=== PATIENT | male | born 1955 | race Caucasian/White ===

== ENCOUNTER 2017-04-11 00:43 | Observation (INO) ==
[2017-04-11 01:33] LABS: Basophils # 0.1 K/mcL (0.0-0.2); Basophils % 0.7 %; Eosinophils # 0.1 K/mcL (0.0-0.6); Eosinophils % 1.2 %; Hematocrit 36.1 % (37.5-50.1); Hemoglobin 12.5 g/dL (12.9-16.9); Immature Granulocytes % 0.4 % (0-4); Lymphocytes # 2.3 K/mcL (0.6-4.6); Lymphocytes % 28.5 %; Mean Corpuscular HGB Conc 34.6 g/dL (31.6-35.5); Mean Corpuscular Hemoglobin 29.6 pg (28.0-33.3); Mean Corpuscular Volume 85.3 fL (83.0-100.0); Mean Platelet Volume 10.2 fL (9.4-12.4); Monocytes # 0.8 K/mcL (0.0-1.3); Monocytes % 9.3 %; Neutrophils # 4.9 K/mcL (1.6-8.9); Platelet Count 240 K/mcL (140-400); Red Blood Count 4.23 M/mcL (4.19-5.50); Red Cell Distribution Width 12.7 % (11.5-14.5); Segmented Neutrophils % 59.9 %
[2017-04-11 01:40] LABS: Activated Partial Thrombo Time 30.8 Seconds (26.0-36.0)
[2017-04-11 01:47] LABS: BUN/Creatinine Ratio 17 (6-26); Blood Urea Nitrogen 24 mg/dL (8-26); Calcium 9.3 mg/dL (8.6-10.8); Carbon Dioxide 25 mEq/L (19-29); Chloride 104 mEq/L (98-109); Glucose 150 mg/dL (70-99); Osmolality,Calculated 295 (280-300); Potassium 3.5 mEq/L (3.5-4.5); Sodium 139 mEq/L (136-145); eGFR For African Americans > 60 (> 60); eGFR For Non-African Americans 50 (> 60)
[2017-04-11] MEDS ORDERED: *HR* Morphine 2 MG/ML SYRINGE IVP PRN (07:57)
[2017-04-11] MEDS ORDERED: Naloxone 0.4 MG/ML INJ IVP PRN (07:57)
[2017-04-11] MEDS ORDERED: Ondansetron 4 MG/2 ML VIAL IVP PRN (07:57)
[2017-04-11] MEDS ORDERED: Acetaminophen 325 MG TABLET PO PRN (07:57)
[2017-04-11] MEDS ORDERED: *HR* Dextrose 50 % in Water (Syg) 50 ML SYRINGE IVP PRN (08:02)
[2017-04-11] MEDS ORDERED: Dextrose Gel 15 GM PO PRN ×2 (08:02)
[2017-04-11] MEDS ORDERED: D5% in Water 1,000 ML IVC PRN (08:02)
[2017-04-11] MEDS ORDERED: Nitroglycerin 0.4 MG TAB.SUBL SL PRN (08:03)
--- NOTE | 2017-04-11 08:08 | Internal Med History&Physical ---
Date of Encounter: 04/11/17 Time of Encounter: 08:05 Assessment and Plan (1) Symptomatic bradycardia Current visit: Yes Status: Acute Likely secondary to beta blockers Fall precautions Hold metoprolol, the patient takes 100 mg twice a day at home Telemetry, consider cardiology consult if bradycardia persists Omeprazole for GI prophylaxis and Lovenox for DVT prophylaxis. The patient will be admitted for observation. Full code. Time spent on this admission 40 minutes. High risk of falling (2) Chest pain Current visit: Yes Status: Acute Intermittent chest discomfort Order an echocardiogram to look for wall motion abnormalities. Continue telemetry, monitor troponins. Consider a stress test Continue aspirin, nitroglycerin as needed, morphine as needed Qualifiers: Chest pain type: other chest pain Qualified Code(s): R07.89 - Other chest pain; R07.8 - Other chest pain (3) CAD (coronary artery disease) Current visit: Yes Status: Acute History of 3 stents Qualifiers: Coronary Disease-Associated Artery/Lesion type: [place] artery [place] vs. transplanted heart: [place] heart Associated angina: with other forms of angina Qualified Code(s): I25.118 - Atherosclerotic heart disease of [place] coronary artery with other forms of angina pectoris (4) Diabetes Current visit: Yes Status: Acute Hold metformin and other oral hypoglycemic agents due to renal failure this Continue insulin sliding scale Qualifiers: Diabetes mellitus type: type 2 Diabetes mellitus complication status: without complication Diabetes mellitus assisted insulin use: without assisted use Qualified Code(s): E11.9 - Type 2 diabetes mellitus without complications (5) Chronic kidney disease Current visit: Yes Status: Acute Acute on chronic renal failure Hold Lasix, give gentle hydration Qualifiers: Chronic kidney disease stage: stage 3 (moderate) Qualified Code(s): N18.3 - Chronic kidney disease, stage 3 (moderate) (6) Neuropathy Current visit: Yes Status: Acute Continue gabapentin Internal Medicine - H&P: HPI Chief complaint: Low heart rate and dizziness Admitted From: Emergency Dept History of present illness: Mr. Griffin is a 62 year old male with a past medical history of CAD, CHF systolic versus diastolic, diabetes type 2 not insulin-dependent, chronic kidney disease , who came to the emergency room complaining of low heart rate down to the 30s noticed at home with a pulse ox device. In emergency room his EKG showed an heart rate of 80s with PVCs. His creatinine is 1.44, patient says that he has had history of chronic kidney disease and his last measurement here in 2013 0.85. The patient also takes metoprolol 100 mg twice a day and he says he has been compliant with his medication. Chest x-ray is unremarkable. The patient was also complaining of chest tightness midsternal with no radiation interment 4 out of 10 in intensity. Complains of mild chest discomfort at the moment. Says that he was feeling dizzy and lightheaded at home. Has not had any syncopal episode. 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 - Family History Father Living Status: Hx Family Cardiac Disorders: Yes - Additional Family History Additional family history: Father with diabetes and CABG, mother with CVA and diabetes Internal Medicine - H&P: Meds Aspirin [Lo-Dose Aspirin EC] 81 tab PO DAILY 04/11/17 [History] Clopidogrel 75 tab PO DAILY 04/11/17 [History] Furosemide [Lasix] 40 mg PO DAILY 04/11/17 [History] Gabapentin [Neurontin] 600 mg PO DAILY 04/11/17 [History] Lisinopril/Hydrochlorothiazide [Zestoretic 10-12.5 mg Tablet] 1 tab PO DAILY [History] Metoprolol 100 tab PO BID 04/11/17 [History] Pioglitazone 0.5 tab PO DAILY 04/11/17 [History] metFORMIN 1,500 mg PO DAILY 04/11/17 [History] Allergies duloxetine [From Cymbalta] Adverse Reaction (Verified 04/11/17 08:10) Vomiting All Systems PM: A 10-system review of systems was performed and is negative for pertinent findings except as documented above in the HPI. Review of systems: Complains of chest discomfort, no shortness of breath, no abdominal pain, no dysuria. Other systems out of the 10 reviewed were negative. He feels weak - Constitutional Vitals: Temp Pulse Resp BP Pulse Ox 97.7 F 75 18 188/91 96 04/11/17 06:46 04/11/17 06:46 04/11/17 06:46 04/11/17 06:46 04/11/17 06:46 General appearance: Present: A&O X 3 - Head Head exam: Present: atraumatic, normocephalic - Eye Eye exam: Present: PERRL, conjuntiva pink, sclera anicteric Pupils: Present: PERRL - Neck Neck exam general surgery: Present: supple, trachea midline. Absent: lymphadenopathy - Respiratory Respiratory exam: Present: CTAB, rales. Absent: accessory muscle use, rhonchi, wheezes - Cardiovascular Cardiovascular exam: Present: RRR, +S1, +S2. Absent: diastolic murmur, gallop, rubs, systolic murmur - GI/Abdominal GI/Abdominal exam: Present: normal bowel sounds, soft, no peritoneal signs. Absent: distended, tenderness - Extremities Exam Extremities exam: Present: warm, radial pulses palpable and symetrical. Absent : calf tenderness, cyanotic, pedal edema - Neurological Exam Neurological exam: Present: CN II-XII intact, oriented X3, no focal deficits. Absent: pronater drift, facial droop, speech deficit - Skin Skin exam: Present: dry, intact Internal Med - H&P Results - Labs CBC & Chem 7: 04/11/17 01:25 04/11/17 01:25
[2017-04-11] MEDS ORDERED: Furosemide 40 MG TABLET PO SCH (09:00)
[2017-04-11] MEDS: Aspirin Enteric Coated 81 MG Tablet PO SCH (10:41)
[2017-04-11] MEDS: Gabapentin 300 MG CAPSULE PO SCH (10:41)
[2017-04-11] MEDS: 0.9 % Sodium Chloride 1,000 ML IVC SCH (10:42)
[2017-04-11] MEDS: Insulin LISPRO 300 UNITS/3 ML VIAL SQ SCH ×3 (11:42→20:54)
--- NOTE | 2017-04-11 14:13 | Electrocardiograph Report ---
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
[2017-04-12 01:51] LABS: BUN/Creatinine Ratio 21 (6-26); Blood Urea Nitrogen 24 mg/dL (8-26); Calcium 8.8 mg/dL (8.6-10.8); Carbon Dioxide 27 mEq/L (19-29); Chloride 106 mEq/L (98-109); Chol/HDL Ratio 5.4 (0-4.9); Cholesterol 136 mg/dL (< 200); Glucose 146 mg/dL (70-99); HDL Cholesterol 25 mg/dL (40-59); LDL Cholesterol,Calculated 66 mg/dL (0-99); Osmolality,Calculated 297 (280-300); Potassium 3.5 mEq/L (3.5-4.5); Sodium 140 mEq/L (136-145); Triglycerides 223 mg/dL (< 150); eGFR For African Americans > 60 (> 60); eGFR For Non-African Americans > 60 (> 60)
[2017-04-12] MEDS ORDERED: Nitroglycerin 1 INCH/GM PACKET TP ONE (05:24)
[2017-04-12] MEDS: *HR* Enoxaparin 40 MG/0.4 ML SYRINGE SQ SCH (05:55)
[2017-04-12 06:04] LABS: Basophils # 0.1 K/mcL (0.0-0.2); Basophils % 0.7 %; Eosinophils # 0.1 K/mcL (0.0-0.6); Eosinophils % 1.2 %; Hematocrit 35.9 % (37.5-50.1); Hemoglobin 12.3 g/dL (12.9-16.9); Immature Granulocytes % 0.3 % (0-4); Lymphocytes # 2.1 K/mcL (0.6-4.6); Lymphocytes % 30.5 %; Mean Corpuscular HGB Conc 34.3 g/dL (31.6-35.5); Mean Corpuscular Hemoglobin 29.1 pg (28.0-33.3); Mean Corpuscular Volume 84.9 fL (83.0-100.0); Mean Platelet Volume 10.7 fL (9.4-12.4); Monocytes # 0.7 K/mcL (0.0-1.3); Monocytes % 10.2 %; Neutrophils # 3.9 K/mcL (1.6-8.9); Platelet Count 215 K/mcL (140-400); Red Blood Count 4.23 M/mcL (4.19-5.50); Red Cell Distribution Width 12.5 % (11.5-14.5); Segmented Neutrophils % 57.1 %
[2017-04-12 06:11] LABS: BUN/Creatinine Ratio 20 (6-26); Blood Urea Nitrogen 19 mg/dL (8-26); Calcium 8.8 mg/dL (8.6-10.8); Carbon Dioxide 24 mEq/L (19-29); Chloride 106 mEq/L (98-109); Glucose 125 mg/dL (70-99); Osmolality,Calculated 290 (280-300); Potassium 3.7 mEq/L (3.5-4.5); Sodium 138 mEq/L (136-145); eGFR For African Americans > 60 (> 60); eGFR For Non-African Americans > 60 (> 60)
[2017-04-12 06:12] LABS: Prothrombin Time 11.3 Seconds (9.4-12.1)
[2017-04-12 06:15] LABS: Activated Partial Thrombo Time 28.5 Seconds (26.0-36.0)
[2017-04-12] MEDS ORDERED: niCARdipine 40 MG/200 ML MLS IVC SCH ×2 (06:15→06:29)
--- NOTE | 2017-04-12 06:28 | Event Note ---
Date of Encounter: 04/12/17 Time of Encounter: 06:21 Called to see patient for symptomatic bradycardia. Pt developed chest pressure/ pain, lightheadedness, dizziness, diaphoresis, and some dyspnea. Upon my arrival, BP was 220/100. I ordered Hydralazine IV, NTP, and Morphine IV. EKG and telemetry revealed Bigeminy. I reviewed his labs from earlier in the morning and noted potassium of 3.5. I ordered potassium replacement with 40 mEQ PO potassium chloride. I am moving patient to once bed is ready and available. If necessary, will start Nicardipine drip for BP control and management of HTN Urgency. Current BP is 176/90. Goal BP will be 160-180 systolic for now. Repeat labs drawn and pending. Cardiology will be consulted. Pt with known CAD and 3 stents per patient report. Pt feels a little better now with SBP < 180.
[2017-04-12] MEDS: Gabapentin 300 MG CAPSULE PO SCH (07:51)
[2017-04-12] MEDS: Aspirin Enteric Coated 81 MG Tablet PO SCH (07:52)
[2017-04-12] MEDS: Insulin LISPRO 300 UNITS/3 ML VIAL SQ SCH ×4 (08:00→20:47)
--- NOTE | 2017-04-12 10:33 | Cardiology Consult Note ---
Date of Encounter: 04/12/17 Time of Encounter: 10:26 Assessment and Plan (1) Bigeminy Current Visit: Yes Status: Acute 24 hour telemetry review shows minimum HR was 61 bpm. Avg HR 90 bpm. No pauses. No bradycardia in last 24 hours. He is noted to have frequent PVC and bigeminy. Sometimes PVC are not counted on telemetry and HR is registered lower than it is. Recommend restarting toprol xl and increasing as tolerated. Symptoms likely secondary to bigemeny and elevated b/p up to 205/89. TTE shows preserved LV function. EF 55-60%. Mild LVH. No significant valvular disease. (2) CAD (coronary artery disease) Current Visit: No Status: Chronic H/o three cardiac stents placed 05/2016 at [facility]. Repeat LHC in September at [facility] showed no new blockages per patient. TTE this admit shows preserved EF. Troponin negative x3. EKG shows no acute ST changes. Medical management of PVC and elevated b/p recommended. C/o myalgias since starting simvistatin. Recommend discontinuing. Consider attempting different statin after one week. Continue asa, plavix, and bb. No further cardiac testing at this time. Qualifiers: Coronary Disease-Associated Artery/Lesion type: [place] artery [place] vs. transplanted heart: [place] heart Associated angina: with other forms of angina Qualified Code(s): I25.118 - Atherosclerotic heart disease of [place] coronary artery with other forms of angina pectoris (3) Myalgia Current Visit: Yes Status: Acute C/o BLE pain since CT. Stop simvistatin. (4) Hypertension Current Visit: Yes Status: Acute Restart toprol XL. B/p currently improved. Restart home lisinopril. Low sodium diet discussed. Qualifiers: Hypertension type: essential hypertension Qualified Code(s): I10 - Essential (primary) hypertension Discussion w patient/family: The assessment and plan as outlined above was discussed with the patient and/or family members who expressed understanding and agreement. All questions were answered. Thank you for involving us in the care of your patient. Please call with any questions. History of Present Illness Consult date: 04/12/17 Requesting physician: Rohit Odell Consult reason: Symptomatic bradycardia Chief complaint: Chest discomfort History of present illness: Mr. Griffin is a 62 year old male with a history of CAD s/p PCI 05/2016 at [facility] after having an abnormal stress test, HTN, HLD, COPD,and DM type II. He presented to the hospital with the c/o increasing chest discomfort. he reports he had these symptoms for a very long time and no one can catch what is wrong. He c/o a midsternal, non-radiating, "funny feeling" in his chest. He describes it as feeling like his heart rate is low or his heart is not beating. It is not the same pain he experienced prior to his cardiac stents in May 2016. Denies dizziness or lightheadedness. He also c/o lower extremity pain mainly in his hips since his CT. He was newly started on simvistatin at that time. Cardiology was consulted for symptomatic bradycardia. Past Med Surg Social Fam HX - Past Medical History Medical history: cardiomyopathy, CHF (Systolic versus diastolic), COPD (Not oxygen dependent), diabetes (Not insulin-dependent), hyperlipidemia, hypertension, other (Neuropathy, chronic kidney disease stage III, chronic back pain) Psychiatric history: no psych history - Past Surgical History Surgical History: angioplasty/stent, other (Foot surgery) - Social History Smoking Status: Never smoker Smokeless Tobacco Status: No Alcohol use: none Drug use: none - Family History Father Living Status: Hx Family Cardiac Disorders: Yes Medications and Allergies Albuterol Sulfate [Ventolin Hfa] 2 puff IH Q4H PRN 04/11/17 [History] Aspirin [Lo-Dose Aspirin EC] 81 tab PO DAILY 04/11/17 [History] Clopidogrel [Plavix] 75 mg PO DAILY 04/11/17 [History] Furosemide [Lasix] 40 mg PO DAILY 04/11/17 [History] Gabapentin [Neurontin] 300 - 600 mg PO HS 04/11/17 [History] Lisinopril/Hydrochlorothiazide [Zestoretic 20-25 mg Tablet] 1 tab PO DAILY 04/11 [History] Metformin HCl [Glucophage Xr] 1,500 mg PO DAILY 04/11/17 [History] Metoprolol Succinate 100 mg PO HS 04/11/17 [History] Metoprolol XL (24 HR) Succ [Toprol XL] 50 mg PO QAM 04/11/17 [History] Pioglitazone [Actos] 22.5 mg PO DAILY 04/11/17 [History] Allergies duloxetine [From Cymbalta] Adverse Reaction (Verified 04/11/17 08:10) Vomiting All Systems Review: A 10-system review of systems was performed and is negative for pertinent findings except as documented above in the HPI. Physical Examination Vital Signs, Last 4 Hours Temp Pulse Resp BP Pulse Ox 04/12/17 06:58 97.8 F 73 18 136/93 97 General: Conversant, No Apparent Distress HEENT: Atraumatic, Normocephaly, Mucus Membranes Moist Neck: No JVD, Normal carotid pulses Cardiac: Reg Rate and Rhythm, Normal S1 and S2, No Murmur Lungs: Normal Breath Sounds, No Wheeze, Rales, Rhonchi Neuro: Alert and responsive, No focal deficits noted Abdomen: Soft, Non-Tender Skin: No rashes noted on visualized skin Musculoskeletal: No Chest Wall Tenderness Extremities: No Clubbing, No Cyanosis, No Edema, Normal Pulses Results 04/12/17 05:52 04/12/17 05:52 Lab Results 04/11/17 04/11/17 04/12/17 13:42 20:06 01:27 WBC Hgb Hct Plt Count INR APTT Sodium 140 Potassium 3.5 Chloride 106 Carbon Dioxide 27 BUN 24 Creatinine 1.13 Glucose 146 H Calcium 8.8 Magnesium Troponin I 0.01 0.01 04/12/17 04/12/17 04/12/17 05:52 05:52 05:52 WBC Hgb Hct Plt Count INR APTT Sodium 138 Potassium 3.7 Chloride 106 Carbon Dioxide 24 BUN 19 Creatinine 0.95 Glucose 125 H Calcium 8.8 Magnesium 1.7 Troponin I 0.01 04/12/17 04/12/17 05:52 05:59 WBC 6.8 Hgb 12.3 L Hct 35.9 L Plt Count 215 INR 1.0 APTT 28.5 Sodium Potassium Chloride Carbon Dioxide BUN Creatinine Glucose Calcium Magnesium Troponin I Chest X-Ray 04/11/17 00:51 IMPRESSION: Negative portable chest. D/ / Adalberto Huntley MD / Adalberto Huntley MD Interpreting Provider: Adalberto Huntley MD - Imaging and Cardiology Chest Xray: report reviewed Echo: report reviewed - EKG Interpretation EKG results cardiology: personally reviewed (SR with PVC) Consult Discharge Plan - Plan Referrals: Jesika Mancini [Non-Partnered Physician] - 04/30/17 1:00 pm (Dr. Zamarripa is going to be leaving, so they set you up with a new patient visit with Dr. Mancini) Escobar Martinez MD [Partnered Physician] - (cardiology will call the patient at home with appointment)
[2017-04-12] MEDS ORDERED: Metoprolol XL (24 HR) Succ 50 MG TAB.ER.24H PO SCH (10:45)
[2017-04-12] MEDS: Metoprolol XL (24 HR) Succ 50 MG TAB.ER.24H PO SCH ×2 (12:04→20:54)
--- NOTE | 2017-04-12 14:43 | Internal Med Progress Note ---
<Yaniv Campos - Last Filed: 04/12/17 15:07> Date of Encounter: 04/12/17 Time of Encounter: 08:00 - Assessment and plan (1) Chest pain Current Visit: Yes Status: Acute Assessment and plan: Intermittent chest discomfort relieved by nitroglycerin -Continue telemetry, NTG PRN, Morphine PRN -Initial trops negative, will trend per cardio recs -Cardio on board Qualifiers: Chest pain type: other chest pain Qualified Code(s): R07.89 - Other chest pain; R07.8 - Other chest pain (2) CAD (coronary artery disease) Current Visit: No Status: Chronic Assessment and plan: s/p stentx3. -Restart BB at lower dose per cardiology recs Qualifiers: Coronary Disease-Associated Artery/Lesion type: [place] artery [place] vs. transplanted heart: [place] heart Associated angina: with other forms of angina Qualified Code(s): I25.118 - Atherosclerotic heart disease of [place] coronary artery with other forms of angina pectoris (3) Bigeminy Current Visit: Yes Status: Acute Assessment and plan: Pt on telemetry and experiencing transient bigeminal rhythms with many PVCs. This could be a source of his chest discomfort. -Start Imdur 30mg per cardio recs. (4) Diabetes Current Visit: Yes Status: Acute Assessment and plan: Blood glucose controlled appropriately on sliding scale at this time. Qualifiers: Diabetes mellitus type: type 2 Diabetes mellitus complication status: without complication Diabetes mellitus nursing home insulin use: without sales representatives use Qualified Code(s): E11.9 - Type 2 diabetes mellitus without complications (5) Chronic kidney disease Current Visit: Yes Status: Chronic Assessment and plan: Acute on chronic Hold Lasix, gentle hydration Qualifiers: Chronic kidney disease stage: stage 3 (moderate) Qualified Code(s): N18.3 - Chronic kidney disease, stage 3 (moderate) (6) Hypertension Current Visit: Yes Status: Acute Assessment and plan: Continue BB at lower dose, start imdur 30mg -Cardio on board and we will follow recs Qualifiers: Hypertension type: essential hypertension Qualified Code(s): I10 - Essential (primary) hypertension (7) Myalgia Current Visit: Yes Status: Acute Assessment and plan: D/c statin at this time - Subjective Interval history: The patient is resting comfortably in bed at time of examination. He says that he is still having some chest discomfort occasionally, and that he had some earlier this morning which was relieved by nitroglycerin. He states that he is not extremely anxious about the chest discomfort, however he says that he does feel like his heart is going to stop at any time. - Constitutional Vitals: Temp Pulse Resp BP Pulse Ox 97.8 F 68 18 137/84 97 04/12/17 11:33 04/12/17 12:30 04/12/17 11:33 04/12/17 11:33 04/12/17 11:33 General appearance: Present: A&O X 3 - Head Head exam: Present: atraumatic, normocephalic - Eye Eye exam: Present: PERRL, conjuntiva pink, sclera anicteric Pupils: Present: PERRL - Neck Neck exam general surgery: Present: supple, trachea midline. Absent: lymphadenopathy - Respiratory Respiratory exam: Present: CTAB. Absent: accessory muscle use, rales, rhonchi, wheezes - Cardiovascular Cardiovascular exam: Present: RRR, +S1, +S2. Absent: diastolic murmur, gallop, rubs, systolic murmur - GI/Abdominal GI/Abdominal exam: Present: normal bowel sounds, soft, no peritoneal signs. Absent: distended, tenderness - Extremities Exam Extremities exam: Present: pedal edema, warm, radial pulses palpable and symetrical. Absent: calf tenderness, cyanotic Additional comments: +1 edema in LEs b/l - Neurological Exam Neurological exam: Present: CN II-XII intact, oriented X3, no focal deficits. Absent: pronater drift, facial droop, speech deficit - Skin Skin exam: Present: dry, intact Internal Medicine: Result - Labs CBC & Chem 7: 04/12/17 05:52 04/12/17 05:52 Labs: Short CBC 04/12/17 Range/Units 05:52 WBC 6.8 (4.3-11.1) K/mcL Hgb 12.3 L (12.9-16.9) g/dL Hct 35.9 L (37.5-50.1) % Plt Count 215 (140-400) K/mcL Neutrophils # 3.9 (1.6-8.9) K/mcL BMP 04/12/17 04/12/17 01:27 05:52 Sodium 140 138 Potassium 3.5 3.7 Chloride 106 106 Carbon Dioxide 27 24 BUN 24 19 Creatinine 1.13 0.95 Glucose 146 H 125 H Calcium 8.8 8.8 Cardiac Enzymes 04/11/17 04/11/17 04/12/17 Range/Units 13:42 20:06 05:52 Troponin I 0.01 0.01 0.01 (0-0.03) ng/mL - ABG Interpretation ABG results: PT/INR, D-dimer PT 11.3 Seconds (9.4-12.1) 04/12/17 05:59 Consult Discharge Plan - Plan Referrals: Jesika Mancini [Non-Partnered Physician] - 04/30/17 1:00 pm (Dr. Zamarripa is going to be leaving, so they set you up with a new patient visit with Dr. Mancini) Escobar Martinez MD [Partnered Physician] - (cardiology will call the patient at home with appointment) <Max Vasquez - Last Filed: 04/12/17 18:52> Date of Encounter: 04/12/17 - Assessment and plan (1) Hypertensive emergency Current Visit: Yes Status: Acute Assessment and plan: Improving with current treatment. (2) Bradycardia, drug induced Current Visit: Yes Status: Acute Assessment and plan: Most likely related to metoprolol (3) Hypertension Current Visit: Yes Status: Acute Qualifiers: Hypertension type: essential hypertension Qualified Code(s): I10 - Essential (primary) hypertension (4) Chest pain Current Visit: Yes Status: Acute Qualifiers: Chest pain type: other chest pain Qualified Code(s): R07.89 - Other chest pain; R07.8 - Other chest pain (5) Diabetes Current Visit: Yes Status: Acute Qualifiers: Diabetes mellitus type: type 2 Diabetes mellitus complication status: without complication Diabetes mellitus sales representatives insulin use: without sales representatives use Qualified Code(s): E11.9 - Type 2 diabetes mellitus without complications (6) Myalgia Current Visit: Yes Status: Acute (7) CAD (coronary artery disease) Current Visit: No Status: Chronic Qualifiers: Coronary Disease-Associated Artery/Lesion type: [place] artery [place] vs. transplanted heart: [place] heart Associated angina: with other forms of angina Qualified Code(s): I25.118 - Atherosclerotic heart disease of [place] coronary artery with other forms of angina pectoris (8) Chronic kidney disease Current Visit: Yes Status: Chronic Qualifiers: Chronic kidney disease stage: stage 3 (moderate) Qualified Code(s): N18.3 - Chronic kidney disease, stage 3 (moderate) - Constitutional Vitals: Temp Pulse Resp BP Pulse Ox 98.0 F 62 18 136/78 93 04/12/17 16:18 04/12/17 16:18 04/12/17 16:18 04/12/17 16:18 04/12/17 16:18 Internal Medicine: Result - Labs CBC & Chem 7: 04/12/17 05:52 04/12/17 05:52 Labs: Short CBC 04/12/17 Range/Units 05:52 WBC 6.8 (4.3-11.1) K/mcL Hgb 12.3 L (12.9-16.9) g/dL Hct 35.9 L (37.5-50.1) % Plt Count 215 (140-400) K/mcL Neutrophils # 3.9 (1.6-8.9) K/mcL BMP 04/12/17 04/12/17 01:27 05:52 Sodium 140 138 Potassium 3.5 3.7 Chloride 106 106 Carbon Dioxide 27 24 BUN 24 19 Creatinine 1.13 0.95 Glucose 146 H 125 H Calcium 8.8 8.8 Cardiac Enzymes 04/11/17 04/12/17 04/12/17 Range/Units 20:06 05:52 18:03 Troponin I 0.01 0.01 0.00 (0-0.03) ng/mL - ABG Interpretation ABG results: PT/INR, D-dimer PT 11.3 Seconds (9.4-12.1) 04/12/17 05:59 - Attending Attestation I examined this patient and my medical decision-making was reviewed with the Resident Physician on 04/12/17. I agree with the documented findings, disposition and treatment plan as described except to the extent set forth below. Mr. Griffin is currently admitted for acute bradycardia and chest pain complicated by hypertensive emergency. He remains high risk due to potential for worsening cardiac status. Mr Griffin is still feeling the symptoms in his chest. He feels palpitations and "funny feeling" that has been relieved by nitro in past. No dyspnea. Has headache on L side which he feels is from nitro. No GI symptoms. No fever or chills. Has been seen by card and is to be restarted on lower dose of metoprolol and Imdur added. Exam Alert. Comfortable but anxious Mucus membranes dry Heart reg - not ravi now Lungs clear Abd soft No edema I/P 1. Bradycardia - improved with holding med 2. Palpitations 3. Hypertensive emergency - improving at this time. Further diagnoses and plan as above.
[2017-04-12] MEDS: Isosorbide MONOnitrate (24 HR) 30 MG TAB.ER.24H PO SCH (14:46)
[2017-04-12] MEDS: 0.9 % Sodium Chloride 1,000 ML IVC SCH (17:01)
--- NOTE | 2017-04-12 17:31 | Electrocardiograph Report ---
[address] [address] Test Date: 2017-04-12 Pat Name: Rc Griffin Department: 114 Room: 2N01 Gender: M Time Study Technician: KANE : 1955 Requested By: Max Vasquez Order Number: [id number] Reading MD: Alejandro Hopper DO Measurements Intervals [place] Rate: 68 P: 29 UT: 183 QRS: 10 QRSD: 108 T: 24 QT: 439 QTc: 456 Interpretive Statements SINUS RHYTHM WITH FREQUENT VENTRICULAR PREMATURE COMPLEXES NONSPECIFIC ST-T CHANGES Electronically Signed On 04-12-2017 17:29:13 EDT by Alejandro Hopper DO
[2017-04-13 05:12] LABS: Basophils % 0.5 %; Eosinophils # 0.1 K/mcL (0.0-0.6); Hematocrit 31.1 % (37.5-50.1); Hemoglobin 10.9 g/dL (12.9-16.9); Immature Granulocytes % 0.4 % (0-4); Lymphocytes # 1.5 K/mcL (0.6-4.6); Lymphocytes % 18.8 %; Mean Corpuscular Hemoglobin 30.3 pg (28.0-33.3); Mean Corpuscular Volume 86.4 fL (83.0-100.0); Mean Platelet Volume 10.7 fL (9.4-12.4); Monocytes # 0.7 K/mcL (0.0-1.3); Monocytes % 8.8 %; Neutrophils # 5.6 K/mcL (1.6-8.9); Platelet Count 172 K/mcL (140-400); Red Cell Distribution Width 12.6 % (11.5-14.5); Segmented Neutrophils % 70.5 %
[2017-04-13 05:26] LABS: BUN/Creatinine Ratio 22 (6-26); Blood Urea Nitrogen 22 mg/dL (8-26); Calcium 8.2 mg/dL (8.6-10.8); Carbon Dioxide 23 mEq/L (19-29); Chloride 112 mEq/L (98-109); Glucose 115 mg/dL (70-99); Osmolality,Calculated 292 (280-300); Potassium 3.9 mEq/L (3.5-4.5); Sodium 139 mEq/L (136-145); eGFR For African Americans > 60 (> 60); eGFR For Non-African Americans > 60 (> 60)
[2017-04-13] MEDS: *HR* Enoxaparin 40 MG/0.4 ML SYRINGE SQ SCH (05:42)
[2017-04-13] MEDS: Insulin LISPRO 300 UNITS/3 ML VIAL SQ SCH ×4 (07:37→21:16)
[2017-04-13] MEDS: Metoprolol XL (24 HR) Succ 50 MG TAB.ER.24H PO SCH ×2 (09:24→21:19)
[2017-04-13] MEDS: Aspirin Enteric Coated 81 MG Tablet PO SCH (09:24)
[2017-04-13] MEDS: Isosorbide MONOnitrate (24 HR) 30 MG TAB.ER.24H PO SCH (09:24)
[2017-04-13] MEDS: Gabapentin 300 MG CAPSULE PO SCH (09:25)
--- NOTE | 2017-04-13 09:33 | Discharge Summary ---
<Yaniv Campos - Last Filed: 04/13/17 15:05> Date of Encounter: 04/13/17 Time of Encounter: 09:30 - Discharge Diagnosis (1) Chest pain Priority: Primary Status: Acute Comments: Intermittent chest discomfort relieved by nitroglycerin Troponins have been negative. No signs of ACS. Likely caused by frequent PVCs. We will continue low dose metoprolol and imdur. Patient should follow up as outpatient Qualifiers: Chest pain type: other chest pain Qualified Code(s): R07.89 - Other chest pain; R07.8 - Other chest pain (2) CAD (coronary artery disease) Priority: Secondary Status: Chronic Comments: s/p stentx3. D/c on BB, jory, ASA and plavix Qualifiers: Coronary Disease-Associated Artery/Lesion type: [place] artery [place] vs. transplanted heart: [place] heart Associated angina: with other forms of angina Qualified Code(s): I25.118 - Atherosclerotic heart disease of [place] coronary artery with other forms of angina pectoris (3) Bigeminy Priority: Primary Status: Acute Comments: NSR on monitor for past 12 hours, and patient reports no sensation of PVCs. (4) Diabetes Priority: Secondary Status: Acute Comments: Well managed throughout stay. Patient should continue to home meds and follow up with primary care for glycemic management. Qualifiers: Diabetes mellitus type: type 2 Diabetes mellitus complication status: without complication Diabetes mellitus supervisor intermediates insulin use: without mcc use Qualified Code(s): E11.9 - Type 2 diabetes mellitus without complications (5) Chronic kidney disease Priority: Secondary Status: Chronic Comments: Stable Qualifiers: Chronic kidney disease stage: stage 3 (moderate) Qualified Code(s): N18.3 - Chronic kidney disease, stage 3 (moderate) (6) Hypertension Priority: Primary Status: Acute Comments: The patient's blood pressure is difficult to control due to his tendency for low -normal to bradycardic rates. We will continue the meds he has been on in the hospital at home. Qualifiers: Hypertension type: essential hypertension Qualified Code(s): I10 - Essential (primary) hypertension (7) Myalgia Priority: Secondary Status: Acute Comments: D/c statin - Discharge Medications Prescriptions: Isosorbide MONOnitrate (24 HR) [Imdur] 30 mg PO DAILY #30 Lisinopril [Zestril] 20 mg PO DAILY #30 tablet Metoprolol XL (24 HR) Succ [Toprol Xl] 50 mg PO BID #60 Omeprazole [PriLOSEC] 20 mg PO DAILY@0630 #30 Home Medications: Albuterol Sulfate [Ventolin Hfa] 2 puff IH Q4H PRN 04/11/17 [History] Aspirin [Lo-Dose Aspirin EC] 81 tab PO DAILY 04/11/17 [History] Clopidogrel [Plavix] 75 mg PO DAILY 04/11/17 [History] Furosemide [Lasix] 40 mg PO DAILY 04/11/17 [History] Gabapentin [Neurontin] 300 - 600 mg PO HS 04/11/17 [History] Metformin HCl [Glucophage Xr] 1,500 mg PO DAILY 04/11/17 [History] Pioglitazone [Actos] 22.5 mg PO DAILY 04/11/17 [History] Isosorbide MONOnitrate (24 HR) [Imdur] 30 mg PO DAILY #30 04/13/17 [Rx] Lisinopril [Zestril] 20 mg PO DAILY #30 tablet 04/13/17 [Rx] Metoprolol XL (24 HR) Succ [Toprol Xl] 50 mg PO BID #60 04/13/17 [Rx] Nitroglycerin 0.4 mg SL Q5MIN PRN 04/13/17 [Rx] Omeprazole [PriLOSEC] 20 mg PO DAILY@0630 #30 04/13/17 [Rx] Allergies/Adverse Reactions: Allergies duloxetine [From Cymbalta] Adverse Reaction (Verified 04/11/17 08:10) Vomiting Procedures/tests Complete & Pending: Procedures Performed prior 72 hours Category Date Time Status ECG 12 lead ECG [ECG] Routine Y 04/12/17 05:23 Completed EV echocardiogram Routine Y 04/11/17 08:03 Completed Date of admission: 04/11/17 05:58 Primary care physician: PCP NO Consults: 04/12/17 06:20 Consult to Cardiology [CONS] Routine Comment: Consulting Provider: Cardiology Kristy Reason for Consult: symptomatic bradycardia Call Completed: No - Patient Status Disposition: Home, Self-Care Condition: Fair Functional capacity at discharge: independent ambulation Overall status at discharge: patient is progressing back to baseline - Discharge Instructions Instructions: Metoprolol (By mouth), Lisinopril (By mouth), Omeprazole (By mouth), Isosorbide Mononitrate (By mouth), Chronic Hypertension (DC), Bradycardia (DC) Follow Up With: Jesika Mancini [Non-Partnered Physician] - 04/30/17 1:00 pm (Dr. Zamarripa is going to be leaving, so they set you up with a new patient visit with Dr. Mancini) Escobar Martinez MD [Partnered Physician] - (cardiology will call the patient at home with appointment) Yaniv Campos DO [Resident] - (REQUEST WAS SENT. PLEASE FOLLOW UP IN 1-2 WEEKS. ) Additional Instructions: The patient should follow up with PCP within 1-2 weeks, and with cardiology as directed. The patient has asked to establish primary care at the [facility] with either Dr. Yaniv Campos or Dr. Pranav Hahn if possible. - Diet and Activity Activity: as per the cardiac rehab Diet: low salt diet Hospital course: Mr. Griffin is a 62 year old male with a past medical history of CAD s/p stent x3 ( 07/15), CHF systolic versus diastolic, diabetes type 2 not insulin-dependent, chronic kidney disease, who came to the emergency room complaining of low heart rate down to the 30s noticed at home with a pulse ox device. In emergency room his EKG showed an heart rate of 80s with PVCs, however his beta angus was stopped due to potential medication induced symptomatic bradychardia. His creatinine was 1.44, patient said that he has had history of chronic kidney disease and his last measurement here in 2013 0.85. The patient also took metoprolol 100 mg twice a day and he says he has been compliant with his medication. He was admitted to the floor for observation and telemetry, but the monitor picked up on several runs of bradycardia with PVCs in a bigeminal pattern while the patient simultaneously was having hypertensive emergency. The patient was transferred to step-down unit and cardiology was consulted. Trops were trended and negative, TTE showed no wall motion abnormalities, and beta angus therapy was reintroduced at a decreased dose along with Imdur at the recommendation of cardiology. The patient's symptoms of chest discomfort approved on this regimen, and his HR and BP remained stable after initiating this therapy. We will continue the patient on these meds post discharge and have him follow up outpatient with both PCP and Cardiology. - Time Spent with Patient Total time spent providing and/or coordinating discharge services: - Constitutional Vitals: Temp Pulse Resp BP Pulse Ox 98.2 F 53 16 135/62 97 04/13/17 07:16 04/13/17 07:16 04/13/17 07:16 04/13/17 07:16 04/13/17 07:16 General appearance: Present: A&O X 3 - Head Head exam: Present: atraumatic, normocephalic - Eye Eye exam: Present: PERRL, conjuntiva pink, sclera anicteric Pupils: Present: PERRL - Neck Neck exam general surgery: Present: supple, trachea midline. Absent: lymphadenopathy - Respiratory Respiratory exam: Present: CTAB. Absent: accessory muscle use, rales, rhonchi, wheezes - Cardiovascular Cardiovascular exam: Present: RRR, +S1, +S2. Absent: diastolic murmur, gallop, rubs, systolic murmur - GI/Abdominal GI/Abdominal exam: Present: normal bowel sounds, soft, no peritoneal signs. Absent: distended, tenderness - Extremities Exam Extremities exam: Present: warm, radial pulses palpable and symetrical. Absent : calf tenderness, cyanotic, pedal edema - Neurological Exam Neurological exam: Present: CN II-XII intact, oriented X3, no focal deficits. Absent: pronater drift, facial droop, speech deficit - Skin Skin exam: Present: dry, intact <Max Vasquez - Last Filed: 04/13/17 18:18> Date of Encounter: 04/13/17 - Discharge Diagnosis (1) Hypertensive emergency Priority: Primary Status: Acute (2) Bradycardia, drug induced Priority: Primary Status: Acute (3) Hypertension Status: Acute Qualifiers: Hypertension type: essential hypertension Qualified Code(s): I10 - Essential (primary) hypertension (4) Chest pain Status: Acute Qualifiers: Chest pain type: other chest pain Qualified Code(s): R07.89 - Other chest pain; R07.8 - Other chest pain (5) Diabetes Status: Acute Qualifiers: Diabetes mellitus type: type 2 Diabetes mellitus complication status: with neurologic complications Diabetes mellitus complication detail: with polyneuropathy Diabetes mellitus supervisor intermediates insulin use: without mcc use Qualified Code(s): E11.42 - Type 2 diabetes mellitus with diabetic polyneuropathy (6) Myalgia Status: Acute (7) CAD (coronary artery disease) Status: Chronic Qualifiers: Coronary Disease-Associated Artery/Lesion type: [place] artery [place] vs. transplanted heart: [place] heart Associated angina: with other forms of angina Qualified Code(s): I25.118 - Atherosclerotic heart disease of [place] coronary artery with other forms of angina pectoris (8) Chronic kidney disease Status: Chronic Qualifiers: Chronic kidney disease stage: stage 3 (moderate) Qualified Code(s): N18.3 - Chronic kidney disease, stage 3 (moderate) Procedures/tests Complete & Pending: Procedures Performed prior 72 hours Category Date Time Status MR angio head wo con [MR] Stat MRI 04/13/17 15:07 Completed MR angio neck wo/w con [MR] Stat MRI 04/13/17 14:34 Completed MR cervical spine wo con [MR] Stat MRI 04/13/17 14:34 Completed MR head/brain wo con [MR] Stat MRI 04/13/17 14:34 Completed ECG 12 lead ECG [ECG] Routine Y 04/12/17 05:23 Completed ECG 12 lead ECG [ECG] Stat Y 04/13/17 13:56 Ordered EV echocardiogram Routine Y 04/11/17 08:03 Completed Date of admission: 04/11/17 05:58 Primary care physician: PCP NO Consults: 04/12/17 06:20 Consult to Cardiology [CONS] Routine Comment: Consulting Provider: Cardiology Kristy Reason for Consult: symptomatic bradycardia Call Completed: No Hospital course: Mr. Griffin is a 62 year old male - Time Spent with Patient Total time spent providing and/or coordinating discharge services: - Constitutional Vitals: Temp Pulse Resp BP Pulse Ox 97.8 F 55 17 173/93 98 04/13/17 11:49 04/13/17 17:46 04/13/17 17:46 04/13/17 17:46 04/13/17 17:46 - Attending Attestation I examined this patient and my medical decision-making was reviewed with the Resident Physician on 04/13/17. I agree with the documented findings, disposition and treatment plan as described except to the extent set forth below. Mr. Griffin was admitted for chest pain and bradycardia. Symptoms have improved and medications have been adjusted by cardiology. He is feeling well and ready to go home. No fever and vitals stable. Exam Alert. Comfortable Mucus membranes moist Heart reg - not ravi now Lungs clear Plan D/C home on lower dose Metoprolol and Imdur. No diuretic. Follow up with cardiology and PCP.
--- NOTE | 2017-04-13 09:52 | Cardiology Progress Note ---
Date of Encounter: 04/13/17 Time of Encounter: 08:40 Assessment and Plan (1) Bigeminy Current Visit: Yes Status: Acute 24 hour telemetry review shows minimum HR was 44 bpm at 0430 am. No daytime bradycardia seen. Avg HR 61 bpm. No pauses. minimal PVC and bigeminy seen since yesterday morning. Symptoms have resolved. Tolerating Toprol-XL 50 mg twice a day. Dosed decreased from 100 mg in the a.m. and 50 mg in the p.m. on admission. HCTZ stopped and imdur started. Symptoms likely secondary to bigemeny and elevated b/p up to 205/89. TTE shows preserved LV function. EF 55-60%. Mild LVH. No significant valvular disease. Kristy cardiology will coordinate outpatient follow-up with Kristy Vang in 2-3 weeks. Cardiology will sign off, please call with questions. (2) CAD (coronary artery disease) Current Visit: No Status: Chronic H/o three cardiac stents placed 05/2016 at [facility]. Repeat LHC in September at [facility] showed no new blockages per patient. TTE this admit shows preserved EF. Troponin negative x3. EKG shows no acute ST changes. Medical management of PVC and elevated b/p recommended. C/o myalgias since starting simvistatin. Recommend discontinuing. Consider attempting different statin after one week. Continue asa, plavix, and bb. No further cardiac testing at this time. Qualifiers: Coronary Disease-Associated Artery/Lesion type: [place] artery [place] vs. transplanted heart: [place] heart Associated angina: with other forms of angina Qualified Code(s): I25.118 - Atherosclerotic heart disease of [place] coronary artery with other forms of angina pectoris (3) Myalgia Current Visit: Yes Status: Acute C/o BLE pain since [place]. Stop simvistatin. (4) Hypertension Current Visit: Yes Status: Acute Blood pressure is now acceptable. Continue Toprol-XL and lisinopril. Qualifiers: Hypertension type: essential hypertension Qualified Code(s): I10 - Essential (primary) hypertension Discussion w patient/family: The assessment and plan as outlined above was discussed with the patient and/or family members who expressed understanding and agreement. All questions were answered. Thank you for involving us in the care of your patient. Please call with any questions. Subjective Principal diagnosis: Bigeminy, uncontrolled HTN Interval history: Mr. Griffin reports he is feeling better. He denies recurrent chest discomfort. Denies dizziness or syncope. Objective Vital Signs, Last 4 Hours Temp Pulse Resp BP Pulse Ox 04/13/17 09:31 65 155/80 96 04/13/17 08:00 60 135/70 04/13/17 07:16 98.2 F 53 16 135/62 97 General: Conversant, No Apparent Distress HEENT: Atraumatic, Normocephaly, Mucus Membranes Moist Neck: No JVD, Normal carotid pulses Cardiac: Reg Rate and Rhythm, Normal S1 and S2, No Murmur Lungs: Normal Breath Sounds, No Wheeze, Rales, Rhonchi Neuro: Alert and responsive, No focal deficits noted Abdomen: Soft, Non-Tender Skin: No rashes noted on visualized skin Musculoskeletal: No Chest Wall Tenderness Extremities: No Clubbing, No Cyanosis, No Edema, Normal Pulses Results 04/13/17 04:59 04/13/17 04:59 Lab Results 04/12/17 04/13/17 04/13/17 18:03 04:59 04:59 WBC 7.9 Hgb 10.9 L Hct 31.1 L Plt Count 172 Sodium 139 Potassium 3.9 Chloride 112 H Carbon Dioxide 23 BUN 22 Creatinine 1.01 Glucose 115 H Calcium 8.2 L Troponin I 0.00 - Imaging and Cardiology Echo: report reviewed - EKG Interpretation EKG results cardiology: personally reviewed Consult Discharge Plan - Plan Referrals: Jesika Mancini [Non-Partnered Physician] - 04/30/17 1:00 pm (Dr. Zamarripa is going to be leaving, so they set you up with a new patient visit with Dr. Mancini) Escobar Martinez MD [Partnered Physician] - (cardiology will call the patient at home with appointment)
--- NOTE | 2017-04-13 15:16 | Event Note ---
<Yaniv Campos - Last Filed: 04/13/17 15:18> Date of Encounter: 04/13/17 Time of Encounter: 15:09 Nurse called while patient was preparing for discharge and said that he had gotten dizzy while ambulating and showering, and again felt discomfort in his chest and palpitations. He was no longer on telemetry at this time. I ordered a stat 12-lead EKG which showed sinus rhythm, and paged Cardiology for recommendations. When interviewed, the patient mentions that his chest discomfort had largely resolved, but that he still felt palpitations. He is not short of breath, and is in no apparent acute distress. He said that he has had an acute visual change associated with this episode, and that he feels his vision is more blurred than he is used to. I completed a neurological exam and found CN2-12 grossly intact b/l, muscle strength 5/5 in upper extremities with R. shoulder ROM limited s/p injury to the R. rotator cuff, and 4/5 in lower extremities, with particular deficit in hip flexion. The patient was unable to complete full heel to laura due to weakness in hip flexion and pain. Sensation was intact and equal b/l. Plan: -Cancel discharge, consult cardiology for updated rec's -Start telemetry again -MRI/MRA head and neck -ESR, CRP, CPK -Monitor patient overnight. <Max Vasquez - Last Filed: 04/13/17 18:20> Date of Encounter: 04/13/17 Pt had recurrence of symptoms prior to discharge. He is complaining of visual issues as well as leg pain and difficulty with movement. At this time will hold discharge. Check MRI/MRA ? if another neuro process like Eathimanshu Lambcorine Anticipate will need neuro eval.
[2017-04-13 15:22] LABS: C-Reactive Protein 11 mg/L (Less than 5); Creatine Kinase 51 Units/L (30-200)
[2017-04-13] MEDS: 0.9 % Sodium Chloride 1,000 ML IVC SCH (18:04)
[2017-04-14] MEDS: *HR* Enoxaparin 40 MG/0.4 ML SYRINGE SQ SCH (05:36)
[2017-04-14 06:28] LABS: Basophils % 0.4 %; Eosinophils # 0.1 K/mcL (0.0-0.6); Eosinophils % 0.9 %; Hematocrit 30.8 % (37.5-50.1); Hemoglobin 10.7 g/dL (12.9-16.9); Immature Granulocytes % 0.4 % (0-4); Lymphocytes # 1.4 K/mcL (0.6-4.6); Mean Corpuscular HGB Conc 34.7 g/dL (31.6-35.5); Mean Corpuscular Hemoglobin 29.7 pg (28.0-33.3); Mean Corpuscular Volume 85.6 fL (83.0-100.0); Mean Platelet Volume 10.9 fL (9.4-12.4); Monocytes # 0.7 K/mcL (0.0-1.3); Monocytes % 10.4 %; Neutrophils # 4.8 K/mcL (1.6-8.9); Platelet Count 185 K/mcL (140-400); Red Cell Distribution Width 12.4 % (11.5-14.5); Segmented Neutrophils % 67.9 %
[2017-04-14 06:42] LABS: BUN/Creatinine Ratio 19 (6-26); Blood Urea Nitrogen 17 mg/dL (8-26); Calcium 8.2 mg/dL (8.6-10.8); Carbon Dioxide 26 mEq/L (19-29); Chloride 111 mEq/L (98-109); Glucose 115 mg/dL (70-99); Osmolality,Calculated 292 (280-300); Potassium 3.8 mEq/L (3.5-4.5); Sodium 140 mEq/L (136-145); eGFR For African Americans > 60 (> 60); eGFR For Non-African Americans > 60 (> 60)
[2017-04-14] MEDS: Insulin LISPRO 300 UNITS/3 ML VIAL SQ SCH ×2 (08:58→12:26)
[2017-04-14] MEDS: Metoprolol XL (24 HR) Succ 50 MG TAB.ER.24H PO SCH (09:02)
[2017-04-14] MEDS: Isosorbide MONOnitrate (24 HR) 30 MG TAB.ER.24H PO SCH (09:02)
[2017-04-14] MEDS: Gabapentin 300 MG CAPSULE PO SCH (09:02)
[2017-04-14] MEDS: Aspirin Enteric Coated 81 MG Tablet PO SCH (09:02)
[2017-04-14] MEDS: 0.9 % Sodium Chloride 1,000 ML IVC SCH ×2 (09:09→09:46)
--- NOTE | 2017-04-14 10:44 | Internal Med Progress Note ---
<Yaniv Campos - Last Filed: 04/14/17 12:11> Date of Encounter: 04/14/17 Time of Encounter: 10:42 - Assessment and plan (1) Chest pain Status: Acute Assessment and plan: Intermittent chest discomfort relieved by nitroglycerin -Continue telemetry, NTG PRN, Morphine PRN -Initial trops negative, will trend per cardio recs -we asked for cardio's opinion again, despite having previously signed off on the case. -Obtained a neuro consult for issues of muscle weakness and visual disturbance, but will seek their opinion on the issue of neurological causes of bradycardia Qualifiers: Chest pain type: other chest pain Qualified Code(s): R07.89 - Other chest pain; R07.8 - Other chest pain (2) CAD (coronary artery disease) Status: Chronic Assessment and plan: s/p stentx3. -Restart BB at lower dose per cardiology recs Qualifiers: Coronary Disease-Associated Artery/Lesion type: [place] artery [place] vs. transplanted heart: [place] heart Associated angina: with other forms of angina Qualified Code(s): I25.118 - Atherosclerotic heart disease of [place] coronary artery with other forms of angina pectoris (3) Bigeminy Status: Acute Assessment and plan: Pt on telemetry and experiencing transient bigeminal rhythms with many PVCs. This could be a source of his chest discomfort. -Start Imdur 30mg per cardio recs. -Mostly resolved (4) Diabetes Status: Acute Assessment and plan: Blood glucose controlled appropriately on sliding scale at this time. 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 Qualified Code(s): E11.42 - Type 2 diabetes mellitus with diabetic polyneuropathy (5) Chronic kidney disease Status: Chronic Assessment and plan: Acute on chronic Hold Lasix, gentle hydration Qualifiers: Chronic kidney disease stage: stage 3 (moderate) Qualified Code(s): N18.3 - Chronic kidney disease, stage 3 (moderate) (6) Hypertension Status: Acute Assessment and plan: Continue BB at lower dose, imdur 30mg Qualifiers: Hypertension type: essential hypertension Qualified Code(s): I10 - Essential (primary) hypertension (7) Myalgia Status: Acute Assessment and plan: D/c statin at this time (8) Weakness generalized Status: Acute Assessment and plan: -The patient is experiencing muscle weakness in his lower extremities and visual changes. -MRI/MRA of Head and neck at negative for intracranial pathology at this time. -We have consulted neurology. - Subjective Interval history: The patient is resting comfortably in bed at time of examination. He says that his chest discomfort has pretty muh resolves since lying back down in bed. He has not had and chest pains, shortness of breath, and he is having minimal palpitations. The patient and his family are concerned about whatever could be causing these issues. I reassured them that we are attempting to rule out all serious/life threatening problems. - Constitutional Vitals: Temp Pulse Resp BP Pulse Ox 98.3 F 76 14 158/73 96 04/14/17 07:00 04/14/17 09:16 04/14/17 07:00 04/14/17 07:00 04/14/17 09:16 General appearance: Present: A&O X 3 - Head Head exam: Present: atraumatic, normocephalic - Eye Eye exam: Present: PERRL, conjuntiva pink, sclera anicteric Pupils: Present: PERRL - Neck Neck exam general surgery: Present: supple, trachea midline. Absent: lymphadenopathy - Respiratory Respiratory exam: Present: CTAB. Absent: accessory muscle use, rales, rhonchi, wheezes - Cardiovascular Cardiovascular exam: Present: RRR, +S1, +S2. Absent: diastolic murmur, gallop, rubs, systolic murmur Additional comments: Occasional PVCs - GI/Abdominal GI/Abdominal exam: Present: normal bowel sounds, soft, no peritoneal signs. Absent: distended, tenderness - Extremities Exam Extremities exam: Present: warm, radial pulses palpable and symetrical. Absent : calf tenderness, cyanotic, pedal edema - Neurological Exam Neurological exam: Present: alert, CN II-XII intact, oriented X3. Absent: pronater drift, facial droop, speech deficit Additional comments: Muscle strength in Upper extremities 5/5 b/l Muscle strength in LEs 4/5 in flexion of hip. Patient struggles to stand without using arms. Stocking pattern sensory deficits in lower extremities consistent with peripheral neuropathy, likely 2/2 DM2. - Skin Skin exam: Present: dry, intact Internal Medicine: Result - Labs CBC & Chem 7: 07/16/17 05:36 04/14/17 05:36 Labs: Short CBC 04/14/17 Range/Units 05:36 WBC 7.0 (4.3-11.1) K/mcL Hgb 10.7 L (12.9-16.9) g/dL Hct 30.8 L (37.5-50.1) % Plt Count 185 (140-400) K/mcL Neutrophils # 4.8 (1.6-8.9) K/mcL BMP 04/14/17 05:36 Sodium 140 Potassium 3.8 Chloride 111 H Carbon Dioxide 26 BUN 17 Creatinine 0.89 Glucose 115 H Calcium 8.2 L - ABG Interpretation ABG results: PT/INR, D-dimer PT 11.3 Seconds (9.4-12.1) 04/12/17 05:59 - Impressions Impressions Brain MRI 04/13/17 14:34 IMPRESSION: Normal MRI of the brain for patient's age. D/ / Jai Villatoro MD / Jai Villatoro MD Interpreting Provider: Jai Villatoro MD Cervical Spine MRI 04/13/17 14:34 IMPRESSION: 1. No acute abnormality of the cervical spine. 2. Multilevel neural foraminal narrowing as detailed above greatest involving the left C4 neural foramen where it is moderate. 3. No spinal canal stenosis and D/ / Jai Villatoro MD / Jai Villatoro MD Interpreting Provider: Jai Villatoro MD Neck MRA 04/13/17 14:34 IMPRESSION: Normal MRA of the neck. D/ / Jai Villatoro MD / Jai Villatoro MD Interpreting Provider: Jai Villatoro MD Head MRA 04/13/17 15:07 IMPRESSION: Normal MRA of the head. D/ / Jai Villatoro MD / Jai Villatoro MD Interpreting Provider: Jai Villatoro MD Consult Discharge Plan - Plan Instructions: Metoprolol (By mouth), Lisinopril (By mouth), Omeprazole (By mouth), Isosorbide Mononitrate (By mouth), Chronic Hypertension (DC), Bradycardia (DC) Additional Instructions: The patient should follow up with PCP within 1-2 weeks, and with cardiology as directed. The patient has asked to establish primary care at the [facility] with either Dr. Yaniv Campos or Dr. Pranav Hahn if possible. D/C HOME WITH HOLTER MONITOR. PLEASE FOLLOW GIVEN INSTRUCTIONS. Referrals: Jesika Mancini [Non-Partnered Physician] - 04/30/17 1:00 pm (Dr. Zamarripa is going to be leaving, so they set you up with a new patient visit with Dr. Mancini) Escobar Martinez MD [Partnered Physician] - (cardiology will call the patient at home with appointment) Yaniv Campos DO [Resident] - (REQUEST WAS SENT. PLEASE FOLLOW UP IN 1-2 WEEKS. ) Prescriptions: Nitroglycerin 0.4 mg SL Q5MIN PRN #15 tab.subl PRN Reason: Chest Pain Isosorbide MONOnitrate (24 HR) [Imdur] 30 mg PO DAILY #30 Lisinopril [Zestril] 10 mg PO DAILY #30 tablet Lisinopril [Zestril] 20 mg PO DAILY #30 tablet Metoprolol XL (24 HR) Succ [Toprol Xl] 50 mg PO BID #60 Omeprazole [PriLOSEC] 20 mg PO DAILY@0630 #30 <Max Vasquez - Last Filed: 04/14/17 16:01> Date of Encounter: 04/14/17 - Assessment and plan (1) Hypertensive emergency Status: Resolved (2) Bradycardia, drug induced Status: Resolved (3) Hypertension Status: Acute Qualifiers: Hypertension type: essential hypertension Qualified Code(s): I10 - Essential (primary) hypertension (4) Chest pain Status: Resolved Qualifiers: Chest pain type: other chest pain Qualified Code(s): R07.89 - Other chest pain; R07.8 - Other chest pain (5) Diabetes Status: Acute Qualifiers: Diabetes mellitus type: type 2 Diabetes mellitus complication status: with neurologic complications Diabetes mellitus complication detail: with polyneuropathy Diabetes mellitus nursing home insulin use: without nursing home use Qualified Code(s): E11.42 - Type 2 diabetes mellitus with diabetic polyneuropathy (6) Myalgia Status: Acute (7) CAD (coronary artery disease) Status: Chronic Qualifiers: Coronary Disease-Associated Artery/Lesion type: [place] artery [place] vs. transplanted heart: [place] heart Associated angina: with other forms of angina Qualified Code(s): I25.118 - Atherosclerotic heart disease of [place] coronary artery with other forms of angina pectoris (8) Chronic kidney disease Status: Chronic Qualifiers: Chronic kidney disease stage: stage 3 (moderate) Qualified Code(s): N18.3 - Chronic kidney disease, stage 3 (moderate) - Constitutional Vitals: Temp Pulse Resp BP Pulse Ox 97.7 F 67 16 166/94 97 04/14/17 11:39 04/14/17 11:39 04/14/17 11:39 04/14/17 11:39 04/14/17 11:39 Internal Medicine: Result - Labs CBC & Chem 7: 04/14/17 05:36 04/14/17 05:36 Labs: Short CBC 04/14/17 Range/Units 05:36 WBC 7.0 (4.3-11.1) K/mcL Hgb 10.7 L (12.9-16.9) g/dL Hct 30.8 L (37.5-50.1) % Plt Count 185 (140-400) K/mcL Neutrophils # 4.8 (1.6-8.9) K/mcL BMP 04/14/17 05:36 Sodium 140 Potassium 3.8 Chloride 111 H Carbon Dioxide 26 BUN 17 Creatinine 0.89 Glucose 115 H Calcium 8.2 L - ABG Interpretation ABG results: PT/INR, D-dimer PT 11.3 Seconds (9.4-12.1) 04/12/17 05:59 - Impressions Impressions Brain MRI 04/13/17 14:34 IMPRESSION: Normal MRI of the brain for patient's age. D/ / Jai Villatoro MD / Jai Villatoro MD Interpreting Provider: Jai Villatoro MD Cervical Spine MRI 04/13/17 14:34 IMPRESSION: 1. No acute abnormality of the cervical spine. 2. Multilevel neural foraminal narrowing as detailed above greatest involving the left C4 neural foramen where it is moderate. 3. No spinal canal stenosis and D/ / Jai Villatoro MD / Jai Villatoro MD Interpreting Provider: Jai Villatoro MD Neck MRA 04/13/17 14:34 IMPRESSION: Normal MRA of the neck. D/ / Jai Villatoro MD / Jai Villatoro MD Interpreting Provider: Jai Villatoro MD Head MRA 04/13/17 15:07 IMPRESSION: Normal MRA of the head. D/ / Jai Villatoro MD / Jai Villatoro MD Interpreting Provider: Jai Villatoro MD - Attending Attestation I examined this patient and my medical decision-making was reviewed with the Resident Physician on 04/14/17. I agree with the documented findings, disposition and treatment plan as described except to the extent set forth below. Mr. Griffin had recurrent symptoms yesterday but feels OK at this time. MRI/MRAs negative. Appreciate neuro input. Reevaluated by cardiology and metoprolol decreased more. No fever or chills. To have holter at discharge today. Exam Alert. Comfortable Mucus membranes moist Heart reg - not ravi now Lungs no wheeze No edema I/P 1. Bradycardia 2. Neuropathy from DM 3. DM Plan d/c home today.
--- NOTE | 2017-04-14 11:04 | Neurology - Consult Note ---
Date of Encounter: 04/14/17 Time of Encounter: 10:56 Assessment and Plan (1) Thigh pain, musculoskeletal Current Visit: Yes Status: Acute This apparently has been a chronic condition and occurred after cardiac stent procedure duriing 05/2016 and also in association with significant diabetic peripheral neuropathy. The pain is associated with complaint of weakness but patient is still able to walk therefore the muscle power is at least 4+/5 bilaterally. i saw no evidence of muscle wasting, myelopathy but evidence of peripheral neuropathy likely from DM. There could be a component of small fiber painful neuropathy as well. Agree with discontinuation of Simvastatin and then follow up with PCP to see whether pain will be improving. Not sure he needs work up for Eaton-Lambert syndrome since he has no known history of neoplasms. however, if concerns for Eaton-Lambert is still high, outpatient EMG with repetitive stimulation can be considered. Will sign off at this time. please call if any questions Qualifiers: Laterality: unspecified laterality Qualified Code(s): M79.606 - Pain in leg , unspecified (2) Peripheral neuropathy Current Visit: Yes Status: Acute Patient has quite typical symptoms of signs of distal peripheral neuropathy likely secondary to diabetes mellitus. Neurological examination showed absence of knee and ankles reflexes and stocking pattern of sensory loss. This may be associated with small fiber painful neuropathy that may or may not be causing his thigh pain. Responding to Gabapentin. Qualifiers: Peripheral neuropathy type: polyneuropathy associated with underlying disease Qualified Code(s): G63 - Polyneuropathy in diseases classified elsewhere History of Present Illness Chief complaint: thigh pain and weakness HPI: Mr. Griffin is a 62 year old male with PMH significant for HTN, CAD, s/p cardiac stent placement, history of lumbar facet arthropathy who initially was admitted due to cardiac dysarhythmia, palpitation and was ready to be discharge home but developed complaints of pain in his thigh, some dizziness. The symptoms started after he had cardiac stent placement in . He agrees that the thigh pain has been a chronic condition. Describes pain, muscle soreness in both anterior thigh, interfering with his capability to walk. He is still able to walk but at times feels worn out. Has good and bad days. The pain is symmetrical and sore to palpate to both quadricpets. also has periphepral neuropathy due to history of diabetes. Has intermittent sharp pain to his feet at the same has lost sensation to his feet, and says that if he steps on nail he would not feel it. Has had back pain in the past. Saw Dr. Hill Last year who ordered MRI of lumbar spine and thought he had pain from facet joint arthropath' and offered him TPI and he responded well to few sessions of injection and then the pain subsequently pain went away. He also reports that gabapentin helps the pain. Taking simvastatin which is currently discontinued. CK was in normal range. MRI of brain and cervical spine reviewed and showed normal study. Past Med Surg Social Fam HX - Past Medical History Medical history: cardiomyopathy, CHF (Systolic versus diastolic), COPD (Not oxygen dependent), diabetes (Not insulin-dependent), hyperlipidemia, hypertension, other (Neuropathy, chronic kidney disease stage III, chronic back pain) Psychiatric history: no psych history - Past Surgical History Surgical History: angioplasty/stent, other (Foot surgery) - Social History Smoking Status: Never smoker Smokeless Tobacco Status: No Alcohol use: none Drug use: none - Family History Father Living Status: Hx Family Cardiac Disorders: Yes Medications and Allergies Albuterol Sulfate [Ventolin Hfa] 2 puff IH Q4H PRN 04/11/17 [History] Aspirin [Lo-Dose Aspirin EC] 81 tab PO DAILY 04/11/17 [History] Clopidogrel [Plavix] 75 mg PO DAILY 04/11/17 [History] Furosemide [Lasix] 40 mg PO DAILY 04/11/17 [History] Gabapentin [Neurontin] 300 - 600 mg PO HS 04/11/17 [History] Metformin HCl [Glucophage Xr] 1,500 mg PO DAILY 04/11/17 [History] Pioglitazone [Actos] 22.5 mg PO DAILY 04/11/17 [History] Isosorbide MONOnitrate (24 HR) [Imdur] 30 mg PO DAILY #30 04/13/17 [Rx] Lisinopril [Zestril] 20 mg PO DAILY #30 tablet 04/13/17 [Rx] Metoprolol XL (24 HR) Succ [Toprol Xl] 50 mg PO BID #60 04/13/17 [Rx] Nitroglycerin 0.4 mg SL Q5MIN PRN 04/13/17 [Rx] Omeprazole [PriLOSEC] 20 mg PO DAILY@0630 #30 04/13/17 [Rx] Allergies duloxetine [From Cymbalta] Adverse Reaction (Verified 04/11/17 08:10) Vomiting All Systems: A 10-system review of systems was performed and is negative for pertinent findings except as documented above in the HPI. Physical Examination - Vital Signs Vital Signs: Initial Vital Signs Temp Pulse Resp BP Pulse Ox 97.6 F 79 20 197/98 97 04/11/17 00:46 04/11/17 00:46 04/11/17 00:46 04/11/17 00:46 04/11/17 00:46 - Constitutional General appearance: comfortable - Neurologic Sensorimotor examination: intact, other (Stocking patttern of sensory loss, both in pinprick and touch and vibration senses) Detailed motor examination: grossly full strength in all extremities Motor examination - right side: 5/5: deltoids, biceps, triceps, wrist flexion, wrist extension, remote inpatient coder, hip flexors, tibialis Anterior, quadriceps, toe extension (EHL), plantarflexion Motor examination - left side: 5/5: deltoids, biceps, triceps, wrist flexion, wrist extension, hip flexors, remote inpatient coder, quadriceps, tibialis Anterior, toe extension (EHL), plantarflexion Detailed sensory examination: other (Stocking pattern of sensory loss including pinprick, toubh and vibration senses. Ankles and feet are swelling and redish looking) Posture: other (None) Reflexes: Biceps: 1+, Triceps: 1+, Brachioradialis: 1+, Patella: 0, Achilles: 0 Mental Status Examination: awake, alert, oriented to person, oriented to place, oriented to time, follows commands appropriately, answers questions appropriately, no agnosia, no aphasia, no aproxia Cranial nerve examination: PERRL, EOMI, visual patel intact, corneal reflexes brisk symmetrically, sensory to face intact, mastication intact, no facial asymmetry is present, no dysarthria, hearing is intact symmetrically, soft palate elevates bilaterally upon phonation, gag reflex intact, flexes SCM and trapezius muscles symmetrically with full power, tongue protrudes midline, no atrophy or facial fasiculations present Cerebellar examination: no dysmetria, performs finger to nose and heel to laura symmetrically without ataxia, no gait ataxia, no truncal ataxia, no difficulty with rapid alternating movements Results - Laboratory Findings CBC and BMP: 04/14/17 05:36 04/14/17 05:36 Abnormal lab findings: Abnormal lab results RBC 3.60 M/mcL (4.19-5.50) L 04/14/17 05:36 Hgb 10.7 g/dL (12.9-16.9) L 04/14/17 05:36 Hct 30.8 % (37.5-50.1) L 04/14/17 05:36 ESR 25 mm/hr (0-10) H 04/13/17 14:55 Chloride 111 mEq/L (98-109) H 04/14/17 05:36 Glucose 115 mg/dL (70-99) H 04/14/17 05:36 POC Glucose 114 (58-89) H 04/13/17 21:13 Calcium 8.2 mg/dL (8.6-10.8) L 04/14/17 05:36 C-Reactive Protein 11 mg/L (Less than 5) H 04/13/17 14:55 Triglycerides 223 mg/dL (< 150) H 04/12/17 01:27 VLDL Cholesterol, Calc 45 mg/dL (< 31) H 04/12/17 01:27 HDL Cholesterol 25 mg/dL (40-59) L 04/12/17 01:27 Cholesterol/HDL Ratio 5.4 (0-4.9) H 04/12/17 01:27 Consult Discharge Plan - Plan Instructions: Metoprolol (By mouth), Lisinopril (By mouth), Omeprazole (By mouth), Isosorbide Mononitrate (By mouth), Chronic Hypertension (DC), Bradycardia (DC) Additional Instructions: The patient should follow up with PCP within 1-2 weeks, and with cardiology as directed. The patient has asked to establish primary care at the [facility] with either Dr. Yaniv Campos or Dr. Pranav Hahn if possible. Referrals: Jesika Mancini [Non-Partnered Physician] - 04/30/17 1:00 pm (Dr. Zamarripa is going to be leaving, so they set you up with a new patient visit with Dr. Mancini) Escobar Martinez MD [Partnered Physician] - (cardiology will call the patient at home with appointment) Yaniv Campos DO [Resident] - (REQUEST WAS SENT. PLEASE FOLLOW UP IN 1-2 WEEKS. ) Prescriptions: Isosorbide MONOnitrate (24 HR) [Imdur] 30 mg PO DAILY #30 Lisinopril [Zestril] 20 mg PO DAILY #30 tablet Metoprolol XL (24 HR) Succ [Toprol Xl] 50 mg PO BID #60 Omeprazole [PriLOSEC] 20 mg PO DAILY@0630 #30
--- NOTE | 2017-04-14 11:28 | Cardiology Progress Note ---
Date of Encounter: 04/14/17 Time of Encounter: 11:22 Assessment and Plan (1) Bigeminy Current Visit: Yes Status: Acute Cardiology asked to re-evaluate Mr. Griffin for recurrent dizziness and funny feeling in his chest when he was taking a shower. 24 hour telemetry review shows minimum HR was 40 bpm at 9:00 pm. . Avg HR 61 bpm. No pauses seen. Occasionaly HR in the 50's during evening hours. Most HR less than 50 are nocturnal. During time of symptoms patient did not have monitor on because he was discharged. Around the time on telemetry he had a HR of 60-70 BPM. B/p 158/88. No PVC seen. No concerning arrhythmia seen in 24 hour telemetry review. Discussed with primary team. Will discharge with Holter monitor. Ok to decrease metoprolol to 25 mg BID for mild bradycardia. Increase lisinopril for better b/p control. Symptoms have resolved at this time. Patient reported he had these symptoms for several months and no one can find anything. TTE shows preserved LV function. EF 55-60%. Mild LVH. No significant valvular disease. Again re-peat LHC at [facility] 09/2016 showed patent stents per pt. No indication for further testing. [facility] will coordinate outpatient follow-up with Kristy Vang in 2-3 weeks. Cardiology will sign off, please call with questions. (2) CAD (coronary artery disease) Current Visit: No Status: Chronic H/o three cardiac stents placed 05/2016 at [facility]. Repeat LHC in September at [facility] showed no new blockages per patient. TTE this admit shows preserved EF. Troponin negative x3. EKG shows no acute ST changes. Medical management of PVC and elevated b/p recommended. C/o myalgias since starting simvistatin. Recommend discontinuing. Consider attempting different statin after one week. Continue asa, plavix, and bb. No further cardiac testing at this time. Qualifiers: Qualified Code(s): I25.118 - Atherosclerotic heart disease of [place] coronary artery with other forms of angina pectoris (3) Myalgia Current Visit: Yes Status: Acute C/o BLE pain since [place]. Simvistatin stopped. (4) Hypertension Current Visit: Yes Status: Acute Blood pressure increasing. Increase lisinopril. Qualifiers: Qualified Code(s): I10 - Essential (primary) hypertension Discussion w patient/family: The assessment and plan as outlined above was discussed with the patient and/or family members who expressed understanding and agreement. All questions were answered. Thank you for involving us in the care of your patient. Please call with any questions. Subjective Principal diagnosis: Bigeminy, uncontrolled HTN Interval history: Mr. Griffin reports he is feeling better. He denies recurrent chest discomfort. Denies dizziness or syncope. Objective Vital Signs, Last 4 Hours Pulse Pulse Ox 04/14/17 09:16 76 96 Results 04/14/17 05:36 04/14/17 05:36 Lab Results 04/14/17 04/14/17 05:36 05:36 WBC 7.0 Hgb 10.7 L Hct 30.8 L Plt Count 185 Sodium 140 Potassium 3.8 Chloride 111 H Carbon Dioxide 26 BUN 17 Creatinine 0.89 Glucose 115 H Calcium 8.2 L Consult Discharge Plan - Plan Instructions: Metoprolol (By mouth), Lisinopril (By mouth), Omeprazole (By mouth), Isosorbide Mononitrate (By mouth), Chronic Hypertension (DC), Bradycardia (DC) Additional Instructions: The patient should follow up with PCP within 1-2 weeks, and with cardiology as directed. The patient has asked to establish primary care at the [facility] with either Dr. Yaniv Campos or Dr. Pranav Hahn if possible. Referrals: Jesika Mancini [Non-Partnered Physician] - 04/30/17 1:00 pm (Dr. Zaamrripa is going to be leaving, so they set you up with a new patient visit with Dr. Mancini) Escobar Martinez MD [Partnered Physician] - (cardiology will call the patient at home with appointment) Yaniv Campos DO [Resident] - (REQUEST WAS SENT. PLEASE FOLLOW UP IN 1-2 WEEKS. ) Prescriptions: Isosorbide MONOnitrate (24 HR) [Imdur] 30 mg PO DAILY #30 Lisinopril [Zestril] 20 mg PO DAILY #30 tablet Metoprolol XL (24 HR) Succ [Toprol Xl] 50 mg PO BID #60 Omeprazole [PriLOSEC] 20 mg PO DAILY@0630 #30
[2017-04-14 11:48] VITALS: BP 166/94
--- NOTE | 2017-04-15 15:05 | Electrocardiograph Report ---
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
--- NOTE | 2017-04-18 17:41 | Holter Monitor Report ---
[address] [place], [place] [address] Test Date: 2017-04-14 Pat Name: Rc Griffin Department: Room: 2N01 Gender: M Customer Relations Assistant: Nataliya Frederick : 1955 Requested By: Max Vasquez Order Number: [id number] Reading MD: Shruthi Diaz Interpretive Statements [address] [place] [id number] Monitor Duration: 48 HOUR Indications: DIZZINESS, PALPITATIONS Recording Time: 48:32 Time Analyzed: 48:24 Quality of Tracing: GOOD Diary: YES Description of symptoms: YES ECG demonstrates: Totals: There were [id number] total beats, including ectopy. Average HR was 72. Minimum HR of 50 occurred at 16:55D1 and maximum HR of 103 occurred at 20:23D2. Ventricular Ectopy consisted of 8064 total beats averaging 167 beats per hour, 12 paired PVCs. There were 3868 single PVCs. There was 4181 beats of bigeminy, and 0 episodes of trigeminy. There were 0 runs of non-sustained VT. Supraventricular Ectopy consisted of 161 total beats averaging 3.3 per hour. There were 161 single PACs, 0 paired PACs, and 0 runs of SVT. There is no evidence of any pauses or bradycardia events. Impression: Underlying rhythm is normal sinus. Frequent ventricular ectopy averaging 167 beats per hour. Occasional supraventricular ectopy. Symptoms occasionally respond to PVCs. Electronically Signed On 04-18-2017 17:39:26 EDT by Shruthi Diaz
--- NOTE | 2017-04-26 11:29 | Emergency Department Note ---
Disposition Clinical Impression: Symptomatic bradycardia, Chest pain Disposition: Admitted As Inpatient Condition: Fair General Adult HPI - General Chief complaint: ED Chest Pain Stated complaint: Bradycardia, Chest Tightness Time Seen by Provider: 04/11/17 01:42 Source: patient Limitations: no limitations Nursing Notes Reviewed: Yes Vital Signs Reviewed: Yes - History of Present Illness HPI Narrative: Patient presenting to the ED with the chief complaint of chest tightness and low heart rate. He states that he has had this before and he checked his heart rate at home and it was in the upper 30s, low 40s. He did feel some dizziness and difficulty breathing associated with this. Also complaining of intermittent chest tightness was nonradiating and is not similar to his previous angina. States that he feels okay right now. Does have a history of coronary artery disease. Pain Scale: 0 - Related Data Home Medications Medication Instructions Recorded Confirmed Albuterol Sulfate [Ventolin Hfa] 2 puff IH Q4H PRN 04/11/17 04/11/17 Aspirin [Lo-Dose Aspirin EC] 81 tab PO DAILY 04/11/17 04/11/17 Clopidogrel [Plavix] 75 mg PO DAILY 04/11/17 04/11/17 Furosemide [Lasix] 40 mg PO DAILY 04/11/17 04/11/17 Gabapentin [Neurontin] 300 - 600 mg PO HS 04/11/17 04/11/17 Metformin HCl [Glucophage Xr] 1,500 mg PO DAILY 04/11/17 04/11/17 Pioglitazone [Actos] 22.5 mg PO DAILY 04/11/17 04/11/17 Previous Rx's Medication Instructions Recorded Isosorbide MONOnitrate (24 HR) 30 mg PO DAILY #30 04/13/17 [Imdur] Lisinopril [Zestril] 20 mg PO DAILY #30 tablet 04/13/17 Metoprolol XL (24 HR) Succ [Toprol 50 mg PO BID #60 04/13/17 Xl] Nitroglycerin 0.4 mg SL Q5MIN PRN 04/13/17 Omeprazole [PriLOSEC] 20 mg PO DAILY@0630 #30 04/13/17 Lisinopril [Zestril] 10 mg PO DAILY #30 tablet 04/14/17 Nitroglycerin 0.4 mg SL Q5MIN PRN #15 tab.subl 04/14/17 Allergies Allergy/AdvReac Type Severity Reaction Status Date / Time duloxetine [From Cymbalta] AdvReac Vomiting Verified 04/16/17 15:17 Constitutional: Denies: fever Eyes: Denies: vision change Cardiovascular: Reports: chest pain Gastrointestinal: Denies: vomiting Past Medical History - Past Medical History Attestation: Yes The following information was validated with the patient. Source: patient, old records reviewed Medical history: Reports: cardiomyopathy, CHF (Systolic versus diastolic), COPD (Not oxygen dependent), diabetes (Not insulin-dependent), hyperlipidemia, hypertension, other (Neuropathy, chronic kidney disease stage III, chronic back pain) Surgical history: Reports: angioplasty/stent, other (Foot surgery) Psychiatric history: Reports: no psych history - Social History Smoking Status: Never smoker Smokeless Tobacco Status: No Alcohol use: Reports: none Drug use: Reports: none Physical Exam - General General appearance: alert, in no apparent distress - Head Head exam: atraumatic, normocephalic, normal inspection - Eye Eye exam: Present: normal appearance, PERRL, EOMI - ENT ENT exam: normal exam, normal oropharynx, mucous membranes moist - Neck Neck exam: Present: normal inspection, full ROM, trachea midline - Chest Chest inspection: Present: normal inspection, symmetric chest wall rise - Respiratory Respiratory exam: Present: normal lung sounds bilaterally - Cardiovascular Cardiovascular exam: Present: regular rate (Patient's heart rate in the 70s. At this time), normal rhythm, normal heart sounds - Abdominal Exam Abdominal exam: Present: soft, Non-Tender. Absent: tenderness, distention, guarding, rebound, rigidity Course Course Narrative: Patient presenting essentially with symptomatic bradycardia and chest discomfort. He is not bradycardic here. At this time. However, we will admit him for chest pain and further cardiac workup. Vital Signs Temperature 97.6 F 04/11/17 00:46 Pulse Rate 79 04/11/17 00:46 Respiratory Rate 20 04/11/17 00:46 Blood Pressure 197/98 04/11/17 00:46 O2 Sat by Pulse Oximetry 97 04/11/17 00:46 Temperature 97.7 F 04/14/17 11:39 Pulse Rate 67 04/14/17 11:39 Respiratory Rate 16 04/14/17 11:39 Blood Pressure 166/94 04/14/17 11:39 O2 Sat by Pulse Oximetry 97 04/14/17 11:39 Oxygen Delivery Oxygen Delivery Room Air Medical Decision Making - Lab Data Result diagrams: 04/14/17 05:36 04/14/17 05:36 Lab Results 04/11/17 04/11/17 04/11/17 Range/Units 01:25 01:25 01:25 WBC 8.1 (4.3-11.1) K/mcL RBC 4.23 (4.19-5.50) M/mcL Hgb 12.5 L (12.9-16.9) g/dL Hct 36.1 L (37.5-50.1) % MCV 85.3 (83.0-100.0) fL MCH 29.6 (28.0-33.3) pg MCHC 34.6 (31.6-35.5) g/dL RDW 12.7 (11.5-14.5) % Plt Count 240 (140-400) K/mcL MPV 10.2 (9.4-12.4) fL Immature Gran % 0.4 (0-4) % Seg Neutrophils % 59.9 % Lymphocytes % 28.5 % Monocytes % 9.3 % Eosinophils % 1.2 % Basophils % 0.7 % Neutrophils # 4.9 (1.6-8.9) K/mcL Lymphocytes # 2.3 (0.6-4.6) K/mcL Monocytes # 0.8 (0.0-1.3) K/mcL Eosinophils # 0.1 (0.0-0.6) K/mcL Basophils # 0.1 (0.0-0.2) K/mcL PT 11.0 (9.4-12.1) Seconds INR 1.0 APTT 30.8 (26.0-36.0) Seconds Sodium (136-145) mEq/L Potassium (3.5-4.5) mEq/L Chloride (98-109) mEq/L Carbon Dioxide (19-29) mEq/L BUN (8-26) mg/dL Creatinine (0.72-1.25) mg/dL Est GFR ( Amer) (> 60) Est GFR (Non-Af Amer) (> 60) BUN/Creatinine Ratio (6-26) Glucose (70-99) mg/dL Calculated Osmolality (280-300) Calcium (8.6-10.8) mg/dL Troponin I (0-0.03) ng/mL B-Natriuretic Peptide 79 (0-100) pg/mL 04/11/17 04/11/17 Range/Units 01:25 01:25 WBC (4.3-11.1) K/mcL RBC (4.19-5.50) M/mcL Hgb (12.9-16.9) g/dL Hct (37.5-50.1) % MCV (83.0-100.0) fL MCH (28.0-33.3) pg MCHC (31.6-35.5) g/dL RDW (11.5-14.5) % Plt Count (140-400) K/mcL MPV (9.4-12.4) fL Immature Gran % (0-4) % Seg Neutrophils % % Lymphocytes % % Monocytes % % Eosinophils % % Basophils % % Neutrophils # (1.6-8.9) K/mcL Lymphocytes # (0.6-4.6) K/mcL Monocytes # (0.0-1.3) K/mcL Eosinophils # (0.0-0.6) K/mcL Basophils # (0.0-0.2) K/mcL PT (9.4-12.1) Seconds INR APTT (26.0-36.0) Seconds Sodium 139 (136-145) mEq/L Potassium 3.5 (3.5-4.5) mEq/L Chloride 104 (98-109) mEq/L Carbon Dioxide 25 (19-29) mEq/L BUN 24 (8-26) mg/dL Creatinine 1.44 H (0.72-1.25) mg/dL Est GFR ( Amer) > 60 (> 60) Est GFR (Non-Af Amer) 50 L (> 60) BUN/Creatinine Ratio 17 (6-26) Glucose 150 H (70-99) mg/dL Calculated Osmolality 295 (280-300) Calcium 9.3 (8.6-10.8) mg/dL Troponin I 0.00 (0-0.03) ng/mL B-Natriuretic Peptide (0-100) pg/mL
== END 2017-04-14 14:40 | disposition home or self-care (01) ==
LOC: 3NENU 00:43 → EMEROO 00:43 → 3NENU 05:44 → SUATTDRO 05:58 → 2NNU 04-12 06:39
PROVIDERS: ADMIT Family Medicine; ATTEND Internal Medicine

== ENCOUNTER 2017-05-10 08:41 | Observation (INO) ==
[2017-05-10 09:15] LABS: Basophils # 0.1 K/mcL (0.0-0.2); Basophils % 0.7 %; Eosinophils # 0.1 K/mcL (0.0-0.6); Eosinophils % 1.2 %; Hematocrit 39.3 % (37.5-50.1); Hemoglobin 13.2 g/dL (12.9-16.9); Immature Granulocytes % 0.2 % (0-4); Lymphocytes # 1.6 K/mcL (0.6-4.6); Lymphocytes % 20.3 %; Mean Corpuscular HGB Conc 33.6 g/dL (31.6-35.5); Mean Corpuscular Hemoglobin 28.6 pg (28.0-33.3); Mean Corpuscular Volume 85.2 fL (83.0-100.0); Mean Platelet Volume 10.3 fL (9.4-12.4); Monocytes # 0.7 K/mcL (0.0-1.3); Monocytes % 8.2 %; Neutrophils # 5.6 K/mcL (1.6-8.9); Platelet Count 246 K/mcL (140-400); Red Blood Count 4.61 M/mcL (4.19-5.50); Red Cell Distribution Width 12.4 % (11.5-14.5); Segmented Neutrophils % 69.4 %
[2017-05-10 09:29] LABS: BUN/Creatinine Ratio 19 (6-26); Blood Urea Nitrogen 18 mg/dL (8-26); Carbon Dioxide 22 mEq/L (19-29); Chloride 110 mEq/L (98-109); Glucose 148 mg/dL (70-99); Osmolality,Calculated 295 (280-300); Potassium 4.3 mEq/L (3.5-4.5); Sodium 140 mEq/L (136-145); eGFR For African Americans > 60 (> 60); eGFR For Non-African Americans > 60 (> 60)
[2017-05-10] MEDS ORDERED: *HR* LORazepam 2 MG/ML VIAL IVP ONE (09:46)
--- NOTE | 2017-05-10 09:48 | Emergency Department Note ---
START Narrative - START START: I examined this patient and my medical decision-making was reviewed with the FRAME FEEDER/PA/Advanced Practice Nurse/Resident Physician. I agree with the documented findings, disposition and treatment plan as described except to the extent set forth below. ED attending note: Patient seen with emergency medicine resident Dr. Hoang. Please see a copy of his note for details of the H&P, evaluation, management and disposition of this patient. We independently had [id number] contact with the patient Briefly: 62-year-old male presents with shortness of breath increased swelling chest discomfort but is pain-free now. History of 3 prior cardiac stents denies TX. EKG shows ventricular bigeminy with nonspecific changes. Patient will undergo cardiac workup. His blood pressure is uncontrolled systolic at 211. He has no signs at this point of end organ injury. We will get parenteral benzos in order to decrease his blood pressure normal axis him. Disposition pending. Providing 30 minutes of critical care service for this patient.
--- NOTE | 2017-05-10 10:10 | Emergency Department Note ---
Disposition Clinical Impression: Unstable angina Chest pain Qualifiers: Chest pain type: precordial pain Qualified Code(s): R07.2 - Precordial pain Hypertension Qualifiers: Hypertension type: unspecified secondary hypertension Qualified Code(s): I15.9 - Secondary hypertension, unspecified; I15 - Secondary hypertension Disposition: Admitted As Inpatient Condition: Fair Time of Disposition: 11:31 Chest Pain HPI - General Chief Complaint: ED Chest Pain Stated Complaint: CP/HTN/HEADACHE Time Seen by Provider: 05/10/17 09:32 Source: patient Limitations: no limitations Vital Signs Reviewed: Yes Nursing Notes Reviewed: Yes - History of Present Illness HPI Narrative: 62-year-old male history of CAD status post 3 cardiac stents in his been having chest pain times the past several days. Patient states he has been having issues with controlling his blood pressure and Jordi Samaniego CNP recently increased his doses of hydralazine 2 days ago. Patient's complaining of hypertension with blood pressures in the upper limits of 210s over to 110s and was told to come to the ED if his blood pressures over 200. Patient states pain pressure substernal 5/10 sometimes worse at rest patient states chest pain and a few moments ago Severity scale (1-10): 2 - Related Data Home Medications Medication Instructions Recorded Confirmed Albuterol Sulfate [Ventolin Hfa] 2 puff IH Q4H PRN 04/11/17 05/10/17 Aspirin [Lo-Dose Aspirin EC] 81 tab PO DAILY 04/11/17 05/10/17 Clopidogrel [Plavix] 75 mg PO DAILY 04/11/17 05/10/17 Furosemide [Lasix] 40 mg PO BID 04/11/17 05/10/17 Gabapentin [Neurontin] 600 mg PO HS 04/11/17 05/10/17 Metformin HCl [Glucophage Xr] 750 mg PO BID 04/11/17 05/10/17 Lisinopril [Zestril] 40 mg PO BID 05/10/17 05/10/17 Metoprolol XL (24 HR) Succ [Toprol 25 mg PO BID 05/10/17 05/10/17 Xl] Omeprazole [PriLOSEC] 20 mg PO DAILY 05/10/17 05/10/17 hydrALAZINE [HydrALAZINE] 50 mg PO Q8HR 05/10/17 05/10/17 Previous Rx's Medication Instructions Recorded Isosorbide MONOnitrate (24 HR) 30 mg PO DAILY #30 04/13/17 [Imdur] Nitroglycerin 0.4 mg SL Q5MIN PRN 04/13/17 Allergies Allergy/AdvReac Type Severity Reaction Status Date / Time duloxetine [From Cymbalta] AdvReac Vomiting Verified 04/16/17 15:17 All systems ED: reviewed and negative except as stated. Review of Systems: As Per HPI Constitutional: Denies: fever, chills Eyes: Denies: eye pain, eye discharge ENT ED: Denies: ear pain, throat pain, congestion, dysphagia Cardiovascular: Reports: chest pain Respiratory: Denies: cough, dyspnea Gastrointestinal: Denies: abdominal pain, nausea Genitourinary: Denies: urgency, dysuria Musculoskeletal: Denies: back pain, neck pain Integumentary: Denies: rash Neurological: Denies: headache Psychiatric: Denies: anxiety Endocrine: Reports: fatigue Chest Pain PMH - Past Medical History Medical history: Reports: cardiomyopathy, CHF, COPD, diabetes, hypertension Surgical history: Reports: angioplasty/stent, other (Foot surgery) Psychiatric history: Reports: no psych history - Social History Smoking Status: Never smoker Alcohol use: Reports: none Drug use: Reports: none Physical Exam Vital Signs Temperature 97.4 F L 05/10/17 08:43 Pulse Rate 83 05/10/17 08:43 Respiratory Rate 18 05/10/17 08:43 Blood Pressure 211/120 05/10/17 08:43 O2 Sat by Pulse Oximetry 98 05/10/17 08:43 Temperature 97.4 F L 05/10/17 08:43 Pulse Rate 80 05/10/17 10:30 Respiratory Rate 16 05/10/17 10:30 Blood Pressure 203/95 05/10/17 10:30 O2 Sat by Pulse Oximetry 98 05/10/17 10:30 Oxygen Delivery Oxygen Delivery Room Air -General Appearance: Patient is a 60-year-old male alert and oriented 3 in no acute distress -Neurological exam: Cranial nerves II-12 intact, no focal deficits observed, strength equal 5/5 bilaterally in upper and lower extremities, cerebellar motion test negative. Negative loss of sensation - Head Head exam: atraumatic, normocephalic, normal inspection - Eye Eye exam: Present: normal appearance, PERRL, EOMI, negative for scleral icterus negative for conjunctival pallor - ENT ENT exam: normal exam, normal oropharynx, mucous membranes moist - Neck Neck exam: Present: normal inspection, full ROM, trachea midline, negative JVD - Chest Chest inspection: Present: Patient has bilateral equal rise and fall of chest wall. Non-tender to palpation. - Respiratory Respiratory exam: Clear to auscultation bilaterally without wheezes rales or rhonchi Cardiovascular Cardiovascular exam: Present: regular rate, normal rhythm, normal heart sounds, without murmurs rubs or gallops. - Abdominal Exam Abdominal exam: Present: soft, nondistended, Non-Tender light and deep palpation in all quadrants. Bowel sounds normoactive throughout all 4 quadrants. Negative for hyper or hyperresonance. - Extremities Exam Extremities exam: Present: normal inspection, full ROM - Back Exam Back exam: Present: normal inspection, full ROM. Absent: tenderness, CVA tenderness (R), CVA tenderness (L) - Psychiatric Psychiatric exam: Present: normal affect, normal mood - Skin Skin exam: Present: warm, dry, intact, normal color - General Limitations: no limitations General appearance: alert, in no apparent distress Course - Reevaluation(s) Reevaluation #1: Patient seen and evaluated, and labs and imaging ordered 1 mg Ativan ordered Time: 09:45 Reevaluation #2: Patient resting comfortably blood pressure still elevated at 210 over 1 teens Time: 10:10 Reevaluation #3: Changed patient's blood pressure with size cuff it seems more appropriate. The pressure 196/115. Patient's blood pressure appears to be decreasing. We will keep monitoring for the changes before adding any medications since patient is currently asymptomatic Time: 11:35 - Consultations Consultation #1: the hospitalist has accepted the patient for admission Time: 11:31 Vital Signs Temperature 97.4 F L 05/10/17 08:43 Pulse Rate 83 05/10/17 08:43 Respiratory Rate 18 05/10/17 08:43 Blood Pressure 211/120 05/10/17 08:43 O2 Sat by Pulse Oximetry 98 05/10/17 08:43 Temperature 98.1 F 05/10/17 19:08 Pulse Rate 86 05/10/17 19:08 Respiratory Rate 17 05/10/17 19:08 Blood Pressure 162/80 05/10/17 19:08 O2 Sat by Pulse Oximetry 97 05/10/17 19:08 Oxygen Delivery Oxygen Delivery Room Air Chest Pain - MDM Narrative Medical decision making narrative: Patient presents with chest pain at rest and hyper tension with blood pressures greater than 210 over 110s with recent changes in blood pressure medication but currently ineffective concerning for unstable angina, ACS/[place], hypertensive emergency, stroke but does not have any focal neurological deficits or complaints of headache at this time. Patient's labs appear unremarkable troponin is negative, EKG shows some nonspecific ST changes with underlying sinus rhythm and bigeminy pvc's, heart score today is a 5. Recommend patient be admitted for further workup and evaluation by cardiology. Patient agrees to this assessment. Patient is admitted Dr. Christianson has accepted pt for admission. - Medical Records Medical records reviewed: Yes I reviewed the patient's medical records. Previous cartilage and also LVEF of 50-60% and patient has known bigeminy - Lab Data Lab results reviewed: Yes I reviewed the patient's lab results. Result diagrams: 05/10/17 09:05 05/10/17 09:05 Lab Results 05/10/17 05/10/17 05/10/17 Range/Units 09:05 09:05 09:05 WBC 8.0 (4.3-11.1) K/mcL RBC 4.61 (4.19-5.50) M/mcL Hgb 13.2 (12.9-16.9) g/dL Hct 39.3 (37.5-50.1) % MCV 85.2 (83.0-100.0) fL MCH 28.6 (28.0-33.3) pg MCHC 33.6 (31.6-35.5) g/dL RDW 12.4 (11.5-14.5) % Plt Count 246 (140-400) K/mcL MPV 10.3 (9.4-12.4) fL Immature Gran % 0.2 (0-4) % Seg Neutrophils % 69.4 % Lymphocytes % 20.3 % Monocytes % 8.2 % Eosinophils % 1.2 % Basophils % 0.7 % Neutrophils # 5.6 (1.6-8.9) K/mcL Lymphocytes # 1.6 (0.6-4.6) K/mcL Monocytes # 0.7 (0.0-1.3) K/mcL Eosinophils # 0.1 (0.0-0.6) K/mcL Basophils # 0.1 (0.0-0.2) K/mcL Sodium 140 (136-145) mEq/L Potassium 4.3 (3.5-4.5) mEq/L Chloride 110 H (98-109) mEq/L Carbon Dioxide 22 (19-29) mEq/L BUN 18 (8-26) mg/dL Creatinine 0.95 (0.72-1.25) mg/dL Est GFR ( Amer) > 60 (> 60) Est GFR (Non-Af Amer) > 60 (> 60) BUN/Creatinine Ratio 19 (6-26) Glucose 148 H (70-99) mg/dL Calculated Osmolality 295 (280-300) Calcium 9.0 (8.6-10.8) mg/dL Troponin I 0.00 (0-0.03) ng/mL - Radiology Data Radiology results reviewed: Yes I reviewed the patient's radiology results. Chest X-Ray 05/10/17 08:48 IMPRESSION: No acute process. D/ / Richelle Wen MD / Richelle Wen MD Interpreting Provider: Richelle Wen MD - EKG Data EKG attestation: Yes I reviewed and interpreted this EKG. EKG results narrative: EKG taken at 05/10/2017 and 0846 hrs. shows sinus rhythm with occasional PVCs at a rate of 83 beats minute. No acute ST elevations or depressions in any leads no QRS widening or QT prolongation. Previous EKG taken 04/16/2017 shows a sinus rhythm at 60 bpm with no PVCs, QRS widening or QT prolongation Heart Score - Score History: Moderately Suspicious EKG: Non Specific repolarisation Disturbance Age: 45-65 Risk Factors: Equal/Greater than 3 risk factor or history of atherosclerotic disease Troponin: Less than normal limit HEART Score Total: 5
[2017-05-10] MEDS ORDERED: Naloxone 0.4 MG/ML INJ IVP PRN ×3 (12:53→12:58)
[2017-05-10] MEDS ORDERED: Acetaminophen 325 MG TABLET PO PRN (12:57)
[2017-05-10] MEDS ORDERED: Nitroglycerin 0.4 MG TAB.SUBL SL PRN (13:00)
[2017-05-10] MEDS ORDERED: Furosemide 40 MG/4 ML VIAL IVP ONE (13:03)
[2017-05-10] MEDS ORDERED: Dextrose Gel 15 GM PO PRN ×2 (13:04)
[2017-05-10] MEDS ORDERED: *HR* Dextrose 50 % in Water (Syg) 50 ML SYRINGE IVP PRN (13:04)
[2017-05-10] MEDS ORDERED: D5% in Water 1,000 ML IVC PRN (13:04)
--- NOTE | 2017-05-10 13:15 | Internal Med History&Physical ---
<Omkar Ni - Last Filed: 05/10/17 13:07> Date of Encounter: 05/10/17 Time of Encounter: 13:07 Assessment and Plan (1) Hypertensive urgency Current visit: Yes Status: Acute Admitted to the ED with increasing shortness of breath, chest pain/pressure, and hypertensive urgency. Systolic blood pressures running in the high 190s and low 200s. Additionally, he is also diastolically hypertensive in low 100' s. The patient reports that he was admitted to the hospital 3 weeks ago and that his beta angus dose was cut in half due to some traumatic bradycardia. At that time he was also started on hydralazine. However, the last 3 weeks he admits that his systolic and diastolic blood pressure gradually increasing. He is symptomatic at this time reporting headache, chest pain/discomfort, shortness of breath, palpitations, and dizziness. EKG in the ED revealed ventricular bigeminy which is scheduled with jewelry making instructor on May 29. Troponin was negative at 0.00. All other lab work otherwise unremarkable. Additionally, the patient admits to not taking any of his antihypertensives today because he was not sure what to do, and also admits to not taking his Lasix as the Lasix does not help either. Admit for observation status due to hypertensive urgency and to rule out cardiac event Continuous telemetry Continuous pulse ox Resume beta angus, JENNIFFER inhibitor, Lasix and hydralazine at home doses Give a one-time IV push Lasix 20 mg If a one-time IV push of hydralazine at 10 mg Continue trending troponin CMP and CBC in the a.m. Recent echocardiogram completed indicates minimal left ventricular hypertrophy; no need for additional echo Recently cathetered and stented in May 2016 no plan to stress at this time Patient becomes symptomatic with bigeminy or remains symptomatic with hypertensive urgency, will consult cardiology (2) Chest pain Current visit: Yes Status: Acute Intermittent chest pain/discomfort, and shortness of breath. EKG obtained in the emergency department showed ventricular bigeminy. The patient does have a recent history of this and is quick to see an jewelry making instructor on May 29. Troponins in the ED were negative at 0.00. Chest x-ray reveals no acute pulmonary process. Admit For observation Placed on continuous telemetry Placed on continuous SPO2 with O2 provided as needed Give a one-time IV dose of Lasix 40 mg Give a one-time dose of 10 mg hydralazine as the patient has hypertensive urgency at this time Resume beta angus, JENNIFFER inhibitor, and hydralazine at home dose. Consider cardiology consult if chest pain/pressure, and hypertensive urgency do not subside Qualifiers: Chest pain type: unspecified Qualified Code(s): R07.9 - Chest pain, unspecified (3) Bigeminy Current visit: Yes Status: Acute Fairly recent history of bigeminal rhythm which is symptomatic. He was recently admitted to [facility], due to symptomatic bradycardia and bigeminal rhythm. At that time his beta angus was cut in half and he was given hydralazine to control his blood pressure. He was sent home and is expected to follow up with jewelry making instructor on 05/29/2017. Also , of note, he reschedule an May 01 cardiology appointment. Continuous cardiac monitoring, resume beta angus at home dose, resume JENNIFFER inhibitor at home dose, resume hydralazine at home dose. He is also hypertensive, plan is to control hypertension, monitor cardiac rhythm and sensor patient improvment. If he does not improve consider consult cardiology (4) Diabetes Current visit: Yes Status: Acute History of type 2 diabetes is being managed with metformin. However, at this time during the hospital stay metformin will be discontinued and the patient was placed on low-dose sliding scale insulin coverage before meals and at bedtime Accu-Cheks. Continue to monitor blood glucose and adjust sliding scale as needed Qualifiers: Diabetes mellitus type: type 2 Diabetes mellitus complication status: with neurologic complications Diabetes mellitus complication detail: with polyneuropathy Diabetes mellitus shelter insulin use: without intermission coordinator use Qualified Code(s): E11.42 - Type 2 diabetes mellitus with diabetic polyneuropathy (5) DVT prophylaxis Current visit: Yes Status: Acute Being admitted to the hospital due to hypertensive urgency and bigeminy. Being sedentary and a decrease in his level of activity places hime at risk for DVT. The patient will be placed on subcutaneous Lovenox 40 mg daily Internal Medicine - H&P: HPI Chief complaint: Chest pain; hypertension Admitted From: Home Plans for Post Hospital Care: Home History of present illness: Mr. Griffin is a 62 year old male with a PMH of cardiomyopathy, CHF, COPD, DM, HTN , recent angioplasty with coronary stents in 2015, also, reports chronic kidney disease stage III. Presented to [facility] with increased shortness of breath , increased swelling, chest discomfort/pain, and hypertension. In the ED, troponins were obtained and -0.00, BMP and CBC are unremarkable. EKG showed that he was in ventricular bigeminy and nonspecific changes that he was having hypertensive crisis. He was given Ativan in the ED and his Bigeminy corrected initially and returned upon this examination. All information obtained from chart review and patient report. The patient reports that he has bigeminy starting roughly 1 month ago. Recently seen at [facility] and is being followed by cardiology. During the last visit he reports that his blood pressure medications were adjusted due to symptomatically bradycardia. He reports that his beta angus was decreased to half the regular dose and that he was started on hydralazine to help control his hypertension. However, he reports over the last 3 weeks of increasing systolic and diastolic blood pressure. He admits that when his blood pressure is elevated he experiences headaches, chest pressure/tightness, increased shortness of breath, palpitations, and dizziness. Upon examination he denies any strokelike symptoms with the exception of intermittent face tingling during hypertensive crisis. He is being admitted to [facility] at this time for further workup and evaluation. Past Med Surg Social Fam HX - Past Medical History Medical history: cardiomyopathy, CHF, COPD, diabetes, hypertension Psychiatric history: no psych history - Past Surgical History Surgical History: angioplasty/stent, other (Foot surgery) - Social History Smoking Status: Never smoker Smokeless Tobacco Status: No Alcohol use: none Drug use: none - Family History Father Living Status: Age at : 85 Hx Family Cardiac Disorders: Yes Mother Race: Family Member Ethnicity: Non- Living Status: Age at : 65 Hx Family Neurologic Disorders: Yes (CVA) Internal Medicine - H&P: Meds Albuterol Sulfate [Ventolin Hfa] 2 puff IH Q4H PRN 04/11/17 [History] Aspirin [Lo-Dose Aspirin EC] 81 tab PO DAILY 04/11/17 [History] Clopidogrel [Plavix] 75 mg PO DAILY 04/11/17 [History] Furosemide [Lasix] 40 mg PO BID 04/11/17 [History] Gabapentin [Neurontin] 600 mg PO HS 04/11/17 [History] Metformin HCl [Glucophage Xr] 750 mg PO BID 04/11/17 [History] Isosorbide MONOnitrate (24 HR) [Imdur] 30 mg PO DAILY #30 04/13/17 [Rx] Nitroglycerin 0.4 mg SL Q5MIN PRN 04/13/17 [Rx] Lisinopril [Zestril] 40 mg PO BID 05/10/17 [History] Metoprolol XL (24 HR) Succ [Toprol Xl] 25 mg PO BID 05/10/17 [History] Omeprazole [PriLOSEC] 20 mg PO DAILY 05/10/17 [History] hydrALAZINE [HydrALAZINE] 50 mg PO Q8HR 05/10/17 [History] Allergies duloxetine [From Cymbalta] Adverse Reaction (Verified 04/16/17 15:17) Vomiting All Systems PM: A 10-system review of systems was performed and is negative for pertinent findings except as documented above in the HPI. - Constitutional Constitutional: no chills, no excessive sweating, no fatigue, no fever(s), no night sweats, no weakness - EENT Eyes: no blurry vision, no change in vision, no discharge, no pain, no photophobia, no spots in vision Ears: no ear discharge, no ear pain, no tinnitus Nose, mouth and throat: no dysphagia, no nasal discharge, no neck pain, no sore throat - Cardiovascular Cardiovascular ROS IM: chest pain (Discomfort and shortness of breath as well as palpitations), edema, irregular heart rhythm, palpitations, no diaphoresis, no dyspnea, no lightheadedness, no orthopnea, no paroxysmal nocturnal dyspnea, no syncope - Respiratory Respiratory: no cough, no dyspnea, no dyspnea on exertion, no wheezing, no excessive phlegm production - Gastrointestinal Gastrointestinal: no abdominal pain, no diarrhea, no hematemesis, no hematochezia, no melena, no nausea, no vomiting - Musculoskeletal Musculoskeletal ROS IM: no numbness, no tingling - Integumentary Integumentary IM: no rash, no unusual bruising - Neurological Neurological ROS: headache(s) (Headaches with hypertension), tingling (Tingling with hypertension that is intermittent), no confusion, no convulsions, no dizziness, no focal weakness, no loss of vision, no numbness, no tremor(s) - Endocrine Endocrine IM: no excessive sweating, no fatigue, no flushing, no heat intolerance - Hematologic/Lymphatic Hematologic/Lymphatic: no easy bruising - Constitutional Vitals: Temp Pulse Resp BP Pulse Ox 97.4 F L 80 16 203/95 98 05/10/17 08:43 05/10/17 10:30 05/10/17 10:30 05/10/17 10:30 05/10/17 10:30 General appearance: Present: cooperative, A&O X 3, pleasant, no acute distress, obese, answers questions appropriately - Head Head exam: Present: atraumatic, normocephalic - Eye Eye exam: Present: PERRL, conjuntiva pink, sclera anicteric Pupils: Present: PERRL - Neck Neck exam general surgery: Present: supple, trachea midline. Absent: lymphadenopathy - Respiratory Respiratory exam: Present: CTAB. Absent: accessory muscle use, rales, rhonchi, wheezes - Cardiovascular Cardiovascular exam: Present: irregular rhythm (Bigeminy), +S1, +S2. Absent: diastolic murmur, gallop, rubs, systolic murmur - GI/Abdominal GI/Abdominal exam: Present: normal bowel sounds, soft, no peritoneal signs. Absent: bruit, distended, mass, tenderness - Extremities Exam Extremities exam: Present: warm, radial pulses palpable and symmetrical. Absent : calf tenderness, cyanotic, pedal edema - Neurological Exam Neurological exam: Present: CN II-XII intact, oriented X3, no focal deficits. Absent: pronater drift, facial droop, speech deficit - Skin Skin exam: Present: dry, intact Internal Med - H&P Results - Labs CBC & Chem 7: 05/10/17 09:05 05/10/17 09:05 Labs: Short CBC 05/10/17 Range/Units 09:05 WBC 8.0 (4.3-11.1) K/mcL Hgb 13.2 (12.9-16.9) g/dL Hct 39.3 (37.5-50.1) % Plt Count 246 (140-400) K/mcL Neutrophils # 5.6 (1.6-8.9) K/mcL BMP 05/10/17 09:05 Sodium 140 Potassium 4.3 Chloride 110 H Carbon Dioxide 22 BUN 18 Creatinine 0.95 Glucose 148 H Calcium 9.0 Cardiac Enzymes 05/10/17 Range/Units 09:05 Troponin I 0.00 (0-0.03) ng/mL - EKG Data -: EKG Interpreted by Myself Rate: normal (However, shows bigeminy) - EKG Data Prior EKG available for review: yes When compared to previous EKG: there is no significant change - Impressions ITS Impressions Chest X-Ray 05/10/17 08:48 IMPRESSION: No acute process. D/ / Richelle Wen MD / Richelle Wen MD Interpreting Provider: Richelle Wen MD - Diagnostic Studies Chest x-ray Status: image reviewed by me (no Acute pulmonary process) <Sorin Douglas - Last Filed: 05/10/17 17:41> Date of Encounter: 05/10/17 Internal Medicine - H&P: HPI History of present illness: Mr. Griffin is a 62 year old male All Systems PM: A 10-system review of systems was performed and is negative for pertinent findings except as documented above in the HPI. - Constitutional Vitals: Temp Pulse Resp BP Pulse Ox 97.4 F L 75 16 159/97 97 05/10/17 14:30 05/10/17 14:30 05/10/17 14:30 05/10/17 15:52 05/10/17 14:36 Internal Med - H&P Results - Labs CBC & Chem 7: 05/10/17 09:05 05/10/17 09:05 Labs: Cardiac Enzymes 05/10/17 Range/Units 15:16 Troponin I 0.00 (0-0.03) ng/mL - Attending Attestation I examined this patient and my medical decision-making was reviewed with the BOATWRIGHT. I agree with the documented findings, disposition and treatment plan as described .
--- NOTE | 2017-05-10 14:44 | Electrocardiograph Report ---
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
[2017-05-10] MEDS: hydrALAZINE 25 MG TABLET PO SCH ×2 (17:17→23:56)
[2017-05-10] MEDS: Insulin LISPRO 300 UNITS/3 ML VIAL SQ SCH (17:18)
[2017-05-10] MEDS: Metoprolol XL (24 HR) Succ 25 MG TAB.ER.24H PO SCH (20:38)
[2017-05-10] MEDS: Lisinopril 20 MG TABLET PO SCH (20:38)
[2017-05-10] MEDS: Furosemide 40 MG TABLET PO SCH (20:42)
[2017-05-10] MEDS ORDERED: Insulin LISPRO 300 UNITS/3 ML VIAL SQ SCH (21:00)
[2017-05-10] MEDS ORDERED: Gabapentin 300 MG CAPSULE PO SCH (21:00)
[2017-05-11 04:37] LABS: Bilirubin,Urine Negative (Negative); Blood,Urine Negative (Negative); Clarity,Urine Clear (Clear); Color,Urine Yellow (Yellow); Glucose,Urine (UA) Normal (Normal); Ketones,Urine Negative (Negative); Leukocyte Esterase,Urine Negative (Negative); Nitrite,Urine Negative (Negative); PH,Urine 6.5 pH Units (5.0-8.0); Protein,Urine >=300 mg/dL (Neg-Trace); Specific Gravity,Urine 1.017 (1.010-1.025); Urobilinogen,Urine Normal (Normal)
[2017-05-11 04:43] LABS: Bacteria,Urine None Seen per hpf (None-Few); Hyaline Casts,Urine None Seen per lpf (None-Few); Squamous Epithelial Cell,Urine Few per lpf (None-Few); WBC,Urine 0-3 per hpf (0-3)
[2017-05-11 05:58] LABS: Basophils # 0.1 K/mcL (0.0-0.2); Basophils % 0.8 %; Eosinophils # 0.1 K/mcL (0.0-0.6); Eosinophils % 1.5 %; Hematocrit 38.5 % (37.5-50.1); Hemoglobin 13.4 g/dL (12.9-16.9); Immature Granulocytes % 0.3 % (0-4); Lymphocytes # 1.9 K/mcL (0.6-4.6); Lymphocytes % 23.4 %; Mean Corpuscular HGB Conc 34.8 g/dL (31.6-35.5); Mean Corpuscular Hemoglobin 29.6 pg (28.0-33.3); Mean Corpuscular Volume 85.2 fL (83.0-100.0); Mean Platelet Volume 10.9 fL (9.4-12.4); Monocytes # 0.7 K/mcL (0.0-1.3); Monocytes % 9.2 %; Neutrophils # 5.2 K/mcL (1.6-8.9); Platelet Count 243 K/mcL (140-400); Red Blood Count 4.52 M/mcL (4.19-5.50); Red Cell Distribution Width 12.5 % (11.5-14.5); Segmented Neutrophils % 64.8 %
[2017-05-11] MEDS ORDERED: *HR* Enoxaparin 40 MG/0.4 ML SYRINGE SQ SCH (06:00)
[2017-05-11 06:16] LABS: Alanine Aminotransferase 12 Units/L (0-55); Albumin 3.2 g/dL (3.5-5.0); Alkaline Phosphatase 73 Units/L (38-126); Aspartate Amino Transferase 13 Units/L (5-34); BUN/Creatinine Ratio 19 (6-26); Bilirubin,Total 0.7 mg/dL (0.2-1.2); Blood Urea Nitrogen 19 mg/dL (8-26); Calcium 8.9 mg/dL (8.6-10.8); Carbon Dioxide 26 mEq/L (19-29); Chloride 108 mEq/L (98-109); Globulin 3.2 g/dL (2.4-3.5); Glucose 123 mg/dL (70-99); Magnesium 1.6 mg/dL (1.6-2.6); Osmolality,Calculated 294 (280-300); Potassium 3.6 mEq/L (3.5-4.5); Sodium 140 mEq/L (136-145); Total Protein 6.4 g/dL (6.0-8.3); eGFR For African Americans > 60 (> 60); eGFR For Non-African Americans > 60 (> 60)
[2017-05-11] MEDS: Insulin LISPRO 300 UNITS/3 ML VIAL SQ SCH ×4 (07:40→17:19)
[2017-05-11] MEDS ORDERED: Isosorbide MONOnitrate (24 HR) 30 MG TAB.ER.24H PO SCH (09:00)
[2017-05-11] MEDS ORDERED: Aspirin Enteric Coated 81 MG Tablet PO SCH (09:00)
[2017-05-11] MEDS: hydrALAZINE 25 MG TABLET PO SCH ×2 (09:36→17:19)
[2017-05-11] MEDS: Furosemide 40 MG TABLET PO SCH ×2 (09:36→17:19)
[2017-05-11] MEDS: Metoprolol XL (24 HR) Succ 25 MG TAB.ER.24H PO SCH (09:37)
[2017-05-11] MEDS: Lisinopril 20 MG TABLET PO SCH (09:37)
[2017-05-11 15:07] VITALS: BP 135/68
--- NOTE | 2017-05-11 17:34 | Discharge Summary ---
Date of Encounter: 05/11/17 Time of Encounter: 09:30 (and 1730) - Discharge Diagnosis (1) Hypertensive urgency Priority: Primary Status: Resolved Comments: likely secondary to fluid overload. Normotensive while admitted after he was successfully diuresed. Follow-up outpatient (2) Bigeminy Priority: Primary Status: Resolved (3) Chest pain Priority: Primary Status: Resolved Qualifiers: Chest pain type: other chest pain Qualified Code(s): R07.89 - Other chest pain; R07.8 - Other chest pain (4) Diastolic heart failure Priority: Secondary Status: Chronic Comments: patient with acute on chronic diastolic heart failure. Successfully diuresed during this admission. He stated that his arms and his legs were the thinnest that they have been in months and he states that his shortness of breath had resolved. Of note, he was drinking at least a gallon of water per day, instructed her on 1.5 L fluid restriction Qualifiers: Heart failure chronicity: acute on chronic Qualified Code(s): I50.33 - Acute on chronic diastolic (congestive) heart failure (5) CAD (coronary artery disease) Priority: Secondary Status: Chronic Qualifiers: Coronary Disease-Associated Artery/Lesion type: [place] artery [place] vs. transplanted heart: [place] heart Associated angina: with other forms of angina Qualified Code(s): I25.118 - Atherosclerotic heart disease of [place] coronary artery with other forms of angina pectoris (6) Diabetes Priority: Secondary Status: Chronic Comments: No recent A1c but appears well-controlled, follow-up outpatient Qualifiers: Diabetes mellitus type: type 2 Diabetes mellitus complication status: with neurologic complications Diabetes mellitus complication detail: with polyneuropathy Diabetes mellitus termite helper insulin use: without mcfp use Qualified Code(s): E11.42 - Type 2 diabetes mellitus with diabetic polyneuropathy (7) Hypertension Priority: Secondary Status: Chronic Qualifiers: Hypertension type: essential hypertension Qualified Code(s): I10 - Essential (primary) hypertension (8) Peripheral neuropathy Priority: Secondary Status: Chronic Comments: Continue with gabapentin (9) DVT prophylaxis Priority: Primary Status: Acute Comments: Subcutaneous Lovenox while admitted - Discharge Medications Prescriptions: Furosemide [Lasix] 40 mg PO BID #60 Home Medications: Albuterol Sulfate [Ventolin Hfa] 2 puff IH Q4H PRN 04/11/17 [History] Aspirin [Lo-Dose Aspirin EC] 81 tab PO DAILY 07/13/17 [History] Clopidogrel [Plavix] 75 mg PO DAILY 04/11/17 [History] Gabapentin [Neurontin] 600 mg PO HS 04/11/17 [History] Metformin HCl [Glucophage Xr] 750 mg PO BID 04/11/17 [History] Isosorbide MONOnitrate (24 HR) [Imdur] 30 mg PO DAILY #30 04/13/17 [Rx] Nitroglycerin 0.4 mg SL Q5MIN PRN 04/13/17 [Rx] Lisinopril [Zestril] 40 mg PO BID 05/10/17 [History] Metoprolol XL (24 HR) Succ [Toprol Xl] 25 mg PO BID 05/10/17 [History] Omeprazole [PriLOSEC] 20 mg PO DAILY 05/10/17 [History] hydrALAZINE [HydrALAZINE] 50 mg PO Q8HR 05/10/17 [History] Furosemide [Lasix] 40 mg PO BID #60 05/11/17 [Rx] Allergies/Adverse Reactions: Allergies duloxetine [From Cymbalta] Adverse Reaction (Verified 04/16/17 15:17) Vomiting Date of admission: 05/10/17 12:25 Primary care physician: Curt Ewing DO Consults: 05/10/17 14:47 Consult to Pure Culture Operator [CONS] Routine Reason for SW Consult: readmission Discharging clinician: Clarissa Hartmann Anticipated date of discharge: 05/11/17 - Patient Status Disposition: Home, Self-Care Condition: Fair Functional capacity at discharge: independent ambulation Overall status at discharge: patient is back to baseline - Discharge Instructions Follow Up With: Curt Ewing DO [Primary Care Provider] - Additional Instructions: Follow-up with primary care provider within one to 2 weeks, 1.5 L fluid restricted diet, sodium restricted diet, check blood pressure daily and keep a log for primary care - Diet and Activity Activity: increase activity as tolerated Diet: diabetic diet, low fat, low cholesterol (1.5 L fluid restricted per day), low salt diet Hospital course: Mr. Griffin is a 62 year old male with past medical cardiomyopathy, CHF, COPD, diabetes, hypertension, CAD status post stent in May 2016, chronic kidney disease stage III. Patient presented to the emergency department chief complaint of increased shortness of breath, increased swelling to his arms and legs, and chest discomfort/pain as well as uncontrolled blood pressure. EKG in the emergency department consistent with ventricular bigeminy as well as hypertensive crisis with initial blood pressure of 211/120. Chest x-ray negative. Patient was admitted to the hospitalist service for further evaluation and management. Patient was diuresed with IV furosemide and the swelling to his legs and arms resolved. Patient stating that his shortness of breath also resolved. He states that this is the dentist his arms have been in quite some time. Upon further discussion with the patient, he is supposed to be taking his furosemide 40 mg twice a day at home however usually taking it once a day. Furthermore, he was not aware that he is supposed to be on a fluid restricted diet so he drinks at least 1 gallon of water per day. He was educated on 1.5 L fluid restricted diet. There was no evidence of chronic kidney disease during this admission. Renal functioning normal. On telemetry, initially, patient exhibited bigeminy but this resolved shortly after admission. He was observed in his bigeminy had resolved. His chest discomfort and shortness of breath that also resolved after he was successfully diuresed. Urinalysis negative. Regarding his blood pressure, after he was diuresed, his regular home medications were resumed and he became normotensive. He was observed for 2 days and after his excess fluid was taken off, his blood pressure was controlled with his regular home medications. He has been instructed to take his Lasix as prescribed 40 mg twice a day at home. He is also been educated at length regarding his fluid restricted in sodium restricted diet. He was discharged home in stable condition with close outpatient follow-up recommended. He was also instructed check his blood pressure daily and keep a log for his primary care team. ITS Impressions Chest X-Ray 05/10/17 08:48 IMPRESSION: No acute process. D/ / Richelle Wen MD / Richelle Wen MD Interpreting Provider: Richelle Wen MD Echocardiogram Date of Study: 04/11/2017 Impressions: Normal LV systolic function, LVEF 55-60%. Mild concentric left ventricular hypertrophy. Mild left ventricular diastolic dysfunction. Normal right ventricular size and function. No significant valvular dysfunction. Unable to estimate RVSP due to lack of TR jet. - Time Spent with Patient Total time spent providing and/or coordinating discharge services: - Constitutional Vitals: Temp Pulse Resp BP Pulse Ox 97.7 F 80 16 135/68 94 05/11/17 15:02 05/11/17 15:02 05/11/17 15:02 05/11/17 15:02 05/11/17 15:02 General appearance: Present: cooperative, A&O X 3, pleasant, no acute distress, obese, answers questions appropriately - Head Head exam: Present: atraumatic, normocephalic - Eye Eye exam: Present: PERRL, conjuntiva pink, sclera anicteric Pupils: Present: PERRL - Neck Neck exam general surgery: Present: supple, trachea midline. Absent: lymphadenopathy - Respiratory Respiratory exam: Present: decreased breath sounds. Absent: accessory muscle use, rales, respiratory distress, rhonchi, wheezes - Cardiovascular Cardiovascular exam: Present: RRR, +S1, +S2. Absent: diastolic murmur, gallop, rubs, systolic murmur - GI/Abdominal GI/Abdominal exam: Present: distended, normal bowel sounds, soft, no peritoneal signs. Absent: tenderness - Extremities Exam Extremities exam: Present: warm, radial pulses palpable and symmetrical. Absent : calf tenderness, cyanotic, pedal edema (resolved) - Neurological Exam Neurological exam: Present: alert, CN II-XII intact, normal gait, oriented X3, no focal deficits, strengths equal and symetr throughout. Absent: pronater drift, facial droop, speech deficit - Skin Skin exam: Present: dry, intact, normal color, warm
--- NOTE | 2017-05-12 13:17 | Electrocardiograph Report ---
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
== END 2017-05-11 18:15 | disposition home or self-care (01) ==
LOC: 3BNU 08:41 → EMEROO 08:41 → 3BNU 14:21
PROVIDERS: ADMIT Internal Medicine Endocrinology, Diabetes & Metabolism; ATTEND Nurse Practitioner Family

== ENCOUNTER 2017-11-19 14:52 | Observation (INO) ==
[2017-11-19] MEDS ORDERED: Aspirin 81 MG TAB.CHEW PO STA (15:19)
[2017-11-19] MEDS ORDERED: Nitroglycerin 0.4 MG TAB.SUBL SL ONE (15:42)
--- NOTE | 2017-11-19 15:45 | Emergency Department Note ---
Disposition Clinical Impression: Left shoulder pain Qualifiers: Chronicity: unspecified Qualified Code(s): M25.512 - Pain in left shoulder Disposition: Admitted As Inpatient Condition: Good Referrals: Cj Oswald MD [Primary Care Provider] - Forms: ED Satisfaction Letter Chest Pain HPI - General Chief Complaint: ED Chest Pain Stated Complaint: CP / L Shoulder Pain Time Seen by Provider: 11/19/17 15:18 Source: patient Mode of arrival: private vehicle Limitations: no limitations Vital Signs Reviewed: Yes Nursing Notes Reviewed: Yes - History of Present Illness HPI Narrative: 62-year-old male history of coronary artery disease with stents placed in 2016, diabetes, hypertension, hyperlipidemia who presents to the ER with a chief complaint of left shoulder pain. Patient reports intermittent left shoulder pain for the last 2 weeks. Exertional symptoms relieved with rest. States this is similar to his prior pain he had prior to receiving 3 stents. States he has not had this pain since the stents were placed. No recent illnesses. No trauma. He is compliant with his aspirin and Plavix. Reports he feels mildly short of breath. No history of DVT or pulmonary embolus. No other complaints. Pt complaint: other (Left shoulder pain) Onset (ago): week(s) Duration: intermittent Onset: during exertion Pain Location: left chest (Left shoulder) Severity: mild Severity scale (1-10): 4 Quality: sharp Pain Radiation: none Improves with: nothing Worsens with: exertion Associated symptoms: Reports: nausea, dyspnea. Denies: vomiting, diaphoresis Treatments prior to arrival chest pain: none - Related Data On Oral Contraceptives: No Home Medications Medication Instructions Recorded Confirmed Clopidogrel [Plavix] 75 mg PO DAILY 04/11/17 11/19/17 Lisinopril [Zestril] 40 mg PO BID 05/10/17 11/19/17 hydrALAZINE [HydrALAZINE] 25 mg PO BID 05/10/17 11/19/17 Amlodipine Besylate 10 mg PO DAILY 11/19/17 11/19/17 Aspirin 81 mg PO DAILY 11/19/17 11/19/17 Bumetanide [Bumex] 1 mg PO BID 11/19/17 11/19/17 Carvedilol [Coreg] 6.25 mg PO BIDWM 11/19/17 11/19/17 Cholecalciferol (Vitamin D3) 2,000 unit PO DAILY 11/19/17 11/19/17 [Vitamin D] Cyanocobalamin (Vitamin B-12) 1,000 mcg PO DAILY 11/19/17 11/19/17 [Vitamin B12] Rosuvastatin [Crestor] 20 mg PO HS 11/19/17 11/19/17 Ubidecarenone [Co Q-10] 10 mg PO DAILY 11/19/17 11/19/17 metFORMIN [Glucophage] 750 mg PO BID 11/19/17 11/19/17 metOLazone [Zaroxolyn] 2.5 mg PO TUTH 11/19/17 11/19/17 Previous Rx's Medication Instructions Recorded Isosorbide MONOnitrate (24 HR) 30 mg PO DAILY #30 04/13/17 [Imdur] Nitroglycerin 0.4 mg SL Q5MIN PRN 04/13/17 Allergies Allergy/AdvReac Type Severity Reaction Status Date / Time duloxetine [From Cymbalta] AdvReac Vomiting Verified 04/16/17 15:17 All systems ED: reviewed and negative except as stated. Constitutional: Denies: fever Cardiovascular: Denies: chest pain Respiratory: Reports: dyspnea. Denies: cough Gastrointestinal: Reports: nausea. Denies: abdominal pain, vomiting Chest Pain PMH - Past Medical History Medical history: Reports: cardiomyopathy, CHF, COPD, diabetes, hypertension, myocardial infarction Surgical history: Reports: angioplasty/stent, other Psychiatric history: Reports: no psych history - Social History Smoking Status: Never smoker Alcohol use: Reports: none Drug use: Reports: none Physical Exam - General Limitations: no limitations General appearance: alert, in no apparent distress - Head Head exam: atraumatic, normocephalic - Eye Eye exam: Present: normal appearance - ENT ENT exam: normal exam - Neck Neck exam: Present: normal inspection - Chest Chest inspection: Present: normal inspection, symmetric chest wall rise. Absent : tenderness - Respiratory Respiratory exam: Present: normal lung sounds bilaterally - Cardiovascular Cardiovascular exam: Present: regular rate, normal rhythm, normal heart sounds - Abdominal Exam Abdominal exam: Present: soft, Non-Tender. Absent: tenderness - Extremities Exam Extremities exam: Present: normal inspection, full ROM - Expanded Upper Extremity Exam Shoulder exam: Present: normal inspection, full ROM Arm exam: Present: normal inspection, full ROM Elbow exam: Present: normal inspection, full ROM Forearm/Wrist exam: Present: normal inspection, full ROM Hand exam: Present: normal inspection, full ROM - Expanded Lower Extremity Exam Hip/Pelvis exam: Present: normal inspection, full ROM Upper leg exam: Present: normal inspection, full ROM Knee exam: Present: normal inspection, full ROM Lower leg exam: Present: normal inspection, full ROM, swelling (1+ bilateral lower extremity pitting edema) Ankle exam: Present: normal inspection, full ROM Foot/toe exam: Present: normal inspection, full ROM - Skin Skin exam: Present: warm, dry Course Course Narrative: Patient seen and examined. Although his symptoms are atypical for ACS he reports these are nearly identical to the symptoms he had previously receiving 3 stents placed in 2016. Given these findings we will get an EKG, chest x-ray as well as labs including troponin and BNP. Patient provided with aspirin here as well as a nitroglycerin trial. Patient will be admitted for ACS rule out. - Reevaluation(s) Reevaluation #1: Imaging labs reviewed. Pain-free at this time. We will discuss with the hospitalist for admission. Vital Signs Temperature 97.8 F 11/19/17 15:01 Pulse Rate 87 11/19/17 15:01 Respiratory Rate 18 11/19/17 15:01 Blood Pressure 161/91 11/19/17 15:01 O2 Sat by Pulse Oximetry 98 11/19/17 15:01 Temperature 97.8 F 11/19/17 15:01 Pulse Rate 84 11/19/17 16:03 Respiratory Rate 18 11/19/17 16:03 Blood Pressure 126/93 11/19/17 16:03 O2 Sat by Pulse Oximetry 97 11/19/17 16:03 Oxygen Delivery Oxygen Delivery Room Air Chest Pain - MDM Narrative Medical decision making narrative: 62-year-old male with known CAD who presents to the ER due to atypical left shoulder pain. Reports his pain is nearly identical to when he received 3 stents previously. Exertional symptoms. EKG without ischemic findings 2. Initial troponin within normal limits. X-ray unremarkable. Patient given one sublingual nitroglycerin without any real change whenever he is currently pain- free. Aspirin given. Admitted to the hospitalist service for ACS evaluation. - Lab Data Result diagrams: 11/19/17 15:20 11/19/17 15:20 Lab Results 11/19/17 11/19/1718 Range/Units 15:20 15:20 15:20 WBC 8.9 (4.3-11.1) K/mcL RBC 4.69 (4.19-5.50) M/mcL Hgb 13.3 (12.9-16.9) g/dL Hct 37.7 (37.5-50.1) % MCV 80.4 L (83.0-100.0) fL MCH 28.4 (28.0-33.3) pg MCHC 35.3 (31.6-35.5) g/dL RDW 12.5 (11.5-14.5) % Plt Count 308 (140-400) K/mcL MPV 10.9 (9.4-12.4) fL Immature Gran % 0.2 (0-4) % Seg Neutrophils % 71.7 % Lymphocytes % 18.2 % Monocytes % 8.0 % Eosinophils % 1.3 % Basophils % 0.6 % Neutrophils # 6.4 (1.6-8.9) K/mcL Lymphocytes # 1.6 (0.6-4.6) K/mcL Monocytes # 0.7 (0.0-1.3) K/mcL Eosinophils # 0.1 (0.0-0.6) K/mcL Basophils # 0.1 (0.0-0.2) K/mcL Sodium 137 (136-145) mEq/L Potassium 4.0 (3.5-5.1) mEq/L Chloride 103 (98-107) mEq/L Carbon Dioxide 25 (23-29) mEq/L BUN 28 H (8-23) mg/dL Creatinine 1.60 H (0.70-1.30) mg/dL Est GFR ( Amer) 53 L (> 60) Est GFR (Non-Af Amer) 44 L (> 60) BUN/Creatinine Ratio 18 (6-26) Glucose 311 H (70-105) mg/dL Calculated Osmolality 301 H (280-300) Calcium 9.1 (8.6-10.3) mg/dL Troponin I (< 0.04) ng/mL B-Natriuretic Peptide 47 (Less than 100) pg/mL 11/19/17 Range/Units 15:20 WBC (4.3-11.1) K/mcL RBC (4.19-5.50) M/mcL Hgb (12.9-16.9) g/dL Hct (37.5-50.1) % MCV (83.0-100.0) fL MCH (28.0-33.3) pg MCHC (31.6-35.5) g/dL RDW (11.5-14.5) % Plt Count (140-400) K/mcL MPV (9.4-12.4) fL Immature Gran % (0-4) % Seg Neutrophils % % Lymphocytes % % Monocytes % % Eosinophils % % Basophils % % Neutrophils # (1.6-8.9) K/mcL Lymphocytes # (0.6-4.6) K/mcL Monocytes # (0.0-1.3) K/mcL Eosinophils # (0.0-0.6) K/mcL Basophils # (0.0-0.2) K/mcL Sodium (136-145) mEq/L Potassium (3.5-5.1) mEq/L Chloride (98-107) mEq/L Carbon Dioxide (23-29) mEq/L BUN (8-23) mg/dL Creatinine (0.70-1.30) mg/dL Est GFR ( Amer) (> 60) Est GFR (Non-Af Amer) (> 60) BUN/Creatinine Ratio (6-26) Glucose (70-105) mg/dL Calculated Osmolality (280-300) Calcium (8.6-10.3) mg/dL Troponin I < 0.03 (< 0.04) ng/mL B-Natriuretic Peptide (Less than 100) pg/mL - EKG Data EKG attestation: Yes I reviewed and interpreted this EKG. EKG results narrative: EKG demonstrates sinus rhythm with a rate of 83 bpm with PVCs. Normal axis. Normal intervals. Normal R-wave progression. Nonspecific ST-T wave changes in leads [address]VF[address] No gross ST elevations or depressions.Acute ischemic findings. Changes from previous EKG included sinus rhythm from bigeminy. Repeat EKG 15:51 sinus rhythm rate of 81 bpm. Normal axis. Normal intervals. Normal R-wave progression. Nonspecific ST-T wave changes in leads 3 [address]VF. No gross ST elevations or depressions. No acute ischemic findings. Heart Score - Score History: Moderately Suspicious EKG: Non Specific repolarisation Disturbance Age: 45-65 Risk Factors: Equal/Greater than 3 risk factor or history of atherosclerotic disease Troponin: Less than normal limit HEART Score Total: 5 S.B.A.Nicholas. - Amanda Situation: Demographics, MOA Background: Presenting Complaint, Relevant PMH, Meds, & Allergies Assessment: Course and respsone to treatment, Exam Concerns, Patient/Family Expectation, Pertinant Lab Results Recommendation: Barrier(s) to disposition, Recommendation based on pending studies, treatments, or consults S.B.Carolin Report Given to: Dr. Saleem Patel Repor Time: 16:41 Attestation Statement - Attestation Attestation: I examined this patient and my medical decision-making was reviewed with the Resident Physician. I agree with the documented findings, disposition and treatment plan as described except to the extent set forth below. Symptoms replicating his prior ischemic symptoms. EKG is essentially normal. Pain continues now. We will repeat an EKG. Awaiting troponin, patient will require admission for further evaluation and workup.
[2017-11-19 15:58] LABS: Basophils # 0.1 K/mcL (0.0-0.2); Basophils % 0.6 %; Eosinophils # 0.1 K/mcL (0.0-0.6); Eosinophils % 1.3 %; Hematocrit 37.7 % (37.5-50.1); Hemoglobin 13.3 g/dL (12.9-16.9); Immature Granulocytes % 0.2 % (0-4); Lymphocytes # 1.6 K/mcL (0.6-4.6); Lymphocytes % 18.2 %; Mean Corpuscular HGB Conc 35.3 g/dL (31.6-35.5); Mean Corpuscular Hemoglobin 28.4 pg (28.0-33.3); Mean Corpuscular Volume 80.4 fL (83.0-100.0); Mean Platelet Volume 10.9 fL (9.4-12.4); Monocytes # 0.7 K/mcL (0.0-1.3); Neutrophils # 6.4 K/mcL (1.6-8.9); Platelet Count 308 K/mcL (140-400); Red Blood Count 4.69 M/mcL (4.19-5.50); Red Cell Distribution Width 12.5 % (11.5-14.5); Segmented Neutrophils % 71.7 %
[2017-11-19 16:12] LABS: Calcium 9.1 mg/dL (8.6-10.3)
[2017-11-19] MEDS ORDERED: Nitroglycerin 0.4 MG TAB.SUBL SL PRN (16:47)
[2017-11-19] MEDS ORDERED: Dextrose Gel 15 GM/37.5 ML TUBE PO PRN ×4 (16:47→21:19)
[2017-11-19] MEDS ORDERED: *HR* Dextrose 50 % in Water (Syg) 50 ML SYRINGE IVP PRN ×2 (16:47→21:19)
[2017-11-19] MEDS ORDERED: D5% in Water 1,000 ML IVC PRN ×2 (16:47→21:19)
[2017-11-19] MEDS ORDERED: Naloxone 0.4 MG/ML INJ IVP PRN (16:49)
[2017-11-19] MEDS ORDERED: Acetaminophen 325 MG TABLET PO PRN (16:49)
--- NOTE | 2017-11-19 16:51 | Internal Med History&Physical ---
Date of Encounter: 11/19/17 Time of Encounter: 16:41 Assessment and Plan (1) Chest pain Current visit: No Status: Acute Admit to the hospitalist's service. Rule out ACS. multiple risk factors including h/o CAD with stents, DM, HTN, obesity. Telemetry. Trend cardiac enzymes. EKG with no acute changes. Check A1c, lipid panel. Stress test in am. Resume ASA/plavix. Patient is not on BB due to history of symptomatic bradycardia Qualifiers: Chest pain type: unspecified Qualified Code(s): R07.9 - Chest pain, unspecified (2) Hypertension Current visit: No Status: Acute Resume home medications. Qualifiers: Hypertension type: essential hypertension Qualified Code(s): I10 - Essential (primary) hypertension (3) CAD (coronary artery disease) Current visit: No Status: Chronic Resume aspirin/Plavix. Resume statin. Not on a beta angus due to previous history of symptomatic bradycardia. Resume Imdur/hydralazine/lisinopril. Qualifiers: Coronary Disease-Associated Artery/Lesion type: [place] artery [place] vs. transplanted heart: [place] heart Associated angina: with other forms of angina Qualified Code(s): I25.118 - Atherosclerotic heart disease of [place] coronary artery with other forms of angina pectoris (4) Chronic kidney disease Current visit: No Status: Chronic This is stable. Route baseline. Continue to monitor. Qualifiers: Chronic kidney disease stage: stage 3 (moderate) Qualified Code(s): N18.3 - Chronic kidney disease, stage 3 (moderate) (5) Diabetes Current visit: No Status: Chronic Will put on SSI. Diabetic diet. 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 c/w bumex, Zaroxolyn home doses. Qualifiers: Heart failure chronicity: acute on chronic Qualified Code(s): I50.33 - Acute on chronic diastolic (congestive) heart failure (7) DVT prophylaxis Current visit: No Status: Acute heparin SQ Internal Medicine - H&P: HPI Chief complaint: chest pain Admitted From: Home Plans for Post Hospital Care: Home History of present illness: Mr. Griffin is a 62 year old male with PMH of HTN, HLD, DM, CKD3, CAD s/p stents 2 years ago at [facility] and follows with Dr. Martinez and Dr. Vanegas from cardiology, COPD who presents to [facility] through the ED with left shoulder pain and mild chest discomfort. Says this is the feeling he had when had coronary stents placed and he was worried and came for evaluation. Pain has been on and off for a couple of weeks or so. Relieved with rest and exacerbated by exertion. EKG in ED with no acute ST or T wave changes. CXR unremarakble. Hemodyanmically stable and not hypoxic. Laboratory work up showed CKD and glucose of 311 on BMP. BNP 47. last echo 07/2017 EF 60% with mild LVH and mild LV diastolic dysfunction. Denies headache, diaphoresis, blurry vision, fever, chills, nausea , vomiting, abdominal pain, urinary symptoms, or neurological symptoms. Past Med Surg Social Fam HX - Past Medical History Medical history: cardiomyopathy, CHF, COPD, diabetes, hypertension, myocardial infarction Psychiatric history: no psych history - Past Surgical History Surgical History: angioplasty/stent, other - Social History Smoking Status: Never smoker Smokeless Tobacco Status: No Alcohol use: none Drug use: none - Family History Father Living Status: Hx Family Cardiac Disorders: Yes Hx Family Respiratory Disorders: (black lung) Hx Family Endocrine Disorder: Yes (dm) Mother Family Member Ethnicity: Non- Living Status: Hx Family Cardiac Disorders: Yes Hx Family Endocrine Disorder: Yes (dm) Hx Family Neurologic Disorders: Yes (CVA) Internal Medicine - H&P: Meds Clopidogrel [Plavix] 75 mg PO DAILY 04/11/17 [History] Isosorbide MONOnitrate (24 HR) [Imdur] 30 mg PO DAILY #30 04/13/17 [Rx] Nitroglycerin 0.4 mg SL Q5MIN PRN 04/13/17 [Rx] Lisinopril [Zestril] 40 mg PO BID 05/10/17 [History] hydrALAZINE [HydrALAZINE] 25 mg PO BID 05/10/17 [History] Amlodipine Besylate 10 mg PO DAILY 11/19/17 [History] Aspirin 81 mg PO DAILY 11/19/17 [History] Bumetanide [Bumex] 1 mg PO BID 11/19/17 [History] Carvedilol [Coreg] 6.25 mg PO BIDWM 11/19/17 [History] Cholecalciferol (Vitamin D3) [Vitamin D] 2,000 unit PO DAILY 11/19/17 [History] Cyanocobalamin (Vitamin B-12) [Vitamin B12] 1,000 mcg PO DAILY 11/19/17 [History ] Rosuvastatin [Crestor] 20 mg PO HS 11/19/17 [History] Ubidecarenone [Co Q-10] 10 mg PO DAILY 11/19/17 [History] metFORMIN [Glucophage] 750 mg PO BID 11/19/17 [History] metOLazone [Zaroxolyn] 2.5 mg PO TUTH 11/19/17 [History] 3 Allergy/AdvReac Type Severity Reaction Status Date / Time duloxetine [From Cymbalta] AdvReac Vomiting Verified 04/16/17 15:17 All Systems PM: A 10-system review of systems was performed and is negative for pertinent findings except as documented above in the HPI. Review of systems: All systems reviewed are negative except as mentioned above - Constitutional Vitals: Temp Pulse Resp BP Pulse Ox 97.8 F 84 18 126/93 97 11/19/17 15:01 11/19/17 16:03 11/19/17 16:03 11/19/17 16:03 11/19/17 16:03 Exam: GEN: NAD HEENT: AT, NC, No cyanosis, oral mucosa is moist, No JVD Lymphatics: No lymphadenoapthy Eyes: Extrocular muscles intact, anicteric CVS:RRR. S1, S2, No m/r/g RESP: CTAB ABD: Soft, NT, ND, +BS EXT: No edema, No rashes, 2+ DP NEURO: Nonfocal, CN II-XII intact, No focal motor or sensory deficits Psych: Cooperative, Not anxious or depressed Internal Med - H&P Results - Labs CBC & Chem 7: 11/19/17 15:20 11/19/17 15:20 Labs: Short CBC 11/19/17 Range/Units 15:20 WBC 8.9 (4.3-11.1) K/mcL Hgb 13.3 (12.9-16.9) g/dL Hct 37.7 (37.5-50.1) % Plt Count 308 (140-400) K/mcL Neutrophils # 6.4 (1.6-8.9) K/mcL BMP 11/19/17 15:20 Sodium 137 Potassium 4.0 Chloride 103 Carbon Dioxide 25 BUN 28 H Creatinine 1.60 H Glucose 311 H Calcium 9.1 Cardiac Enzymes 11/19/17 Range/Units 15:20 Troponin I < 0.03 (< 0.04) ng/mL - Impressions ITS Impressions Chest X-Ray 11/19/17 15:42 IMPRESSION: No acute cardiopulmonary disease. D/ / 11/19/2017 16:31:07 Noemi Parker MD / sera Interpreting Provider: Noemi Parker MD
[2017-11-19 17:16] LABS: Chol/HDL Ratio 2.6 (0-4.9)
[2017-11-19 18:18] LABS: Hemoglobin A1C 7.3 %
[2017-11-19] MEDS: metOLazone 2.5 MG TABLET PO SCH (19:56)
[2017-11-19] MEDS ORDERED: Insulin LISPRO 300 UNITS/3 ML VIAL SQ SCH (21:30)
[2017-11-19] MEDS: amLODIPine 5 MG TABLET PO SCH (21:36)
[2017-11-19] MEDS: Bumetanide 1 MG TABLET PO SCH (21:36)
[2017-11-19] MEDS: hydrALAZINE 25 MG TABLET PO SCH (21:37)
[2017-11-19] MEDS: *HR* Heparin 5,000 UNIT/ML VIAL SQ SCH (21:37)
[2017-11-19] MEDS: Lisinopril 20 MG TABLET PO SCH (21:37)
[2017-11-20] MEDS: *HR* Heparin 5,000 UNIT/ML VIAL SQ SCH ×3 (05:51→21:32)
[2017-11-20] MEDS ORDERED: Regadenoson 0.4 MG/5 ML SYRINGE IVP ONE (06:08)
[2017-11-20] MEDS: Bumetanide 1 MG TABLET PO SCH ×2 (08:42→20:24)
[2017-11-20] MEDS: Lisinopril 20 MG TABLET PO SCH ×2 (08:42→20:22)
[2017-11-20] MEDS: Aspirin 81 MG TAB.CHEW PO SCH (08:42)
[2017-11-20] MEDS: Cyanocobalamin (B-12) 1,000 MCG TABLET PO SCH (08:43)
[2017-11-20] MEDS: Isosorbide MONOnitrate (24 HR) 30 MG TAB.ER.24H PO SCH (08:43)
[2017-11-20] MEDS: Cholecalciferol (D-3) 1,000 UNIT TABLET PO SCH (08:43)
[2017-11-20] MEDS: hydrALAZINE 25 MG TABLET PO SCH ×2 (08:48→20:23)
[2017-11-20] MEDS: Insulin LISPRO 300 UNITS/3 ML VIAL SQ SCH ×5 (08:51→20:24)
[2017-11-20] MEDS ORDERED: amLODIPine 5 MG TABLET PO SCH (09:00)
[2017-11-20 09:47] LABS: Basophils # 0.1 K/mcL (0.0-0.2); Basophils % 0.8 %; Eosinophils # 0.1 K/mcL (0.0-0.6); Eosinophils % 0.8 %; Hematocrit 35.8 % (37.5-50.1); Hemoglobin 12.6 g/dL (12.9-16.9); Immature Granulocytes % 0.1 % (0-4); Lymphocytes # 1.5 K/mcL (0.6-4.6); Lymphocytes % 16.8 %; Mean Corpuscular HGB Conc 35.2 g/dL (31.6-35.5); Mean Corpuscular Hemoglobin 28.2 pg (28.0-33.3); Mean Corpuscular Volume 80.1 fL (83.0-100.0); Mean Platelet Volume 10.6 fL (9.4-12.4); Monocytes # 0.7 K/mcL (0.0-1.3); Monocytes % 8.6 %; Neutrophils # 6.3 K/mcL (1.6-8.9); Platelet Count 256 K/mcL (140-400); Red Blood Count 4.47 M/mcL (4.19-5.50); Red Cell Distribution Width 12.3 % (11.5-14.5); Segmented Neutrophils % 72.9 %
[2017-11-20 10:43] LABS: BUN/Creatinine Ratio 20 (6-26); Blood Urea Nitrogen 25 mg/dL (8-23); Calcium 8.9 mg/dL (8.6-10.3); Carbon Dioxide 25 mEq/L (23-29); Chloride 103 mEq/L (98-107); Glucose 278 mg/dL (70-105); Magnesium 1.6 mg/dL (1.6-2.6); Osmolality,Calculated 296 (280-300); Potassium 3.5 mEq/L (3.5-5.1); Sodium 136 mEq/L (136-145); eGFR For African Americans > 60 (> 60); eGFR For Non-African Americans 59 (> 60)
--- NOTE | 2017-11-20 11:19 | Internal Med Progress Note ---
Date of Encounter: 11/20/17 Time of Encounter: 11:12 - Assessment and plan (1) Left shoulder pain Current Visit: Yes Status: Acute Assessment and plan: presented with left shoulder pain for the last 2-3 weeks. Concerned for angina equivalent as patient had similar symptoms when he required PCI. Troponin X2 negative. EKG without acute ST changes. Stress test negative for ischemia or infarct however patient complained of worsening chest pain during stress test. Check echo. Left shoulder x-ray pending Qualifiers: Chronicity: acute Qualified Code(s): M25.512 - Pain in left shoulder (2) CAD (coronary artery disease) Current Visit: No Status: Chronic Assessment and plan: hx PCI as noted above. With c/o left shoulder pain as noted above. Plan as noted above as well Qualifiers: Coronary Disease-Associated Artery/Lesion type: [place] artery [place] vs. transplanted heart: [place] heart Associated angina: with other forms of angina Qualified Code(s): I25.118 - Atherosclerotic heart disease of [place] coronary artery with other forms of angina pectoris (3) Chronic kidney disease Current Visit: No Status: Chronic Assessment and plan: per hx. Renal function at baseline Qualifiers: Chronic kidney disease stage: stage 3 (moderate) Qualified Code(s): N18.3 - Chronic kidney disease, stage 3 (moderate) (4) Hypertension Current Visit: No Status: Acute Assessment and plan: per hx. BP controlled. Cont home BP medication. Monitor BP and titrate PRN Qualifiers: Hypertension type: essential hypertension Qualified Code(s): I10 - Essential (primary) hypertension (5) DVT prophylaxis Current Visit: No Status: Acute - Subjective Interval history: Seen and examined at bedside. Patient is new to me, information obtained from chart review and patient report. Patient still complaining of 10 out of 10 left shoulder pain. Pain is sharp and does not radiate. Nothing makes better or worse. No chest pain or shortness of breath. He initially declined pain medication however he is agreeable to Lidoderm patch. - Constitutional Vitals: Temp Pulse Resp BP Pulse Ox 97.8 F 83 16 165/95 95 11/20/17 08:39 11/20/17 08:39 11/20/17 08:39 11/20/17 08:39 11/20/17 03:19 General appearance: Present: A&O X 3, morbidly obese - Head Head exam: Present: atraumatic, normocephalic - Eye Eye exam: Present: PERRL, conjuntiva pink, sclera anicteric Pupils: Present: PERRL - Neck Neck exam general surgery: Present: supple, trachea midline. Absent: lymphadenopathy - Respiratory Respiratory exam: Present: CTAB. Absent: accessory muscle use, rales, rhonchi, wheezes - Cardiovascular Cardiovascular exam: Present: RRR, +S1, +S2. Absent: diastolic murmur, gallop, rubs, systolic murmur - GI/Abdominal GI/Abdominal exam: Present: normal bowel sounds, soft, no peritoneal signs. Absent: distended, tenderness - Extremities Exam Extremities exam: Present: warm, radial pulses palpable and symmetrical. Absent : calf tenderness, cyanotic, pedal edema - Neurological Exam Neurological exam: Present: CN II-XII intact, oriented X3, no focal deficits. Absent: pronater drift, facial droop, speech deficit - Skin Skin exam: Present: dry, intact Internal Medicine: Result - Labs CBC & Chem 7: 11/20/17 09:14 11/20/17 09:14 Labs: Short CBC 11/20/17 Range/Units 09:14 WBC 8.6 (4.3-11.1) K/mcL Hgb 12.6 L (12.9-16.9) g/dL Hct 35.8 L (37.5-50.1) % Plt Count 256 (140-400) K/mcL Neutrophils # 6.3 (1.6-8.9) K/mcL BMP 11/20/17 09:14 Sodium 136 Potassium 3.5 Chloride 103 Carbon Dioxide 25 BUN 25 H Creatinine 1.25 Glucose 278 H Calcium 8.9 Cardiac Enzymes 11/19/17 Range/Units 21:09 Troponin I < 0.03 (< 0.04) ng/mL Consult Discharge Plan - Plan Referrals: Cj Oswald MD [Primary Care Provider] -
[2017-11-20] MEDS ORDERED: *HR* OxyCODONE Immed Rel 5 MG TABLET PO ONE (16:07)
[2017-11-20] MEDS ORDERED: D5% in Water 1,000 ML IVC PRN (18:04)
[2017-11-20] MEDS ORDERED: *HR* Dextrose 50 % in Water (Syg) 50 ML SYRINGE IVP PRN (18:04)
[2017-11-20] MEDS ORDERED: Dextrose Gel 15 GM/37.5 ML TUBE PO PRN ×2 (18:04→18:34)
[2017-11-20] MEDS: amLODIPine 5 MG TABLET PO SCH (20:23)
[2017-11-21 01:06] LABS: BUN/Creatinine Ratio 21 (6-26); Blood Urea Nitrogen 29 mg/dL (8-23); Calcium 8.9 mg/dL (8.6-10.3); Carbon Dioxide 27 mEq/L (23-29); Chloride 103 mEq/L (98-107); Glucose 222 mg/dL (70-105); Osmolality,Calculated 297 (280-300); Potassium 3.4 mEq/L (3.5-5.1); Sodium 137 mEq/L (136-145); eGFR For African Americans > 60 (> 60); eGFR For Non-African Americans 54 (> 60)
[2017-11-21] MEDS: *HR* Heparin 5,000 UNIT/ML VIAL SQ SCH ×3 (06:00→21:45)
[2017-11-21] MEDS: Insulin LISPRO 300 UNITS/3 ML VIAL SQ SCH ×4 (08:59→20:34)
[2017-11-21] MEDS: Cyanocobalamin (B-12) 1,000 MCG TABLET PO SCH (09:01)
[2017-11-21] MEDS: Cholecalciferol (D-3) 1,000 UNIT TABLET PO SCH (09:01)
[2017-11-21] MEDS: Aspirin 81 MG TAB.CHEW PO SCH (09:01)
[2017-11-21] MEDS: Bumetanide 1 MG TABLET PO SCH ×2 (09:02→20:33)
[2017-11-21] MEDS: hydrALAZINE 25 MG TABLET PO SCH ×2 (09:02→20:33)
[2017-11-21] MEDS: Isosorbide MONOnitrate (24 HR) 30 MG TAB.ER.24H PO SCH (09:03)
[2017-11-21] MEDS: Lisinopril 20 MG TABLET PO SCH ×2 (09:03→20:34)
[2017-11-21 10:25] LABS: BUN/Creatinine Ratio 20 (6-26); Blood Urea Nitrogen 25 mg/dL (8-23); Calcium 9.1 mg/dL (8.6-10.3); Carbon Dioxide 27 mEq/L (23-29); Chloride 102 mEq/L (98-107); Glucose 327 mg/dL (70-105); Magnesium 1.9 mg/dL (1.6-2.6); Osmolality,Calculated 299 (280-300); Potassium 3.7 mEq/L (3.5-5.1); Sodium 136 mEq/L (136-145); eGFR For African Americans > 60 (> 60); eGFR For Non-African Americans 57 (> 60)
--- NOTE | 2017-11-21 15:13 | Cardiology Consult Note ---
<Bi Vanegas - Last Filed: 11/21/17 16:47> Date of Encounter: 11/21/17 Time of Encounter: 15:15 Assessment and Plan (1) Chest pain Current Visit: No Status: Acute Per Cardiology: Atypical symptoms occurring at rest. Troponins negative 2. Stress test negative for ischemia. Echo shows EF preserved. Patient mainly concerned with left mid scapular back pain that occurs independently of chest pain. He reports the symptoms are similar experienced prior to catheterization and stenting a couple years ago. Again, reports minimal relief with nitroglycerin pills, however has not utilized frequently. Patient on long-acting nitrate at home. I had very lengthy discussion with patient and regarding potential further evaluation in terms of catheterization versus titrating long-acting nitrate/ monitoring observing/follow-up in outpatient setting. Patient does have history of CK D being followed by nephrology. Patient and are agreeable to adjust medications and follow-up in outpatient setting. Discussed and reviewed with Dr. Diaz. Cardiology will sign off, reconsult as needed. Please reconsult if patient decides he would like to proceed with catheterization. (2) CAD (coronary artery disease) Current Visit: No Status: Chronic Per Cardiology: Patient with known history of CAD with catheterization at [facility] May [address] Mi with drug-eluting stent x 3 to proximal LAD 90% and mid LAD 70% lesions, otherwise nonobstructive left main 10-15% and diagonal 1 10-20% lesions. Patient with reported left heart catheterization at [facility] September 2016 and per patient and "things were stable with nothing needing to be fixed". Again, current stress test negative for ischemia. Symptoms are atypical, however somewhat similar to what he experienced prior to previous stenting. Remains on Plavix, aspirin, JENNIFFER inhibitor, long-acting nitrate, beta angus, statin. Again patient prefers to titrate medication and monitor closely. EF preserved on echo 55%. Qualifiers: Coronary Disease-Associated Artery/Lesion type: [place] artery [place] vs. transplanted heart: [place] heart Associated angina: with other forms of angina Qualified Code(s): I25.118 - Atherosclerotic heart disease of [place] coronary artery with other forms of angina pectoris (3) Chronic kidney disease Current Visit: No Status: Chronic Per Cardiology: Known history of COPD stage III. Current kidney function appears stable. Continue to follow with nephrology. Qualifiers: Chronic kidney disease stage: stage 3 (moderate) Qualified Code(s): N18.3 - Chronic kidney disease, stage 3 (moderate) Discussion w patient/family: The assessment and plan as outlined above was discussed with the patient and/or family members who expressed understanding and agreement. All questions were answered. Thank you for involving us in the care of your patient. Please call with any questions. History of Present Illness Consult date: 11/21/17 Requesting physician: Beatrice Byrnes Consult reason: CP Chief complaint: Back Pain History of present illness: Mr. Griffin is a 62 year old male with a relevant past medical history of CAD, DM 2 , hypertension, CK D stage III, history of bigeminy/PVCs managed with beta angus therapy. I last saw patient in outpatient setting July 2017. Cardiology consult for recurrent chest pain. Patient seen with at bedside. He reports since my last visit he did follow- up with nephrology with biopsy. He reports no further pending procedures or surgery. Reports worsening recently kidney function, however does not receive dialysis. Reports has been following with nephrology in [place] with recent diuresis to manage his edema. Patient reports intermittent chest discomfort at rest that lasted for a few seconds and subsides. His main concern today is left mid scapular stabbing pain that occurs with walking and at rest. He reports these symptoms are similar to when he experienced prior to stenting a few years ago. He does report use of one nitroglycerin pill last week with no relief. He reports nitroglycerin in the ER during this hospital stay with no relief. He reports compliance with medications, however per review my note patient does have a history of noncompliance. Patient currently chest pain and back free. He reports overall decreased palpitations with beta angus. He denies any other concerns or complaints today. He denies any active bleeding or blood loss. Past Med Surg Social Fam HX - Past Medical History Attestation: Yes The following information was validated with the patient. Source: patient, old records reviewed, obtained from family Medical history: cardiomyopathy, CHF, COPD, diabetes, hypertension, myocardial infarction Psychiatric history: no psych history - Past Surgical History Surgical History: angioplasty/stent, other - Social History Smoking Status: Never smoker Smokeless Tobacco Status: No Alcohol use: none Drug use: none - Family History Father Living Status: Hx Family Cardiac Disorders: Yes Hx Family Respiratory Disorders: (black lung) Hx Family Endocrine Disorder: Yes (dm) Mother Family Member Ethnicity: Non- Living Status: Hx Family Cardiac Disorders: Yes Hx Family Endocrine Disorder: Yes (dm) Hx Family Neurologic Disorders: Yes (CVA) Medications and Allergies Clopidogrel [Plavix] 75 mg PO DAILY 04/11/17 [History] Isosorbide MONOnitrate (24 HR) [Imdur] 30 mg PO DAILY #30 04/13/17 [Rx] Nitroglycerin 0.4 mg SL Q5MIN PRN 04/13/17 [Rx] Lisinopril [Zestril] 40 mg PO BID 05/10/17 [History] hydrALAZINE [HydrALAZINE] 25 mg PO BID 05/10/17 [History] Amlodipine Besylate 10 mg PO DAILY 11/19/17 [History] Aspirin 81 mg PO DAILY 11/19/17 [History] Bumetanide [Bumex] 1 mg PO BID 11/19/17 [History] Carvedilol [Coreg] 6.25 mg PO BIDWM 11/19/17 [History] Cholecalciferol (Vitamin D3) [Vitamin D] 2,000 unit PO DAILY 11/19/17 [History] Cyanocobalamin (Vitamin B-12) [Vitamin B12] 1,000 mcg PO DAILY 11/19/17 [History ] Rosuvastatin [Crestor] 20 mg PO HS 11/19/17 [History] Ubidecarenone [Co Q-10] 10 mg PO DAILY 11/19/17 [History] metFORMIN [Glucophage] 750 mg PO BID 11/19/17 [History] metOLazone [Zaroxolyn] 2.5 mg PO TUTH 11/19/17 [History] 3 Allergy/AdvReac Type Severity Reaction Status Date / Time duloxetine [From Cymbalta] AdvReac Vomiting Verified 04/16/17 15:17 All Systems Review: The remainder of the systems were reviewed and are negative - Constitutional Constitutional: fatigue - Cardiovascular Cardiovascular: as per HPI, chest pain at rest - Musculoskeletal Musculoskeletal: back pain Physical Examination Vital Signs, Last 4 Hours Temp Pulse Resp BP Pulse Ox 11/21/17 11:18 98.1 F 86 18 115/71 97 General: Conversant, No Apparent Distress HEENT: Atraumatic, Normocephaly, Mucus Membranes Moist Neck: No JVD, Normal carotid pulses Cardiac: Reg Rate and Rhythm, Normal S1 and S2, No Murmur Lungs: Normal Breath Sounds, No Wheeze, Rales, Rhonchi Neuro: Alert and responsive, No focal deficits noted Abdomen: Soft, Non-Tender, Other (obese) Skin: No rashes noted on visualized skin Musculoskeletal: No Chest Wall Tenderness Extremities: No Clubbing, No Cyanosis, Normal Pulses, Other (+1 nonpitting bilateral LE) Results 11/20/17 09:14 11/21/17 09:54 Lab Results Laboratory Tests 11/19/17 11/19/17 11/19/17 15:20 15:20 15:20 Creatinine 1.60 H Est GFR ( Amer) 53 L Hemoglobin A1c Magnesium Troponin I < 0.03 B-Natriuretic Peptide 47 LDL Cholesterol, Calc 18 11/19/17 11/19/17 11/21/17 16:46 21:09 00:41 Creatinine Est GFR ( Amer) > 60 Hemoglobin A1c 7.3 H Magnesium Troponin I < 0.03 B-Natriuretic Peptide LDL Cholesterol, Calc 11/21/17 11/21/17 00:41 09:54 Creatinine 1.28 Est GFR ( Amer) Hemoglobin A1c Magnesium 1.7 Troponin I B-Natriuretic Peptide LDL Cholesterol, Calc ITS Impressions Chest X-Ray 11/19/17 15:42 IMPRESSION: No acute cardiopulmonary disease. D/ / 11/19/2017 16:31:07 Noemi Parker MD / sera Interpreting Provider: Noemi Parker MD Shoulder X-Ray 11/20/17 11:10 IMPRESSION: No acute abnormality. Mild AC joint osteoarthritis D/ / Adonis Ma MD / Adonis Ma MD Interpreting Provider: Adonis Ma MD Echocardiogram Limited Views 11/20/17 11:29 Impressions: LVEF 55%. Not all LV segments were well visualized (see below), but overall LVEF appeared normal. Mildly dilated left ventricle. Mild concentric left ventricular hypertrophy. Consider repeat with Definity if clinically indicated. Left Ventricular Wall Motion: Rest Echo Findings The apical inferior, mid inferior, apical lateral, mid anterior lateral and mid inferior lateral jaramillo were not visualized. All other wall segments showed normal motion. Findings: Study Quality * Technically sub-optimal due to poor echocardiographic windows. ECG Findings * Normal sinus rhythm. Left Ventricle * LVEF 55%. Not all LV segments were well visualized (see below), but overall LVEF appeared normal. * Mildly dilated left ventricle. * Mild concentric left ventricular hypertrophy. Right Ventricle * Normal right ventricular structure and function. Aorta * Normally sized aortic root. Pericardium * There is a trivial anterior pericardial effusion present. No tamponade. IVC * Normal IVC dimensions and inspiratory collapse. ST 10/2017: Impression: Perfusion imaging was negative for ischemia or infarct. Apical inferior artifact. Pharmacologic stress ECG is negative for ischemia at level of heart rate achieved. Occasional PVCs noted during rest and recovery. Patient had 5/10 chest pain prior to starting the study, increasing to 7/10 during pharmacologic infusion. Gated EF = 46%. The left ventricle is mildly dilated. Active Medications Acetaminophen (Tylenol) 650 mg PO Q6HR PRN PRN Reason: Mild Pain/Fever Stop: 05/21/18 16:50 Amlodipine Besylate (Norvasc) 10 mg PO HS [facility] Stop: 05/21/18 21:01 Last Admin: 11/20/17 20:23 Dose: 10 mg Aspirin (Aspirin) 81 mg PO DAILY [facility] Stop: 05/22/18 09:01 Last Admin: 11/21/17 09:01 Dose: 81 mg Bumetanide (Bumex) 1 mg PO BID [facility] Stop: 05/21/18 21:01 Last Admin: 11/21/17 09:02 Dose: 1 mg Carvedilol (Coreg) 6.25 mg PO BIDWM [facility] PRN Reason: Protocol Stop: 05/21/18 17:01 Last Admin: 11/21/17 09:02 Dose: 6.25 mg Clopidogrel Bisulfate (Plavix) 75 mg PO HS [facility] Stop: 05/21/18 21:01 Last Admin: 11/20/17 20:23 Dose: 75 mg Cyanocobalamin (Vitamin B12) 1,000 mcg PO DAILY [facility] Stop: 05/22/18 09:01 Last Admin: 11/21/17 09:01 Dose: 1,000 mcg Dextrose/Water (Dextrose 50% (Syg)) 25 ml IVP AD PRN PRN Reason: Hypoglycemia Stop: 05/22/18 18:05 Glucagon (Glucagen) 1 mg IM ONCE PRN PRN Reason: Hypoglycemia Stop: 05/22/18 18:05 Glucose (Gluctose) 30 gm PO ONCE PRN PRN Reason: Hypoglycemia Stop: 05/22/18 18:05 Glucose (Gluctose) 15 gm PO ONCE PRN PRN Reason: Hypoglycemia Stop: 05/22/18 18:35 Heparin Sodium (Porcine) (Heparin) 5,000 unit SQ Q8HCO [facility] Stop: 05/21/18 22:01 Last Admin: 11/21/17 14:44 Dose: 5,000 unit Hydralazine HCl (Hydralazine) 25 mg PO BID [facility] Stop: 05/21/18 21:01 Last Admin: 11/21/17 09:02 Dose: 25 mg Dextrose (Dextrose 5%) 1,000 mls @ 100 mls/hr IVC .Q10H PRN PRN Reason: HYPOGLYCEMIA Stop: 05/22/18 18:05 Insulin Human Lispro (Humalog) 0 units SQ HS [facility] PRN Reason: Protocol Stop: 05/22/18 21:01 Last Admin: 11/20/17 20:24 Dose: 5 units Insulin Human Lispro (Humalog) 0 units SQ TIDAC [facility] PRN Reason: Protocol Stop: 05/22/18 18:16 Last Admin: 11/21/17 11:54 Dose: 12 units Isosorbide Mononitrate (Imdur) 30 mg PO DAILY [facility] Stop: 05/22/18 09:01 Last Admin: 11/21/17 09:03 Dose: 30 mg Lidocaine HCl (Lidoderm 5% Patch) 1 each TP DAILY PRN PRN Reason: Pain Stop: 05/22/18 09:46 Last Admin: 11/20/17 10:03 Dose: 1 each Lisinopril (Zestril) 40 mg PO BID [facility] PRN Reason: Protocol Stop: 05/21/18 21:01 Last Admin: 11/21/17 09:03 Dose: 40 mg Metolazone (Zaroxolyn) 2.5 mg PO TUTH [facility] Stop: 05/21/18 17:01 Last Admin: 02/20/18 19:56 Dose: Not Given Naloxone HCl (Narcan) 0.4 mg IVP Q2MIN PRN PRN Reason: SEE COMMENTS Stop: 05/21/18 16:50 Nitroglycerin (Nitroglycerin) 0.4 mg SL Q5MIN PRN PRN Reason: Chest Pain Stop: 05/21/18 16:48 Rosuvastatin Calcium (Crestor) 20 mg PO HS [facility] Stop: 05/21/18 21:01 Last Admin: 11/20/17 20:23 Dose: 20 mg Vitamin D (Vitamin D) 1,000 unit PO DAILY [facility] Stop: 05/22/18 09:01 Last Admin: 11/21/17 09:01 Dose: 1,000 unit - Imaging and Cardiology Echo: report reviewed Cardiac cath: report reviewed - EKG Interpretation EKG results cardiology: personally reviewed (Mild flipped T waves noted in lead 3 and aVF.), normal ECG, sinus rhythm Consult Discharge Plan - Plan Referrals: Cj Oswald MD [Primary Care Provider] - 12/02/17 1:00 pm <Shruthi Diaz - Last Filed: 11/21/17 17:20> Date of Encounter: 11/21/17 - Attending Attestation I examined this patient and my medical decision-making was reviewed with the [employer]. I agree with the documented findings, disposition and treatment plan as described. Mr. Griffin presents with atypical chest pain. Troponin negative x2. Stress test negative for ischemia. Echo demonstrates preserved EF. Nonspecific ECG changes. Agree with medication adjustment. Recommend observation with medication adjustment. If no improvement in symptoms, may consider LHC given ECG changes and symptoms that are reportedly similar to prior. Patient is in agreement - will re-evaluate symptoms tomorrow. Assessment and Plan Discussion w patient/family: The assessment and plan as outlined above was discussed with the patient and/or family members who expressed understanding and agreement. All questions were answered. Thank you for involving us in the care of your patient. Please call with any questions. History of Present Illness History of present illness: Mr. Griffin is a 62 year old male All Systems Review: The remainder of the systems were reviewed and are negative Physical Examination Vital Signs, Last 4 Hours Temp Pulse Resp BP Pulse Ox 11/21/17 16:15 98.5 F 83 18 138/73 96 Results 11/20/17 09:14 11/21/17 09:54 Lab Results 11/21/17 11/21/17 11/21/17 00:41 00:41 09:54 Sodium 137 136 Potassium 3.4 L 3.7 Chloride 103 102 Carbon Dioxide 27 27 BUN 29 H 25 H Creatinine 1.35 H 1.28 Glucose 222 H 327 H Calcium 8.9 9.1 Magnesium 1.7 1.9
--- NOTE | 2017-11-21 16:32 | Internal Med Progress Note ---
Date of Encounter: 11/21/17 Time of Encounter: 16:24 - Assessment and plan (1) Left shoulder pain Current Visit: Yes Status: Acute Assessment and plan: presented with left shoulder pain for the last 2-3 weeks. Concerned for angina equivalent as patient had similar symptoms when he required PCI. Troponin X2 negative. EKG without acute ST changes. TTE with EF 55%, not all LV segments were visualized but overall LVEF appeared normal. Stress test negative for ischemia or infarct. Still with complaint of severe left shoulder pain and patient concerned for cardiac etiology. Repeat echo with Definity. Cardiology consulted Qualifiers: Chronicity: acute Qualified Code(s): M25.512 - Pain in left shoulder (2) CAD (coronary artery disease) Current Visit: No Status: Chronic Assessment and plan: hx PCI. With c/o left shoulder pain as noted above. Plan as noted above as well. Cont ASA, plavix, BB, statin Qualifiers: Coronary Disease-Associated Artery/Lesion type: [place] artery [place] vs. transplanted heart: [place] heart Associated angina: with other forms of angina Qualified Code(s): I25.118 - Atherosclerotic heart disease of [place] coronary artery with other forms of angina pectoris (3) Chronic kidney disease Current Visit: No Status: Chronic Assessment and plan: per hx. Renal function at baseline Qualifiers: Chronic kidney disease stage: stage 3 (moderate) Qualified Code(s): N18.3 - Chronic kidney disease, stage 3 (moderate) (4) Hypertension Current Visit: No Status: Acute Assessment and plan: per hx. BP controlled. Cont home BP medication. Monitor BP and titrate PRN Qualifiers: Hypertension type: essential hypertension Qualified Code(s): I10 - Essential (primary) hypertension (5) DVT prophylaxis Current Visit: No Status: Acute Assessment and plan: heparin - Subjective Interval history: Seen and examined at bedside. Still with complaint of severe left shoulder pain. Patient is convinced that it is his heart causing the pain and requesting cardiology consult. No shortness of breath. - Constitutional Vitals: Temp Pulse Resp BP Pulse Ox 98.5 F 83 18 138/73 96 11/21/17 16:15 11/21/17 16:15 11/21/17 16:15 11/21/17 16:15 11/21/17 16:15 General appearance: Present: A&O X 3, morbidly obese - Head Head exam: Present: atraumatic, normocephalic - Eye Eye exam: Present: PERRL, conjuntiva pink, sclera anicteric Pupils: Present: PERRL - Neck Neck exam general surgery: Present: supple, trachea midline. Absent: lymphadenopathy - Respiratory Respiratory exam: Present: CTAB. Absent: accessory muscle use, rales, rhonchi, wheezes - Cardiovascular Cardiovascular exam: Present: RRR, +S1, +S2. Absent: diastolic murmur, gallop, rubs, systolic murmur - GI/Abdominal GI/Abdominal exam: Present: normal bowel sounds, soft, no peritoneal signs. Absent: distended, tenderness - Extremities Exam Extremities exam: Present: warm, radial pulses palpable and symmetrical. Absent : calf tenderness, cyanotic, pedal edema - Neurological Exam Neurological exam: Present: CN II-XII intact, oriented X3, no focal deficits. Absent: pronater drift, facial droop, speech deficit - Skin Skin exam: Present: dry, intact Internal Medicine: Result - Labs CBC & Chem 7: 11/20/17 09:14 11/21/17 09:54 Labs: BMP 11/21/17 11/21/17 00:41 09:54 Sodium 137 136 Potassium 3.4 L 3.7 Chloride 103 102 Carbon Dioxide 27 27 BUN 29 H 25 H Creatinine 1.35 H 1.28 Glucose 222 H 327 H Calcium 8.9 9.1 - Impressions Impressions Echocardiogram Limited Views 11/20/17 11:29 Impressions: LVEF 55%. Not all LV segments were well visualized (see below), but overall LVEF appeared normal. Mildly dilated left ventricle. Mild concentric left ventricular hypertrophy. Consider repeat with Definity if clinically indicated. Left Ventricular Wall Motion: Rest Echo Findings The apical inferior, mid inferior, apical lateral, mid anterior lateral and mid inferior lateral jaramillo were not visualized. All other wall segments showed normal motion. Findings: Study Quality * Technically sub-optimal due to poor echocardiographic windows. ECG Findings * Normal sinus rhythm. Left Ventricle * LVEF 55%. Not all LV segments were well visualized (see below), but overall LVEF appeared normal. * Mildly dilated left ventricle. * Mild concentric left ventricular hypertrophy. Right Ventricle * Normal right ventricular structure and function. Aorta * Normally sized aortic root. Pericardium * There is a trivial anterior pericardial effusion present. No tamponade. IVC * Normal IVC dimensions and inspiratory collapse. Consult Discharge Plan - Plan Referrals: Cj Oswald MD [Primary Care Provider] - 12/02/17 1:00 pm
--- NOTE | 2017-11-21 17:12 | Event Note ---
Date of Encounter: 11/21/17 Time of Encounter: 17:10 - Cardiology Event Note Discussed with Dr. Diaz, will monitor overnight and re-evaluate in am potential for LHC. Discussed with primary service.
[2017-11-21] MEDS: metOLazone 2.5 MG TABLET PO SCH (17:15)
[2017-11-21] MEDS ORDERED: Isosorbide MONOnitrate (24 HR) 30 MG TAB.ER.24H PO ONE (17:15)
--- NOTE | 2017-11-21 20:11 | Electrocardiograph Report ---
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
--- NOTE | 2017-11-21 20:13 | Electrocardiograph Report ---
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
[2017-11-21] MEDS: amLODIPine 5 MG TABLET PO SCH (20:34)
[2017-11-22] MEDS: *HR* Heparin 5,000 UNIT/ML VIAL SQ SCH ×3 (05:59→21:15)
[2017-11-22] MEDS: Lisinopril 20 MG TABLET PO SCH ×2 (08:34→21:15)
[2017-11-22] MEDS: Cyanocobalamin (B-12) 1,000 MCG TABLET PO SCH (08:34)
[2017-11-22] MEDS: Cholecalciferol (D-3) 1,000 UNIT TABLET PO SCH (08:34)
[2017-11-22] MEDS: Insulin LISPRO 300 UNITS/3 ML VIAL SQ SCH ×4 (08:34→21:16)
[2017-11-22] MEDS: hydrALAZINE 25 MG TABLET PO SCH ×2 (08:35→21:15)
[2017-11-22] MEDS: Bumetanide 1 MG TABLET PO SCH ×2 (08:35→21:15)
[2017-11-22] MEDS: Aspirin 81 MG TAB.CHEW PO SCH (08:35)
[2017-11-22] MEDS ORDERED: Isosorbide MONOnitrate (24 HR) 30 MG TAB.ER.24H PO SCH (09:00)
--- NOTE | 2017-11-22 10:08 | Event Note ---
Date of Encounter: 11/22/17 Time of Encounter: 09:00 - Cardiology Event Note Laboratory Tests 11/21/17 00:41 Creatinine 1.35 H Est GFR (Non-Af Amer) 54 L I had another lengthy discussion with patient and family (at least 20 minutes). He initially decided to go home on titrated Imdur, however patient had another episode this am of left scapular back pain at rest after I left the room and I was notified by primary service he has changed his mind and now desires to proceed with LHC. Discussed with Dr. Diaz, and Dr. Howard, plan for LHC today. Further recs after cath. Will check INR pre cath.
[2017-11-22 10:26] LABS: INR 1.1; Prothrombin Time 11.3 Seconds (9.4-12.1)
[2017-11-22] MEDS ORDERED: 0.9 % Sodium Chloride 1,000 ML ONE ×2 (13:06→13:25)
[2017-11-22] MEDS ORDERED: Heparin 1,000 UNITS/500 mL 500 ML ONE (13:06)
[2017-11-22] MEDS ORDERED: ISOVUE-370 200 ML INFUS..BTL IV ONE (13:06)
[2017-11-22] MEDS ORDERED: *HR* Heparin 10,000 UNIT/10 ML VIAL ONE (13:06)
[2017-11-22] MEDS ORDERED: Nitroglycerin 1,000 MCG/10 ML VIAL IV ONE (13:07)
[2017-11-22] MEDS ORDERED: *HR* Midazolam HCl 2 MG/2 ML VIAL ONE (13:22)
[2017-11-22] MEDS ORDERED: *HR* FentaNYL (PF) 100 MCG/2 ML VIAL ONE (13:22)
--- NOTE | 2017-11-22 13:22 | Pre-Sedation Evaluation ---
Pre-sedation evaluation - Pre-sedation checklist Date of procedure: 11/22/17 Procedure: left heart catheterization Recent Vitals: Last Vital Signs Temp 98.6 F 11/22/17 11:54 Pulse 83 11/22/17 11:54 Resp 14 11/22/17 11:54 BP 102/62 11/22/17 11:54 Pulse Ox 96 11/22/17 11:54 H&P (including ROS) documented in medical record: No Previous reaction to sedatives/anesthetics: No Dietary Status: NPO after Midnight Dentition: full dentition ASA Classification *see protocol: CLASS II-Mild systemic disease Plan of Care: Pt appropriate candidate for procedure/moderate/conscious sedation
[2017-11-22] MEDS ORDERED: Tirofiban 12.5 MG/250ML 12.5 MG/250 ML BAG ONE (13:48)
[2017-11-22] MEDS ORDERED: Tirofiban 12.5 MG/250ML 12.5 MG/250 ML BAG IVC SCH (14:30)
--- NOTE | 2017-11-22 14:33 | Invasive Diagnostic Lab Proc ---
Name: Rc Griffin Date of Study: 11/22/2017 Date: 1955 Ht: 70.1in Medical Record#: [id number] Age: 62 Wt: 255.74lb Gender: Male BSA: 2.32 Order #: [id number] BMI: 36.61 Physicians Procedure Physician: Mai Howard MD Referring MD: Referring MD: Staff Name Position Time In Yoshi Ordaz RN Monitor 01:21 PM Romel Moseley RN Hand Filer Balance Wheel 01:21 PM Luis Hernandes RT (R) Scrub 01:21 PM Indications Indication Unstable Angina Procedures Performed Procedure L HRT ARTERY/VENTRICLE ANGIO PRQ CARD MICHELLE STENT W/ANGIO 1 VSL Pre-Procedure Checklist Informed consent is complete signed and on chart. H&P is on chart. ID band is on and ID verified with patient. Patient NPO for procedure The procedure was described for the patient and questions were answered. Blood Pressure: 141/72 ECG is on chart. Rhythm: NSR Plan of Care Patient will tolerate the procedure without complications. Adequate level of comfort will be maintained. Hemodynamics will remain stable Patient will recover from procedure without complications. Respiratory function will be maintained. Cardiac rhythm will remain stable. Patient temperature will be maintained. Patient and/or family have verbalized understanding of the procedure. Patient Education Chief Complaint/Reason for Test: Cardiac Cath Developmental Category: Adult (18-64 years) Developmentally Appropriate for Age: Yes Learning Barriers: None Education Method: Verbal Information Taught: Cardiac Cath Educational Evaluation: Able to repeat information Intravenous Access Time IV Size Location DC'd Fluid/Drip Rate Units RN 01:09 PM 20g 1 10/03" Patent On Arrival Rt Antecubital Allergies No Known Allergies duloxetine Vital Signs Time BP (mmHg) HR (bpm) O2 Sat. RR (bpm) LOC 01:23 PM / % 5 = Fully awake and oriented or at pre-proc level 01:23 PM / % 4 = Oriented but drowsy 01:38 PM / % 4 = Oriented but drowsy 01:53 PM / % 4 = Oriented but drowsy 01:24 PM 150 / 85 74 97 % 14 01:28 PM 144 / 83 71 95 % 20 01:33 PM 132 / 80 70 96 % 17 01:38 PM 127 / 77 72 97 % 13 01:43 PM 142 / 78 71 97 % 16 01:48 PM 142 / 80 75 96 % 13 01:53 PM 153 / 88 71 96 % 12 01:58 PM 148 / 84 70 96 % 11 02:03 PM 151 / 88 69 97 % 13 02:08 PM 146 / 86 69 97 % 20 02:13 PM 161 / 82 70 97 % 24 Procedural Medications Time Medication Dose Units Method Given By 01:22 PM Oxygen 2 L/min nasal cannula Romel Moseley RN 01:22 PM Versed 1 mg Intravenous Romel Moseley RN 01:23 PM Fentanyl 50 mcg Intravenous Romel Moseley RN 01:36 PM Lidocaine 2% 10 ml Subcutaneous Mai Howard MD 01:50 PM Heparin 5000 units Intravenous Romel Moseley RN 01:52 PM Aggrastat Bolus: 58 ml Intravenous Romel Moseley RN 01:52 PM Aggrastat 12.5mg/250ml 21 ml/hr Intravenous Romel Moseley RN 02:03 PM Nitroglycerin 100 mcg Intracoronary Mayra Howard MD 02:13 PM Plavix 75 mg Orally Romel Moseley RN ASA Classification: CLASS II- Mild systemic disease (i.e. well-controlled diabetes, hypertension, asthma, cigarette smoking) Sherif Score Preprocedure Postprocedure Activity 2- Moves 4 extremities sustained head lift Activity 2- Moves 4 extremities sustained head lift Circulation 2- SBP +/= 20 points of pre-anesthetic level Circulation 2- SBP +/= 20 points of pre-anesthetic level Consciousness 2- Awake and alert oriented x 3 Consciousness 2- Awake and alert oriented x 3 O2 Saturation 2- Able to maintain O2 satruation of 92% on room air O2 Saturation 2- Able to maintain O2 satruation of 92% on room air Respiratory 2- Able to deep breathe and cough well Respiratory 2- Able to deep breathe and cough well Total Score 10 Total Score 10 Contrast Agent: Isovue Diagnostic Contrast: 234 ml Total Contrast: 234 ml Fluoro Dose: 1026 mGy Activated Clotting Time Time Seconds to Clot 02:01 PM 300 Procedure Log Time Note Enter By 01:20 PM Pt arrived to blood bank laboratory technician 2 at 13:20 jae 01:21 PM Yoshi Ordaz RN Position: Monitor Time in: 13:21 jae 01:21 PM Romel Moseley RN Position: Hand Filer Balance Wheel Time in: 13:21 [email or web address] PM Luis Hernandes RT (R) Position: Scrub Time in: : PM Patient charges- Angio tray pack, Navilyst 3mm J, Pulse Oximetry and ACIST tubing and transducer PM Hair removed from procedure site in holding area using clippers. Bilateral groin prepped with Chloraprep by Luis Hernandes (R), then patient was draped. Skin intact. : PM Physician arrived : PM Meet and greet completed PM Sign in performed according to hospital policy. PM Procedure start PM Time: : Oxygen on at 2 L/min per nasal cannula by Romel Moseley RN [email or web address] : PM CathStat : PM Vitals capture started with the following parameters, Patient=Adult, Interval=5 min, Initial Trdsixop=815 mmHg, Deflation Rate=5 mmHg, Cuff placed on Right Arm PM Time: 13: Versed 1 mg Intravenous Given by Romel Moseley RN PM Time: : Fentanyl 50 mcg Intravenous Given by Romel Moseley RN kala PM Time: 13:23 Patient comfortable and pain free: Yes PM Time: :LOC: 5 = Fully awake and oriented or at pre-proc level jcan : PM Clinical Presentation: Unstable angina jcallan :24 PM HR=74 bpm, PYEQ=723/85 mmhg, SpO2=97.0 %, Resp=14 B/min, Comment=nsr :28 PM HR=71 bpm, VOPF=085/83 mmhg, SpO2=95.0 %, Resp=20 B/min, Comment=nsr :32 PM Pressure channel 1 zeroed. 01:33 PM ASA Class CLASS II- Mild systemic disease (i.e. well-controlled diabetes, hypertension, asthma, cigarette smoking) [email or web address] :33 PM HR=70 bpm, GAHP=233/80 mmhg, SpO2=96.0 %, Resp=17 B/min, Comment=nsr 01:36 PM Time out performed according to hospital policy jcallihan 01:37 PM Time: 13:36 10 ml Lidocaine 2% to right groin Subcutaneous Given by Mai Howard MD [email or web address] 01:38 PM Time: 13:23LOC: 4 = Oriented but drowsy jcallihan 01:38 PM Time: 13:23 Patient comfortable and pain free: Yes [email or web address] 01:38 PM HR=72 bpm, JBLG=361/77 mmhg, SpO2=97.0 %, Resp=13 B/min, Comment=nsr 01:38 PM Micro-Introducer Kit utilized for sheath placement [email or web address] 01:38 PM hand injected 4 ml into right groin, images obtained. [email or web address] 01:39 PM Access obtained by percutaneous puncture. 6Fr 10cm Terumo Cassel sheath placed in right Femoral artery. [id number] jcallihan 01:40 PM 5Fr FR 4 catheter inserted over the wire DN jcallihan 01:40 PM RCA angiography performed in multiple views. [email or web address] 01:41 PM Recorded Pressure: Ao, HR=71, Condition=Condition 1 (Aorta) Ao 119/84/101 01:42 PM Catheter removed [email or web address] 01:43 PM 5Fr FL 4 catheter inserted over the wire DN jcallihan 01:43 PM HR=71 bpm, ACZG=704/78 mmhg, SpO2=97.0 %, Resp=16 B/min, Comment=nsr 01:45 PM LCA angiography performed in multiple views. [email or web address] 01:46 PM Catheter removed jcallihan 01:46 PM 5Fr Pigtail catheter inserted over the wire DN jcallihan 01:47 PM Catheter selectively placed in left ventricle jcallihan 01:47 PM Recorded Pressure: LV, HR=74, Condition=Condition 1 (Left Ventricle) LV 125/9/11 01:47 PM Recorded Pressure: LV, HR=72, Condition=Condition 1 (Left Ventricle) LV 132/7/15 01:48 PM Recorded Pressure: LV, Ao, HR=72, Condition=Condition 1 (Left Ventricle) LV 133/5/10, (Aorta) Ao 136/77/102 01:48 PM Lesion found in Distal Circumflex. Pre Stenosis: 80 Pre BARRON Flow: 3: Complete and Brisk Flow/Perfusion jcallihan 01:48 PM HR=75 bpm, AFEH=107/80 mmhg, SpO2=96.0 %, Resp=13 B/min, Comment=nsr 01:48 PM PCI Status Urgent jcallihan 01:49 PM PCI Indication: PCI for high risk Non-STEMI or unstable angina jcallihan 01:49 PM .014 BMW Griffin 190cm guide wire across target lesion- successful. reused? No jcallihan 01:49 PM Inflation device was opened. [email or web address] 01:49 PM 6Fr XB3.5 Cordis guide catheter was used to cannulate the PCI vessel successfully. reused? No jcallihan 01:50 PM Time: 13:50 Heparin 5000 units Intravenous Given by Romel Moseley RN jckala 01:50 PM Recorded Pressure: Ao, HR=72, Condition=Condition 1 (Aorta) Ao 136/77/102 01:51 PM Lesion found in Mid RCA. Pre Stenosis: 40 Pre BARRON Flow: [email or web address] 01:51 PM Lesion found in Distal RCA. Pre Stenosis: 65 Pre BARRON Flow: [email or web address] 01:51 PM Right Coronary, Right Posterior Descending Arteries with Right Posterolateral and Acute Marginal branches with 65 % stenosis. If graft is supplying this area, 0 % stenosis jcallihan 01:51 PM Circumflex, Obtuse Marginal, Left Posterior Descending, and Left Posterolateral Coronary Arteries with 80 % stenosis. If graft is supplying this area, 0 % stenosis jcallihan 01:52 PM Time: 13:52 Aggrastat Bolus: 58 ml Intravenous Given by Romel Moseley RN Muniz pump [email or web address] 01:52 PM Time: 13:52 Aggrastat 12.5mg/250ml 21 ml/hr Intravenous Given by Romel Moseley RN Muniz pump jcallihan 01:53 PM HR=71 bpm, SYWE=522/88 mmhg, SpO2=96.0 %, Resp=12 B/min, Comment=nsr 01:53 PM Time: 13:38 Patient comfortable and pain free: Yes [email or web address] 01:53 PM Time: 13:38LOC: 4 = Oriented but drowsy jcallihan 01:54 PM 2.5 mm x 8 mm Emerge Monorail balloon across target lesion- successful. reused? No jcallihan 01:55 PM Balloon inflated @ 6 herman for 7 seconds jcallihan 01:55 PM Recorded Pressure: Ao, HR=71, Condition=Condition 1 (Aorta) Ao 128/72/97 01:56 PM Balloon catheter removed intact. [email or web address] 01:58 PM 4.0mm x 24mm Synergy drug-eluting stent across target lesion- successful Lot #[id number] jcallihan 01:58 PM HR=70 bpm, BMIO=694/84 mmhg, SpO2=96.0 %, Resp=11 B/min, Comment=nsr 01:59 PM Stent deployed @ 9 herman for 5 seconds jcallihan 02:00 PM Stent balloon reinflated @ 14 herman for 12 seconds jcallihan 02:00 PM Stent delivery system removed intact. jcallihan 02:01 PM At 14:01 the ACT was 300 seconds. [email or web address] 02:01 PM Recorded Pressure: Ao, HR=70, Condition=Condition 1 (Aorta) Ao 137/77/102 02:03 PM HR=69 bpm, FPWT=207/88 mmhg, SpO2=97.0 %, Resp=13 B/min, Comment=nsr 02:04 PM Time: 14:03 Nitroglycerin 100 mcg Intracoronary Given [facility] 02[facility]04 PM Recorded Pressure: Ao, HR=71, Condition=Condition 1 (Aorta) Ao 137/77/103 02:06 PM 3.5mm x 12mm Synergy drug-eluting stent across target lesion- successful Lot #[id number] jcallihan 02:08 PM Stent deployed @ 9 herman for 6 seconds [email or web address] 02:08 PM HR=69 bpm, QVCK=198/86 mmhg, SpO2=97.0 %, Resp=20 B/min, Comment=nsr 02:08 PM Time: 13:53LOC: 4 = Oriented but drowsy jcallihan 02:08 PM Time: 13:53 Patient comfortable and pain free: Yes jcallihan 02:08 PM Stent balloon reinflated @ 16 herman for 8 seconds jcallihan 02:10 PM Stent delivery system removed intact. jcallihan 02:10 PM Guide wire removed intact. jcallihan 02:10 PM Procedure completed at 14:10 [email or web address] 02:10 PM Did you address BARRON flow and Dominance? Yes [email or web address] 02:11 PM Sign out completed: Radiation Dose 1026 mGy Fluoro Time: 6.7 Isovue 370 - 200ml contrast 234 ml given by Mai Howard MD. Complications: NoneCardiac Rehab Consult needed: YesConfirmed administered medications: Yes jcallihan 02:11 PM What is the NYHA Class? Class 3 [email or web address] 02:12 PM Coronary Dominance: right [email or web address] 02:12 PM Isovue 370 - 200ml,2 Bottle(s) used. [email or web address] 02:13 PM Time: 14:13 Plavix 75 mg Orally Given by Romel Moseley RN jcallihan 02:13 PM HR=70 bpm, KUQI=560/82 mmhg, SpO2=97.0 %, Resp=24 B/min, Comment=nsr 02:15 PM Arterial sheath pulled, Angio-seal closure device used and was Successful [id number] S/N. jcallihan 02:15 PM Estimated Blood Loss: less than 20cc jcallihan 02:15 PM Post ECG NSR jcallihan 02:15 PM Post Blood Pressure 161/82 jcallihan 02:15 PM 14:15 Post Pulses Bilateral DP & PT 2+ jcallihan 02:15 PM Information taught Cardiac Cath, PCI, and Angioseal jcallihan 02:15 PM Education needs Procedure, Plan of Care, and Responsibilities of Patient in Care jcallihan 02:15 PM Learning barriers :None jcallihan 02:16 PM Education Methods Verbal jcallihan 02:16 PM Education evaluation Able to repeat information jcallihan 02:16 PM Site status No bleeding/hematoma - Rt Groin as reported by Luis Hernandes RT (R) at 14:16 jcallihan 02:16 PM Opsite applied jcallihan 02:20 PM Report given to 3B RN Pt taken to 3B Room #64. 14:18 jcallihan 02:20 PM Plavix, Effient or Brilinta given Yes jcallihan 02:21 PM Family placed in consult room. [email or web address] 02:21 PM Complications: None jcallihan 02:21 PM Fluoro Time: 6.7 jcallihan 02:21 PM Isovue 370 - 200ml contrast 234 ml given by Mai Howard MD. [email or web address] 02:21 PM Radiation Dose 1026 mGy jcallihan 02:24 PM Patient out of room: 14:24 [email or web address] Complications Complication None None Hemodynamics Pressures Site Systolic/A Wave Diastolic/V Wave Mean AO 119 84 101 LV 125 9 11 LV 132 7 15 LV 133 5 10 AO 136 77 102 AO 136 77 102 AO 128 72 97 AO 137 77 102 AO 137 77 103 Post Procedure Information Blood Pressure: 161/82 mmHg Rhythm: NSR Post procedural instructions were given Closure Device Time Device Success/Fail 11/22/2017 2:15:00 PM Angio-Seal VIP Successful Site Checks Time Location Status Staff Sheath In? Note 02:16 PM Rt Groin No bleeding/hematoma Luis Hernandes RT (R) Pulses Time Site Pre-Procedure Post-Procedure Note 11/22/2017 1:09:00 PM Bilateral DP & PT 2+ 2:15:00 PM Bilateral DP & PT 2+ Updated by Yoshi Ordaz RN on 11/22/2017 2:24:42 PM electronically signed on 11/22/2017 2:25:13 PM with status of Final
--- NOTE | 2017-11-22 16:18 | Internal Med Progress Note ---
Date of Encounter: 11/22/17 Time of Encounter: 16:16 - Assessment and plan (1) CAD (coronary artery disease) Current Visit: No Status: Chronic Assessment and plan: hx PCI. presented with left shoulder pain for the last 2-3 weeks. Concerned for angina equivalent as patient had similar symptoms when he required PCI. Troponin X2 negative. EKG without acute ST changes. TTE with EF 55%, not all LV segments were visualized but overall LVEF appeared normal. Stress test negative for ischemia or infarct. Still with complaint of severe left shoulder pain and patient concerned for cardiac etiology. 11/22/17 LHC showed severe 2 vessel CAD. Status post successful PTCA/drug eluting stent to distal circumflex and RCA. Cont ASA, plavix, BB, statin. Cardiology following Qualifiers: Coronary Disease-Associated Artery/Lesion type: [place] artery [place] vs. transplanted heart: [place] heart Associated angina: with other forms of angina Qualified Code(s): I25.118 - Atherosclerotic heart disease of [place] coronary artery with other forms of angina pectoris (2) Chronic kidney disease Current Visit: No Status: Chronic Assessment and plan: per hx. Renal function at baseline Qualifiers: Chronic kidney disease stage: stage 3 (moderate) Qualified Code(s): N18.3 - Chronic kidney disease, stage 3 (moderate) (3) Hypertension Current Visit: No Status: Acute Assessment and plan: per hx. BP controlled. Cont home BP medication. Monitor BP and titrate PRN Qualifiers: Hypertension type: essential hypertension Qualified Code(s): I10 - Essential (primary) hypertension (4) DVT prophylaxis Current Visit: No Status: Acute Assessment and plan: heparin - Subjective Interval history: Seen and examined at bedside; he just returned from cardiac catheter lab in required 2 stents. Complains of mild tenderness to catheter site and still with some residual left shoulder pain otherwise says he feels well. No chest pain no shortness of breath. He is aware of need to stay overnight. - Constitutional Vitals: Temp Pulse Resp BP Pulse Ox 98.3 F 75 16 135/80 89 11/22/17 16:11 11/22/17 16:11 11/22/17 16:11 11/22/17 16:11 11/22/17 16:11 General appearance: Present: A&O X 3, morbidly obese - Head Head exam: Present: atraumatic, normocephalic - Eye Eye exam: Present: PERRL, conjuntiva pink, sclera anicteric Pupils: Present: PERRL - Neck Neck exam general surgery: Present: supple, trachea midline. Absent: lymphadenopathy - Respiratory Respiratory exam: Present: CTAB. Absent: accessory muscle use, rales, rhonchi, wheezes - Cardiovascular Cardiovascular exam: Present: RRR, +S1, +S2. Absent: diastolic murmur, gallop, rubs, systolic murmur - GI/Abdominal GI/Abdominal exam: Present: normal bowel sounds, soft, no peritoneal signs. Absent: distended, tenderness - Extremities Exam Extremities exam: Present: warm, radial pulses palpable and symmetrical. Absent : calf tenderness, cyanotic, pedal edema - Neurological Exam Neurological exam: Present: CN II-XII intact, oriented X3, no focal deficits. Absent: pronater drift, facial droop, speech deficit - Skin Skin exam: Present: dry, intact Internal Medicine: Result - Labs CBC & Chem 7: 11/20/17 09:14 11/21/17 09:54 - ABG Interpretation ABG results: PT/INR, D-dimer PT 11.3 Seconds (9.4-12.1) 11/22/17 10:14 Consult Discharge Plan - Plan Referrals: Cj Oswald MD [Primary Care Provider] - 12/02/17 1:00 pm
[2017-11-22] MEDS: amLODIPine 5 MG TABLET PO SCH (21:15)
[2017-11-23 05:42] LABS: Hematocrit 33.5 % (37.5-50.1); Hemoglobin 12.1 g/dL (12.9-16.9)
[2017-11-23] MEDS: *HR* Heparin 5,000 UNIT/ML VIAL SQ SCH (05:52)
[2017-11-23 06:05] LABS: BUN/Creatinine Ratio 18 (6-26); Blood Urea Nitrogen 26 mg/dL (8-23); eGFR For African Americans > 60 (> 60); eGFR For Non-African Americans 51 (> 60)
[2017-11-23 07:26] VITALS: BP 142/84
[2017-11-23] MEDS: Cyanocobalamin (B-12) 1,000 MCG TABLET PO SCH (08:20)
[2017-11-23] MEDS: hydrALAZINE 25 MG TABLET PO SCH (08:20)
[2017-11-23] MEDS: Aspirin 81 MG TAB.CHEW PO SCH (08:20)
[2017-11-23] MEDS: Cholecalciferol (D-3) 1,000 UNIT TABLET PO SCH (08:20)
[2017-11-23] MEDS: Bumetanide 1 MG TABLET PO SCH (08:20)
[2017-11-23] MEDS: Lisinopril 20 MG TABLET PO SCH (08:20)
[2017-11-23] MEDS: Insulin LISPRO 300 UNITS/3 ML VIAL SQ SCH (08:21)
--- NOTE | 2017-11-23 08:32 | Cardiology Progress Note ---
Date of Encounter: 11/23/17 Time of Encounter: 08:30 Assessment and Plan (1) CAD (coronary artery disease) Current Visit: No Status: Chronic Per Cardiology: Patient with known history of CAD with catheterization at [facility] [address] Mi with drug-eluting stent x 3 to proximal LAD 90% and mid LAD 70% lesions, otherwise nonobstructive left main 10-15% and diagonal 1 10-20% lesions. Patient with reported left heart catheterization at [facility] September 2016 and per patient and "things were stable with nothing needing to be fixed". Current stress test negative for ischemia. EF preserved on echo 55 %. S/p LHC: Status post PTCA/drug-eluting stent to distal circumflex 80% lesion. Has mid RCA 40% and distal RCA 65% lesions. On Plavix, aspirin, JENNIFFER inhibitor, long-acting nitrate, beta angus, statin. Education provided regarding postprocedure care. Patient and aware to not discontinue aspirin and Plavix for at least 1 year. Patient encouraged to inflate and hallway prior to discharge. His cusp with primary service. Cardiology will sign off, reconsult as needed, follow-up arranged. All questions answered. Qualifiers: Coronary Disease-Associated Artery/Lesion type: [place] artery [place] vs. transplanted heart: [place] heart Associated angina: with other forms of angina Qualified Code(s): I25.118 - Atherosclerotic heart disease of [place] coronary artery with other forms of angina pectoris (2) Chronic kidney disease Current Visit: No Status: Chronic Per Cardiology: Known history of CKD 3. Kidney function stable post procedure. Qualifiers: Chronic kidney disease stage: stage 3 (moderate) Qualified Code(s): N18.3 - Chronic kidney disease, stage 3 (moderate) Discussion w patient/family: The assessment and plan as outlined above was discussed with the patient and/or family members who expressed understanding and agreement. All questions were answered. Thank you for involving us in the care of your patient. Please call with any questions. Subjective Principal diagnosis: CAD, CP Interval history: Patient reports mild chest soreness this a.m. Denies any recurrent left-sided scapular discomfort. Denies any concerns from his right groin site. Objective Vital Signs, Last 4 Hours Temp Pulse Resp BP Pulse Ox 11/23/17 07:24 98.1 F 88 16 142/84 98 General: Conversant, No Apparent Distress HEENT: Atraumatic, Normocephaly, Mucus Membranes Moist Neck: No JVD, Normal carotid pulses Cardiac: Reg Rate and Rhythm, Normal S1 and S2, No Murmur Lungs: Normal Breath Sounds, No Wheeze, Rales, Rhonchi Neuro: Alert and responsive, No focal deficits noted Abdomen: Soft, Non-Tender Skin: No rashes noted on visualized skin, Other (Right groin site dry and intact , no hematoma, no ecchymosis, no bleeding, right DP and PT pulses 2+ palpable) Musculoskeletal: No Chest Wall Tenderness Extremities: No Clubbing, No Cyanosis, No Edema, Normal Pulses Results 11/23/17 05:27 11/23/17 05:27 Lab Results Laboratory Tests 11/23/17 11/23/17 11/23/17 05:27 05:27 05:27 Hgb 12.1 L Hct 33.5 L Creatinine 1.41 H Est GFR (Non-Af Amer) 51 L Troponin I 0.05 H* Impressions Cervical Spine X-Ray 11/22/17 11:07 IMPRESSION: Degenerative changes of the cervical spine. No acute bony abnormality. D/ / Victoria Abdalla Cha, MD / Victoria Abdalla Cha, MD Interpreting Provider: Victoria Abdalla Cha, MD Active Medications Acetaminophen (Tylenol) 650 mg PO Q6HR PRN PRN Reason: Mild Pain/Fever Stop: 05/21/18 16:50 Amlodipine Besylate (Norvasc) 10 mg PO HS BRENDAN Stop: 05/21/18 21:01 Last Admin: 11/22/17 21:15 Dose: 10 mg Aspirin (Aspirin) 81 mg PO DAILY BRENDAN Stop: 05/22/18 09:01 Last Admin: 11/23/17 08:20 Dose: 81 mg Bumetanide (Bumex) 1 mg PO BID BRENDAN Stop: 05/21/18 21:01 Last Admin: 11/23/17 08:20 Dose: 1 mg Carvedilol (Coreg) 6.25 mg PO BIDWM BERNDAN PRN Reason: Protocol Stop: 05/21/18 17:01 Last Admin: 11/23/17 08:20 Dose: 6.25 mg Clopidogrel Bisulfate (Plavix) 75 mg PO HS [facility] Stop: 05/21/18 21:01 Last Admin: 11/22/17 21:15 Dose: 75 mg Cyanocobalamin (Vitamin B12) 1,000 mcg PO DAILY [facility] Stop: 05/22/18 09:01 Last Admin: 11/23/17 08:20 Dose: 1,000 mcg Dextrose/Water (Dextrose 50% (Syg)) 25 ml IVP AD PRN PRN Reason: Hypoglycemia Stop: 05/22/18 18:05 Glucagon (Glucagen) 1 mg IM ONCE PRN PRN Reason: Hypoglycemia Stop: 05/22/18 18:05 Glucose (Gluctose) 30 gm PO ONCE PRN PRN Reason: Hypoglycemia Stop: 05/22/18 18:05 Glucose (Gluctose) 15 gm PO ONCE PRN PRN Reason: Hypoglycemia Stop: 05/22/18 18:35 Heparin Sodium (Porcine) (Heparin) 5,000 unit SQ Q8HCO [facility] Stop: 05/21/18 22:01 Last Admin: 11/23/17 05:52 Dose: 5,000 unit Hydralazine HCl (Hydralazine) 25 mg PO BID [facility] Stop: 05/21/18 21:01 Last Admin: 11/23/17 08:20 Dose: 25 mg Dextrose (Dextrose 5%) 1,000 mls @ 100 mls/hr IVC .Q10H PRN PRN Reason: HYPOGLYCEMIA Stop: 05/22/18 18:05 Insulin Human Lispro (Humalog) 0 units SQ HS [facility] PRN Reason: Protocol Stop: 05/22/18 21:01 Last Admin: 11/22/17 21:16 Dose: 4 units Insulin Human Lispro (Humalog) 0 units SQ TIDAC [facility] PRN Reason: Protocol Stop: 05/22/18 18:16 Last Admin: 11/23/17 08:21 Dose: 4 units Isosorbide Mononitrate (Imdur) 90 mg PO DAILY [facility] Stop: 05/25/18 09:01 Last Admin: 11/23/17 08:20 Dose: 90 mg Lidocaine HCl (Lidoderm 5% Patch) 1 each TP DAILY PRN PRN Reason: Pain Stop: 05/22/18 09:46 Last Admin: 11/20/17 10:03 Dose: 1 each Lisinopril (Zestril) 40 mg PO BID BRENDAN PRN Reason: Protocol Stop: 05/21/18 21:01 Last Admin: 11/23/17 08:20 Dose: 40 mg Metolazone (Zaroxolyn) 2.5 mg PO TUTH [facility] Stop: 05/21/18 17:01 Last Admin: 11/21/17 17:15 Dose: 2.5 mg Naloxone HCl (Narcan) 0.4 mg IVP Q2MIN PRN PRN Reason: SEE COMMENTS Stop: 05/21/18 16:50 Nitroglycerin (Nitroglycerin) 0.4 mg SL Q5MIN PRN PRN Reason: Chest Pain Stop: 05/21/18 16:48 Rosuvastatin Calcium (Crestor) 20 mg PO HS [facility] Stop: 05/21/18 21:01 Last Admin: 11/22/17 21:15 Dose: 20 mg Vitamin D (Vitamin D) 1,000 unit PO DAILY BRENDAN Stop: 05/22/18 09:01 Last Admin: 11/23/17 08:20 Dose: 1,000 unit - Imaging and Cardiology Cardiac cath: report reviewed Consult Discharge Plan - Plan Referrals: Cj Oswald MD [Primary Care Provider] - 12/02/17 1:00 pm
[2017-11-23] MEDS ORDERED: Isosorbide MONOnitrate (24 HR) 30 MG TAB.ER.24H PO SCH (09:00)
--- NOTE | 2017-11-23 10:21 | Discharge Summary ---
- NOTES TO OUTPATIENT PROVIDER Notes to Outpatient Provider: Recommend repeat BMP and CBC within 1 week to monitor renal function and hemoglobin. Orders not resulted at time of discharge: Pending orders 11/22/17 14:19 ECG 12 lead ECG [ECG] Stat 11/23/17 06:00 ECG 12 lead ECG [ECG] AM 0600 11/23/17 12:00 Troponin I Timed Date of Encounter: 11/23/17 Time of Encounter: 08:30 - Discharge Diagnosis (1) CAD (coronary artery disease) Priority: Primary Status: Chronic Comments: hx PCI. presented with left shoulder pain for the last 2-3 weeks. Concerned for angina equivalent as patient had similar symptoms when he required PCI. Troponin X2 negative. EKG without acute ST changes. TTE with EF 55%, not all LV segments were visualized but overall LVEF appeared normal. Stress test negative for ischemia or infarct. Still with complaint of severe left shoulder pain and patient concerned for cardiac etiology therefore Cardiology was consulted. 11/22/17 LHC showed severe 2 vessel CAD; s/p successful PTCA/drug eluting stent to distal circumflex and RCA. Cont ASA, plavix, BB, statin. Long acting nitrate increased.Cardiology followed. Follow-up with Cardiology out- patient Qualifiers: Coronary Disease-Associated Artery/Lesion type: [place] artery [place] vs. transplanted heart: [place] heart Associated angina: with other forms of angina Qualified Code(s): I25.118 - Atherosclerotic heart disease of [place] coronary artery with other forms of angina pectoris (2) Chronic kidney disease Priority: Secondary Status: Chronic Comments: per hx. Renal function at baseline. Recommend repeat CMP within 1 week with PCP Qualifiers: Chronic kidney disease stage: stage 3 (moderate) Qualified Code(s): N18.3 - Chronic kidney disease, stage 3 (moderate) (3) Hypertension Priority: Secondary Status: Chronic Comments: per hx. BP controlled. Cont home BP medication. Qualifiers: Hypertension type: essential hypertension Qualified Code(s): I10 - Essential (primary) hypertension Hospital course: Mr. Griffin is a 62 year old male with PMH CAD and hypertension who presented to [facility] on 11/19/2017 with complaint of left shoulder pain. There was concern for cardiac etiology as symptoms were similar to the last time he had PCI. He underwent a left heart catheterization and required 2 drug-eluting stents. Symptoms improved at time of discharge. He was discharged home in stable condition with outpatient follow-up. Please see assessment and plan for further details. Discharge discussed with: patient, family - Time Spent with Patient Total time spent providing and/or coordinating discharge services: - Discharge Medications Prescriptions: Isosorbide MONOnitrate (24 HR) [Imdur] 90 mg PO DAILY #30 tab.er.24h Home Medications: Clopidogrel [Plavix] 75 mg PO DAILY 04/11/17 [History] Nitroglycerin 0.4 mg SL Q5MIN PRN 04/13/17 [Rx] Lisinopril [Zestril] 40 mg PO BID 05/10/17 [History] hydrALAZINE [HydrALAZINE] 25 mg PO BID 05/10/17 [History] Amlodipine Besylate 10 mg PO DAILY 11/19/17 [History] Aspirin 81 mg PO DAILY 11/19/17 [History] Bumetanide [Bumex] 1 mg PO BID 11/19/17 [History] Carvedilol [Coreg] 6.25 mg PO BIDWM 11/19/17 [History] Cholecalciferol (Vitamin D3) [Vitamin D3] 2,000 unit PO DAILY 11/19/17 [History] Cyanocobalamin (Vitamin B-12) [Vitamin B12] 1,000 mcg PO DAILY 11/19/17 [History ] Rosuvastatin [Crestor] 20 mg PO HS 11/19/17 [History] Ubidecarenone [Co Q-10] 10 mg PO DAILY 11/19/17 [History] metFORMIN [Glucophage] 750 mg PO BID 11/19/17 [History] metOLazone [Zaroxolyn] 2.5 mg PO TUTH 11/19/17 [History] Isosorbide MONOnitrate (24 HR) [Imdur] 90 mg PO DAILY #30 tab.er.24h 11/23/17 [ Rx] Allergies/Adverse Reactions: 3 Allergy/AdvReac Type Severity Reaction Status Date / Time duloxetine [From Cymbalta] AdvReac Vomiting Verified 04/16/17 15:17 Date of admission: 11/19/17 18:17 Primary care physician: Cj Oswald MD Consults: 11/21/17 13:50 Consult to Cardiology [CONS] Routine Comment: Consulting Provider: Cardiology Kristy Reason for Consult: left shoulder pain similar to previous cardiac event Call Completed: Yes 11/22/17 14:19 Consult to Cardiac Rehabilitation-Phase1 [CONS] Routine Comment: Reason for Consult: post op PCI Call Completed: Yes Discharging clinician: Beatrice Byrnes Anticipated date of discharge: 11/23/17 - Constitutional Vitals: Temp Pulse Resp BP Pulse Ox 98.1 F 88 16 142/84 98 11/23/17 07:24 11/23/17 07:24 11/23/17 07:24 11/23/17 07:24 11/23/17 07:24 General appearance: Present: A&O X 3, morbidly obese - Head Head exam: Present: atraumatic, normocephalic - Eye Eye exam: Present: PERRL, conjuntiva pink, sclera anicteric Pupils: Present: PERRL - Neck Neck exam general surgery: Present: supple, trachea midline. Absent: lymphadenopathy - Respiratory Respiratory exam: Present: CTAB. Absent: accessory muscle use, rales, rhonchi, wheezes - Cardiovascular Cardiovascular exam: Present: RRR, +S1, +S2. Absent: diastolic murmur, gallop, rubs, systolic murmur - GI/Abdominal GI/Abdominal exam: Present: normal bowel sounds, soft, no peritoneal signs. Absent: distended, tenderness - Extremities Exam Extremities exam: Present: warm, radial pulses palpable and symmetrical. Absent : calf tenderness, cyanotic, pedal edema Additional comments: s/p right groin LHC sith with no signs or symptoms of infection or hematoma. - Neurological Exam Neurological exam: Present: CN II-XII intact, oriented X3, no focal deficits. Absent: pronater drift, facial droop, speech deficit - Skin Skin exam: Present: dry, intact - Patient Status Disposition: Home, Self-Care Condition: Good Functional capacity at discharge: independent ambulation Overall status at discharge: patient is progressing back to baseline - Discharge Instructions Instructions: Coronary Artery Disease (DC), Aspirin (By mouth), Clopidogrel ( By mouth) Follow Up With: Cj Oswald MD [Primary Care Provider] - 12/02/17 1:00 pm Additional Instructions: RISK FACTORS: STOP SMOKING: If you smoke, STOP. Smoking or tobacco use significantly increases your risk of heart disease because nicotine causes the arteries to narrow or constrict. It also causes fats to stick to the artery. Your chances of having a heart attack are greatly increased if you continue to smoke. For more information, call the education line for smoking cessation 0-706-KNZWUQQ EAT A LOW FAT/CHOLESTEROL/SODIUM DIET: This diet may help reduce your chances of having a heart attack. LIFTING: Avoid lifting anything more than 10 pounds for 5-7 days Prior to straining, laughing, sneezing and/or coughing, apply manual pressure directly over insertion site. ACTIVITY: You may walk or climb stairs as tolerated You can resume sexual activity as tolerated In general, you are encouraged to engage in a minimum of 30 minutes or more of moderate intensity physical activity, such as brisk walking, daily or at least 3 -4 times weekly BATHING Do not submerge the site into water (bath tub, hot tub, swimming pool) for 1 week. This can be a source for infection into the blood stream. You may shower after 24 hours SITE CARE: After 24 hours, you may remove the dressing and leave the site open to air. Keep the site clean and dry. Clean gently and pat dry. You can expect bruising and tenderness that gradually resolve within a week or two. Return to work as instructed per your physician Resume driving as instructed per physician Keep all scheduled follow up appointments Resume medications as instructed IMPORTANT: If prescribed a Platelet Aggregation Inhibitor such as, Plavix, Brilinta or Effient: Duration of therapy is minimum one year These medications are often used in combination with Aspirin in prevention of future heart attacks Never discontinue unless consult with your Adult High School Instructor STROKE (CVA) Risk factors for a stroke are: Age, cigarette smoking, diabetes, excessive alcohol consumption, family history, high blood pressure, overweight, physical inactivity, prior stroke, heart attack, diagnosis of carotid artery stenosis or other artery disease. Warning signs: Sudden numbness or weakness of the face, arm or leg; especially on one side of the body, sudden confusion, trouble speaking or understanding, sudden trouble seeing in one or both eyes, sudden trouble walking, dizziness, loss of balance or coordination, sudden severe headache with no cause. Call 911 or go to the Emergency Room. CONGESTIVE HEART FAILURE: If you have been diagnosed with Congestive Heart Failure (CHF) and your symptoms return, make an appointment with your physician Weigh yourself daily. Notify your physician if you have a weight gain of two or more pounds in one day or five or more pounds in one week. If you experience any difficulty breathing, please call 911 BLEEDING: Although the risk of bleeding is minimal, it can happen. If you have any bleeding from the site, apply firm pressure above the puncture site for 10-15 minutes. If the bleeding does not stop, continue manual pressure and call 911 Contact your physician if: You develop a fever greater than 101 degrees Fahrenheit Your site becomes reddened or has any drainage You have an increase in pain or burning at the site or if a large knot forms at the site. If you experience chest pain, shortness of breath, dizziness, or extreme tiredness, stop the activity and rest. Please notify your physicians office if you experience any of these symptoms and they are not relieved by rest please call 911! - Diet and Activity Activity: increase activity as tolerated Diet: low fat, low cholesterol
--- NOTE | 2017-11-26 18:08 | Electrocardiograph Report ---
[place] [address] Test Date: 2017-11-23 Pat Name: Rc Griffin Department: 113 Room: 3B Gender: M Spirits Model: : 1955 Requested By: Mai Howard Order Number: [id number] Reading MD: Riley Giles Measurements Intervals [place] Rate: 75 P: 42 RI: 191 QRS: -9 QRSD: 122 T: -4 QT: 405 QTc: 434 Interpretive Statements SINUS RHYTHM MODERATE INTRAVENTRICULAR CONDUCTION DELAY Electronically Signed On 11-26-2017 18:07:21 EST by Riley Giles
== END 2017-11-23 12:30 | disposition home or self-care (01) ==
LOC: 3BNU 14:52 → EMEROO 14:52 → 3BNU 18:22
PROVIDERS: ADMIT Registered Nurse; ATTEND Registered Nurse

== ENCOUNTER 2018-03-24 12:37 | Observation (INO) ==
[2018-03-24 13:20] LABS: Hematocrit 35.3 % (37.5-50.1); Hemoglobin 12.6 g/dL (12.9-16.9); Mean Corpuscular HGB Conc 35.7 g/dL (31.6-35.5); Mean Corpuscular Hemoglobin 29.4 pg (28.0-33.3); Mean Corpuscular Volume 82.5 fL (83.0-100.0); Mean Platelet Volume 10.6 fL (9.4-12.4); Platelet Count 263 K/mcL (140-400); Red Blood Count 4.28 M/mcL (4.19-5.50); Red Cell Distribution Width 12.7 % (11.5-14.5)
[2018-03-24] MEDS ORDERED: Aspirin 81 MG TAB.CHEW PO STA (13:20)
[2018-03-24] MEDS ORDERED: Nitroglycerin 0.4 MG TAB.SUBL SL PRN ×2 (13:20→19:46)
--- NOTE | 2018-03-24 13:36 | Emergency Department Note ---
Disposition Clinical Impression: Atypical chest pain Disposition: Admitted As Inpatient Condition: Good Referrals: Cj Oswald MD [Primary Care Provider] - Forms: ED Satisfaction Letter Time of Disposition: 16:08 General Adult HPI - General Chief complaint: ED Chest Pain Stated complaint: "I think I need another heart stent" Time Seen by Provider: 03/24/18 13:23 Source: patient Limitations: no limitations Nursing Notes Reviewed: Yes Vital Signs Reviewed: Yes - History of Present Illness HPI Narrative: 2-3 week history of left-sided neck pain. States he has had this before whenever he has had have stents placed. Concern for this. Denies any fevers or chills. States the pain is intermittent and cramping in nature. Not present at this time. Pain Scale: 6 - Related Data Home Medications Medication Instructions Recorded Confirmed Clopidogrel [Plavix] 75 mg PO DAILY 04/11/17 03/24/18 Lisinopril [Zestril] 40 mg PO BID 05/10/17 03/24/18 Amlodipine Besylate 10 mg PO DAILY 11/19/17 03/24/18 Aspirin 81 mg PO DAILY 11/19/17 03/24/18 Bumetanide [Bumex] 1 mg PO BID 11/19/17 03/24/18 Cholecalciferol (Vitamin D3) 2,000 unit PO DAILY 11/19/17 03/24/18 [Vitamin D3] Cyanocobalamin (Vitamin B-12) 1,000 mcg PO DAILY 11/19/17 03/24/18 [Vitamin B12] Rosuvastatin [Crestor] 20 mg PO HS 11/19/17 03/24/18 Ubidecarenone [Co Q-10] 10 mg PO DAILY 11/19/17 03/24/18 metOLazone [Zaroxolyn] 2.5 mg PO MOWEFR 11/19/17 03/24/18 Carvedilol [Carvedilol] 12.5 mg PO BID 03/24/18 03/24/18 Glimepiride [Amaryl] 2 mg PO DAILY 03/24/18 03/24/18 Metformin HCl [Metformin HCl ER] 1,000 mg PO BID 03/24/18 03/24/18 Previous Rx's Medication Instructions Recorded Nitroglycerin 0.4 mg SL Q5MIN PRN 04/13/17 Isosorbide MONOnitrate (24 HR) 90 mg PO DAILY #30 tab.er.24h 11/23/17 [Imdur] Allergies Allergy/AdvReac Type Severity Reaction Status Date / Time duloxetine [From Cymbalta] AdvReac Vomiting Verified 03/24/18 15:17 All systems ED: reviewed and negative except as stated. Constitutional: Denies: fever, chills ENT ED: Denies: congestion Cardiovascular: Denies: chest pain, palpitations, syncope Respiratory: Reports: dyspnea (Occasional not at this time. States occasionally whenever he takes a deep breath.). Denies: cough, sputum production Gastrointestinal: Denies: abdominal pain, nausea, vomiting, diarrhea Genitourinary: Denies: urgency, dysuria, frequency Musculoskeletal: Reports: neck pain (Left-sided cramping in nature.). Denies: back pain Past Medical History - Past Medical History Attestation: Yes The following information was validated with the patient. Source: patient Medical history: Reports: cardiomyopathy, CHF, COPD, diabetes, hyperlipidemia, hypertension, myocardial infarction, renal disease Surgical history: Reports: angioplasty/stent, other Psychiatric history: Reports: no psych history - Social History Smoking Status: Never smoker Smokeless Tobacco Status: No Alcohol use: Reports: none Drug use: Reports: none Physical Exam - General Limitations: no limitations General appearance: alert, in no apparent distress - Head Head exam: atraumatic, normocephalic, normal inspection - Eye Eye exam: Present: normal appearance, PERRL, EOMI - ENT ENT exam: normal exam, normal oropharynx, mucous membranes moist - Neck Neck exam: Present: normal inspection, full ROM, trachea midline - Chest Chest inspection: Present: normal inspection, symmetric chest wall rise - Respiratory Respiratory exam: Present: normal lung sounds bilaterally. Absent: respiratory distress, accessory muscle use - Cardiovascular Cardiovascular exam: Present: regular rate, normal rhythm, normal heart sounds - Abdominal Exam Abdominal exam: Present: soft, Non-Tender. Absent: tenderness, distention, guarding, rebound, rigidity - Extremities Exam Extremities exam: Present: normal inspection, full ROM, normal capillary refill. Absent: tenderness, pedal edema - Back Exam Back exam: Present: normal inspection, full ROM. Absent: tenderness - Neurological Exam Neurological exam: Present: alert, oriented X3 - Psychiatric Psychiatric exam: Present: normal affect, normal mood - Skin Skin exam: Present: warm, dry, intact, normal color Course Course Narrative: Male patient presenting to emergency complaining of a two-week history of left- sided neck pain. He describes as a cramping sensation. This is been intermittent for the past 2 weeks. He is afraid that he may a muscle in his neck however he states that every time he sat have a cardiac catheter this is the pain that he sat. He denies any chest pain. He does report occasional shortness of breath. He denies the pain being present at this time. He is well -appearing. Lung sounds are clear heart tones are normal abdomen is soft and nontender. No signs of edema to his extremities. We will get a basic lab workup including a troponin and EKG on patient. He is agreeable to this. We will also provide him with aspirin. Patient states about 4 months ago is when he had his last cardiac catheter with 3 stents placed. He states that he had a lesion on 65% occluded that was not stented at that time. He had a catheterization approximately one year prior to that with several stents placed as well. - Reevaluation(s) Reevaluation #1: Patient's lab work is unremarkable. He does have an elevated creatinine which is consistent with his previous elevated creatinines. No signs of ischemia on his EKG. We will admit patient to the hospital for ACS rule out atypical chest pain. Time: 16:07 - Consultations Consultation #1: Dr jose accepted Pt in stable condition. Time: 16:07 Vital Signs Temperature 97.8 F 03/24/18 12:40 Pulse Rate 87 03/24/18 12:40 Respiratory Rate 18 03/24/18 12:40 Blood Pressure 168/98 03/24/18 12:40 O2 Sat by Pulse Oximetry 96 03/24/18 12:40 Temperature 97.8 F 03/24/18 13:24 Pulse Rate 78 03/24/18 14:30 Respiratory Rate 16 03/24/18 14:30 Blood Pressure 133/76 03/24/18 14:30 O2 Sat by Pulse Oximetry 97 03/24/18 14:30 Oxygen Delivery Oxygen Delivery Room Air Medical Decision Making - Medical Records Medical records reviewed: Yes I reviewed the patient's medical records. - Lab Data Lab results reviewed: Yes I reviewed the patient's lab results. Result diagrams: 03/24/18 13:09 03/24/18 13:09 Lab Results 03/24/18 03/24/18 Range/Units 13:09 13:09 WBC 8.7 (4.3-11.1) K/mcL RBC 4.28 (4.19-5.50) M/mcL Hgb 12.6 L (12.9-16.9) g/dL Hct 35.3 L (37.5-50.1) % MCV 82.5 L (83.0-100.0) fL MCH 29.4 (28.0-33.3) pg MCHC 35.7 H (31.6-35.5) g/dL RDW 12.7 (11.5-14.5) % Plt Count 263 (140-400) K/mcL MPV 10.6 (9.4-12.4) fL Sodium 139 (136-145) mEq/L Potassium 3.6 (3.5-5.1) mEq/L Chloride 106 (98-107) mEq/L Carbon Dioxide 25 (23-29) mEq/L BUN 34 H (8-23) mg/dL Creatinine 1.59 H (0.70-1.30) mg/dL Est GFR ( Amer) 54 L (> 60) Est GFR (Non-Af Amer) 44 L (> 60) BUN/Creatinine Ratio 21 (6-26) Glucose 196 H (70-105) mg/dL Calculated Osmolality 301 H (280-300) Calcium 9.0 (8.6-10.3) mg/dL Troponin I < 0.03 (< 0.04) ng/mL TSH 1.835 (0.340-5.600) mcIU/mL - Radiology Data Radiology results reviewed: Yes I reviewed the patient's radiology results. Chest X-Ray 03/24/18 12:45 IMPRESSION: No acute cardiopulmonary process. D/ / 03/24/2018 14:40:37 Tommy Grissom MD / [email or web address] Interpreting Provider: Tommy Grissom MD - EKG Data EKG #1 EKG attestation: Yes I reviewed and interpreted this EKG. EKG results narrative: Normal sinus rhythm at a rate 84. NE interval is 190. QRS duration is 104. QT is 373. QTC is 414. No signs of acute ischemia. No significant change from previous EKG dated 09/22/2018.
[2018-03-24 13:46] LABS: BUN/Creatinine Ratio 21 (6-26); Blood Urea Nitrogen 34 mg/dL (8-23); Carbon Dioxide 25 mEq/L (23-29); Chloride 106 mEq/L (98-107); Glucose 196 mg/dL (70-105); Osmolality,Calculated 301 (280-300); Potassium 3.6 mEq/L (3.5-5.1); Sodium 139 mEq/L (136-145); Troponin I < 0.03 ng/mL (< 0.04); eGFR For African Americans 54 (> 60); eGFR For Non-African Americans 44 (> 60)
[2018-03-24 14:00] LABS: Thyroid Stimulating Hormone 1.835 mcIU/mL (0.340-5.600)
--- NOTE | 2018-03-24 17:08 | Electrocardiograph Report ---
[facility] Test Date: 2018-03-24 Pat Name: Rc Griffin Department: 102 Room: 3B46 Gender: M Char Filter Operator: Irvin : 1955 Requested By: Prabhakar Mancuso Order Number: [id number] Reading MD: Derrick Dixon Measurements Intervals [place] Rate: 84 P: 10 [place]: 190 QRS: -12 QRSD: 104 T: 25 QT: 373 QTc: 414 Interpretive Statements SINUS RHYTHM NONSPECIFIC T-WAVE ABNORMALITY Electronically Signed On 03-24-2018 17:06:42 EDT by Derrick Dixon
[2018-03-24] MEDS ORDERED: Naloxone 0.4 MG/ML INJ IVP PRN (19:46)
[2018-03-24] MEDS ORDERED: D5% in Water 1,000 ML IVC PRN (19:46)
[2018-03-24] MEDS ORDERED: *HR* Morphine 2 MG/ML SYRINGE IVP PRN (19:46)
[2018-03-24] MEDS ORDERED: *HR* Dextrose 50 % in Water (Syg) 50 ML SYRINGE IVP PRN (19:46)
[2018-03-24] MEDS ORDERED: Dextrose Gel 15 GM/37.5 ML TUBE PO PRN ×2 (19:46)
--- NOTE | 2018-03-24 20:23 | Internal Med History&Physical ---
Date of Encounter: 03/24/18 Time of Encounter: 18:45 Internal Medicine - H&P: HPI Chief complaint: neck pain/chest pain Admitted From: Emergency Dept Plans for Post Hospital Care: Home History of present illness: Mr. Griffin is a 63 year old male who presents with a several day history of left- sided neck pain, dyspnea with exertion, and rare chest tightness. He takes an occasional sublingual nitroglycerin with relief. He was reluctant to come to the ER and to take nitroglycerin for fear of needing further cardiac intervention. Nonetheless, he came to the ER where he was seen, evaluated, and admitted. Upon my assessment of the patient, he is chest pain-free. He has minimal neck pain now. He states the pain in his neck is identical to that he had during last admission and prior episodes of angina. He presented here 4 months ago with left-sided neck pain which, for him, was an atypical anginal equivalent. He underwent cardiac workup and underwent left heart transition with PCI and stenting then. He complains of extreme fatigue over the last few weeks with minimal energy. With any exertion, he has dyspnea, rare chest tightness, and left-sided neck pain. He denies any fevers, cough, chills, or night sweats. Past Med Surg Social Fam HX - Past Medical History Attestation: Yes The following information was validated with the patient. Source: patient, old records reviewed Medical history: cardiomyopathy, CHF, COPD, coronary artery disease, diabetes, hyperlipidemia, hypertension, myocardial infarction, renal disease Additional medical history: Stage Renal Failure. Type II Diabetic Psychiatric history: no psych history - Past Surgical History Surgical History: angioplasty/stent, other Additional surgical history: right foot. cardiac stents x 5 - Social History Smoking Status: Never smoker Smokeless Tobacco Status: No Alcohol use: none Drug use: none Current living situation: Home, With Family Activity Level: Independent ambulation Recent Out of Country Travel Within the Last 8 Weeks: No - Family History Father Living Status: Hx Family Cardiac Disorders: Yes Hx Family Respiratory Disorders: (black lung) Hx Family Endocrine Disorder: Yes (dm) Mother Adopted: [place]: Mike Griffin Family Member Ethnicity: Non- Living Status: Age at : 65 Cause of : Stroke Hx Family Cardiac Disorders: Yes Hx Family Respiratory Disorders: No Hx Family Cancer: No Hx Family GI Disorders: No Hx Family Genitourinary Disorders: No Hx Family Endocrine Disorder: No Hx Family Musculoskeletal Disorders: No Hx Family Neuromuscular Disorders: No Hx Family Neurologic Disorders: No Hx Family HEENT Disorders: No Hx Family Autoimmune Disorders: No Hx Family Reproductive Disorders: No Hx Family Psychosocial Disorders: No Hx Family Medical Disorders: No Internal Medicine - H&P: Meds Clopidogrel [Plavix] 75 mg PO DAILY 04/11/17 [History] Nitroglycerin 0.4 mg SL Q5MIN PRN 04/13/17 [Rx] Lisinopril [Zestril] 40 mg PO BID 05/10/17 [History] Amlodipine Besylate 10 mg PO DAILY 11/19/17 [History] Aspirin 81 mg PO DAILY 11/19/17 [History] Bumetanide [Bumex] 1 mg PO BID 11/19/17 [History] Cholecalciferol (Vitamin D3) [Vitamin D3] 2,000 unit PO DAILY 11/19/17 [History] Cyanocobalamin (Vitamin B-12) [Vitamin B12] 1,000 mcg PO DAILY 11/19/17 [History ] Rosuvastatin [Crestor] 20 mg PO HS 11/19/17 [History] Ubidecarenone [Co Q-10] 10 mg PO DAILY 11/19/17 [History] metOLazone [Zaroxolyn] 2.5 mg PO MOWEFR 11/19/17 [History] Isosorbide MONOnitrate (24 HR) [Imdur] 90 mg PO DAILY #30 tab.er.24h 11/23/17 [ Rx] Carvedilol [Carvedilol] 12.5 mg PO BID 03/24/18 [History] Glimepiride [Amaryl] 2 mg PO DAILY 03/24/18 [History] Metformin HCl [Metformin HCl ER] 1,000 mg PO BID 03/24/18 [History] 3 Allergy/AdvReac Type Severity Reaction Status Date / Time duloxetine [From Cymbalta] AdvReac Vomiting Verified 03/24/18 15:17 - Constitutional Constitutional: fatigue, no chills, no fever(s), no night sweats - EENT Eyes: no blurry vision, no change in vision Ears: no ear pain, no tinnitus Nose, mouth and throat: no nasal congestion, no sinus pressure, no sore throat - Cardiovascular Cardiovascular ROS IM: chest pain, dyspnea, dyspnea on exertion, palpitations, other (left neck pain), no lightheadedness, no paroxysmal nocturnal dyspnea, no syncope - Respiratory Respiratory: dyspnea on exertion, no cough, no dyspnea, no hemoptysis, no chest congestion, no excessive phlegm production, no change in phlegm color - Gastrointestinal Gastrointestinal: no abdominal pain, no diarrhea, no hematemesis, no hematochezia, no melena, no nausea, no vomiting - Genitourinary Genitourinary ROS male: no dysuria, no flank pain, no hematuria - Musculoskeletal Musculoskeletal ROS IM: no arthralgias, no back pain - Integumentary Integumentary IM: no rash, no jaundice - Neurological Neurological ROS: no dizziness, no focal weakness, no frequent falls, no headache(s) - Psychiatric Psychiatric: no anxiety, no depression - Endocrine Endocrine IM: no polydipsia, no polyuria - Allergic/Immunologic Allergic/Immunologic: no wheezing, no GI upset with certain foods - Constitutional Vitals: Temp Pulse Resp BP Pulse Ox 97.6 F 75 15 161/90 96 03/24/18 19:08 03/24/18 19:08 03/24/18 19:08 03/24/18 19:08 03/24/18 19:08 General appearance: Present: cooperative, A&O X 3, pleasant, no acute distress - Head Head exam: Present: normal inspection - Eye Eye exam: Present: EOMI, normal appearance, PERRL. Absent: scleral icterus Pupils: Present: normal accommodation - ENT ENT exam: Present: mucous membranes dry, normal exam, normal oropharynx - Neck Neck exam general surgery: Present: full ROM, supple. Absent: tenderness, nuchal rigidity, thyromegaly - Respiratory Respiratory exam: Present: CTAB. Absent: chest wall tenderness, rales, respiratory distress, rhonchi, wheezes - Cardiovascular Cardiovascular exam: Present: RRR, +S1, +S2. Absent: diastolic murmur, systolic murmur - GI/Abdominal GI/Abdominal exam: Present: normal bowel sounds, soft. Absent: hepatomegaly, mass, splenomegaly, tenderness - Extremities Exam Extremities exam: Present: full ROM, normal capillary refill, warm, radial pulses palpable and symmetrical. Absent: calf tenderness, pedal edema - Back Exam Back exam: Absent: CVA tenderness (L), CVA tenderness (R) - Neurological Exam Neurological exam: Present: alert, oriented X3, no focal deficits - Psychiatric Psychiatric exam: Present: normal affect, normal mood - Skin Skin exam: Present: dry, warm. Absent: rash Internal Med - H&P Results - Labs CBC & Chem 7: 03/24/18 13:09 03/24/18 13:09 - EKG Data -: EKG Interpreted by Myself EKG shows normal: sinus rhythm - EKG Data Prior EKG available for review: yes When compared to previous EKG: there is no significant change EKG comments: 03/24/18 20:27 NSR; no acute ST-T changes - Diagnostic Studies Chest x-ray Status: image reviewed by me (negative) - Assessment and plan (1) Atypical chest pain Current Visit: Yes Status: Acute Assessment and plan: 1. Will trend troponins, EKG's. 2. Will provide SL NTG and morphine or Oxycodone for anginal type chest pain. 3. Will consult cardiology for guidance about further testing and/or invasive testing. (2) CAD (coronary artery disease) Current Visit: Yes Status: Chronic Assessment and plan: 1. Continue home meds as appropriate. 2. Work-up as above. 3. Old records reviewed. Note, patient had recent ECHO, stress test, and C with intervention. Qualifiers: Coronary Disease-Associated Artery/Lesion type: [place] artery [place] vs. transplanted heart: [place] heart Associated angina: with stable angina Qualified Code(s): I25.118 - Atherosclerotic heart disease of [place] coronary artery with other forms of angina pectoris (3) Type 2 diabetes mellitus Current Visit: Yes Status: Chronic Assessment and plan: 1. Hold oral diabetic meds. 2. Will use SSI and adjust dose as necessary. Qualifiers: Diabetes mellitus detention insulin use: without exterminator helper use Diabetes mellitus complication detail: with other circulatory complications Qualified Code(s): E11.59 - Type 2 diabetes mellitus with other circulatory complications (4) DVT prophylaxis Current Visit: Yes Status: Acute Assessment and plan: 1. Heparin SQ.
[2018-03-24] MEDS: 0.9 % Sodium Chloride 1,000 ML IVC SCH (21:34)
[2018-03-24] MEDS: *HR* Heparin 5,000 UNIT/ML VIAL SQ SCH (21:37)
[2018-03-24 22:10] LABS: Estimated Average Glucose 137 mg/dl; Hemoglobin A1C 6.4 %
[2018-03-25 01:57] LABS: Basophils % 0.6 %; Eosinophils # 0.1 K/mcL (0.0-0.6); Eosinophils % 1.5 %; Hematocrit 33.5 % (37.5-50.1); Hemoglobin 12.1 g/dL (12.9-16.9); Immature Granulocytes % 0.3 % (0-4); Lymphocytes % 27.3 %; Mean Corpuscular HGB Conc 36.1 g/dL (31.6-35.5); Mean Corpuscular Hemoglobin 29.8 pg (28.0-33.3); Mean Corpuscular Volume 82.5 fL (83.0-100.0); Mean Platelet Volume 10.3 fL (9.4-12.4); Monocytes # 0.7 K/mcL (0.0-1.3); Monocytes % 9.5 %; Neutrophils # 4.4 K/mcL (1.6-8.9); Platelet Count 218 K/mcL (140-400); Red Blood Count 4.06 M/mcL (4.19-5.50); Red Cell Distribution Width 12.7 % (11.5-14.5); Segmented Neutrophils % 60.8 %
[2018-03-25 02:06] LABS: INR 1.1; Prothrombin Time 11.7 Seconds (9.4-12.1)
[2018-03-25 02:09] LABS: Activated Partial Thrombo Time 29.9 Seconds (26.0-36.0)
[2018-03-25 02:26] LABS: Alanine Aminotransferase 15 Units/L (7-52); Albumin 3.6 g/dL (3.5-5.7); Albumin/Globulin Ratio 1.6 (1.1-2.2); Alkaline Phosphatase 49 Units/L (34-104); Aspartate Amino Transferase 13 Units/L (13-39); BUN/Creatinine Ratio 23 (6-26); Bilirubin,Total 0.5 mg/dL (0.3-1.0); Blood Urea Nitrogen 31 mg/dL (8-23); Calcium 8.7 mg/dL (8.6-10.3); Carbon Dioxide 26 mEq/L (23-29); Chloride 107 mEq/L (98-107); Chol/HDL Ratio 3.6 (0-4.9); Cholesterol 104 mg/dL (< 200); Globulin 2.3 g/dL (2.4-3.5); Glucose 126 mg/dL (70-105); HDL Cholesterol 29 mg/dL (40-59); LDL Cholesterol,Calculated 29 mg/dL (0-99); Magnesium 1.6 mg/dL (1.6-2.6); Osmolality,Calculated 300 (280-300); Potassium 3.1 mEq/L (3.5-5.1); Sodium 141 mEq/L (136-145); Total Protein 5.9 g/dL (6.4-8.9); Triglycerides 232 mg/dL (< 150); eGFR For African Americans > 60 (> 60); eGFR For Non-African Americans 54 (> 60)
[2018-03-25] MEDS: *HR* Heparin 5,000 UNIT/ML VIAL SQ SCH ×3 (06:00→23:59)
[2018-03-25] MEDS: Insulin LISPRO 300 UNITS/3 ML VIAL SQ SCH ×3 (07:32→17:48)
[2018-03-25] MEDS: Aspirin 81 MG TAB.CHEW PO SCH (07:56)
[2018-03-25] MEDS: Isosorbide MONOnitrate (24 HR) 30 MG TAB.ER.24H PO SCH (07:56)
[2018-03-25] MEDS: amLODIPine 5 MG TABLET PO SCH (07:56)
[2018-03-25] MEDS: Cyanocobalamin (B-12) 1,000 MCG TABLET PO SCH (07:56)
[2018-03-25] MEDS: Cholecalciferol (D-3) 1,000 UNIT TABLET PO SCH (07:56)
--- NOTE | 2018-03-25 09:49 | Cardiology Consult Note ---
Date of Encounter: 03/25/18 Time of Encounter: 08:00 Assessment and Plan (1) Chest pain Current Visit: Yes Status: Acute Patient presents with atypical chest pain symptoms; reports same presentation as prior need for cardiac stenting. Has known hx of obstructive CAD s/p PCI; last [facility] 2018 s/p PCI to LCx--existing mild-moderate CAD (40% mRCA, 65% dRCA). Troponin negative x4, non-specific ST/T wave changes. Reports compliance with all medications including DAPT, betablocker, and nitrates. Discussed management options with patient including medical management vs LHC; patient requests to proceed with [facility] due to known 65% blockage. Will further discuss with Dr. Martinez to determine plan. Qualifiers: Chest pain type: chest pain due to myocardial ischemia Ischemic chest pain type: unstable angina pectoris Qualified Code(s): I20.0 - Unstable angina (2) Hypokalemia Current Visit: Yes Status: Acute Potassium 3.1, order placed for IV potassium rider. Defer further mgmt to primary service. (3) CAD (coronary artery disease) Current Visit: Yes Status: Chronic Hx of CAD s/p PCI. Most recent PCI 2017. Qualifiers: Coronary Disease-Associated Artery/Lesion type: [place] artery [place] vs. transplanted heart: [place] heart Associated angina: with stable angina Qualified Code(s): I25.118 - Atherosclerotic heart disease of [place] coronary artery with other forms of angina pectoris (4) Chronic kidney disease Current Visit: No Status: Chronic SCr 1.59 upon admission, 1.34 today which appears within baseline. Qualifiers: Chronic kidney disease stage: stage 3 (moderate) Qualified Code(s): N18.3 - Chronic kidney disease, stage 3 (moderate) Discussion w patient/family: The assessment and plan as outlined above was discussed with the patient and/or family members who expressed understanding and agreement. All questions were answered. Thank you for involving us in the care of your patient. Please call with any questions. The patient will be discussed and reviewed with Dr. Martinez; changes to be made accordingly. History of Present Illness Consult date: 03/25/18 Requesting physician: Rohit Odell Consult reason: Chest pain Chief complaint: Chest pain History of present illness: Mr. Griffin is a 63 year old male with PMHx significant for CAD s/p PCI, HTN, HLD, DMII, CKD-3 who presented to the ED with complaints of neck discomfort. He reports worsening left neck/mid scapular discomfort that has been ongoing for the past month, has worsened over the past week. Reports same symptoms with prior need for cardiac stents. Symptoms occur at rest and with activity; nothing seems to worsen or improve neck discomfort. Typically lasts for minutes to hours at a time and resolves without intervention. He has not utilized prn NTG tabs. Troponin negative x3. Nonspecific T wave changes noted on ECG. He is pain free upon exam. Prior CV testing: [facility] ([place]) 2016: s/p x3 MICHELLE to pLAD; otherwise non-obstructive CAD Regadenoson Nuclear stress 11/20/17: negative for ischemia or infarct, gated EF=46% TTE 11/20/17: LVEF 55%, mildly dilated LV [facility] 11/21/17: s/p successful PTCA/MICHELLE to dLCx; otherwise mild-moderate CAD (40 % mRCA, 65% dRCA). Past Med Surg Social Fam HX - Past Medical History Attestation: Yes The following information was validated with the patient. Source: patient Medical history: COPD, coronary artery disease, diabetes, hyperlipidemia, hypertension, myocardial infarction, renal disease Additional medical history: Stage Renal Failure. Type II Diabetic Psychiatric history: no psych history - Past Surgical History Surgical History: angioplasty/stent, other Additional surgical history: right foot. cardiac stents x 5 - Social History Smoking Status: Never smoker Smokeless Tobacco Status: No Alcohol use: none Drug use: none - Family History Father Living Status: Hx Family Cardiac Disorders: Yes Hx Family Respiratory Disorders: (black lung) Hx Family Endocrine Disorder: Yes (dm) Mother Adopted: [place]: Mike Griffin Family Member Ethnicity: Non- Living Status: Age at : 65 Cause of : Stroke Hx Family Cardiac Disorders: Yes Hx Family Respiratory Disorders: No Hx Family Cancer: No Hx Family GI Disorders: No Hx Family Genitourinary Disorders: No Hx Family Endocrine Disorder: No Hx Family Musculoskeletal Disorders: No Hx Family Neuromuscular Disorders: No Hx Family Neurologic Disorders: No Hx Family HEENT Disorders: No Hx Family Autoimmune Disorders: No Hx Family Reproductive Disorders: No Hx Family Psychosocial Disorders: No Hx Family Medical Disorders: No Medications and Allergies Clopidogrel [Plavix] 75 mg PO DAILY 04/11/17 [History] Nitroglycerin 0.4 mg SL Q5MIN PRN 04/13/17 [Rx] Lisinopril [Zestril] 40 mg PO BID 05/10/17 [History] Amlodipine Besylate 10 mg PO DAILY 11/19/17 [History] Aspirin 81 mg PO DAILY 11/19/17 [History] Bumetanide [Bumex] 1 mg PO BID 11/19/17 [History] Cholecalciferol (Vitamin D3) [Vitamin D3] 2,000 unit PO DAILY 11/19/17 [History] Cyanocobalamin (Vitamin B-12) [Vitamin B12] 1,000 mcg PO DAILY 11/19/17 [History ] Rosuvastatin [Crestor] 20 mg PO HS 11/19/17 [History] Ubidecarenone [Co Q-10] 10 mg PO DAILY 11/19/17 [History] metOLazone [Zaroxolyn] 2.5 mg PO MOWEFR 11/19/17 [History] Isosorbide MONOnitrate (24 HR) [Imdur] 90 mg PO DAILY #30 tab.er.24h 11/23/17 [ Rx] Carvedilol [Carvedilol] 12.5 mg PO BID 03/24/18 [History] Glimepiride [Amaryl] 2 mg PO DAILY 03/24/18 [History] Metformin HCl [Metformin HCl ER] 1,000 mg PO BID 03/24/18 [History] 3 Allergy/AdvReac Type Severity Reaction Status Date / Time duloxetine [From Cymbalta] AdvReac Vomiting Verified 03/24/18 15:17 All Systems Review: The remainder of the systems were reviewed and are negative - Cardiovascular Cardiovascular: as per HPI Physical Examination Vital Signs, Last 4 Hours Temp Pulse Resp BP Pulse Ox 03/25/18 09:26 159/85 03/25/18 07:36 97.9 F 96 18 187/99 96 General: Conversant, No Apparent Distress HEENT: Atraumatic, Normocephaly, Mucus Membranes Moist Cardiac: Reg Rate and Rhythm, Normal S1 and S2 Lungs: Normal Breath Sounds Neuro: Alert and responsive Abdomen: Soft Skin: No rashes noted on visualized skin Musculoskeletal: No Chest Wall Tenderness Extremities: No Edema, Normal Pulses Results 03/25/18 01:37 03/25/18 01:37 Lab Results 03/24/18 03/25/18 03/25/18 21:23 01:37 01:37 WBC 7.2 Hgb 12.1 L Hct 33.5 L Plt Count 218 INR APTT Sodium Potassium Chloride Carbon Dioxide BUN Creatinine Glucose Calcium Magnesium Total Bilirubin AST ALT Alkaline Phosphatase Troponin I < 0.03 < 0.03 03/25/18 03/25/18 03/25/18 01:37 01:37 08:03 WBC Hgb Hct Plt Count INR 1.1 APTT 29.9 Sodium 141 Potassium 3.1 L Chloride 107 Carbon Dioxide 26 BUN 31 H Creatinine 1.34 H Glucose 126 H Calcium 8.7 Magnesium 1.6 Total Bilirubin 0.5 AST 13 ALT 15 Alkaline Phosphatase 49 Troponin I < 0.03 Active Medications Amlodipine Besylate (Norvasc) 10 mg PO DAILY [facility] Stop: 09/24/18 09:01 Last Admin: 03/25/18 07:56 Dose: 10 mg Aspirin (Aspirin) 81 mg PO DAILY [facility] Stop: 09/24/18 09:01 Last Admin: 03/25/18 07:56 Dose: 81 mg Carvedilol (Coreg) 12.5 mg PO BIDWM [facility] Stop: 09/23/18 21:01 Last Admin: 03/25/18 07:56 Dose: 12.5 mg Clopidogrel Bisulfate (Plavix) 75 mg PO DAILY [facility] Stop: 09/24/18 09:01 Last Admin: 03/25/18 07:56 Dose: 75 mg Cyanocobalamin (Vitamin B12) 1,000 mcg PO DAILY [facility] Stop: 09/24/18 09:01 Last Admin: 03/25/18 07:56 Dose: 1,000 mcg Dextrose/Water (Dextrose 50% (Syg)) 25 ml IVP AD PRN PRN Reason: Hypoglycemia Stop: 09/23/18 19:47 Glucagon (Glucagen) 1 mg IM ONCE PRN PRN Reason: Hypoglycemia Stop: 09/23/18 19:47 Glucose (Gluctose) 15 gm PO ONCE PRN PRN Reason: Hypoglycemia Stop: 09/23/18 19:47 Glucose (Gluctose) 30 gm PO ONCE PRN PRN Reason: Hypoglycemia Stop: 09/23/18 19:47 Heparin Sodium (Porcine) (Heparin) 5,000 unit SQ Q8HCO [facility] Stop: 09/23/18 22:01 Last Admin: 03/25/18 06:00 Dose: 5,000 unit Sodium Chloride (0.9 % Sodium Chloride) 1,000 mls @ 75 mls/hr IVC .[id number] [facility] Stop: 03/25/18 22:39 Last Admin: 03/24/18 21:34 Dose: 75 mls/hr Dextrose (Dextrose 5%) 1,000 mls @ 100 mls/hr IVC .Q10H PRN PRN Reason: HYPOGLYCEMIA Stop: 09/23/18 19:47 Potassium Chloride (Potassium Chloride 10 Meq/100ml) 10 meq in 100 mls @ 100 mls/hr IVPB Q1H [facility] Stop: 03/25/18 13:59 Insulin Human Lispro (Humalog) 0 units SQ TIDAC [facility] PRN Reason: Protocol Stop: 09/24/18 07:31 Last Admin: 03/25/18 07:32 Dose: Not Given Isosorbide Mononitrate (Imdur) 90 mg PO DAILY [facility] Stop: 09/24/18 09:01 Last Admin: 03/25/18 07:56 Dose: 90 mg Morphine Sulfate (Morphine Sulfate) 1 mg IVP Q3H PRN; Protocol PRN Reason: Chest Pain Stop: 09/23/18 19:47 Naloxone HCl (Narcan) 0.4 mg IVP Q2MIN PRN PRN Reason: SEE COMMENTS Stop: 09/23/18 19:47 Nitroglycerin (Nitroglycerin) 0.4 mg SL Q5MIN PRN PRN Reason: Chest Pain Stop: 09/23/18 19:47 Rosuvastatin Calcium (Crestor) 20 mg PO HS [facility] Stop: 09/23/18 21:01 Last Admin: 03/24/18 21:37 Dose: 20 mg Vitamin D (Vitamin D) 1,000 unit PO DAILY [facility] Stop: 09/24/18 09:01 Last Admin: 03/25/18 07:56 Dose: 1,000 unit - Imaging and Cardiology Stress Test: report reviewed Echo: report reviewed Cardiac cath: report reviewed Other Results: 12 hour tele: avg HR=71 SR. No significant events noted. - EKG Interpretation EKG results cardiology: personally reviewed Consult Discharge Plan - Plan Referrals: Umer Guzman DATA ANALYTICS SPECIALIST [Advanced Practice Nurse] - 04/16/18 10:30 am Cj Oswald MD [Primary Care Provider] -
[2018-03-25] MEDS: 0.9 % Sodium Chloride 1,000 ML IVC SCH (10:57)
--- NOTE | 2018-03-25 12:49 | Internal Med Progress Note ---
Date of Encounter: 03/25/18 Time of Encounter: 12:41 - Assessment and plan (1) Atypical chest pain Current Visit: Yes Status: Acute Assessment and plan: Atypical chest pain s/sx. Same presentation as prior when needing cardiac stenting; pain in left neck and trapezius known h/o obstructive CAD s/p PCI ; last [facility] 10/2017 s/p PCI to LCx--existing mild-moderate CAD (40% mRCA, 65% dRCA). Troponins negative x4, non-specific ST/T wave changes Last TTE-11/20/17 LVEF 55%. Not all LV segments were well visualized (see below), but overall LVEF appeared normal. Mildly dilated left ventricle. Mild concentric left ventricular hypertrophy. Continue tele Cont, ASA, Plavix, BB, Crestor, Norvasc and Imdur Continue SL NTG and morphine for chest pain. 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 transplanted heart: [place] heart Associated angina: with stable angina Qualified Code(s): I25.118 - Atherosclerotic heart disease of [place] coronary artery with other forms of angina pectoris (3) Type 2 diabetes mellitus Current Visit: Yes Status: Chronic Assessment and plan: SSIC, FSBG stable Qualifiers: Diabetes mellitus terminal operator insulin use: without terminal operator use Diabetes mellitus complication detail: with other circulatory complications Qualified Code(s): E11.59 - Type 2 diabetes mellitus with other circulatory complications (4) DVT prophylaxis Current Visit: Yes Status: Acute Assessment and plan: continue SQ heparin - Time Spent With Patient Total time spent is greater than 50% in coordination of care (as documented) at patient's floor/unit and/or counseling patient: 25 - 35 minutes - Subjective Interval history: Patient seen and examined at bedside today. Continues to report intermittent atypical chest pain. Currently chest pain-free at this time - Constitutional Vitals: Temp Pulse Resp BP Pulse Ox 97.9 F 71 16 136/74 95 03/25/18 11:06 03/25/18 11:06 03/25/18 11:06 03/25/18 11:06 03/25/18 11:06 General appearance: Present: cooperative, A&O X 3, pleasant, no acute distress - Head Head exam: Present: atraumatic, normocephalic - Eye Eye exam: Present: PERRL, conjuntiva pink, sclera anicteric Pupils: Present: PERRL - Neck Neck exam general surgery: Present: supple, trachea midline. Absent: lymphadenopathy - Respiratory Respiratory exam: Present: CTAB. Absent: accessory muscle use, rales, rhonchi, wheezes - Cardiovascular Cardiovascular exam: Present: RRR, +S1, +S2. Absent: diastolic murmur, gallop, rubs, systolic murmur - GI/Abdominal GI/Abdominal exam: Present: normal bowel sounds, soft, no peritoneal signs. Absent: distended, tenderness - Extremities Exam Extremities exam: Present: warm, radial pulses palpable and symmetrical. Absent : calf tenderness, cyanotic, pedal edema - Neurological Exam Neurological exam: Present: CN II-XII intact, oriented X3, no focal deficits. Absent: pronater drift, facial droop, speech deficit - Skin Skin exam: Present: dry, intact Internal Medicine: Result - Labs CBC & Chem 7: 03/25/18 01:37 03/25/18 01:37 Labs: Short CBC 03/25/18 Range/Units 01:37 WBC 7.2 (4.3-11.1) K/mcL Hgb 12.1 L (12.9-16.9) g/dL Hct 33.5 L (37.5-50.1) % Plt Count 218 (140-400) K/mcL Neutrophils # 4.4 (1.6-8.9) K/mcL BMP 03/25/18 01:37 Sodium 141 Potassium 3.1 L Chloride 107 Carbon Dioxide 26 BUN 31 H Creatinine 1.34 H Glucose 126 H Calcium 8.7 Cardiac Enzymes 03/24/18 03/25/18 03/25/18 Range/Units 21:23 01:37 08:03 Troponin I < 0.03 < 0.03 < 0.03 (< 0.04) ng/mL Liver Function 03/25/18 Range/Units 01:37 Total Bilirubin 0.5 (0.3-1.0) mg/dL AST 13 (13-39) Units/L ALT 15 (7-52) Units/L Alkaline Phosphatase 49 (34-104) Units/L Albumin 3.6 (3.5-5.7) g/dL - ABG Interpretation ABG results: PT/INR, D-dimer PT 11.7 Seconds (9.4-12.1) 03/25/18 01:37 Consult Discharge Plan - Plan Referrals: Umer Guzman CNP [Advanced Practice Nurse] - 04/16/18 10:30 am Cj Oswald MD [Primary Care Provider] -
--- NOTE | 2018-03-25 15:40 | Pre-Sedation Evaluation ---
Pre-sedation evaluation - Pre-sedation checklist Date of procedure: 03/25/18 Procedure: [facility] Recent Vitals: Last Vital Signs Temp 98.1 F 03/25/18 15:38 Pulse 72 03/25/18 15:38 Resp 16 03/25/18 15:38 BP 141/85 03/25/18 15:38 Pulse Ox 97 03/25/18 15:38 H&P (including ROS) documented in medical record: Yes Previous reaction to sedatives/anesthetics: No Dietary Status: NPO after Midnight Airway Assessment: Patient can open mouth completely, TMJ function normal, Micrognathia (under-bite, receding chin) absent, Neck with adequate range of motion Dentition: No loose teeth or bridges Possible difficult airway: No ASA Classification *see protocol: CLASS II-Mild systemic disease Plan of Care: Pt appropriate candidate for procedure/moderate/conscious sedation , Risks/benefits of procedure/sedation discussed w/ patient/family Cardiac Registry (Cardio Only) - Functional Capacity Functional Capacity: >=4 METS with symptoms - Clincal Frailty Scale Clinical Frailty Scale: Managing Well
[2018-03-25] MEDS ORDERED: ISOVUE-370 200 ML INFUS..BTL IV ONE ×2 (15:41→16:15)
[2018-03-25] MEDS ORDERED: 0.9 % Sodium Chloride 2,000 ML ONE (15:41)
[2018-03-25] MEDS ORDERED: Heparin 1,000 UNITS/500 mL 500 ML ONE (15:41)
[2018-03-25] MEDS ORDERED: *HR* Heparin 10,000 UNIT/10 ML VIAL ONE (15:41)
[2018-03-25] MEDS ORDERED: Nitroglycerin 1,000 MCG/10 ML VIAL IV ONE (15:41)
[2018-03-25] MEDS ORDERED: *HR* Midazolam HCl 2 MG/2 ML VIAL ONE (15:54)
[2018-03-25] MEDS ORDERED: *HR* FentaNYL (PF) 100 MCG/2 ML VIAL ONE ×2 (15:54→16:41)
--- NOTE | 2018-03-25 16:55 | Invasive Diagnostic Lab Proc ---
Name: Rc Griffin Date of Study: 03/25/2018 Date: 1955 Ht: 70.1in Medical Record#: [id number] Age: 63 Wt: 266.76lb Gender: Male BSA: 2.36 Order #: [id number] BMI: 38.19 Physicians Procedure Physician: Gem Giles MD, [facility] Referring MD: Referring MD: Staff Name Position Time In [facility] Mikala RN Monitor 03:46 PM Shanique Crook RN Oiler And Greaser 03:46 PM Noemi Pritchard RN Oiler And Greaser 03:46 PM Ryan, Elvia RT (R) Scrub 03:46 PM Indications Indication Unstable Angina Procedures Performed Procedure CORONARY ARTERY ANGIO S&I IV Doppler BLD Flow 1st Vessel Pre-Procedure Checklist Informed consent is complete signed and on chart. H&P is on chart. ID band is on and ID verified with patient. Patient NPO for procedure The procedure was described for the patient and questions were answered. Blood Pressure: 136/74 ECG is on chart. Plan of Care Patient will tolerate the procedure without complications. Adequate level of comfort will be maintained. Hemodynamics will remain stable Patient will recover from procedure without complications. Respiratory function will be maintained. Cardiac rhythm will remain stable. Patient temperature will be maintained. Patient and/or family have verbalized understanding of the procedure. Patient Education Chief Complaint/Reason for Test: Cardiac Cath Developmental Category: Adult (18-64 years) Developmentally Appropriate for Age: Yes Learning Barriers: None Education Needs: Procedure Education Method: Verbal Information Taught: Cardiac Cath Educational Evaluation: Able to repeat information Intravenous Access Time IV Size Location DC'd Fluid/Drip Rate Units RN 03:41 PM 18g 1 1/4" Patent On Arrival Lt Antecubital Allergies No Known Allergies duloxetine Vital Signs Time BP (mmHg) HR (bpm) O2 Sat. RR (bpm) LOC 03:42 PM 136 / 74 71 95 % 16 5 = Fully awake and oriented or at pre-proc level 03:48 PM / % 5 = Fully awake and oriented or at pre-proc level 03:48 PM / % 4 = Oriented but drowsy 04:06 PM / % 4 = Oriented but drowsy 04:00 PM 167 / 95 67 % 04:05 PM 160 / 95 69 97 % 04:10 PM 158 / 94 69 98 % 04:15 PM 156 / 92 68 98 % 04:20 PM 149 / 88 68 98 % 04:25 PM 156 / 88 71 98 % 04:30 PM 169 / 98 75 99 % Procedural Medications Time Medication Dose Units Method Given By 03:48 PM Oxygen 2 L/min nasal cannula Shanique Crook RN 04:07 PM Lidocaine 2% 18 ml Subcutaneous Gem Giles MD, [facility] 04:09 PM Versed 2 mg Intravenous Shanique Crook RN 04:09 PM Fentanyl 50 mcg Intravenous Shanique Crook RN 04:15 PM Angiomax bolus: 18 ml Intravenous Shanique Crook RN 04:17 PM Angiomax 1.75mg/kg/hr: 42 ml/hr Intravenous Shanique Crook RN 04:25 PM Adenosine 999 ml/hr Intravenous Shanique Crook RN 04:41 PM Fentanyl 25 mcg Intravenous Shanique Crook RN ASA Classification: CLASS II- Mild systemic disease (i.e. well-controlled diabetes, hypertension, asthma, cigarette smoking) Sherif Score Preprocedure Postprocedure Activity 2- Moves 4 extremities sustained head lift Activity 2- Moves 4 extremities sustained head lift Circulation 2- SBP +/= 20 points of pre-anesthetic level Circulation 2- SBP +/= 20 points of pre-anesthetic level Consciousness 2- Awake and alert oriented x 3 Consciousness 2- Awake and alert oriented x 3 O2 Saturation 2- Able to maintain O2 satruation of 92% on room air O2 Saturation 2- Able to maintain O2 satruation of 92% on room air Respiratory 2- Able to deep breathe and cough well Respiratory 2- Able to deep breathe and cough well Total Score 10 Total Score 10 Contrast Agent: Isovue Diagnostic Contrast: 76 ml Total Contrast: 76 ml Fluoro Dose: 5726 mGy Procedure Log Time Note Enter By 03:43 PM CathStat 03:46 PM Pt arrived to quality assurance/r&d lab technician 2 at 15:46 03:46 PM Physician arrived 15:46 03:46 PM Meet and greet completed 03:46 PM Sign in performed according to hospital policy. 03:46 PM Procedure start 15:46 03:46 PM Mikala Virgen RN Position: Monitor Time in: 15:46 03:46 PM Shanique Crook RN Position: Oiler And Greaser Time in: 15:46 03:46 PM Noemi Pritchard RN Position: Oiler And Greaser Time in: 15:46 [email or web address] 03:46 PM Ryan, Elvia RT (R) Position: Scrub Time in: 15:46 tsoummers 03:46 PM Patient charges- Angio tray pack, Navilyst 3mm J, Pulse Oximetry and ACIST tubing and transducer tsoummers 03:46 PM Case Delayed No tsoummers 03:46 PM Hair removed from procedure site in procedure lab using clippers. Bilateral groin prepped with Chloraprep by Elvia Davis RT (R), then patient was draped. Skin intact. tsoummers 03:48 PM ASA Class CLASS II- Mild systemic disease (i.e. well-controlled diabetes, hypertension, asthma, cigarette smoking) tsoummers 03:48 PM Time: 15:48 Oxygen on at 2 L/min per nasal cannula by Shanique Crook RN tsaby 03:48 PM Time: 15:48 Patient comfortable and pain free: Yes tsoummers 03:48 PM Time: 15:48LOC: 5 = Fully awake and oriented or at pre-proc level [email or web address] 03:59 PM Vitals capture started with the following parameters, Patient=Adult, Interval=5 min, Initial Eucswdqc=373 mmHg, Deflation Rate=5 mmHg, Cuff placed on Right Arm 04:00 PM HR=67 bpm, UNNW=367/95 mmhg 04:05 PM HR=69 bpm, UPHJ=947/95 mmhg, SpO2=97.0 % 04:06 PM Time: 15:48LOC: 4 = Oriented but drowsy [email or web address] 04:06 PM Time: 15:48 Patient comfortable and pain free: Yes [email or web address] 04:07 PM Time out performed according to hospital policy [email or web address] 04:07 PM Time: 16:07 18 ml Lidocaine 2% to right groin Subcutaneous Given by Gem Giles MD, [facility] tsoummmikel 04:09 PM Time: 16:09 Versed 2 mg Intravenous Given by Shanique Crook RN 04:09 PM Time: 16:09 Fentanyl 50 mcg Intravenous Given by Shanique Crook RN 04:09 PM Access obtained by percutaneous puncture. 5Fr 10cm Terumo [place] sheath placed in right Femoral artery. [id number] tsoummers 04:09 PM 0.035 145cm Navilyst 3mmJ wire [id number] oumm 04:09 PM 5Fr FL 4 catheter inserted over the wire [facility] tsoummers 04:09 PM Recorded ECG: HR=69 Condition=Condition 1 04:10 PM HR=69 bpm, NYDV=365/94 mmhg, SpO2=98.0 % 04:10 PM Pressure channel 1 zeroed. 04:10 PM wire removed tsoumm 04:10 PM LCA angiography performed in multiple views. tsoummers 04:10 PM Recorded Pressure: Ao, HR=68, Condition=Condition 1 (Aorta) Ao 132/81/104 04:11 PM Catheter removed tsoumm 04:11 PM 5Fr FR 4 catheter inserted over the wire [facility] tsoumm 04:12 PM RCA angiography performed in multiple views. tsoummers 04:12 PM Recorded Pressure: Ao, HR=71, Condition=Condition 1 (Aorta) Ao 129/76/100 04:13 PM Catheter removed 04:14 PM Inflation device was opened. tsoumm 04:14 PM Sheath exchanged for a 6 Fr 11 cm Cordis Bebe sheath [id number] oummers 04:15 PM HR=68 bpm, MPOL=213/92 mmhg, SpO2=98.0 % 04:15 PM Time: 16:15 Angiomax bolus: 18 ml Intravenous Given by Shanique Crook RN 04:16 PM 6Fr JR 4 Runway guide catheter was used to cannulate the PCI vessel successfully. reused? No tsoummers 04:17 PM Time: 16:17 Angiomax 1.75mg/kg/hr: 42 ml/hr Intravenous Given by Shanique Crook RN Muniz pump [email or web address] 04:20 PM HR=68 bpm, UQGT=881/88 mmhg, SpO2=98.0 % 04:21 PM Guide catheter removed intact. tsoumm 04:21 PM 6Fr IM Runway guide catheter was used to cannulate the PCI vessel successfully. reused? No tsoummmikel 04:21 PM Time: 16:06LOC: 4 = Oriented but drowsy tsoummers 04:21 PM Time: 16:06 Patient comfortable and pain free: Yes [facility] 04:22 PM Recorded Pressure: Ao, HR=69, Condition=Condition 1 (Aorta) Ao 143/72/101 04:23 PM .014 Prowater 180cm guide wire across target lesion- successful. reused? No mm 04:24 PM Asist FFR Catheter advanced to target lesion. [facility] 04:25 PM HR=71 bpm, CNGC=129/88 mmhg, SpO2=98.0 % 04:25 PM Time: 16:25 Adenosine 999 ml/hr administered Intravenous by Shanique Crook RN mm 04:27 PM Adenosine stopped at this time mm 04:27 PM FFR Measurement: 0.88 04:28 PM Angiomax stopped at this time 04:28 PM Flow Wire/Catheter removed intact 04:28 PM Lesion found in Distal RCA. Pre Stenosis: 60 Pre BARRON Flow: 3: Complete and Brisk Flow/Perfusion [facility] 04:29 PM Right Coronary, Right Posterior Descending Arteries with Right Posterolateral and Acute Marginal branches with 60 % stenosis. If graft is supplying this area, 0 % [facility] 04:29 PM Guide wire removed intact. mm 04:29 PM Guide catheter removed intact. [facility] 04:29 PM Procedure completed at 16:29 03/25/2018[facility] 04:29 PM Did you address BARRON flow and Dominance? Yes [facility] 04:30 PM HR=75 bpm, ZBGJ=117/98 mmhg, SpO2=99.0 % 04:30 PM Sign out completed: Radiation Dose 453.66 mGy, 5726.23 cGy/cm2 Fluoro Time: 3.4 Isovue 370 - 200ml contrast 76 ml given by Gem Giles MD, [facility]. Complications: NoneCardiac Rehab Consult needed: NoConfirmed administered medications: Yes [facility] 04:30 PM Isovue 370 - 200ml,1 Bottle(s) used. [facility] 04:30 PM Estimated Blood Loss: less than 20cc mm 04:30 PM Post ECG NSR tsou 04:30 PM Post Blood Pressure 169/98 [facility] 04:31 PM Information taught Cardiac Cath, IVUS/Flowire, and Mynx [facility] 04:31 PM Education needs Procedure, Plan of Care, and Responsibilities of Patient in Care mm 04:31 PM Learning barriers :None 04:31 PM Education Methods Verbal 04:31 PM Education evaluation Able to repeat information 04:31 PM Family placed in consult room. 04:31 PM Fluoro Time: 3.4 04:31 PM Isovue 370 - 200ml contrast [address] Giles. 04:31 PM Radiation Dose 453.66 mGy 04:32 PM Arterial sheath pulled, Mynx closure device used and was Successful [id number] S/N. oumm 04:36 PM Lesion found in Proximal RCA. Pre Stenosis: 50 Pre BARRON Flow: 04:37 PM Lesion found in Proximal Circumflex. Pre Stenosis: 30 Pre BARRON Flow: 04:37 PM Circumflex, Obtuse Marginal, Left Posterior Descending, and Left Posterolateral Coronary Arteries with 30 % stenosis. If graft is supplying this area, 0 % stenosis oumm 04:37 PM Coronary Dominance: right tsoumm 04:39 PM Report given to Luiza ESQUIVEL Pt taken to 3B Room #46. 16:39 tsoummers 04:39 PM Site status No bleeding/hematoma - Rt Groin as reported by Sites, Elvia RT (R) at 16:39 tsoummers 04:39 PM Opsite applied tsoummers 04:40 PM Did you address BARRON flow and Dominance? Yes oummers 04:41 PM Time: 16:41 Fentanyl 25 mcg Intravenous Given by Shanique Crook RN [email or web address] 04:41 PM Pt complains of 10/10 chest pain tsoummers 04:43 PM Plavix, Effient or Brilinta given No tsoummers 04:43 PM patient now states 5/10 pain tsoummers 04:43 PM Patient out of room: 16:43 tsoummers 04:45 PM Delay to floor No tsoummers 04:45 PM Did you address BARRON flow and Dominance? Yes tsoummers 04:45 PM Complications: None [facility] Complications Complication None Hemodynamics Pressures Site Systolic/A Wave Diastolic/V Wave Mean AO 132 81 104 AO 129 76 100 AO 143 72 101 Post Procedure Information Blood Pressure: 169/98 mmHg Rhythm: NSR Post procedural instructions were given Closure Device Time Device Success/Fail 03/25/2018 4:32:00 PM MynxGrip Successful Site Checks Time Location Status Staff Sheath In? Note 04:39 PM Rt Groin No bleeding/hematoma Sites, Elvia RT (R) Pulses Time Site Pre-Procedure Post-Procedure Note 03/25/2018 3:42:00 PM Bilateral DP 2+ 03/25/2018 3:42:00 PM Bilateral radial 2+ Updated by Mikala Virgen RN on 03/25/2018 4:48:20 PM electronically signed on 03/25/2018 4:49:27 PM with status of Final
--- NOTE | 2018-03-26 07:48 | Event Note ---
Date of Encounter: 03/26/18 Time of Encounter: 07:47 - Cardiology Event Note C reviewed with moderate CAD, FFR of RCA with 0.88, not functionally significant. Cardiology will sign off.
[2018-03-26] MEDS: Aspirin 81 MG TAB.CHEW PO SCH (08:19)
[2018-03-26] MEDS: Cyanocobalamin (B-12) 1,000 MCG TABLET PO SCH (08:19)
[2018-03-26] MEDS: Insulin LISPRO 300 UNITS/3 ML VIAL SQ SCH ×2 (08:19→12:22)
[2018-03-26] MEDS: Cholecalciferol (D-3) 1,000 UNIT TABLET PO SCH (08:19)
[2018-03-26] MEDS: amLODIPine 5 MG TABLET PO SCH (08:19)
[2018-03-26] MEDS: Isosorbide MONOnitrate (24 HR) 30 MG TAB.ER.24H PO SCH (08:19)
[2018-03-26] MEDS: *HR* Heparin 5,000 UNIT/ML VIAL SQ SCH (08:20)
[2018-03-26 11:31] VITALS: BP 142/79
--- NOTE | 2018-03-26 11:31 | Discharge Summary ---
- NOTES TO OUTPATIENT PROVIDER Notes to Outpatient Provider: Admitted for ACS r/o. Underwent LHC and was found to have no new significant disease; no stenting during proceedure. No pending studies or labs at D/C Orders not resulted at time of discharge: Pending orders 03/25/18 06:00 ECG 12 lead ECG [ECG] AM 0600 03/26/18 11:28 Potassium Routine Date of Encounter: 03/26/18 Time of Encounter: 11:29 - Discharge Diagnosis (1) Atypical chest pain Priority: Primary Status: Acute Assessment and Plan: Atypical chest pain s/sx Same presentation as prior when needing cardiac stenting; pain in left neck and trapezius known h/o obstructive CAD s/p PCI ; last [facility] 10/2017 s/p PCI to LCx--existing mild-moderate CAD (40% mRCA, 65% dRCA). Troponins negative x4, non-specific ST/T wave changes per ECG Last TTE-11/20/17 LVEF 55%. Not all LV segments were well visualized (see below), but overall LVEF appeared normal. Mildly dilated left ventricle. Mild concentric left ventricular hypertrophy. Cont, ASA, Plavix, BB, Crestor, Norvasc and Imdur at D/C Cardiology seeing in consultation; has since signed off. C completed yesterday-found moderate CAD, FFR of RCA with 0.88, not functionally significant Continuing to left neck and trapezius discomfort but has remained hemodynamically stable Uneventful hospital course. At discharge patient was instructed to follow-up with PCP within one week. Also, patient was instructed to return to the ED should his symptoms worsen or should he develop with dyspnea, diaphoresis or nausea as well as chest discomfort. He verbalized understanding and denies any further questions at this time. (2) CAD (coronary artery disease) Priority: Secondary Status: Chronic Assessment and Plan: H/O CAD continue cardiac meds at d/c Qualifiers: Coronary Disease-Associated Artery/Lesion type: seminole artery [place] vs. transplanted heart: seminole heart Associated angina: with stable angina Qualified Code(s): I25.118 - Atherosclerotic heart disease of seminole coronary artery with other forms of angina pectoris (3) Type 2 diabetes mellitus Priority: Secondary Status: Chronic Assessment and Plan: resume oral hypoglycemic agents at discharge Qualifiers: Diabetes mellitus halfway insulin use: without director stage use Diabetes mellitus complication detail: with other circulatory complications Qualified Code(s): E11.59 - Type 2 diabetes mellitus with other circulatory complications Hospital course: Mr. Griffin is a 63 year old male Please see assessment and plan for hospital course Discharge discussed with: patient, family, nurse - Time Spent with Patient Total time spent providing and/or coordinating discharge services: Less than 30 minutes - Discharge Medications Home Medications: Clopidogrel [Plavix] 75 mg PO DAILY 04/11/17 [History] Nitroglycerin 0.4 mg SL Q5MIN PRN 04/13/17 [Rx] Lisinopril [Zestril] 40 mg PO BID 05/10/17 [History] Amlodipine Besylate 10 mg PO DAILY 11/19/17 [History] Aspirin 81 mg PO DAILY 11/19/17 [History] Bumetanide [Bumex] 1 mg PO BID 11/19/17 [History] Cholecalciferol (Vitamin D3) [Vitamin D3] 2,000 unit PO DAILY 11/19/17 [History] Cyanocobalamin (Vitamin B-12) [Vitamin B12] 1,000 mcg PO DAILY 11/19/17 [History ] Rosuvastatin [Crestor] 20 mg PO HS 11/19/17 [History] Ubidecarenone [Co Q-10] 10 mg PO DAILY 11/19/17 [History] metOLazone [Zaroxolyn] 2.5 mg PO MOWEFR 11/19/17 [History] Isosorbide MONOnitrate (24 HR) [Imdur] 90 mg PO DAILY #30 tab.er.24h 11/23/17 [ Rx] Carvedilol 12.5 mg PO BID 03/24/18 [History] Glimepiride [Amaryl] 2 mg PO DAILY 03/24/18 [History] Metformin HCl [Metformin HCl ER] 1,000 mg PO BID 03/24/18 [History] Allergies/Adverse Reactions: 3 Allergy/AdvReac Type Severity Reaction Status Date / Time duloxetine [From Cymbalta] AdvReac Vomiting Verified 03/24/18 15:17 Date of admission: 03/24/18 16:22 Primary care physician: Cj Oswald MD Consults: 03/24/18 19:48 Consult to Physician [CONS] Routine Consulting Provider: Escobar Martinez Reason for Consult: chest pain; known CAD; s/p LHC/PCI 4 months ago Call Completed: No Discharging clinician: Omkar Ni Anticipated date of discharge: 03/26/18 - Constitutional Vitals: Temp Pulse Resp BP Pulse Ox 98.2 F 73 15 175/95 97 03/26/18 07:42 03/26/18 07:42 03/26/18 07:42 03/26/18 07:42 03/26/18 07:42 General appearance: Present: cooperative, A&O X 3, pleasant, no acute distress - Head Head exam: Present: atraumatic, normocephalic - Eye Eye exam: Present: PERRL, conjuntiva pink, sclera anicteric Pupils: Present: PERRL - Neck Neck exam general surgery: Present: supple, trachea midline. Absent: lymphadenopathy - Respiratory Respiratory exam: Present: CTAB. Absent: accessory muscle use, rales, rhonchi, wheezes - Cardiovascular Cardiovascular exam: Present: RRR, +S1, +S2. Absent: diastolic murmur, gallop, rubs, systolic murmur - GI/Abdominal GI/Abdominal exam: Present: normal bowel sounds, soft, no peritoneal signs. Absent: distended, tenderness - Extremities Exam Extremities exam: Present: warm, radial pulses palpable and symmetrical. Absent : calf tenderness, cyanotic, pedal edema - Neurological Exam Neurological exam: Present: CN II-XII intact, oriented X3, no focal deficits. Absent: pronater drift, facial droop, speech deficit - Skin Skin exam: Present: dry, intact - Patient Status Disposition: Home, Self-Care Condition: Good Overall status at discharge: patient is progressing back to baseline - Discharge Instructions Instructions: Chest Pain (DC), Diabetes Mellitus Type 2 in Adults (DC) Follow Up With: Umer Guzman CNP [Advanced Practice Nurse] - 04/16/18 10:30 am Cj Oswald MD [Primary Care Provider] - (Follow up appointment has been requested. ) - Diet and Activity Activity: increase activity as tolerated, resume usual activities as tolerated Diet: diabetic diet, low fat, low cholesterol
[2018-03-26] MEDS ORDERED: Adenosine 90 MG/30 ML MLS IV ONE (13:23)
== END 2018-03-26 13:24 | disposition home or self-care (01) ==
LOC: EMEROO 12:37 → 3BNU 12:37
PROVIDERS: ADMIT Pediatrics; ATTEND Pediatrics

== ENCOUNTER 2019-03-16 21:36 | Observation (INO) ==
[2019-03-16] MEDS ORDERED: Aspirin 81 MG TAB.CHEW PO ONE (22:14)
[2019-03-16] MEDS ORDERED: Furosemide 40 MG/4 ML VIAL IVP ONE (22:14)
[2019-03-16 22:33] LABS: Basophils # 0.1 K/mcL (0.0-0.2); Basophils % 0.4 %; Eosinophils # 0.1 K/mcL (0.0-0.6); Eosinophils % 0.8 %; Hematocrit 35.3 % (37.5-50.1); Hemoglobin 12.2 g/dL (12.9-16.9); Immature Granulocytes % 1.4 % (0-4); Lymphocytes # 2.2 K/mcL (0.6-4.6); Lymphocytes % 19.2 %; Mean Corpuscular HGB Conc 34.6 g/dL (31.6-35.5); Mean Corpuscular Hemoglobin 28.4 pg (28.0-33.3); Mean Corpuscular Volume 82.3 fL (83.0-100.0); Mean Platelet Volume 10.2 fL (9.4-12.4); Monocytes # 1.1 K/mcL (0.0-1.3); Monocytes % 9.4 %; Neutrophils # 7.9 K/mcL (1.6-8.9); Platelet Count 337 K/mcL (140-400); Red Blood Count 4.29 M/mcL (4.19-5.50); Red Cell Distribution Width 13.2 % (11.5-14.5); Segmented Neutrophils % 68.8 %; White Blood Count 11.4 K/mcL (4.3-11.1)
[2019-03-16 22:42] LABS: Alanine Aminotransferase 14 Units/L (7-52); Albumin 3.6 g/dL (3.5-5.7); Albumin/Globulin Ratio 1.4 (1.1-2.2); Alkaline Phosphatase 64 Units/L (34-104); Aspartate Amino Transferase 11 Units/L (13-39); BUN/Creatinine Ratio 19 (6-26); Bilirubin,Direct 0.1 mg/dL (0.0-0.2); Bilirubin,Indirect 0.4 mg/dL (0.0-1.2); Bilirubin,Total 0.5 mg/dL (0.3-1.0); Blood Urea Nitrogen 42 mg/dL (8-23); Calcium 9.1 mg/dL (8.6-10.3); Carbon Dioxide 27 mEq/L (23-29); Chloride 103 mEq/L (98-107); Globulin 2.5 g/dL (2.4-3.5); Glucose 127 mg/dL (70-105); Osmolality,Calculated 298 (280-300); Potassium 3.4 mEq/L (3.5-5.1); Sodium 138 mEq/L (136-145); Total Protein 6.1 g/dL (6.4-8.9); Troponin I < 0.03 ng/mL (< 0.04); eGFR For African Americans 37 (> 60); eGFR For Non-African Americans 31 (> 60)
--- NOTE | 2019-03-16 22:56 | Emergency Department Note ---
Disposition Clinical Impression: Chest pain Qualifiers: Chest pain type: unspecified Qualified Code(s): R07.9 - Chest pain, unspecified CAD (coronary artery disease) Qualifiers: Coronary Disease-Associated Artery/Lesion type: unspecified vessel or lesion type [place] vs. transplanted heart: [place] heart Associated angina: with unstable angina Qualified Code(s): I25.110 - Atherosclerotic heart disease of [place] coronary artery with unstable angina pectoris Disposition: Admitted As Inpatient Condition: Fair Time of Disposition: 23:04 Chest Pain HPI - General Chief Complaint: ED Chest Pain Stated Complaint: cp/left neck pain Time Seen by Provider: 03/16/19 21:48 Source: patient Mode of arrival: ambulatory Limitations: no limitations Vital Signs Reviewed: Yes Nursing Notes Reviewed: Yes - History of Present Illness HPI Narrative: 64-year-old male presents to the emergency department with chest pain. He is also complaining of left-sided neck pain. Says she will similar the last time he needed heart stents placed. Said normally has neck pain hurts whenever needed stents. He says it is the left side of his neck radiating down into his chest causing a chest pressure. Describing it as 6 out of 10. Says it comes and goes randomly. Does not change with exertion. He is mildly short of breath. Does have history of CHF said he has been more fluid overloaded noticed more swelling in his legs abdomen and more difficult time breathing. He does take Lasix he has been taking his normal dose. Patient has had no fevers. Patient does have history of 5 stents being placed. Patient was has no other complaints. Severity scale (1-10): 8 - Related Data Home Medications Medication Instructions Recorded Confirmed Clopidogrel [Plavix] 75 mg PO DAILY 04/11/17 03/24/18 Lisinopril [Zestril] 40 mg PO BID 05/10/17 03/24/18 Amlodipine Besylate 10 mg PO DAILY 11/19/17 03/24/18 Aspirin 81 mg PO DAILY 11/19/17 03/24/18 Bumetanide [Bumex] 1 mg PO BID 11/19/17 03/24/18 Cholecalciferol (Vitamin D3) 2,000 unit PO DAILY 11/19/17 03/24/18 [Vitamin D3] Cyanocobalamin (Vitamin B-12) 1,000 mcg PO DAILY 11/19/17 03/24/18 [Vitamin B12] Rosuvastatin [Crestor] 20 mg PO HS 11/19/17 03/24/18 Ubidecarenone [Co Q-10] 10 mg PO DAILY 11/19/17 03/24/18 metOLazone [Zaroxolyn] 2.5 mg PO MOWEFR 11/19/17 03/24/18 Carvedilol 12.5 mg PO BID 03/24/18 03/24/18 Glimepiride [Amaryl] 2 mg PO DAILY 03/24/18 03/24/18 Metformin HCl [Metformin ER 1,000 mg PO BID 03/24/18 03/24/18 Gastric] Previous Rx's Medication Instructions Recorded Nitroglycerin 0.4 mg SL Q5MIN PRN 04/13/17 Isosorbide MONOnitrate (24 HR) 90 mg PO DAILY #30 tab.er.24h 11/23/17 [Imdur] Allergies Allergy/AdvReac Type Severity Reaction Status Date / Time duloxetine [From Cymbalta] AdvReac Vomiting Verified 03/16/19 21:52 All systems ED: reviewed and negative except as stated. Review of Systems: As Per HPI Chest Pain PMH - Past Medical History Medical history: Reports: COPD, coronary artery disease, diabetes, hyperlipidemia, hypertension, renal disease Surgical history: Reports: angioplasty/stent, other Psychiatric history: Reports: no psych history - Social History Smoking Status: Never smoker Alcohol use: Reports: none Drug use: Reports: none Physical Exam - General Limitations: no limitations General appearance: alert, in no apparent distress - Head Head exam: atraumatic, normocephalic, normal inspection - Eye Eye exam: Present: normal appearance, PERRL, EOMI - ENT ENT exam: normal exam, normal oropharynx, mucous membranes moist - Neck Neck exam: Present: normal inspection, full ROM, trachea midline - Chest Chest inspection: Present: normal inspection, symmetric chest wall rise - Respiratory Respiratory exam: Present: normal lung sounds bilaterally. Absent: respiratory distress, wheezes, accessory muscle use - Cardiovascular Cardiovascular exam: Present: regular rate, normal rhythm, normal heart sounds - Abdominal Exam Abdominal exam: Present: soft, Non-Tender, normal bowel sounds. Absent: tend erness, distention, guarding, rebound, rigidity - Extremities Exam Extremities exam: Present: normal inspection, full ROM. Absent: tenderness, pedal edema - Back Exam Back exam: Present: normal inspection, full ROM. Absent: tenderness, CVA tenderness (R), CVA tenderness (L) - Neurological Exam Neurological exam: Present: alert, oriented X3 - Skin Skin exam: Present: warm, dry, intact, normal color Course Vital Signs Temperature 97.9 F 03/16/19 21:48 Pulse Rate 88 03/16/19 21:48 Respiratory Rate 18 03/16/19 21:48 Blood Pressure 185/106 03/16/19 21:48 O2 Sat by Pulse Oximetry 97 03/16/19 21:48 Temperature 97.9 F 03/16/19 21:48 Pulse Rate 88 03/16/19 21:48 Respiratory Rate 18 03/16/19 21:48 Blood Pressure 185/106 03/16/19 21:48 O2 Sat by Pulse Oximetry 97 03/16/19 21:48 Oxygen Delivery Oxygen Delivery Room Air Chest Pain - MDM Narrative Medical decision making narrative: 64-year-old male history of ACS. Patient did have elevated heart score. Chest x-ray had no acute findings. Troponin was negative all other labs were normal except for elevated creatinine which is around his previous last 2 months. Did give patient 1 dose of IV Lasix. He also received immediate release morphine for his neck pain. Not currently having chest pain at this time. Did receive aspirin but did not receive nitroglycerin. Due to patient elevated her for history of CAD in the chest pain that feels exactly like last time he had stents placed echo patient does need to be admitted for further evaluation. I spoke with Dr. Rollins who agreed to admit the patient to their service. Patient admitted in stable condition. Chest X-Ray 03/16/19 21:53 IMPRESSION: No acute pulmonary disease. Calcific atherosclerotic disease aorta. D/ / Johan Carrera / Johan Carrera Interpreting Provider: Johan Carrera - Medical Records Medical records reviewed: Yes I reviewed the patient's medical records. - Lab Data Lab results reviewed: Yes I reviewed the patient's lab results. Result diagrams: 03/17/19 04:18 03/17/19 04:18 Lab Results 03/16/19 03/16/19 03/16/19 Range/Units 22:05 22:05 22:05 WBC 11.4 H (4.3-11.1) K/mcL RBC 4.29 (4.19-5.50) M/mcL Hgb 12.2 L (12.9-16.9) g/dL Hct 35.3 L (37.5-50.1) % MCV 82.3 L (83.0-100.0) fL MCH 28.4 (28.0-33.3) pg MCHC 34.6 (31.6-35.5) g/dL RDW 13.2 (11.5-14.5) % Plt Count 337 (140-400) K/mcL MPV 10.2 (9.4-12.4) fL Immature Gran % 1.4 (0-4) % Seg Neutrophils % 68.8 % Lymphocytes % 19.2 % Monocytes % 9.4 % Eosinophils % 0.8 % Basophils % 0.4 % Neutrophils # 7.9 (1.6-8.9) K/mcL Lymphocytes # 2.2 (0.6-4.6) K/mcL Monocytes # 1.1 (0.0-1.3) K/mcL Eosinophils # 0.1 (0.0-0.6) K/mcL Basophils # 0.1 (0.0-0.2) K/mcL Sodium 138 (136-145) mEq/L Potassium 3.4 L (3.5-5.1) mEq/L Chloride 103 (98-107) mEq/L Carbon Dioxide 27 (23-29) mEq/L BUN 42 H (8-23) mg/dL Creatinine 2.17 H (0.70-1.30) mg/dL Est GFR ( Amer) 37 L (> 60) Est GFR (Non-Af Amer) 31 L (> 60) BUN/Creatinine Ratio 19 (6-26) Glucose 127 H (70-105) mg/dL Calculated Osmolality 298 (280-300) Calcium 9.1 (8.6-10.3) mg/dL Total Bilirubin 0.5 (0.3-1.0) mg/dL Direct Bilirubin 0.1 (0.0-0.2) mg/dL Indirect Bilirubin 0.4 (0.0-1.2) mg/dL AST 11 L (13-39) Units/L ALT 14 (7-52) Units/L Alkaline Phosphatase 64 (34-104) Units/L Troponin I < 0.03 (< 0.04) ng/mL B-Natriuretic Peptide 29 (Less than 100) pg/mL Serum Total Protein 6.1 L (6.4-8.9) g/dL Albumin 3.6 (3.5-5.7) g/dL Globulin 2.5 (2.4-3.5) g/dL Albumin/Globulin Ratio 1.4 (1.1-2.2) - Radiology Data Radiology results reviewed: Yes I reviewed the patient's radiology results. - EKG Data EKG attestation: Yes I reviewed and interpreted this EKG. EKG results narrative: EKG done at 2146 review myself and attending shows sinus rhythm at a rate of 85, VA 176, QRS 96, QTC 407. There is no acute ST changes no acute T-wave changes nor signs of ischemia. There is one PVC. No heartstring, heart block, hypertrophy. No WPW/Brugada/HOCM. No changes based on old EKG done 08/07/18 Heart Score - Score History: Slightly Suspicious EKG: Normal Age: 45-65 Risk Factors: Equal/Greater than 3 risk factor or history of atherosclerotic disease Troponin: Less than normal limit HEART Score Total: 3 Attestation Statement - Attestation Attestation: I have seen this patient with the resident physician, I have personally evaluated this patient. I had reviewed the chart and document dictation by the resident physician and aM in agreement with the information documented by the resident physician. Please see documentation by the resident physician for complete chart including past medical history, family medical history, review of systems, current history and physical and laboratory and imaging studies. I was present for all procedures, provided direct supervision for all procedures, was present for the entirety of all procedures and provided direct guidance during the procedures. Please see documentation by the resident physician for any procedures performed. I have reviewed all interpretations of EKGs, and reviewed all EKGs performed on patient's as well. I have also reviewed reports of imaging as provided by radiology.
[2019-03-16] MEDS ORDERED: *HR* Morphine Immed Rel 30 MG TABLET PO ONE (22:57)
--- NOTE | 2019-03-16 22:59 | Emergency Department Note ---
Disposition Clinical Impression: Chest pain Disposition: Admitted As Inpatient Condition: Fair Forms: ED Satisfaction Letter Time of Disposition: 23:00 Chest Pain HPI - General Chief Complaint: ED Chest Pain Stated Complaint: cp/left neck pain Time Seen by Provider: 03/16/19 21:48 Source: patient Mode of arrival: ambulatory Limitations: no limitations Vital Signs Reviewed: Yes Nursing Notes Reviewed: Yes - History of Present Illness Severity scale (1-10): 8 - Related Data Home Medications Medication Instructions Recorded Confirmed Clopidogrel [Plavix] 75 mg PO DAILY 04/11/17 03/24/18 Lisinopril [Zestril] 40 mg PO BID 05/10/17 03/24/18 Amlodipine Besylate 10 mg PO DAILY 11/19/17 03/24/18 Aspirin 81 mg PO DAILY 11/19/17 03/24/18 Bumetanide [Bumex] 1 mg PO BID 11/19/17 03/24/18 Cholecalciferol (Vitamin D3) 2,000 unit PO DAILY 11/19/17 03/24/18 [Vitamin D3] Cyanocobalamin (Vitamin B-12) 1,000 mcg PO DAILY 11/19/17 03/24/18 [Vitamin B12] Rosuvastatin [Crestor] 20 mg PO HS 11/19/17 03/24/18 Ubidecarenone [Co Q-10] 10 mg PO DAILY 11/19/17 03/24/18 metOLazone [Zaroxolyn] 2.5 mg PO MOWEFR 11/19/17 03/24/18 Carvedilol 12.5 mg PO BID 03/24/18 03/24/18 Glimepiride [Amaryl] 2 mg PO DAILY 03/24/18 03/24/18 Metformin HCl [Metformin ER 1,000 mg PO BID 03/24/18 03/24/18 Gastric] Previous Rx's Medication Instructions Recorded Nitroglycerin 0.4 mg SL Q5MIN PRN 04/13/17 Isosorbide MONOnitrate (24 HR) 90 mg PO DAILY #30 tab.er.24h 11/23/17 [Imdur] Allergies Allergy/AdvReac Type Severity Reaction Status Date / Time duloxetine [From Cymbalta] AdvReac Vomiting Verified 03/16/19 21:52 Chest Pain PMH - Past Medical History Medical history: Reports: COPD, coronary artery disease, diabetes, hyperlipidemia, hypertension, renal disease Surgical history: Reports: angioplasty/stent, other Psychiatric history: Reports: no psych history - Social History Smoking Status: Never smoker Alcohol use: Reports: none Drug use: Reports: none Physical Exam - General Limitations: no limitations Course Vital Signs Temperature 97.9 F 03/16/19 21:48 Pulse Rate 88 03/16/19 21:48 Respiratory Rate 18 03/16/19 21:48 Blood Pressure 185/106 03/16/19 21:48 O2 Sat by Pulse Oximetry 97 03/16/19 21:48 Temperature 97.9 F 03/16/19 21:48 Pulse Rate 88 03/16/19 21:48 Respiratory Rate 18 03/16/19 21:48 Blood Pressure 185/106 03/16/19 21:48 O2 Sat by Pulse Oximetry 97 03/16/19 21:48 Oxygen Delivery Oxygen Delivery Room Air Chest Pain - Lab Data Result diagrams: 03/16/19 22:05 03/16/19 22:05 Lab Results 03/16/19 03/16/19 03/16/19 Range/Units 22:05 22:05 22:05 WBC 11.4 H (4.3-11.1) K/mcL RBC 4.29 (4.19-5.50) M/mcL Hgb 12.2 L (12.9-16.9) g/dL Hct 35.3 L (37.5-50.1) % MCV 82.3 L (83.0-100.0) fL MCH 28.4 (28.0-33.3) pg MCHC 34.6 (31.6-35.5) g/dL RDW 13.2 (11.5-14.5) % Plt Count 337 (140-400) K/mcL MPV 10.2 (9.4-12.4) fL Immature Gran % 1.4 (0-4) % Seg Neutrophils % 68.8 % Lymphocytes % 19.2 % Monocytes % 9.4 % Eosinophils % 0.8 % Basophils % 0.4 % Neutrophils # 7.9 (1.6-8.9) K/mcL Lymphocytes # 2.2 (0.6-4.6) K/mcL Monocytes # 1.1 (0.0-1.3) K/mcL Eosinophils # 0.1 (0.0-0.6) K/mcL Basophils # 0.1 (0.0-0.2) K/mcL Sodium 138 (136-145) mEq/L Potassium 3.4 L (3.5-5.1) mEq/L Chloride 103 (98-107) mEq/L Carbon Dioxide 27 (23-29) mEq/L BUN 42 H (8-23) mg/dL Creatinine 2.17 H (0.70-1.30) mg/dL Est GFR ( Amer) 37 L (> 60) Est GFR (Non-Af Amer) 31 L (> 60) BUN/Creatinine Ratio 19 (6-26) Glucose 127 H (70-105) mg/dL Calculated Osmolality 298 (280-300) Calcium 9.1 (8.6-10.3) mg/dL Total Bilirubin 0.5 (0.3-1.0) mg/dL Direct Bilirubin 0.1 (0.0-0.2) mg/dL Indirect Bilirubin 0.4 (0.0-1.2) mg/dL AST 11 L (13-39) Units/L ALT 14 (7-52) Units/L Alkaline Phosphatase 64 (34-104) Units/L Troponin I < 0.03 (< 0.04) ng/mL B-Natriuretic Peptide 29 (Less than 100) pg/mL Serum Total Protein 6.1 L (6.4-8.9) g/dL Albumin 3.6 (3.5-5.7) g/dL Globulin 2.5 (2.4-3.5) g/dL Albumin/Globulin Ratio 1.4 (1.1-2.2) Attestation Statement - Attestation Attestation: I have seen this patient with the resident physician, I have personally evaluated this patient. I had reviewed the chart and document dictation by the resident physician and aM in agreement with the information documented by the resident physician. Please see documentation by the resident physician for complete chart including past medical history, family medical history, review of systems, current history and physical and laboratory and imaging studies. I was present for all procedures, provided direct supervision for all procedures, was present for the entirety of all procedures and provided direct guidance during the procedures. Please see documentation by the resident liseth patrick for any procedures performed. I have reviewed all interpretations of EKGs, and reviewed all EKGs performed on patient's as well. I have also reviewed reports of imaging as provided by radio logy. Patient presents emergency Department with chief complaint of increasing episodes of left anterior neck and chest pain, worsening, states it feels like when he has required stents in his heart in the past. States that he had a catheter about a year ago which showed some narrowing but they did not sent anything that he reports that he saw his resident doctor about a month and a half ago he told them that they would likely have to set him up for another catheter and consider a stent. The patient states that this discomfort feels exactly like when he has had problems with his heart in the past. No recent trauma. No exertional symptoms. Denies fevers chills cough sputum production numbness weakness black or bloody stool pain was back or any other concerns. EKG showed no acute change from prior EKG was a normal sinus rhythm, no specific T-wave abnormality inferiorly, unchanged from prior EKG. This was interpreted by myself. Old within acceptable limits. Chest x-ray showed no acute findings. CBC within acceptable limits. Renal panel showed a chronically elevated creatinine of 2.1. Cardiac enzymes were negative. Patient already had aspirin. The patient states he feels like he needs some Lasix as he does have a history of CHF, he was given 1 dose of Lasix as he does have some peripheral edema. Patient was admitted for further evaluation and management.
[2019-03-16] MEDS ORDERED: Potassium Chloride Elixir 20 MEQ/15 ML UDC PO ONE (23:39)
[2019-03-16] MEDS ORDERED: Nitroglycerin 0.4 MG TAB.SUBL SL PRN (23:41)
[2019-03-16] MEDS ORDERED: Methocarbamol 750 MG TABLET PO ONE (23:41)
[2019-03-16] MEDS ORDERED: Dextrose Gel 15 GM/37.5 ML TUBE PO PRN ×2 (23:44)
[2019-03-16] MEDS ORDERED: *HR* Dextrose 50 % in Water (Syg) 50 ML SYRINGE IVP PRN (23:44)
--- NOTE | 2019-03-16 23:55 | Internal Med History&Physical ---
Date of Encounter: 03/16/19 Time of Encounter: 23:54 Internal Medicine - H&P: HPI Chief complaint: left neck pain Admitted From: Home () Plans for Post Hospital Care: Home History of present illness: Rc Griffin is a 64-year-old man with coronary artery disease status post 5 stents, chronic kidney disease, hypertension, hyperlipidemia and diabetes who presents with a several day history of left-sided neck pain radiating into his chest and dyspnea with exertion. He says the neck pain is his usual presentation for acute coronary syndrome and has frequently received a stent placed many times he presents as such and this gave him concern. The pain is not reproducible to palpation and is accompanied by dyspnea and midsternal chest tightness with exertion. In the ER he was given loading dose of aspirin, 40 mg furosemide for seemingly fluid overloaded state and 30 mg of oral morphine immediate release. Upon my evaluation he was laying down on his right side due to discomfort in his left neck area. He says he prefers to not take nitroglycerin or any pain medications. He reports adherence to his antiplatelet therapy. Vitals: Reviewed General: Obese white man lying in right lateral decubitus with antalgic posturing. Skin: Flushed, warm and dry. HEENT: Moist mucous membranes. No conjunctivae pallor. Neck: No lymphadenopathy. No JVD. No carotid bruits. No palpable thyroid. No pain on palpation. Chest: Normal thoracic expansion. Normal breath sounds. Clear to auscultation. Heart: Normal S1 & S2; rhythmic. No rubs or murmurs. Abdomen: Protuberant, soft and non-tender to palpation. No peritoneal reaction. Extremities: No clubbing, cyanosis. 1+ edema. No calf tenderness. Normal distal pulses. Neurological: Awake, alert and oriented to person, place and time. No focal deficits. Psych: Affect appropriate. Assessment/Plan 1. Atypical angina equivalent: He has a significant coronary disease history and therefore warrants observation for this seemingly referred pain syndrome. He has received aspirin and morphine. Will consider methocarbamol in case this is actually musuloskeletal and not cardiac in origin. All the same he warrants telemetry monitoring, trend troponins and continuation of antiplatelet therapy. He had a stress test done a few months ago and therefore does not need a repeat at this time. If his pain persists, may require cardiology evaluation to consider interventional options. 2. CAD: On DAPT/statin. 3. HTN: Uncontrolled. Will resume antihypertensives. 4. Diabetes: Poorly controlled. Will place on insulin sliding scale tonight. 5. Obesity: Counseled and educated on therapeutic lifestyle changes for weight loss as it will be of benefit in controlling comorbidities. Talent Agent evaluation advised. 6. CKD: Current CrCl is a bit worse than baseline. Will monitor. Avoid nephrotoxic agents. Past Med Surg Social Fam HX - Past Medical History Medical history: COPD, coronary artery disease, diabetes, hyperlipidemia, hypertension, renal disease Additional medical history: Stage Renal Failure. Type II Diabetic Psychiatric history: no psych history - Past Surgical History Surgical History: angioplasty/stent, other Additional surgical history: right foot. cardiac stents x 5 - Social History Smoking Status: Never smoker Smokeless Tobacco Status: No Alcohol use: none Drug use: none - Family History Father Living Status: Hx Family Cardiac Disorders: Yes Hx Family Respiratory Disorders: (black lung) Hx Family Endocrine Disorder: Yes (dm) Mother Adopted: No Family Member Ethnicity: Non- Living Status: Hx Family Cardiac Disorders: Yes Hx Family Respiratory Disorders: No Hx Family Cancer: No Hx Family GI Disorders: No Hx Family Endocrine Disorder: No Hx Family Neuromuscular Disorders: No Hx Family Neurologic Disorders: No Hx Family HEENT Disorders: No Hx Family Autoimmune Disorders: No Internal Medicine - H&P: Meds Clopidogrel [Plavix] 75 mg PO DAILY 04/11/17 [History] Nitroglycerin 0.4 mg SL Q5MIN PRN 04/13/17 [Rx] Lisinopril [Zestril] 40 mg PO BID 05/10/17 [History] Amlodipine Besylate 10 mg PO DAILY 11/19/17 [History] Aspirin 81 mg PO DAILY 11/19/17 [History] Bumetanide [Bumex] 1 mg PO BID 11/19/17 [History] Cholecalciferol (Vitamin D3) [Vitamin D3] 2,000 unit PO DAILY 11/19/17 [History] Cyanocobalamin (Vitamin B-12) [Vitamin B12] 1,000 mcg PO DAILY 11/19/17 [History] Rosuvastatin [Crestor] 20 mg PO HS 11/19/17 [History] Ubidecarenone [Co Q-10] 10 mg PO DAILY 11/19/17 [History] metOLazone [Zaroxolyn] 2.5 mg PO MOWEFR 11/19/17 [History] Isosorbide MONOnitrate (24 HR) [Imdur] 90 mg PO DAILY #30 tab.er.24h 11/23/17 [Rx] Carvedilol 12.5 mg PO BID 03/24/18 [History] Glimepiride [Amaryl] 2 mg PO DAILY 03/24/18 [History] Metformin HCl [Metformin ER Gastric] 1,000 mg PO BID 03/24/18 [History] Allergy/AdvReac Type Severity Reaction Status Date / Time duloxetine [From Cymbalta] AdvReac Vomiting Verified 03/16/19 21:52 All Systems PM: A 10-system review of systems was performed and is negative for pertinent findings except as documented above in the HPI. - Constitutional Vitals: Temp Pulse Resp BP Pulse Ox 97.9 F 86 18 142/86 99 03/16/19 21:48 03/16/19 23:13 03/16/19 23:13 03/16/19 23:13 03/16/19 23:13 Exam: . Internal Med - H&P Results - Labs CBC & Chem 7: 03/16/19 22:05 03/16/19 22:05 Labs: Short CBC 03/16/19 Range/Units 22:05 WBC 11.4 H (4.3-11.1) K/mcL Hgb 12.2 L (12.9-16.9) g/dL Hct 35.3 L (37.5-50.1) % Plt Count 337 (140-400) K/mcL Neutrophils # 7.9 (1.6-8.9) K/mcL BMP 03/16/19 22:05 Sodium 138 Potassium 3.4 L Chloride 103 Carbon Dioxide 27 BUN 42 H Creatinine 2.17 H Glucose 127 H Calcium 9.1 Cardiac Enzymes 03/16/19 Range/Units 22:05 Troponin I < 0.03 (< 0.04) ng/mL Liver Function 03/16/19 Range/Units 22:05 Total Bilirubin 0.5 (0.3-1.0) mg/dL Direct Bilirubin 0.1 (0.0-0.2) mg/dL AST 11 L (13-39) Units/L ALT 14 (7-52) Units/L Alkaline Phosphatase 64 (34-104) Units/L Albumin 3.6 (3.5-5.7) g/dL - Impressions ITS Impressions Chest X-Ray 03/16/19 21:53 IMPRESSION: No acute pulmonary disease. Calcific atherosclerotic disease aorta. D/ / Johan Carrera / Johan Carrera Interpreting Provider: Johan Carrera - Time Spent With Patient Total time spent is greater than 50% in coordination of care (as documented) at patient's floor/unit and/or counseling patient: Greater than 35 minutes
[2019-03-17] MEDS ORDERED: *HR* Labetalol 20 MG/4 ML SYRINGE IVP ONE (01:11)
[2019-03-17 04:46] LABS: Basophils # 0.1 K/mcL (0.0-0.2); Basophils % 0.5 %; Eosinophils # 0.1 K/mcL (0.0-0.6); Eosinophils % 1.1 %; Hematocrit 33.7 % (37.5-50.1); Hemoglobin 11.4 g/dL (12.9-16.9); Immature Granulocytes % 1.5 % (0-4); Lymphocytes # 2.5 K/mcL (0.6-4.6); Mean Corpuscular HGB Conc 33.8 g/dL (31.6-35.5); Mean Corpuscular Hemoglobin 28.1 pg (28.0-33.3); Mean Corpuscular Volume 83.2 fL (83.0-100.0); Monocytes # 1.1 K/mcL (0.0-1.3); Monocytes % 10.3 %; Neutrophils # 6.8 K/mcL (1.6-8.9); Platelet Count 275 K/mcL (140-400); Red Blood Count 4.05 M/mcL (4.19-5.50); Red Cell Distribution Width 13.1 % (11.5-14.5); Segmented Neutrophils % 63.6 %; White Blood Count 10.6 K/mcL (4.3-11.1)
[2019-03-17 04:53] LABS: Heparin anti-factor XA UFH 0.04 IU/mL (0.30-0.70); Prothrombin Time 11.4 Seconds (9.4-12.1)
[2019-03-17 04:56] LABS: Activated Partial Thrombo Time 26.9 Seconds (26.0-36.0)
[2019-03-17 05:07] LABS: BUN/Creatinine Ratio 22 (6-26); Blood Urea Nitrogen 43 mg/dL (8-23); Calcium 8.8 mg/dL (8.6-10.3); Carbon Dioxide 27 mEq/L (23-29); Chloride 102 mEq/L (98-107); Glucose 115 mg/dL (70-105); Osmolality,Calculated 300 (280-300); Potassium 3.4 mEq/L (3.5-5.1); Sodium 139 mEq/L (136-145); eGFR For African Americans 41 (> 60); eGFR For Non-African Americans 34 (> 60)
[2019-03-17 05:08] LABS: Troponin I < 0.03 ng/mL (< 0.04)
[2019-03-17] MEDS: *HR* Heparin 5,000 UNIT/ML VIAL SQ SCH ×2 (05:21→17:17)
[2019-03-17] MEDS: Insulin LISPRO 300 UNITS/3 ML VIAL SQ SCH ×4 (08:23→21:14)
[2019-03-17] MEDS: Cyanocobalamin (B-12) 1,000 MCG TABLET PO SCH (08:28)
[2019-03-17] MEDS: Aspirin 81 MG TAB.CHEW PO SCH (08:28)
[2019-03-17] MEDS: Bumetanide 1 MG TABLET PO SCH (08:28)
[2019-03-17] MEDS: amLODIPine 5 MG TABLET PO SCH (08:28)
[2019-03-17] MEDS: Cholecalciferol (D-3) 1,000 UNIT TABLET PO SCH (08:28)
[2019-03-17] MEDS: Lisinopril 20 MG TABLET PO SCH (08:28)
[2019-03-17] MEDS: Isosorbide MONOnitrate (24 HR) 30 MG TAB.ER.24H PO SCH (08:29)
[2019-03-17] MEDS: (Ubidecarenone [Co Q-10] 10 MG) PO SCH (08:31)
--- NOTE | 2019-03-17 09:49 | Cardiology Consult Note ---
<Bi Vanegas - Last Filed: 03/17/19 10:26> Date of Encounter: 03/17/19 Time of Encounter: 09:50 Assessment and Plan (1) Chest pain Current Visit: Yes Status: Acute Per Cardiology: Currently chest pain-free. Troponin negative 2. Had negative nuclear stress test 10/2018. Had breakfast this morning. Limited echo pending. Plan for josefa terization tomorrow. Discussed with Dr. Catalina Giles and Dr. Diaz. Patient verbalized understanding and agreed with plan. All questions answered. Qualifiers: Chest pain type: unspecified Qualified Code(s): R07.9 - Chest pain, unspecified (2) CAD (coronary artery disease) Current Visit: Yes Status: Chronic Per Cardiology: History of CAD with stenting 3 at [facility] [address] Mi to proximal LAD 90% and mid LAD 70% lesions. Had MICHELLE to distal circumflex 80% lesion October 2017. Last left heart catheterization February 2018: Lesion Findings/Interventions * Left Main Coronary Artery The LMCA is angiographically free of disease. * Left Anterior Descending The Proximal LAD has patent stents present from a previous procedure. The 1st Diagonal is angiographically free of disease. * Circumflex The 1st Marginal has patent stents present from a previous procedure. There is a 30% stenosis in the Proximal Circumflex. * Ramus The Ramus is angiographically free of disease. * Right Coronary Artery There is a 50% stenosis in the Proximal RCA. There is a 60% stenosis in the Distal RCA. The lesion has a BARRON flow of 3. FFR result 0.88 On aspirin, Plavix, statin, beta angus, JENNIFFER inhibitor, and long-acting nitrate. Qualifiers: Coronary Disease-Associated Artery/Lesion type: unspecified vessel or lesion type [place] vs. transplanted heart: [place] heart Associated angina: with unstable angina Qualified Code(s): I25.110 - Atherosclerotic heart disease of [place] coronary artery with unstable angina pectoris Discussion w patient/family: The assessment and plan as outlined above was discussed with the patient and/or family members who expressed understanding and agreement. All questions were answered. Thank you for involving us in the care of your patient. Please call with any questions. History of Present Illness Consult date: 03/17/19 Consult reason: CP Chief complaint: CP, Left neck pain History of present illness: Mr. Griffin is a 64 year old male with a relevant past medical history of CAD, HTN, HLD, DM 2, CKD stage III. Cardiology consult for chest pain. Patient reports intermittent midsternal chest heaviness/squeezing with radiation to his left neck and shoulder region past 3-4 days at rest and with exertion. He reports increase overall fatigue and dyspnea on exertion during this time frame. He has not utilized nitroglycerin pills. He denies any dizziness, syncope, falls, palpitations, any active bleeding or blood loss. Reports compliance with medications. Reports symptoms similar 26 breast prior to previous stenting. Reports last heart catheterization in February 2018. Denies any recent infectious process. Past Med Surg Social Fam HX - Past Medical History Attestation: Yes The following information was validated with the patient. Source: patient, old records reviewed Medical history: COPD, coronary artery disease, diabetes, hyperlipidemia, hypertension, renal disease Additional medical history: Stage III CKD Psychiatric history: no psych history - Past Surgical History Surgical History: angioplasty/stent, other Additional surgical history: Right foot ("stepped on a nail and had to have surgery"). cardiac stents x 5 - Social History Smoking Status: Never smoker Smokeless Tobacco Status: No Alcohol use: none Drug use: none - Family History Father Living Status: Hx Family Cardiac Disorders: Yes (HTN) Hx Family Respiratory Disorders: (black lung) Hx Family Endocrine Disorder: Yes (diabetes) Mother Adopted: No Family Member Ethnicity: Non- Living Status: Hx Family Cardiac Disorders: Yes (HTN) Hx Family Respiratory Disorders: No Hx Family Cancer: No Hx Family GI Disorders: No Hx Family Endocrine Disorder: Yes (diabetes) Hx Family Neuromuscular Disorders: No Hx Family Neurologic Disorders: No Hx Family HEENT Disorders: No Hx Family Autoimmune Disorders: No Medications and Allergies Clopidogrel [Plavix] 75 mg PO DAILY 04/11/17 [History] Nitroglycerin 0.4 mg SL Q5MIN PRN 04/13/17 [Rx] Lisinopril [Zestril] 40 mg PO BID 05/10/17 [History] Amlodipine Besylate 10 mg PO DAILY 11/19/17 [History] Aspirin 81 mg PO DAILY 11/19/17 [History] Bumetanide [Bumex] 1 mg PO BID 11/19/17 [History] Cholecalciferol (Vitamin D3) [Vitamin D3] 2,000 unit PO DAILY 11/19/17 [History] Cyanocobalamin (Vitamin B-12) [Vitamin B12] 1,000 mcg PO DAILY 11/19/17 [History] Rosuvastatin [Crestor] 20 mg PO HS 11/19/17 [History] Ubidecarenone [Co Q-10] 10 mg PO DAILY 11/19/17 [History] metOLazone [Zaroxolyn] 2.5 mg PO MOWEFR 11/19/17 [History] Isosorbide MONOnitrate (24 HR) [Imdur] 90 mg PO DAILY #30 tab.er.24h 11/23/17 [Rx] Carvedilol 12.5 mg PO BID 03/24/18 [History] Glimepiride [Amaryl] 2 mg PO DAILY 03/24/18 [History] Metformin HCl [Metformin ER Gastric] 1,000 mg PO BID 03/24/18 [History] Allergy/AdvReac Type Severity Reaction Status Date / Time duloxetine [From Cymbalta] AdvReac Vomiting Verified 03/16/19 21:52 All Systems Review: The remainder of the systems were reviewed and are negative - Constitutional Constitutional: fatigue - Cardiovascular Cardiovascular: as per HPI, chest pain at rest, chest pain with exertion, dyspnea on exertion Physical Examination Vital Signs, Last 4 Hours Temp Pulse Resp BP Pulse Ox 03/17/19 08:18 97.6 F 69 14 160/86 96 General: Conversant, No Apparent Distress HEENT: Atraumatic, Normocephaly, Mucus Membranes Moist Neck: No JVD, Normal carotid pulses Cardiac: Reg Rate and Rhythm, Normal S1 and S2, No Murmur Lungs: Normal Breath Sounds, No Wheeze, Rales, Rhonchi Neuro: Alert and responsive, No focal deficits noted Abdomen: Soft, Non-Tender, Other (obese) Skin: No rashes noted on visualized skin Musculoskeletal: No Chest Wall Tenderness Extremities: No Clubbing, No Cyanosis, No Edema, Normal Pulses Results 03/17/19 04:18 03/17/19 04:18 Lab Results Laboratory Tests 03/16/19 03/16/19 03/17/19 22:05 22:05 04:18 Hgb 11.4 L Hct 33.7 L INR Creatinine Est GFR (Non-Af Amer) AST 11 L ALT 14 Troponin I < 0.03 B-Natriuretic Peptide 03/17/19 03/17/19 04:18 04:18 Hgb Hct INR 1.0 Creatinine 1.99 H Est GFR (Non-Af Amer) 34 L AST ALT Troponin I < 0.03 B-Natriuretic Peptide ITS Impressions Chest X-Ray 03/16/19 21:53 IMPRESSION: No acute pulmonary disease. Calcific atherosclerotic disease aorta. D/ / Johan Carrera / Johan Carrera Interpreting Provider: Johan Carrera Active Medications Amlodipine Besylate (Norvasc) 10 mg PO DAILY [facility] Stop: 09/16/19 09:01 Last Admin: 03/17/19 08:28 Dose: 10 mg Documented by: Aspirin (Aspirin) 81 mg PO DAILY [facility] Stop: 09/16/19 09:01 Last Admin: 03/17/19 08:28 Dose: 81 mg Documented by: Bumetanide (Bumex) 1 mg PO BID [facility] Stop: 09/16/19 09:01 Last Admin: 03/17/19 08:28 Dose: 1 mg Documented by: Carvedilol (Coreg) 12.5 mg PO BIDWM [facility] Stop: 09/16/19 08:01 Last Admin: 03/17/19 08:27 Dose: 12.5 mg Documented by: Clopidogrel Bisulfate (Plavix) 75 mg PO DAILY [facility] Stop: 09/16/19 09:01 Last Admin: 03/17/19 08:28 Dose: 75 mg Documented by: Cyanocobalamin (Vitamin B12) 1,000 mcg PO DAILY [facility] Stop: 09/16/19 09:01 Last Admin: 03/17/19 08:28 Dose: 1,000 mcg Documented by: Dextrose/Water (Dextrose 50% (Syg)) 25 ml IVP AD PRN PRN Reason: Hypoglycemia Stop: 09/15/19 23:45 Glucose (Gluctose) 15 gm PO ONCE PRN PRN Reason: Hypoglycemia Stop: 09/15/19 23:45 Glucose (Gluctose) 30 gm PO ONCE PRN PRN Reason: Hypoglycemia Stop: 09/15/19 23:45 Heparin Sodium (Porcine) (Heparin) 5,000 unit SQ Q12HCO [facility] Stop: 09/16/19 06:01 Last Admin: 03/17/19 05:21 Dose: 5,000 unit Documented by: Insulin Human Lispro (Humalog) 0 units SQ HS [facility]; Protocol Stop: 09/16/19 21:01 Insulin Human Lispro (Humalog) 0 units SQ TIDAC [facility]; Protocol Stop: 09/16/19 07:31 Last Admin: 03/17/19 08:23 Dose: Not Given Documented by: Isosorbide Mononitrate (Imdur) 90 mg PO DAILY [facility] Stop: 09/16/19 09:01 Last Admin: 03/17/19 08:29 Dose: 90 mg Documented by: Lisinopril (Zestril) 40 mg PO DAILY [facility]; Protocol Stop: 09/16/19 09:01 Last Admin: 03/17/19 08:28 Dose: 40 mg Documented by: Metolazone (Zaroxolyn) 2.5 mg PO MOWEFR [facility] Stop: 09/17/19 09:01 Nitroglycerin (Nitroglycerin) 0.4 mg SL Q5MIN PRN PRN Reason: Chest Pain Stop: 09/15/19 23:42 Pharmacy Profile Note (Patient Taking Own Medication) 0 each PO DAILY [facility] Stop: 09/16/19 09:01 Last Admin: 03/17/19 08:31 Dose: Not Given Documented by: Rosuvastatin Calcium (Crestor) 20 mg PO HS [facility] Stop: 09/16/19 21:01 Vitamin D (Vitamin D) 1,000 unit PO DAILY [facility] Stop: 09/16/19 09:01 Last Admin: 03/17/19 08:28 Dose: 1,000 unit Documented by: - Imaging and Cardiology Stress Test: report reviewed Echo: report reviewed Cardiac cath: report reviewed - EKG Interpretation EKG results cardiology: personally reviewed (Sinus rhythm in the 80s with occasional PVCs), normal ECG, sinus rhythm, no diagnostic ischemia Consult Discharge Plan - Plan Referrals: Cj Oswald MD [Primary Care Provider] - (Appointment has been requested. ) <Shruthi Diaz - Last Filed: 03/17/19 12:28> Date of Encounter: 03/17/19 - Attending Attestation I examined this patient and my medical decision-making was reviewed with the HOUSE SUPERINTENDENT. I agree with the documented findings, disposition and treatment plan as described. Mr. Griffin presents with chest discomfort perceived as his anginal equivalent. February 2018 LHC demonstrated patent stents with residual disease in the RCA and LCx. Stress test in October negative for ischemia. Troponins negative, no acute ECG findings. Discussed options with the patient including invasive management with [facility] for [facility]. R/B/A of [facility] discussed. Patient expressed understanding and has decided to proceed. Of note, mild volume overload on exam. Recommend considering IV diuresis after C has concluded. Assessment and Plan Discussion w patient/family: The assessment and plan as outlined above was discussed with the patient and/or family members who expressed understanding and agreement. All questions were answered. Thank you for involving us in the care of your patient. Please call with any questions. History of Present Illness History of present illness: Mr. Griffin is a 64 year old male All Systems Review: The remainder of the systems were reviewed and are negative Physical Examination Vital Signs, Last 4 Hours Temp Pulse Resp BP Pulse Ox 03/17/19 11:58 97.6 F 69 16 123/66 97 Results 03/17/19 04:18 03/17/19 04:18 Lab Results 03/16/19 03/16/19 03/16/19 22:05 22:05 22:05 WBC 11.4 H Hgb 12.2 L Hct 35.3 L Plt Count 337 INR APTT Sodium 138 Potassium 3.4 L Chloride 103 Carbon Dioxide 27 BUN 42 H Creatinine 2.17 H Glucose 127 H Calcium 9.1 Total Bilirubin 0.5 AST 11 L ALT 14 Alkaline Phosphatase 64 Troponin I < 0.03 B-Natriuretic Peptide 29 03/17/19 03/17/19 03/17/19 04:18 04:18 04:18 WBC 10.6 Hgb 11.4 L Hct 33.7 L Plt Count 275 INR 1.0 APTT 26.9 Sodium 139 Potassium 3.4 L Chloride 102 Carbon Dioxide 27 BUN 43 H Creatinine 1.99 H Glucose 115 H Calcium 8.8 Total Bilirubin AST ALT Alkaline Phosphatase Troponin I < 0.03 B-Natriuretic Peptide
--- NOTE | 2019-03-17 10:42 | Internal Med Progress Note ---
Hospitalist Progress Note - Encounter Date of Encounter: 03/17/19 Time of Encounter: 10:40 - Subjective Interval History: Pt seen and examined in the room. He reported left neck pain radiating to the left chest, similar to the pain when he had PA and needed stents placement. Pt insisted of being evaluated by cardiology. No sob, syncope, or lightheadedness. - Exam Vitals: Temp Pulse Resp BP Pulse Ox 97.6 F 69 14 160/86 96 03/17/19 08:18 03/17/19 08:18 03/17/19 08:18 03/17/19 08:18 03/17/19 08:18 Exam: PHYSICAL EXAMINATION: GENERAL APPEARANCE: The patient is alert, oriented and in no acute distress. HEENT: Head is normocephalic. The sinuses are nontender. Pupils are equal and reactive. The nares are patent. Oropharynx clear without lesions. NECK: Supple without lymphadenopathy. HEART: Regular rate and rhythm. LUNGS: No crackles or wheezes are heard. ABDOMEN: Soft, nontender, nondistended with good bowel sounds heard. Inguinal area is normal. EXTREMITIES: Without cyanosis, clubbing or edema. NEUROLOGICAL: Gross nonfocal. SKIN: Warm and dry without any rash. - Assessment and Plan (1) Chest pain Current Visit: Yes Status: Acute Assessment and Plan: 64-year-old male with history of CAD status post multiple stents placement, currently on DAPT, presented with atypical chest pain. Troponin was negative 2, EKG has no acute ST-T change. Patient had a recent stress test which was negative. However, patient insisted that her symptoms his symptoms are similar to those when he had a PA and the knee just stents placement. Limited echo was ordered, will continue cycle troponin, telemetry monitoring, EKG as needed. Cardiology consulted, [facility] in the morning. (2) CAD (coronary artery disease) Current Visit: No Status: Chronic Assessment and Plan: Continue home medication including DAPT. (3) Chronic kidney disease Current Visit: No Status: Chronic Assessment and Plan: Cr stable, will hold Lasix tonight for upcoming LHC in am. May gentle hydration before LHC to avoid possible renal toxicity. (4) Diabetes Current Visit: No Status: Chronic Assessment and Plan: Hold oral agents, started patient on insulin sliding scale. (5) Hypertension Current Visit: No Status: Chronic Assessment and Plan: BP controlled, continue home medications. (6) Diastolic heart failure Current Visit: No Status: Chronic Assessment and Plan: Euvolemic on physical exam, hold diuretics temporarily for upcoming [facility]. (7) Hypokalemia Current Visit: Yes Status: Acute Assessment and Plan: Replaced, repeat BMP in the morning. (8) DVT prophylaxis Current Visit: Yes Status: Acute Assessment and Plan: Heparin subcutaneous. - Time Spent with Patient Total time spent is greater than 50% in coordination of care (as documented) at patient's floor/unit and/or counseling patient: Greater than 35 minutes Plan of Care Discussed with: patient Internal Medicine: Result - Labs CBC & Chem 7: 03/17/19 04:18 03/17/19 04:18 Labs: Short CBC 03/16/19 03/17/19 Range/Units 22:05 04:18 WBC 11.4 H 10.6 (4.3-11.1) K/mcL Hgb 12.2 L 11.4 L (12.9-16.9) g/dL Hct 35.3 L 33.7 L (37.5-50.1) % Plt Count 337 275 (140-400) K/mcL Neutrophils # 7.9 6.8 (1.6-8.9) K/mcL BMP 03/16/19 03/17/19 22:05 04:18 Sodium 138 139 Potassium 3.4 L 3.4 L Chloride 103 102 Carbon Dioxide 27 27 BUN 42 H 43 H Creatinine 2.17 H 1.99 H Glucose 127 H 115 H Calcium 9.1 8.8 Cardiac Enzymes 03/16/19 03/17/19 Range/Units 22:05 04:18 Troponin I < 0.03 < 0.03 (< 0.04) ng/mL Liver Function 03/16/19 Range/Units 22:05 Total Bilirubin 0.5 (0.3-1.0) mg/dL Direct Bilirubin 0.1 (0.0-0.2) mg/dL AST 11 L (13-39) Units/L ALT 14 (7-52) Units/L Alkaline Phosphatase 64 (34-104) Units/L Albumin 3.6 (3.5-5.7) g/dL - ABG Interpretation ABG results: PT/INR, D-dimer PT 11.4 Seconds (9.4-12.1) 03/17/19 04:18 - Impressions Impressions Chest X-Ray 03/16/19 21:53 IMPRESSION: No acute pulmonary disease. Calcific atherosclerotic disease aorta. D/ / Johan Carrera / Johan Carrera Interpreting Provider: Johan Carrera Consult Discharge Plan - Plan Referrals: Cj Oswald MD [Primary Care Provider] - (1) Chest pain Qualifiers: Chest pain type: other chest pain Qualified Code(s): R07.89 - Other chest pain; R07.8 - Other chest pain (2) CAD (coronary artery disease) Qualifiers: Coronary Disease-Associated Artery/Lesion type: [place] artery [place] vs. transplanted heart: [place] heart Associated angina: with other forms of angina Qualified Code(s): I25.118 - Atherosclerotic heart disease of [place] coronary artery with other forms of angina pectoris (3) Chronic kidney disease Qualifiers: Chronic kidney disease stage: stage 3 (moderate) Qualified Code(s): N18.3 - Chronic kidney disease, stage 3 (moderate) (4) Diabetes Qualifiers: Diabetes mellitus type: type 2 Diabetes mellitus long term care pharmacist insulin use: without long term care pharmacist use Diabetes mellitus complication status: with neurologic complications Diabetes mellitus complication detail: with polyneuropathy Qualified Code(s): E11.42 - Type 2 diabetes mellitus with diabetic polyneuropathy (5) Hypertension Qualifiers: Hypertension type: essential hypertension Qualified Code(s): I10 - Essential (primary) hypertension (6) Diastolic heart failure Qualifiers: Heart failure chronicity: acute on chronic Qualified Code(s): I50.33 - Acute on chronic diastolic (congestive) heart failure
--- NOTE | 2019-03-17 17:04 | Electrocardiograph Report ---
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
[2019-03-17] MEDS ORDERED: traMADol 50 MG TABLET PO ONE (21:06)
[2019-03-18 04:55] LABS: Basophils % 0.4 %; Eosinophils # 0.1 K/mcL (0.0-0.6); Eosinophils % 1.2 %; Hematocrit 32.5 % (37.5-50.1); Lymphocytes # 1.9 K/mcL (0.6-4.6); Lymphocytes % 18.5 %; Mean Corpuscular HGB Conc 33.8 g/dL (31.6-35.5); Mean Corpuscular Hemoglobin 28.4 pg (28.0-33.3); Mean Corpuscular Volume 83.8 fL (83.0-100.0); Mean Platelet Volume 10.1 fL (9.4-12.4); Monocytes # 0.9 K/mcL (0.0-1.3); Neutrophils # 7.2 K/mcL (1.6-8.9); Platelet Count 283 K/mcL (140-400); Red Blood Count 3.88 M/mcL (4.19-5.50); Red Cell Distribution Width 13.1 % (11.5-14.5); Segmented Neutrophils % 69.9 %; White Blood Count 10.3 K/mcL (4.3-11.1)
[2019-03-18 05:11] LABS: Calcium 8.4 mg/dL (8.6-10.3); Potassium 3.9 mEq/L (3.5-5.1)
[2019-03-18] MEDS: *HR* Heparin 5,000 UNIT/ML VIAL SQ SCH ×2 (05:38→16:41)
[2019-03-18] MEDS: Insulin LISPRO 300 UNITS/3 ML VIAL SQ SCH ×4 (07:18→21:14)
[2019-03-18] MEDS: (Ubidecarenone [Co Q-10] 10 MG) PO SCH (07:18)
[2019-03-18] MEDS: Cholecalciferol (D-3) 1,000 UNIT TABLET PO SCH (07:30)
[2019-03-18] MEDS: amLODIPine 5 MG TABLET PO SCH (07:30)
[2019-03-18] MEDS: Lisinopril 20 MG TABLET PO SCH (07:30)
[2019-03-18] MEDS: Aspirin 81 MG TAB.CHEW PO SCH (07:30)
[2019-03-18] MEDS: Cyanocobalamin (B-12) 1,000 MCG TABLET PO SCH (07:30)
[2019-03-18] MEDS: Isosorbide MONOnitrate (24 HR) 30 MG TAB.ER.24H PO SCH (07:30)
[2019-03-18] MEDS ORDERED: 0.9 % Sodium Chloride 1,000 ML IVC SCH (08:30)
[2019-03-18] MEDS ORDERED: metOLazone 2.5 MG TABLET PO SCH (09:00)
--- NOTE | 2019-03-18 09:54 | Internal Med Progress Note ---
Hospitalist Progress Note - Encounter Date of Encounter: 03/18/19 Time of Encounter: 09:54 - Subjective Interval History: Patient was seen and examined at bedside currently denies any chest pain he was scheduled for a cardiac catheterization today however he has had an elevation in his creatinine. We will hold and optimize patient's renal function. We will consult nephrology - Exam Vitals: Temp Pulse Resp BP Pulse Ox 98 F 77 19 153/73 97 03/18/19 07:29 03/18/19 07:29 03/18/19 07:29 03/18/19 07:29 03/18/19 07:29 Exam: PHYSICAL EXAMINATION: GENERAL APPEARANCE: The patient is alert, oriented and in no acute distress. HEENT: Head is normocephalic. The sinuses are nontender. Pupils are equal and reactive. The nares are patent. Oropharynx clear without lesions. NECK: Supple without lymphadenopathy. HEART: Regular rate and rhythm. LUNGS: No crackles or wheezes are heard. ABDOMEN: Soft, nontender, nondistended with good bowel sounds heard. Inguinal area is normal. EXTREMITIES: Without cyanosis, clubbing or edema. NEUROLOGICAL: Gross nonfocal. SKIN: Warm and dry without any rash. - Assessment and Plan (1) Chest pain Current Visit: Yes Status: Acute Assessment and Plan: 64-year-old male with history of CAD status post multiple stents placement, currently on DAPT, presented with atypical chest pain. Troponin was negative 2, EKG has no acute ST-T change. Patient had a recent stress test which was negative. However, patient insisted that her symptoms his symptoms are similar to those when he had a [place] and the knee just stents placement. Limited echo was ordered, will continue cycle troponin, telemetry monitoring, EKG as needed. Cardiology consulted, [facility] in the morning. 03/18 Currently patient is not experiencing any chest pain he was evaluated by cardiology recommending left heart catheter however patient has elevation in creatinine. Left heart catheter is canceled until tomorrow Initiated on IV fluids. Hold Lasix at this time. Consult nephrology (2) CAD (coronary artery disease) Current Visit: No Status: Chronic Assessment and Plan: Continue home medication including DAPT. (3) Diabetes Current Visit: No Status: Chronic Assessment and Plan: Hold oral agents, started patient on insulin sliding scale. (4) Chronic kidney disease Current Visit: No Status: Chronic Assessment and Plan: Cr stable, will hold Lasix tonight for upcoming LHC in am. May gentle hydration before LHC to avoid possible renal toxicity. (5) Hypertension Current Visit: No Status: Chronic Assessment and Plan: BP controlled, continue home medications. (6) Diastolic heart failure Current Visit: No Status: Chronic Assessment and Plan: Euvolemic on physical exam, hold diuretics temporarily for upcoming LHC. (7) DVT prophylaxis Current Visit: Yes Status: Acute Assessment and Plan: Heparin subcutaneous. (8) Hypokalemia Current Visit: Yes Status: Acute Assessment and Plan: Replaced, repeat BMP in the morning. (9) Acute kidney injury superimposed on CKD Current Visit: Yes Status: Acute Assessment and Plan: Patient had elevation creatinine-up to 2.34 today anticipated LHC however this has been canceled due to a KI. We will give some gentle IV fluids hold Lasix Consult nephrology in order to optimize kidney function prior to LHC Avoid nephrotoxins - Time Spent with Patient Total time spent is greater than 50% in coordination of care (as documented) at patient's floor/unit and/or counseling patient: Internal Medicine: Result - Labs CBC & Chem 7: 03/18/19 04:17 03/18/19 04:17 Labs: Short CBC 03/18/19 Range/Units 04:17 WBC 10.3 (4.3-11.1) K/mcL Hgb 11.0 L (12.9-16.9) g/dL Hct 32.5 L (37.5-50.1) % Plt Count 283 (140-400) K/mcL Neutrophils # 7.2 (1.6-8.9) K/mcL BMP 03/18/19 04:17 Sodium 137 Potassium 3.9 Chloride 101 Carbon Dioxide 24 BUN 49 H Creatinine 2.34 H Glucose 193 H Calcium 8.4 L - ABG Interpretation ABG results: PT/INR, D-dimer PT 11.4 Seconds (9.4-12.1) 03/17/19 04:18 - Impressions Impressions Echocardiogram Limited Views 03/17/19 08:33 Impressions: LVEF 55%. Normal LV chamber size and function. Mild concentric left ventricular hypertrophy. Left Ventricular Wall Motion: Rest Echo Findings All wall segments showed normal motion. Findings: Study Quality * Technically adequate exam. ECG Findings * Normal sinus rhythm. Left Ventricle * LVEF 55%. * Normal LV chamber size and function. * Mild concentric left ventricular hypertrophy. Right Ventricle * Normal right ventricular structure and function. Aorta * Normally sized aortic root. Pericardium * The pericardium appears normal. IVC * Normal IVC dimensions and inspiratory collapse. Consult Discharge Plan - Plan Referrals: Cj Oswald MD [Primary Care Provider] - 03/24/19 1:00 pm ( ) (1) Chest pain Qualifiers: Chest pain type: other chest pain Qualified Code(s): R07.89 - Other chest pain; R07.8 - Other chest pain (2) CAD (coronary artery disease) Qualifiers: Coronary Disease-Associated Artery/Lesion type: [place] artery [place] vs. transplanted heart: [place] heart Associated angina: with other forms of angina Qualified Code(s): I25.118 - Atherosclerotic heart disease of [place] coronary artery with other forms of angina pectoris (3) Diabetes Qualifiers: Diabetes mellitus type: type 2 Diabetes mellitus prison insulin use: without ferry terminal agent use Diabetes mellitus complication status: with neurologic complications Diabetes mellitus complication detail: with polyneuropathy Qualified Code(s): E11.42 - Type 2 diabetes mellitus with diabetic polyneuropathy (4) Chronic kidney disease Qualifiers: Chronic kidney disease stage: stage 3 (moderate) Qualified Code(s): N18.3 - Chronic kidney disease, stage 3 (moderate) (5) Hypertension Qualifiers: Hypertension type: essential hypertension Qualified Code(s): I10 - Essential (primary) hypertension (6) Diastolic heart failure Qualifiers: Heart failure chronicity: acute on chronic Qualified Code(s): I50.33 - Acute on chronic diastolic (congestive) heart failure
--- NOTE | 2019-03-18 10:45 | Cardiology Progress Note ---
Date of Encounter: 03/18/19 Time of Encounter: 09:00 Assessment and Plan (1) Chest pain Current Visit: Yes Status: Acute Per Cardiology: -Admitted with chest pain, Currently chest pain free. -Troponin negative 2. -Had negative nuclear stress test 10/2018. -Known CAD with LHC as below. -No acute ischemic ECG changes noted. -Plan was for LHC today for recurrent chest pain despite recent negative stress test. However, now with worsening renal function. Recommend nephrology consult. Will make NPO after midnight for potential LHC, pending renal function, in am. Qualifiers: Chest pain type: unspecified Qualified Code(s): R07.9 - Chest pain, unspecified (2) CAD (coronary artery disease) Current Visit: Yes Status: Chronic Per Cardiology: -History of CAD with stenting 3 at [facility] [address] Mi to p roximal LAD 90% and mid LAD 70% lesions. Had MICHELLE to distal circumflex 80% lesion October 2017. -Last left heart catheterization February 2018:The Proximal LAD has patent stents present from a previous procedure. The 1st Marginal has patent stents present from a previous procedure. There is a 30% stenosis in the Proximal Circumflex. There is a 50% stenosis in the Proximal RCA. There is a 60% stenosis in the Distal RCA. FFR 0.88 (not functionally significant). -On aspirin, Plavix, statin, beta angus, JENNIFFER inhibitor, and long-acting nitrate. -Continue current medical therapy. Qualifiers: Coronary Disease-Associated Artery/Lesion type: unspecified vessel or lesion type [place] vs. transplanted heart: [place] heart Associated angina: with unstable angina Qualified Code(s): I25.110 - Atherosclerotic heart disease of [place] coronary artery with unstable angina pectoris (3) Acute kidney injury superimposed on CKD Current Visit: Yes Status: Acute Per cardiology: -BRIDGET on CKD noted. -Follows with nephrology outpatient. -With need for LHC, recommend nephrology consult. Discussion w patient/family: The assessment and plan as outlined above was discussed with the patient and/or family members who expressed understanding and agreement. All questions were ans wered. Thank you for involving us in the care of your patient. Please call with any questions. Discussed and reviewed with . Subjective Principal diagnosis: chest pain Interval history: Patient denies current chest pain. States he feels well today. Objective Vital Signs, Last 4 Hours Temp Pulse Resp BP Pulse Ox 03/18/19 07:29 98 F 77 19 153/73 97 General: Conversant, No Apparent Distress HEENT: Atraumatic, Normocephaly, Mucus Membranes Moist Neck: No JVD, Normal carotid pulses Cardiac: Reg Rate and Rhythm, Normal S1 and S2, No Murmur Lungs: Normal Breath Sounds, No Wheeze, Rales, Rhonchi Neuro: Alert and responsive, No focal deficits noted Abdomen: Soft, Non-Tender Skin: No rashes noted on visualized skin Musculoskeletal: No Chest Wall Tenderness Extremities: No Clubbing, No Cyanosis, No Edema, Normal Pulses Results 03/18/19 04:17 03/18/19 04:17 Lab Results Impressions Echocardiogram Limited Views 03/17/19 08:33 Impressions: LVEF 55%. Normal LV chamber size and function. Mild concentric left ventricular hypertrophy. Left Ventricular Wall Motion: Rest Echo Findings All wall segments showed normal motion. Findings: Study Quality * Technically adequate exam. ECG Findings * Normal sinus rhythm. Left Ventricle * LVEF 55%. * Normal LV chamber size and function. * Mild concentric left ventricular hypertrophy. Right Ventricle * Normal right ventricular structure and function. Aorta * Normally sized aortic root. Pericardium * The pericardium appears normal. IVC * Normal IVC dimensions and inspiratory collapse. Active Medications Amlodipine Besylate (Norvasc) 10 mg PO DAILY [facility] Stop: 09/16/19 09:01 Last Admin: 03/18/19 07:30 Dose: 10 mg Documented by: Aspirin (Aspirin) 81 mg PO DAILY [facility] Stop: 09/16/19 09:01 Last Admin: 03/18/19 07:30 Dose: 81 mg Documented by: Bumetanide (Bumex) 1 mg PO BID [facility] Stop: 09/16/19 09:01 Last Admin: 03/17/19 08:28 Dose: 1 mg Documented by: Carvedilol (Coreg) 12.5 mg PO BIDWM [facility] Stop: 09/16/19 08:01 Last Admin: 03/18/19 07:30 Dose: 12.5 mg Documented by: Clopidogrel Bisulfate (Plavix) 75 mg PO DAILY [facility] Stop: 09/16/19 09:01 Last Admin: 03/18/19 07:30 Dose: 75 mg Documented by: Cyanocobalamin (Vitamin B12) 1,000 mcg PO DAILY [facility] Stop: 09/16/19 09:01 Last Admin: 03/18/19 07:30 Dose: 1,000 mcg Documented by: Dextrose/Water (Dextrose 50% (Syg)) 25 ml IVP AD PRN PRN Reason: Hypoglycemia Stop: 09/15/19 23:45 Glucose (Gluctose) 15 gm PO ONCE PRN PRN Reason: Hypoglycemia Stop: 09/15/19 23:45 Glucose (Gluctose) 30 gm PO ONCE PRN PRN Reason: Hypoglycemia Stop: 09/15/19 23:45 Heparin Sodium (Porcine) (Heparin) 5,000 unit SQ Q12HCO [facility] Stop: 09/16/19 06:01 Last Admin: 03/18/19 05:38 Dose: Not Given Documented by: Sodium Chloride (0.9 % Sodium Chloride) 1,000 mls @ 75 mls/hr IVC .[id number] [facility] Stop: 09/17/19 08:31 Last Admin: 03/18/19 08:30 Dose: 75 mls/hr Documented by: Insulin Human Lispro (Humalog) 0 units SQ HS [facility]; Protocol Stop: 09/16/19 21:01 Last Admin: 03/17/19 21:14 Dose: Not Given Documented by: Insulin Human Lispro (Humalog) 0 units SQ TIDAC [facility]; Protocol Stop: 09/16/19 07:31 Last Admin: 03/18/19 07:18 Dose: Not Given Documented by: Isosorbide Mononitrate (Imdur) 90 mg PO DAILY [facility] Stop: 09/16/19 09:01 Last Admin: 03/18/19 07:30 Dose: 90 mg Documented by: Lisinopril (Zestril) 40 mg PO DAILY [facility]; Protocol Stop: 09/16/19 09:01 Last Admin: 03/18/19 07:30 Dose: 40 mg Documented by: Metolazone (Zaroxolyn) 2.5 mg PO MOWEFR [facility] Stop: 09/17/19 09:01 Nitroglycerin (Nitroglycerin) 0.4 mg SL Q5MIN PRN PRN Reason: Chest Pain Stop: 09/15/19 23:42 Pharmacy Profile Note (Patient Taking Own Medication) 0 each PO DAILY [facility] Stop: 09/16/19 09:01 Last Admin: 03/18/19 07:18 Dose: Not Given Documented by: Rosuvastatin Calcium (Crestor) 20 mg PO HS [facility] Stop: 09/16/19 21:01 Last Admin: 03/17/19 21:39 Dose: 20 mg Documented by: Vitamin D (Vitamin D) 1,000 unit PO DAILY [facility] Stop: 09/16/19 09:01 Last Admin: 03/18/19 07:30 Dose: 1,000 unit Documented by: Laboratory Tests 03/17/19 03/18/19 03/18/19 04:18 04:17 04:17 Hgb 11.0 L Creatinine 1.99 H 2.34 H - Imaging and Cardiology Chest Xray: report reviewed Stress Test: report reviewed Echo: report reviewed Cardiac cath: report reviewed - EKG Interpretation EKG results cardiology: other (Telemetry reviewed with average HR previous 12 hours noted to be 76, SR. PVCs, PACs noted.) Consult Discharge Plan - Plan Referrals: Cj Oswald MD [Primary Care Provider] - 03/24/19 1:00 pm ( )
[2019-03-18] MEDS ORDERED: *HR* Acetylcysteine 20% 600 MG/3 ML ORAL SYRINGE PO SCH (11:15)
--- NOTE | 2019-03-18 11:18 | Nephrology Consult Note ---
Date of Encounter: 03/18/19 Time of Encounter: 11:15 Assessment and Plan (1) Acute kidney injury superimposed on CKD Current Visit: Yes Status: Acute Patient with elevation of his creatinine. Looking at his EGFR and appears at his baseline is around 30. He has some fluctuation of his baseline GFR. While it is possible he has mild acute kidney injury superimposed on his chronic kidney disease. This may also be normal fluctuation for him. Nonetheless, since he will be going for cardiac catheterization I agree with optimization of his renal function. I agree with gentle fluids prior to cardiac catheterization. I will order acetylcysteine twice a day for a total of 8 doses. I recommend avoiding any nephrotoxins that are not clinically necessary. I recommend adjusting his medications for renal function. He has no acute need for a renal biopsy or for hemodialysis. I counseled him as well as his family regarding the risks of contrast induced nephropathy. They expressed understanding and are still agreeable with a cardiac catheterization. I did explain to them that there is a risk of needing dialysis, but they expressed a desire to tolerate that risk for the benefit of evaluating his coronary arteries. Thank you for the consult we will continue to follow with you. 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 Coronado is a 64-year-old gentleman with a history of diabetes and chronic kidney disease stage III. He presented with chest pain and was evaluated by cardiology who thinks that this may possibly be angina and has plans for a cardiac catheterization. Patient's was noted to have an increase in his creatinine and so [facility] was consult it for evaluation and management of acute kidney injury on chronic kidney disease. At the time my evaluation the patient is lying on his bed his family is at his side. He denies chest pain at the time of evaluation, but does complain of occasional dyspnea. He denies nausea, vomiting, or diarrhea. He does complain of leg swelling. Past Med Surg Social Fam HX - Past Medical History Medical history: COPD, coronary artery disease, diabetes, hyperlipidemia, hypertension, renal disease Additional medical history: Stage III CKD Psychiatric history: no psych history - Past Surgical History Surgical History: angioplasty/stent, other Additional surgical history: Right foot ("stepped on a nail and had to have surgery"). cardiac stents x 5 - Social History Smoking Status: Never smoker Smokeless Tobacco Status: No Alcohol use: none Drug use: none - Family History Father Living Status: Hx Family Cardiac Disorders: Yes (HTN) Hx Family Respiratory Disorders: (black lung) Hx Family Endocrine Disorder: Yes (diabetes) Mother Adopted: No Family Member Ethnicity: Non- Living Status: Hx Family Cardiac Disorders: Yes (HTN) Hx Family Respiratory Disorders: No Hx Family Cancer: No Hx Family GI Disorders: No Hx Family Endocrine Disorder: Yes (diabetes) Hx Family Neuromuscular Disorders: No Hx Family Neurologic Disorders: No Hx Family HEENT Disorders: No Hx Family Autoimmune Disorders: No Medications and Allergies Clopidogrel [Plavix] 75 mg PO DAILY 04/11/17 [History] Nitroglycerin 0.4 mg SL Q5MIN PRN 04/13/17 [Rx] metOLazone [Zaroxolyn] 2.5 mg PO 3XW 11/19/17 [History] Carvedilol 12.5 mg PO HS 03/24/18 [History] Aspirin [Adult Aspirin Regimen] 81 mg PO HS 03/17/19 [History] Bumetanide [Bumex] 1 mg PO BID 03/17/19 [History] Bumetanide [Bumex] 1 mg PO QPM PRN 03/17/19 [History] Ferrous Sulfate [Iron] 325 mg PO QAM 03/17/19 [History] Gabapentin [Neurontin] 300 mg PO HS 03/17/19 [History] Glimepiride [Amaryl] 4 mg PO QAM 03/17/19 [History] Insulin Degludec [Tresiba Flextouch U-200] 38 unit SQ HS 03/17/19 [History] Linagliptin [Tradjenta] 5 mg PO HS 03/17/19 [History] Lisinopril [Zestril] 40 mg PO QAM 03/17/19 [History] Potassium Chloride [K-Tab ER] 20 meq PO HS 03/17/19 [History] amLODIPine [Norvasc] 5 mg PO HS 03/17/19 [History] Allergy/AdvReac Type Severity Reaction Status Date / Time duloxetine [From Cymbalta] AdvReac Vomiting Verified 03/17/19 22:08 Review of Systems All Systems: reviewed and no additional remarkable complaints except as stated (As per history of present illness) Exam - Vital Signs Vital signs: Initial Vital Signs Temp Pulse Resp BP Pulse Ox 97.9 F 88 18 185/106 97 03/16/19 21:48 03/16/19 21:48 03/16/19 21:48 03/16/19 21:48 03/16/19 21:48 Vital Signs - Last 8 Hours Temp Pulse Resp BP Pulse Ox 03/18/19 11:00 98.4 F 73 17 108/62 96 03/18/19 07:29 98 F 77 19 153/73 97 03/18/19 04:32 98.1 F 73 16 145/74 97 Intake and Output 03/17/19 03/18/19 03/18/19 23:59 07:59 15:59 Intake Total 240 / 480 Balance 240 / 480 Intake: Oral 240 / 480 Other: Meal Dinner Percent of Meal Consumed 90% Weight 128.3 kg Blood Glucose* 155 137 173 Patient Weight 03/18/19 23:59 Weight 128.3 kg - General Appearance General appearance: well-developed, well-nourished, obese EENT: ATNC Neck: supple Respiratory: course breath sounds Cardiology: edema, regular rate Gastrointestinal: no tenderness, obese Integumentary: warm and dry Neurologic: alert and oriented x3 Musculoskeletal: no cyanosis Psychiatric: mood/affect appropriate Results - Lab Results 03/18/19 04:17 03/18/19 04:17 Most recent lab results 03/18/19 04:17 Calcium 8.4 L Consult Discharge Plan - Plan Referrals: Cj Oswald MD [Primary Care Provider] - 03/24/19 1:00 pm ( )
[2019-03-18] MEDS ORDERED: Sod Bicarb 150mEq/D5W 150 MEQ/1,000 ML IV.SOLN IVC SCH (11:30)
[2019-03-18] MEDS: 0.9 % Sodium Chloride 1,000 ML IVC SCH (12:12)
[2019-03-18] MEDS: *HR* Acetylcysteine 20% 600 MG/3 ML ORAL SYRINGE PO SCH (21:07)
[2019-03-18] MEDS: MOM Conc 10 ML UD.LIQ PO SCH (21:58)
[2019-03-19] MEDS: 0.9 % Sodium Chloride 1,000 ML IVC SCH (04:11)
[2019-03-19 04:59] LABS: White Blood Count 9.1 K/mcL (4.3-11.1)
[2019-03-19 05:00] LABS: Basophils % 0.3 %; Eosinophils # 0.1 K/mcL (0.0-0.6); Eosinophils % 0.9 %; Hematocrit 31.1 % (37.5-50.1); Hemoglobin 10.6 g/dL (12.9-16.9); Immature Granulocytes % 0.5 % (0-4); Lymphocytes # 1.6 K/mcL (0.6-4.6); Lymphocytes % 17.7 %; Mean Corpuscular HGB Conc 34.1 g/dL (31.6-35.5); Mean Corpuscular Hemoglobin 28.2 pg (28.0-33.3); Mean Corpuscular Volume 82.7 fL (83.0-100.0); Mean Platelet Volume 10.4 fL (9.4-12.4); Monocytes # 0.9 K/mcL (0.0-1.3); Monocytes % 10.3 %; Neutrophils # 6.4 K/mcL (1.6-8.9); Platelet Count 251 K/mcL (140-400); Red Blood Count 3.76 M/mcL (4.19-5.50); Red Cell Distribution Width 12.7 % (11.5-14.5); Segmented Neutrophils % 70.3 %
[2019-03-19 05:42] LABS: Albumin 3.2 g/dL (3.5-5.7); Calcium 8.6 mg/dL (8.6-10.3); Phosphorous 2.8 mg/dL (2.7-4.5); Potassium 3.8 mEq/L (3.5-5.1)
[2019-03-19] MEDS: *HR* Heparin 5,000 UNIT/ML VIAL SQ SCH ×2 (05:47→17:15)
[2019-03-19] MEDS ORDERED: Sodium Bicarbonate 150 MEQ in D5% in Water 1,000 ML IVC ONE (08:00)
[2019-03-19] MEDS ORDERED: Sod Bicarb 150mEq/D5W 150 MEQ/1,000 ML IV.SOLN IVC ONE (08:00)
[2019-03-19] MEDS: Insulin LISPRO 300 UNITS/3 ML VIAL SQ SCH ×5 (08:21→20:22)
[2019-03-19] MEDS: Aspirin 81 MG TAB.CHEW PO SCH (08:26)
[2019-03-19] MEDS: Isosorbide MONOnitrate (24 HR) 30 MG TAB.ER.24H PO SCH (08:26)
[2019-03-19] MEDS: amLODIPine 5 MG TABLET PO SCH (08:27)
[2019-03-19] MEDS: (Ubidecarenone [Co Q-10] 10 MG) PO SCH (08:27)
[2019-03-19] MEDS: *HR* Acetylcysteine 20% 600 MG/3 ML ORAL SYRINGE PO SCH ×2 (08:28→20:21)
[2019-03-19] MEDS: Cyanocobalamin (B-12) 1,000 MCG TABLET PO SCH (08:28)
[2019-03-19] MEDS: Cholecalciferol (D-3) 1,000 UNIT TABLET PO SCH (08:28)
[2019-03-19] MEDS: Lisinopril 20 MG TABLET PO SCH (08:28)
[2019-03-19] MEDS: Bumetanide 1 MG TABLET PO SCH (08:38)
--- NOTE | 2019-03-19 10:45 | Event Note ---
Date of Encounter: 03/19/19 Time of Encounter: 10:44 - Cardiology Event Note Nephrology note reviewed. Renal function improved today. PLan for LHC. Risks versus benefits of LHC explained to patient who states understanding and agrees with plan. Further recommendations pending LHC.
[2019-03-19] MEDS ORDERED: Heparin 1,000 UNITS/500 mL 500 ML ONE (13:10)
[2019-03-19] MEDS ORDERED: 0.9 % Sodium Chloride 1,000 ML ONE ×2 (13:10→13:20)
[2019-03-19] MEDS ORDERED: *HR* Heparin 10,000 UNIT/10 ML VIAL ONE (13:10)
[2019-03-19] MEDS ORDERED: Nitroglycerin 1,000 MCG/10 ML VIAL IV ONE (13:10)
[2019-03-19] MEDS ORDERED: ISOVUE-370 200 ML INFUS..BTL ONE (13:10)
[2019-03-19] MEDS ORDERED: *HR* Midazolam HCl 2 MG/2 ML VIAL ONE (13:20)
[2019-03-19] MEDS ORDERED: *HR* FentaNYL (PF) 100 MCG/2 ML VIAL ONE (13:20)
--- NOTE | 2019-03-19 14:24 | Event Note ---
Date of Encounter: 03/19/19 Time of Encounter: 14:23 Patient not in the room. Renal function stable. Will sign off. Call if questions or worsening renal function. Patient should follow-up in clinic in 2-3 months or as scheduled.
--- NOTE | 2019-03-19 14:43 | Invasive Diagnostic Lab Proc ---
Name: Rc Griffin Date of Study: 03/19/2019 Date: 1955 Ht: 70.1in Medical Record#: [id number] Age: 64 Wt: 281.09lb Gender: Male BSA: 2.41 Order #: [id number] BMI: 40.24 Physicians Procedure Physician: Gem Giles MD, [facility] Referring MD: Referring MD: Staff Name Position Time In Luis Hernandes RT (R) Monitor 01:21 PM Elvia Hernandes RT (R) Scrub 01:21 PM Leon Moore RN Fresh Food Manager 01:21 PM Gem Chen RT (R) Scrub 01:21 PM Indications Indication Unstable Angina Procedures Performed Procedure L HRT ARTERY/VENTRICLE ANGIO IV Doppler BLD Flow 1st Vessel Pre-Procedure Checklist Informed consent is complete signed and on chart. H&P is on chart. ID band is on and ID verified with patient. Patient NPO for procedure The procedure was described for the patient and questions were answered. Blood Pressure: 166/88 ECG is on chart. Rhythm: NSR Plan of Care Patient will tolerate the procedure without complications. Adequate level of comfort will be maintained. Hemodynamics will remain stable Patient will recover from procedure without complications. Respiratory function will be maintained. Cardiac rhythm will remain stable. Patient temperature will be maintained. Patient and/or family have verbalized understanding of the procedure. Patient Education Chief Complaint/Reason for Test: Cardiac Cath Developmental Category: Adult (18-64 years) Developmentally Appropriate for Age: Yes Learning Barriers: None Education Needs: Procedure Education Method: Verbal Information Taught: Cardiac Cath Educational Evaluation: Able to repeat information Intravenous Access Time IV Size Location DC'd Fluid/Drip Rate Units RN 01:18 PM Started with 20g 1 1/4" Rt Antecubital 0.9NaCl 25 ml/hr Leon Moore RN Allergies duloxetine Vital Signs Time BP (mmHg) HR (bpm) O2 Sat. RR (bpm) LOC 01:20 PM / % 5 = Fully awake and oriented or at pre-proc level 01:20 PM / % 4 = Oriented but drowsy 01:35 PM / % 4 = Oriented but drowsy 01:50 PM / % 4 = Oriented but drowsy 02:05 PM / % 5 = Fully awake and oriented or at pre-proc level 01:25 PM 166 / 95 77 98 % 20 01:29 PM 161 / 92 75 97 % 17 01:34 PM 148 / 80 73 97 % 14 01:39 PM 149 / 84 73 97 % 16 01:44 PM 163 / 90 73 96 % 14 01:49 PM 161 / 88 76 97 % 15 01:55 PM 158 / 91 76 96 % 16 01:59 PM 166 / 92 75 96 % 15 02:04 PM 159 / 90 72 96 % 15 02:09 PM 125 / 72 85 98 % 22 02:15 PM 165 / 88 76 94 % 10 02:20 PM 159 / 86 76 95 % 15 02:25 PM 170 / 94 74 95 % 21 Procedural Medications Time Medication Dose Units Method Given By 01:24 PM Oxygen 2 L/min nasal cannula Leon Moore RN 01:25 PM Sodium Bicarbonate 384 mg Intravenous Leon Moore RN 01:29 PM Versed 1 mg Intravenous Leon Moore RN 01:29 PM Fentanyl 50 mcg Intravenous Leon Moore RN 01:36 PM Lidocaine 2% 19 ml Subcutaneous Gem Giles MD, FACC 01:51 PM Heparin 5000 units Intravenous Leon Moore RN 02:04 PM 90mg Adenosine in 90 ml 0.9 NS 999 mcg Intravenous Leon Moore RN 02:08 PM 90mg Adenosine in 90 ml 0.9 NS 999 mcg Intravenous Leon Moore RN 02:15 PM 90mg Adenosine in 90 ml 0.9 NS 535 mcg Intravenous Leon Moore RN ASA Classification: CLASS II- Mild systemic disease (i.e. well-controlled diabetes, hypertension, asthma, cigarette smoking) Sherif Score Preprocedure Postprocedure Activity 2- Moves 4 extremities sustained head lift Activity 2- Moves 4 extremities sustained head lift Circulation 2- SBP +/= 20 points of pre-anesthetic level Circulation 2- SBP +/= 20 points of pre-anesthetic level Consciousness 2- Awake and alert oriented x 3 Consciousness 2- Awake and alert oriented x 3 O2 Saturation 2- Able to maintain O2 satruation of 92% on room air O2 Saturation 2- Able to maintain O2 satruation of 92% on room air Respiratory 2- Able to deep breathe and cough well Respiratory 2- Able to deep breathe and cough well Total Score 10 Total Score 10 Contrast Agent: Isovue Diagnostic Contrast: 75 ml Total Contrast: 75 ml Fluoro Dose: 53 mGy Procedure Log Time Note Enter By 01:18 PM CathStat 01:19 PM Pt arrived to central lab technician 2 at 13: PM Patient charges- Angio tray pack, Navilyst 3mm J, Pulse Oximetry and ACIST tubing and transducer PM Case Delayed No PM Physician arrived : PM ASA Class CLASS II- Mild systemic disease (i.e. well-controlled diabetes, hypertension, asthma, cigarette smoking) PM Meet and gredustin completed Sign in performed according to hospital policy. Informed consent was obtained. PM Procedure start : PM Time: : Patient comfortable and pain free: Yes Time: :20LOC: 5 = Fully awake and oriented or at pre-proc level PM Clinical Presentation: Unstable angina PM Luis Hernandes RT (R) Position: Monitor Time in: PM Elvia Hernandes RT (R) Position: Scrub Time in: PM Leon Moore RN Position: Fresh Food Manager Time in: PM Gem Chen RT (R) Position: Scrub Time in: PM Vitals capture started with the following parameters, Patient=Adult, Interval=5 min, Initial Fivbefhn=854 mmHg, Deflation Rate=3 mmHg, Cuff placed on Right Arm : PM Hair removed from procedure site in procedure lab using clippers. Bilateral groin prepped with Chloraprep by Elvia Hernandes RT (R), then patient was draped. Skin intact. PM Time: 13:24 Oxygen on at 2 L/min per nasal cannula by Leon Moore RN PM HR=77 bpm, QLHT=922/95 mmhg, SpO2=98.0 %, Resp=20 B/min PM Time: 13:25 Sodium Bicarbonate 384 mg Intravenous Given by Leon Moore RN Muniz pump PM Recorded ECG: HR=77 Condition=Condition 1 01: PM Time: 13: Versed 1 mg Intravenous Given by Leon Moore RN 01:29 PM Time: 13:29 Fentanyl 50 mcg Intravenous Given by Leon Moore RN :29 PM HR=75 bpm, QQUN=977/92 mmhg, SpO2=97.0 %, Resp=17 B/min 01:33 PM Pressure channel 1 zeroed. 01:34 PM HR=73 bpm, ADNA=838/80 mmhg, SpO2=97.0 %, Resp=14 B/min 01:35 PM Time: 13:20 Patient comfortable and pain free: Yes :35 PM Time: 13:20LOC: 4 = Oriented but drowsy bw:36 PM Time out was performed according to hospital policy. Conscious sedation and anesthesia was achieved (see medication log with in this report above) :37 PM Time: 13:36 19 ml Lidocaine 2% to right groin Subcutaneous Given by Gem Giles MD, [facility] :37 PM Micro-Introducer Kit utilized for sheath placement :39 PM hand injected femoral angiogram 5cc contrast :39 PM HR=73 bpm, VWQS=707/84 mmhg, SpO2=97.0 %, Resp=16 B/min 01:40 PM Access obtained by percutaneous puncture. 6Fr 10cm Terumo [place] sheath placed in right Femoral artery. [id number] :40 PM 0.035 145cm Navilyst 3mmJ wire [id number] :40 PM 5Fr FR 4 catheter inserted over the wire [facility] :41 PM Recorded Pressure: LV, HR=86, Condition=Condition 1 (Left Ventricle) LV 105/11/35 01:41 PM Recorded Pressure: LV, Ao, HR=75, Condition=Condition 1 (Left Ventricle) LV 115/12/12, (Aorta) Ao 131/35/82 01:41 PM Catheter crossed the aortic valve and was selectively placed in the left ventricle. Pressures recorded on pullback for left heart catheterization. :41 PM RCA angiography performed in multiple views. :41 PM Recorded Pressure: Ao, HR=74, Condition=Condition 1 (Aorta) Ao 135/78/102 01:42 PM Coronary Dominance: right [email or web address] 01:43 PM Catheter removed [email or web address] 01:43 PM Lesion found in Proximal RCA. Pre Stenosis: 50 Pre BARRON Flow: [email or web address] 01:43 PM Lesion found in Mid RCA. Pre Stenosis: 50 Pre BARRON Flow: [email or web address] 01:44 PM Lesion found in Distal RCA. Pre Stenosis: 60 Pre BARRON Flow: [email or web address] 01:44 PM Right Coronary, Right Posterior Descending Arteries with Right Posterolateral and Acute Marginal branches with 60 % stenosis. If graft is supplying this area, 0 % stenosis [email or web address] 01:44 PM LCA angiography performed in multiple views. [email or web address] 01:44 PM HR=73 bpm, WHQG=193/90 mmhg, SpO2=96.0 %, Resp=14 B/min 01:45 PM Recorded Pressure: Ao, HR=74, Condition=Condition 1 (Aorta) Ao 121/76/97 01:47 PM Catheter removed [email or web address] 01:47 PM Physician reviewing films [email or web address] 01:49 PM Lesion found in Mid LAD. Pre Stenosis: 65 Pre BARRON Flow: 2 01:49 PM Mid/Distal Left Anterior Descending Coronary Artery and diagonal branches with 65% stenosis. If graft is supplying this area, 0 % stenosis [email or web address] 01:49 PM HR=76 bpm, FXBH=008/88 mmhg, SpO2=97.0 %, Resp=15 B/min 01:50 PM Time: 13:35 Patient comfortable and pain free: Yes 2 01:50 PM Time: 13:35LOC: 4 = Oriented but drowsy [email or web address] 01:50 PM [ Start FFR sample: Equalized ] 01:51 PM Time: 13:51 Heparin 5000 units Intravenous Given by Leon Moore RN 2 01:51 PM Inflation device was opened. [email or web address] 01:52 PM 6Fr XB LAD 3.5 [place] Bright-Tip guide catheter was used to cannulate the PCI vessel successfully. reused? No [email or web address] 01:53 PM Pressure channel 1 zeroed. 01:53 PM Pressure channel 4 zeroed. 01:54 PM .014 [employer] [place] 190cm guide wire across target lesion- successful. reused? No [email or web address] 01:55 PM HR=76 bpm, TANU=095/91 mmhg, SpO2=96.0 %, Resp=16 B/min 01:58 PM Pressure channel 1 zeroed. 01:58 PM Pressure channel 4 zero failed. 01:59 PM Pressure channel 1 zeroed. 01:59 PM Pressure channel 4 zeroed. 01:59 PM Asist FFR Catheter advanced to target lesion. [email or web address] 01:59 PM HR=75 bpm, QZLR=559/92 mmhg, SpO2=96.0 %, Resp=15 B/min 02:01 PM Pressure channel 3 equalization failed. 02:01 PM Pressure channel 3 equalization failed. 02:01 PM Pressure channel 3 equalization failed. 02:02 PM Pressure channel 3 equalization failed. 02:02 PM Pressure channel 3 equalization failed. 02:03 PM Pressure channel 3 equalization failed. 02:03 PM Pressure channel 4 equalized to channel 1. 02:04 PM Time: 14:04 90mg Adenosine in 90 ml 0.9 NS 999 mcg Intravenous Given by Leon Moore RN Muniz pump [email or web address] 02:04 PM HR=72 bpm, XTEI=258/90 mmhg, SpO2=96.0 %, Resp=15 B/min 02:05 PM Time: 13:50 Patient comfortable and pain free: Yes [email or web address] 02:05 PM Time: 13:50LOC: 4 = Oriented but drowsy [email or web address] 02:06 PM adenosine off [email or web address] 02:08 PM Time: 14:08 90mg Adenosine in 90 ml 0.9 NS 999 mcg Intravenous Given by Leon Moore RN Muniz pump [email or web address] 02:09 PM HR=85 bpm, OMHF=669/72 mmhg, SpO2=98.0 %, Resp=22 B/min 02:09 PM FFR Measurement: 0.82 bw2 02:10 PM adenosine off [email or web address] 02:15 PM Time: 14:15 90mg Adenosine in 90 ml 0.9 NS 535 mcg Intravenous Given by Leon Moore RN Muniz pump [email or web address] 02:15 PM HR=76 bpm, FISS=681/88 mmhg, SpO2=94.0 %, Resp=10 B/min 02:17 PM adenosine off [email or web address] 02:17 PM Flow Wire/Catheter removed intact [email or web address] 02:19 PM Guide catheter removed intact. [email or web address] 02:20 PM HR=76 bpm, FNDZ=366/86 mmhg, SpO2=95.0 %, Resp=15 B/min 02:20 PM Time: 14:05LOC: 5 = Fully awake and oriented or at pre-proc level [email or web address] 02:20 PM Time: 14:05 Patient comfortable and pain free: Yes [email or web address] 02:20 PM Arterial sheath pulled, Angio-seal closure device used and was Successful [id number] S/N. [email or web address] 02:21 PM Procedure completed at 14:21 03/19/2019 [email or web address] 02:21 PM Sign out completed: Radiation Dose 506.40 mGy, 52.6 Gy/cm2 Fluoro Time: 7.4 Isovue 370 - 200ml contrast 75 ml given by Gem Giles MD, [facility]. Complications: None. The patient was discharged out of the director of laboratory operations in stable condition. Sedation minutes 50. Cardiac Rehab Consult needed: No. Confirmed administered medications: Yes [email or web address] 02:21 PM Isovue 370 - 200ml,1 Bottle(s) used. [email or web address] 02:21 PM Estimated Blood Loss: less than 20cc [email or web address] 02:21 PM Post ECG NSR [email or web address] 02:22 PM Post Blood Pressure 159/86 [email or web address] 02:23 PM Information taught Cardiac Cath and IVUS/Flowire [email or web address] 02:23 PM Education needs Procedure, Plan of Care, and Disease Process [email or web address] 02:23 PM Learning barriers :Sedated [email or web address] 02:23 PM Education Methods Verbal [email or web address] 02:23 PM Education evaluation Needs further instruction [email or web address] 02:23 PM Delay to floor No [email or web address] 02:23 PM Family placed in consult room. [email or web address] 02:23 PM Complications: None [email or web address] 02:25 PM HR=74 bpm, NXCM=330/94 mmhg, SpO2=95.0 %, Resp=21 B/min 02:26 PM Report given to josh ESQUIVEL Pt taken to Room #64. 14:26 [email or web address] 02:28 PM Site status No bleeding/hematoma - Rt Groin as reported by Gem Chen RT (R) at 14:28 [email or web address] 02:28 PM Opsite applied [email or web address] 02:28 PM Vitals capture stopped. 02:33 PM Patient out of room: 14:33 [email or web address] 02:34 PM 14:34 Post Pulses Bilateral DP & PT 1+ [email or web address] Complications Complication None None Hemodynamics Pressures Site Systolic/A Wave Diastolic/V Wave Mean LV 105 11 35 LV 115 12 12 AO 131 35 82 AO 135 78 102 AO 121 76 97 Post Procedure Information Blood Pressure: 159/86 mmHg Rhythm: NSR Post procedural instructions were given Closure Device Time Device Success/Fail 03/19/2019 2:20:00 PM Angio-Seal VIP Successful Site Checks Time Location Status Staff Sheath In? Note 02:28 PM Rt Groin No bleeding/hematoma Gem Chen RT (R) Pulses Time Site Pre-Procedure Post-Procedure Note 03/19/2019 1:19:00 PM Bilateral radial 2+ 03/19/2019 1:19:00 PM Bilateral DP & PT 1+ 2:34:00 PM Bilateral DP & PT 1+ Updated by Luis Hernandes RT (R) on 03/19/2019 2:34:21 PM Luis Hernandes RT electronically signed on 03/19/2019 2:34:59 PM with status of Final
--- NOTE | 2019-03-19 15:10 | Nephrology Progress Note ---
Date of Encounter: 03/19/19 Time of Encounter: 15:09 - Assessment and Plan (1) Acute kidney injury superimposed on CKD Current Visit: Yes Status: Acute Patient with elevation of his creatinine. Looking at his EGFR and appears at his baseline is around 30. He has some fluctuation of his baseline GFR. While it is possible he has mild acute kidney injury superimposed on his chronic kidney disease. This may also be normal fluctuation for him. Nonetheless, since he will be going for cardiac catheterization I agree with optimization of his renal function. I agree with gentle fluids prior to cardiac catheterization. I will order acetylcysteine twice a day for a total of 8 doses. I recommend avoiding any nephrotoxins that are not clinically necessary. I recommend adjusting his medications for renal function. He has no acute need for a renal biopsy or for hemodialysis. I counseled him as well as his family regarding the risks of contrast induced nephropathy. They expressed understanding and are still agreeable with a cardiac catheterization. I did explain to them that there is a risk of needing dialysis, but they expressed a desire to tolerate that risk for the benefit of evaluating his coronary arteries. Thank you for the consult we will continue to follow with you. 03/19/19 Renal function stable. Will sign off. Call if questions or worsening renal function. Patient should follow-up in clinic in 2-3 months or as scheduled. (2) Chest pain Current Visit: Yes Status: Acute Qualifiers: Chest pain type: unspecified Qualified Code(s): R07.9 - Chest pain, unspecified (3) Hypertension Current Visit: No Status: Chronic Qualifiers: Hypertension type: essential hypertension Qualified Code(s): I10 - Essential (primary) hypertension (4) Type 2 diabetes mellitus Current Visit: No Status: Chronic Qualifiers: Diabetes mellitus ocean transportation intermediary insulin use: without ocean transportation intermediary use Diabetes mellitus complication detail: with other circulatory complications Qualified Code(s): E11.59 - Type 2 diabetes mellitus with other circulatory complications Subjective Principal diagnosis: chest pain Interval history: Patient seen. He just came back from cardiac cath. He has no complaint. His family was in the room. Objective - Vital Signs Vital signs: Vital Signs Temp Pulse Resp BP Pulse Ox 03/19/19 10:42 98.1 F 75 18 113/62 97 03/19/19 07:29 98.4 F 78 16 166/88 98 03/19/19 05:06 97.5 F L 81 14 179/94 97 03/18/19 23:52 98.1 F 83 16 170/70 96 03/18/19 19:56 98.2 F 78 16 131/65 95 03/18/19 15:16 98 F 74 18 113/62 96 Intake and Output 03/18/19 03/19/19 03/19/19 23:59 07:59 15:59 Intake Total 480 / 480 1000 / 1000 Balance 480 / 480 1000 / 1000 Intake: IV Fluids 1000 / 1000 0.9 % Sodium Chloride 1,000 ML 1000 / 1000 @ 75 mls/hr IVC .[id number] BRENDAN Rx #:[id number] Oral 480 / 480 Other: Meal Dinner Percent of Meal Consumed 100% # Voids 1 Weight 127.5 kg Blood Glucose* 214 169 Patient Weight 03/19/19 23:59 Weight 127.5 kg - General Appearance General appearance: Present: well-developed, well-nourished, obese EENT: Present: ATNC Neck: Present: supple Cardiology: Present: regular rate Gastrointestinal: Present: obese Neurologic: Present: alert and oriented x3 Psychiatric: Present: mood/affect appropriate - Lab 03/19/19 04:02 03/19/19 04:02 Most recent lab results 03/19/19 04:02 Calcium 8.6 Phosphorus 2.8 Consult Discharge Plan - Plan Referrals: Cj Oswald MD [Primary Care Provider] - 03/24/19 1:00 pm ( )
--- NOTE | 2019-03-19 15:52 | Event Note ---
Date of Encounter: 03/19/19 Time of Encounter: 15:51 - Cardiology Event Note Discussed with , [facility] with moderate, non-obstructive CAD. Will add ranexa for chest pain. If renal function stable tomorrow, would resume metalazone and bumex. Cardiology will sign off, will arrange outpatient follow up.
--- NOTE | 2019-03-19 18:50 | Internal Med Progress Note ---
Hospitalist Progress Note - Encounter Date of Encounter: 03/19/19 Time of Encounter: 10:00 - Subjective Interval History: Patient was seen and examined at bedside he is to undergo cardiac catheterization today. Currently receiving bicarbonate and IV fluids in preparation due to [place] I. - Exam Vitals: Temp Pulse Resp BP Pulse Ox 98.1 F 73 18 169/84 98 03/19/19 10:42 03/19/19 17:15 03/19/19 17:15 03/19/19 17:15 03/19/19 17:15 Exam: PHYSICAL EXAMINATION: GENERAL APPEARANCE: The patient is alert, oriented and in no acute distress. HEENT: Head is normocephalic. The sinuses are nontender. Pupils are equal and reactive. The nares are patent. Oropharynx clear without lesions. NECK: Supple without lymphadenopathy. HEART: Regular rate and rhythm. LUNGS: No crackles or wheezes are heard. ABDOMEN: Soft, nontender, nondistended with good bowel sounds heard. Inguinal area is normal. EXTREMITIES: Without cyanosis, clubbing or edema. NEUROLOGICAL: Gross nonfocal. SKIN: Warm and dry without any rash. - Assessment and Plan (1) Chest pain Current Visit: Yes Status: Acute Assessment and Plan: 64-year-old male with history of CAD status post multiple stents placement, currently on DAPT, presented with atypical chest pain. Troponin was negative 2, EKG has no acute ST-T change. Patient had a recent stress test which was negative. However, patient insisted that her symptoms his symptoms are similar to those when he had a DC and the knee just stents placement. Limited echo was ordered, will continue cycle troponin, telemetry monitoring, EKG as needed. Cardiology consulted, [facility] in the morning. 03/18 Currently patient is not experiencing any chest pain he was evaluated by cardiology recommending left heart catheter however patient has elevation in creatinine. Left heart catheter is canceled until tomorrow Initiated on IV flu ids. Hold Lasix at this time. Consult nephrology 03/19 Patient undergoing left heart catheter today continue with IV fluids hold Lasix Nephrology following and appreciate recommendations Cardiology consulted (2) CAD (coronary artery disease) Current Visit: No Status: Chronic Assessment and Plan: Continue home medication including DAPT. (3) Diabetes Current Visit: No Status: Chronic Assessment and Plan: Hold oral agents, started patient on insulin sliding scale. (4) Chronic kidney disease Current Visit: No Status: Chronic Assessment and Plan: Nephrology consulted and pending left heart catheter continue with bicarbonate and IV fluids (5) Hypertension Current Visit: No Status: Chronic Assessment and Plan: BP controlled, continue home medications. (6) Diastolic heart failure Current Visit: No Status: Chronic Assessment and Plan: Euvolemic on physical exam, hold diuretics temporarily for upcoming LHC. (7) DVT prophylaxis Current Visit: Yes Status: Acute Assessment and Plan: Heparin subcutaneous. (8) Hypokalemia Current Visit: Yes Status: Acute Assessment and Plan: Replaced, repeat BMP in the morning. (9) Acute kidney injury superimposed on CKD Current Visit: Yes Status: Acute Assessment and Plan: Patient had elevation creatinine-anticipated LHC today. Hold Lasix Consult nephrology in order to optimize kidney function prior to LHC Avoid nephrotoxins Recheck lab work in a.m. - Time Spent with Patient Total time spent is greater than 50% in coordination of care (as documented) at patient's floor/unit and/or counseling patient: Internal Medicine: Result - Labs CBC & Chem 7: 03/19/19 04:02 03/19/19 04:02 Labs: Short CBC 03/19/19 Range/Units 04:02 WBC 9.1 (4.3-11.1) K/mcL Hgb 10.6 L (12.9-16.9) g/dL Hct 31.1 L (37.5-50.1) % Plt Count 251 (140-400) K/mcL Neutrophils # 6.4 (1.6-8.9) K/mcL BMP 03/19/19 04:02 Sodium 136 Potassium 3.8 Chloride 103 Carbon Dioxide 23 BUN 42 H Creatinine 1.95 H Glucose 158 H Calcium 8.6 Liver Function 03/19/19 Range/Units 04:02 Albumin 3.2 L (3.5-5.7) g/dL - ABG Interpretation ABG results: PT/INR, D-dimer PT 11.4 Seconds (9.4-12.1) 03/17/19 04:18 Consult Discharge Plan - Plan Referrals: Cj Oswald MD [Primary Care Provider] - 03/24/19 1:00 pm ( ) (1) Chest pain Qualifiers: Chest pain type: other chest pain Qualified Code(s): R07.89 - Other chest pain; R07.8 - Other chest pain (2) CAD (coronary artery disease) Qualifiers: Coronary Disease-Associated Artery/Lesion type: [place] artery [place] vs. transplanted heart: [place] heart Associated angina: with other forms of angina Qualified Code(s): I25.118 - Atherosclerotic heart disease of [place] coronary artery with other forms of angina pectoris (3) Diabetes Qualifiers: Diabetes mellitus type: type 2 Diabetes mellitus assembler golf wood head insulin use: without assembler golf wood head use Diabetes mellitus complication status: with neurologic complications Diabetes mellitus complication detail: with polyneuropathy Qualified Code(s): E11.42 - Type 2 diabetes mellitus with diabetic polyneuropathy (4) Chronic kidney disease Qualifiers: Chronic kidney disease stage: stage 3 (moderate) Qualified Code(s): N18.3 - Chronic kidney disease, stage 3 (moderate) (5) Hypertension Qualifiers: Hypertension type: essential hypertension Qualified Code(s): I10 - Essential (primary) hypertension (6) Diastolic heart failure Qualifiers: Heart failure chronicity: acute on chronic Qualified Code(s): I50.33 - Acute on chronic diastolic (congestive) heart failure
[2019-03-19] MEDS: MOM Conc 10 ML UD.LIQ PO SCH (20:22)
[2019-03-19] MEDS: Ranolazine 500 MG TAB.ER.12H PO SCH (20:22)
[2019-03-20] MEDS: 0.9 % Sodium Chloride 1,000 ML IVC SCH (05:05)
[2019-03-20] MEDS: *HR* Heparin 5,000 UNIT/ML VIAL SQ SCH (05:05)
[2019-03-20 05:57] LABS: Calcium 8.4 mg/dL (8.6-10.3)
[2019-03-20] MEDS: Insulin LISPRO 300 UNITS/3 ML VIAL SQ SCH ×2 (07:44→11:48)
[2019-03-20] MEDS: Cholecalciferol (D-3) 1,000 UNIT TABLET PO SCH (07:45)
[2019-03-20] MEDS: Cyanocobalamin (B-12) 1,000 MCG TABLET PO SCH (07:45)
[2019-03-20] MEDS: amLODIPine 5 MG TABLET PO SCH (07:45)
[2019-03-20] MEDS: Isosorbide MONOnitrate (24 HR) 30 MG TAB.ER.24H PO SCH (07:45)
[2019-03-20] MEDS: Lisinopril 20 MG TABLET PO SCH (07:45)
[2019-03-20] MEDS: Aspirin 81 MG TAB.CHEW PO SCH (07:45)
[2019-03-20] MEDS: Ranolazine 500 MG TAB.ER.12H PO SCH (07:45)
[2019-03-20] MEDS: *HR* Acetylcysteine 20% 600 MG/3 ML ORAL SYRINGE PO SCH (07:50)
--- NOTE | 2019-03-20 09:47 | Invasive Diagnostic Lab Proc ---
Name: Rc Griffin Date of Study: 03/19/2019 Date: 1955 Ht: 70.1in Medical Record#: [id number] Age: 64 Wt: 281.09lb Gender: Male BSA: 2.41 Order #: [id number] BMI: 40.24 Physicians Procedure Physician: Mai Howard MD Referring MD: Referring MD: Staff Name Position Time In Luis Hernandes RT (R) Monitor 01:21 PM Elvia Hernandes RT (R) Scrub 01:21 PM Leon Moore RN Cartoon Animator 01:21 PM Gem Chen RT (R) Scrub 01:21 PM Indications Indication Unstable Angina Procedures Performed Procedure L HRT ARTERY/VENTRICLE ANGIO IV Doppler BLD Flow 1st Vessel Pre-Procedure Checklist Informed consent is complete signed and on chart. H&P is on chart. ID band is on and ID verified with patient. Patient NPO for procedure The procedure was described for the patient and questions were answered. Blood Pressure: 166/88 ECG is on chart. Rhythm: NSR Plan of Care Patient will tolerate the procedure without complications. Adequate level of comfort will be maintained. Hemodynamics will remain stable Patient will recover from procedure without complications. Respiratory function will be maintained. Cardiac rhythm will remain stable. Patient temperature will be maintained. Patient and/or family have verbalized understanding of the procedure. Patient Education Chief Complaint/Reason for Test: Cardiac Cath Developmental Category: Adult (18-64 years) Developmentally Appropriate for Age: Yes Learning Barriers: None Education Needs: Procedure Education Method: Verbal Information Taught: Cardiac Cath Educational Evaluation: Able to repeat information Intravenous Access Time IV Size Location DC'd Fluid/Drip Rate Units RN 01:18 PM Started with 20g 1 1/4" Rt Antecubital 0.9NaCl 25 ml/hr Leon Moore RN Allergies duloxetine Vital Signs Time BP (mmHg) HR (bpm) O2 Sat. RR (bpm) LOC 01:20 PM / % 5 = Fully awake and oriented or at pre-proc level 01:20 PM / % 4 = Oriented but drowsy 01:35 PM / % 4 = Oriented but drowsy 01:50 PM / % 4 = Oriented but drowsy 02:05 PM / % 5 = Fully awake and oriented or at pre-proc level 01:25 PM 166 / 95 77 98 % 20 01:29 PM 161 / 92 75 97 % 17 01:34 PM 148 / 80 73 97 % 14 01:39 PM 149 / 84 73 97 % 16 01:44 PM 163 / 90 73 96 % 14 01:49 PM 161 / 88 76 97 % 15 01:55 PM 158 / 91 76 96 % 16 01:59 PM 166 / 92 75 96 % 15 02:04 PM 159 / 90 72 96 % 15 02:09 PM 125 / 72 85 98 % 22 02:15 PM 165 / 88 76 94 % 10 02:20 PM 159 / 86 76 95 % 15 02:25 PM 170 / 94 74 95 % 21 Procedural Medications Time Medication Dose Units Method Given By 01:24 PM Oxygen 2 L/min nasal cannula Leon Moore RN 01:25 PM Sodium Bicarbonate 384 mg Intravenous eLon Moore RN 01:29 PM Versed 1 mg Intravenous Leon Moore RN 01:29 PM Fentanyl 50 mcg Intravenous Leon Moore RN 01:36 PM Lidocaine 2% 19 ml Subcutaneous Mai Howard MD 01:51 PM Heparin 5000 units Intravenous Leon Mooer RN 02:04 PM 90mg Adenosine in 90 ml 0.9 NS 999 mcg Intravenous Leon Moore RN 02:08 PM 90mg Adenosine in 90 ml 0.9 NS 999 mcg Intravenous Leon Moore RN 02:15 PM 90mg Adenosine in 90 ml 0.9 NS 535 mcg Intravenous Leon Moore RN ASA Classification: CLASS II- Mild systemic disease (i.e. well-controlled diabetes, hypertension, asthma, cigarette smoking) Sherif Score Preprocedure Postprocedure Activity 2- Moves 4 extremities sustained head lift Activity 2- Moves 4 extremities sustained head lift Circulation 2- SBP +/= 20 points of pre-anesthetic level Circulation 2- SBP +/= 20 points of pre-anesthetic level Consciousness 2- Awake and alert oriented x 3 Consciousness 2- Awake and alert oriented x 3 O2 Saturation 2- Able to maintain O2 satruation of 92% on room air O2 Saturation 2- Able to maintain O2 satruation of 92% on room air Respiratory 2- Able to deep breathe and cough well Respiratory 2- Able to deep breathe and cough well Total Score 10 Total Score 10 Contrast Agent: Isovue Diagnostic Contrast: 75 ml Total Contrast: 75 ml Fluoro Dose: 53 mGy Procedure Log Time Note Enter By 01:18 PM CathStat 01:19 PM Pt arrived to micro lab analyst 2 at 13:19 [email or web address] 01:19 PM Patient charges- Angio tray pack, Navilyst 3mm J, Pulse Oximetry and ACIST tubing and transducer PM Case Delayed No Physician arrived : PM ASA Class CLASS II- Mild systemic disease (i.e. well-controlled diabetes, hypertension, asthma, cigarette smoking) Meet and greet completed Sign in performed according to hospital policy. Informed consent was obtained. Procedure start PM Time: : Patient comfortable and pain free: Yes Time: :LOC: 5 = Fully awake and oriented or at pre-proc level PM Clinical Presentation: Unstable angina PM Luis Hernandes RT (R) Position: Monitor Time in: PM Elvia Hernandes RT (R) Position: Scrub Time in: PM Leon Moore RN Position: Cartoon Animator Time in: PM Gem Chen RT (R) Position: Scrub Time in: PM Vitals capture started with the following parameters, Patient=Adult, Interval=5 min, Initial Gygogyeq=658 mmHg, Deflation Rate=3 mmHg, Cuff placed on Right Arm : PM Hair removed from procedure site in procedure lab using clippers. Bilateral groin prepped with Chloraprep by Elvia Hernandes RT (R), then patient was draped. Skin intact. PM Time: 13:24 Oxygen on at 2 L/min per nasal cannula by Leon Moore RN PM HR=77 bpm, QPEM=576/95 mmhg, SpO2=98.0 %, Resp=20 B/min : PM Time: 13:25 Sodium Bicarbonate 384 mg Intravenous Given by Leon Moore RN Muniz pump PM Recorded ECG: HR=77 Condition=Condition 1 : PM Time: 13: Versed 1 mg Intravenous Given by Leon Moore RN [email or web address] 01:29 PM Time: 13:29 Fentanyl 50 mcg Intravenous Given by Leon Moore RN :29 PM HR=75 bpm, KZWR=561/92 mmhg, SpO2=97.0 %, Resp=17 B/min 01:33 PM Pressure channel 1 zeroed. 01:34 PM HR=73 bpm, NRQS=509/80 mmhg, SpO2=97.0 %, Resp=14 B/min 01:35 PM Time: 13:20 Patient comfortable and pain free: Yes bw:35 PM Time: 13:20LOC: 4 = Oriented but drowsy bw:36 PM Time out was performed according to hospital policy. Conscious sedation and anesthesia was achieved (see medication log with in this report above) :37 PM Time: 13:36 19 ml Lidocaine 2% to right groin Subcutaneous Given by Mai Howard MD :37 PM Micro-Introducer Kit utilized for sheath placement bw:39 PM hand injected femoral angiogram 5cc contrast bw:39 PM HR=73 bpm, OBEE=452/84 mmhg, SpO2=97.0 %, Resp=16 B/min 01:40 PM Access obtained by percutaneous puncture. 6Fr 10cm Terum[place] sheath placed in right Femoral artery. [id number] bw 01:40 PM 0.035 145cm Navilyst 3mmJ wire [id number] bw 01:40 PM 5Fr FR 4 catheter inserted over the wire [facility] :41 PM Recorded Pressure: LV, HR=86, Condition=Condition 1 (Left Ventricle) LV 105/11/35 01:41 PM Recorded Pressure: LV, Ao, HR=75, Condition=Condition 1 (Left Ventricle) LV 115/12/12, (Aorta) Ao 131/35/82 01:41 PM Catheter crossed the aortic valve and was selectively placed in the left ventricle. Pressures recorded on pullback for left heart catheterization. :41 PM RCA angiography performed in multiple views. bw 01:41 PM Recorded Pressure: Ao, HR=74, Condition=Condition 1 (Aorta) Ao 135/78/102 01:42 PM Coronary Dominance: right [email or web address] 01:43 PM Catheter removed [email or web address] 01:43 PM Lesion found in Proximal RCA. Pre Stenosis: 50 Pre BARRON Flow: [email or web address] 01:43 PM Lesion found in Mid RCA. Pre Stenosis: 50 Pre BARRON Flow: [email or web address] 01:44 PM Lesion found in Distal RCA. Pre Stenosis: 60 Pre BARRON Flow: [email or web address] 01:44 PM Right Coronary, Right Posterior Descending Arteries with Right Posterolateral and Acute Marginal branches with 60 % stenosis. If graft is supplying this area, 0 % stenosis [email or web address] 01:44 PM LCA angiography performed in multiple views. [email or web address] 01:44 PM HR=73 bpm, MBRL=093/90 mmhg, SpO2=96.0 %, Resp=14 B/min 01:45 PM Recorded Pressure: Ao, HR=74, Condition=Condition 1 (Aorta) Ao 121/76/97 01:47 PM Catheter removed [email or web address] 01:47 PM Physician reviewing films [email or web address] 01:49 PM Lesion found in Mid LAD. Pre Stenosis: 65 Pre BARRON Flow: 2 01:49 PM Mid/Distal Left Anterior Descending Coronary Artery and diagonal branches with 65% stenosis. If graft is supplying this area, 0 % stenosis [email or web address] 01:49 PM HR=76 bpm, JZUG=429/88 mmhg, SpO2=97.0 %, Resp=15 B/min 01:50 PM Time: 13:35 Patient comfortable and pain free: Yes 2 01:50 PM Time: 13:35LOC: 4 = Oriented but drowsy [email or web address] 01:50 PM [ Start FFR sample: Equalized ] 01:51 PM Time: 13:51 Heparin 5000 units Intravenous Given by Leon Moore RN 2 01:51 PM Inflation device was opened. [email or web address] 01:52 PM 6Fr XB LAD 3.5 [place] Bright-Tip guide catheter was used to cannulate the PCI vessel successfully. reused? No [email or web address] 01:53 PM Pressure channel 1 zeroed. 01:53 PM Pressure channel 4 zeroed. 01:54 PM .014 [employer] [place] 190cm guide wire across target lesion- successful. reused? No [email or web address] 01:55 PM HR=76 bpm, MXWI=882/91 mmhg, SpO2=96.0 %, Resp=16 B/min 01:58 PM Pressure channel 1 zeroed. 01:58 PM Pressure channel 4 zero failed. 01:59 PM Pressure channel 1 zeroed. 01:59 PM Pressure channel 4 zeroed. 01:59 PM Asist FFR Catheter advanced to target lesion. [email or web address] 01:59 PM HR=75 bpm, GNLA=439/92 mmhg, SpO2=96.0 %, Resp=15 B/min 02:01 PM Pressure channel 3 equalization failed. 02:01 PM Pressure channel 3 equalization failed. 02:01 PM Pressure channel 3 equalization failed. 02:02 PM Pressure channel 3 equalization failed. 02:02 PM Pressure channel 3 equalization failed. 02:03 PM Pressure channel 3 equalization failed. 02:03 PM Pressure channel 4 equalized to channel 1. 02:04 PM Time: 14:04 90mg Adenosine in 90 ml 0.9 NS 999 mcg Intravenous Given by Leon Moore RN Muniz pump [email or web address] 02:04 PM HR=72 bpm, KFPC=696/90 mmhg, SpO2=96.0 %, Resp=15 B/min 02:05 PM Time: 13:50 Patient comfortable and pain free: Yes [email or web address] 02:05 PM Time: 13:50LOC: 4 = Oriented but drowsy [email or web address] 02:06 PM adenosine off [email or web address] 02:08 PM Time: 14:08 90mg Adenosine in 90 ml 0.9 NS 999 mcg Intravenous Given by Leon Moore RN Muniz pump [email or web address] 02:09 PM HR=85 bpm, IGKT=975/72 mmhg, SpO2=98.0 %, Resp=22 B/min 02:09 PM FFR Measurement: 0.82 bw2 02:10 PM adenosine off [email or web address] 02:15 PM Time: 14:15 90mg Adenosine in 90 ml 0.9 NS 535 mcg Intravenous Given by Leon Moore RN Muniz pump [email or web address] 02:15 PM HR=76 bpm, ELAT=819/88 mmhg, SpO2=94.0 %, Resp=10 B/min 02:17 PM adenosine off [email or web address] 02:17 PM Flow Wire/Catheter removed intact [email or web address] 02:19 PM Guide catheter removed intact. [email or web address] 02:20 PM HR=76 bpm, LXOI=981/86 mmhg, SpO2=95.0 %, Resp=15 B/min 02:20 PM Time: 14:05LOC: 5 = Fully awake and oriented or at pre-proc level [email or web address] 02:20 PM Time: 14:05 Patient comfortable and pain free: Yes [email or web address] 02:20 PM Arterial sheath pulled, Angio-seal closure device used and was Successful [id number] S/N. [email or web address] 02:21 PM Procedure completed at 14:21 03/19/2019 [email or web address] 02:21 PM Sign out completed: Radiation Dose 506.40 mGy, 52.6 Gy/cm2 Fluoro Time: 7.4 Isovue 370 - 200ml contrast 75 ml given by Gem Giles MD, [facility]. Complications: None. The patient was discharged out of the label tacker in stable condition. Sedation minutes 50. Cardiac Rehab Consult needed: No. Confirmed administered medications: Yes [email or web address] 02:21 PM Isovue 370 - 200ml,1 Bottle(s) used. [email or web address] 02:21 PM Estimated Blood Loss: less than 20cc [email or web address] 02:21 PM Post ECG NSR [email or web address] 02:22 PM Post Blood Pressure 159/86 [email or web address] 02:23 PM Information taught Cardiac Cath and IVUS/Flowire [email or web address] 02:23 PM Education needs Procedure, Plan of Care, and Disease Process [email or web address] 02:23 PM Learning barriers :Sedated [email or web address] 02:23 PM Education Methods Verbal [email or web address] 02:23 PM Education evaluation Needs further instruction [email or web address] 02:23 PM Delay to floor No [email or web address] 02:23 PM Family placed in consult room. [email or web address] 02:23 PM Complications: None [email or web address] 02:25 PM HR=74 bpm, GDNM=339/94 mmhg, SpO2=95.0 %, Resp=21 B/min 02:26 PM Report given to josh ESQUIVEL Pt taken to Room #64. 14:26 [email or web address] 02:28 PM Site status No bleeding/hematoma - Rt Groin as reported by Gem Chen RT (R) at 14:28 [email or web address] 02:28 PM Opsite applied [email or web address] 02:28 PM Vitals capture stopped. 02:33 PM Patient out of room: 14:33 [email or web address] 02:34 PM 14:34 Post Pulses Bilateral DP & PT 1+ [email or web address] Complications Complication None None Hemodynamics Pressures Site Systolic/A Wave Diastolic/V Wave Mean LV 105 11 35 LV 115 12 12 AO 131 35 82 AO 135 78 102 AO 121 76 97 Post Procedure Information Blood Pressure: 159/86 mmHg Rhythm: NSR Post procedural instructions were given Closure Device Time Device Success/Fail 03/19/2019 2:20:00 PM Angio-Seal VIP Successful Site Checks Time Location Status Staff Sheath In? Note 02:28 PM Rt Groin No bleeding/hematoma Gem Chen RT (R) Pulses Time Site Pre-Procedure Post-Procedure Note 03/19/2019 1:19:00 PM Bilateral radial 2+ 03/19/2019 1:19:00 PM Bilateral DP & PT 1+ 2:34:00 PM Bilateral DP & PT 1+ Updated by Luis Hernandes RT (R) on 03/20/2019 9:37:54 AM Luis Hernandes RT electronically signed on 03/20/2019 9:39:02 AM with status of Final
[2019-03-20 10:44] VITALS: BP 128/67
[2019-03-20 11:40] LABS: Eosinophils % 0.2 %; Hemoglobin 9.9 g/dL (12.9-16.9); Immature Granulocytes % 0.4 % (0-4); Lymphocytes % 11.5 %; Mean Corpuscular HGB Conc 34.1 g/dL (31.6-35.5); Mean Corpuscular Hemoglobin 28.4 pg (28.0-33.3); Mean Corpuscular Volume 83.1 fL (83.0-100.0); Mean Platelet Volume 10.4 fL (9.4-12.4); Monocytes % 9.6 %; Platelet Count 232 K/mcL (140-400); Red Blood Count 3.49 M/mcL (4.19-5.50); Red Cell Distribution Width 12.9 % (11.5-14.5); Segmented Neutrophils % 78.1 %; White Blood Count 9.4 K/mcL (4.3-11.1)
[2019-03-20 11:41] LABS: Basophils % 0.2 %; Lymphocytes # 1.1 K/mcL (0.6-4.6); Monocytes # 0.9 K/mcL (0.0-1.3); Neutrophils # 7.3 K/mcL (1.6-8.9)
[2019-03-20] MEDS: (Ubidecarenone [Co Q-10] 10 MG) PO SCH (11:52)
--- NOTE | 2019-03-20 13:52 | Discharge Summary ---
- NOTES TO OUTPATIENT PROVIDER Notes to Outpatient Provider: Patient presented with chest pain troponins were negative negative nuclear stress test 10/2018 cardiology consulted recommending left heart catheter renal function was optimized prior to heart catheter left heart catheter with moderate nonobstructive CAD-audiology adding Ranexa for chest pain we will need to follow-up with cardiology and nephrology and primary care. Monitor chemistry Orders not resulted at time of discharge: Pending orders 03/18/19 10:25 CL Cardiac Catheterization [CL] Routine Date of Encounter: 03/20/19 Time of Encounter: 13:47 - Discharge Diagnosis (1) Chest pain Priority: Primary Status: Acute Qualifiers: Chest pain type: other chest pain Qualified Code(s): R07.89 - Other chest pain; R07.8 - Other chest pain (2) CAD (coronary artery disease) Priority: Secondary Status: Chronic Qualifiers: Coronary Disease-Associated Artery/Lesion type: [place] artery [place] vs. transplanted heart: [place] heart Associated angina: with other forms of angina Qualified Code(s): I25.118 - Atherosclerotic heart disease of [place] coronary artery with other forms of angina pectoris (3) Diabetes Priority: Secondary Status: Chronic Qualifiers: Diabetes mellitus type: type 2 Diabetes mellitus tenant coordinator insulin use: without fci use Diabetes mellitus complication status: with neurologic complications Diabetes mellitus complication detail: with polyneuropathy Qualified Code(s): E11.42 - Type 2 diabetes mellitus with diabetic polyneuropathy (4) Chronic kidney disease Priority: Secondary Status: Chronic Qualifiers: Chronic kidney disease stage: stage 3 (moderate) Qualified Code(s): N18.3 - Chronic kidney disease, stage 3 (moderate) (5) Hypertension Priority: Secondary Status: Chronic Qualifiers: Hypertension type: essential hypertension Qualified Code(s): I10 - Essential (primary) hypertension (6) Diastolic heart failure Priority: Secondary Status: Chronic Qualifiers: Heart failure chronicity: acute on chronic Qualified Code(s): I50.33 - Acute on chronic diastolic (congestive) heart failure (7) Hypokalemia Priority: Secondary Status: Acute (8) Acute kidney injury superimposed on CKD Priority: Secondary Status: Acute Hospital course: Mr. Griffin is a 64 year old male past medical history of CAD hypertension hyperlipidemia diabetes CAD with stents 3 CKG stage III presented to [facility] after experiencing intermittent midsternal chest heaviness squeezing radiating to his left neck and shoulder for the past 3-4 days occurring at rest and with exertion. Also experiencing overall fatigue and dyspnea on exertion. Patient states that he has been compliant with medications troponins were negative 3 cardiac echo with EF 55 normal LV chamber size and function mild concentric left ventricular hypertrophy. Audiology was consulted and patient to undergo left heart catheter however patient's creatinine did elevate nephrology was consulted and ordered to optimize patient's renal function prior to cardiac catheter. Patient underwent LHC and was found to have moderate nonobstructive CAD patient was placed on Ranexa per cardiology. Patient's diuretics were held and he was given some IV fluids as well as sodium bicarbonate his creatinine is slowly trending back down to his baseline. Patient has been chest pain-free since cardiac catheter no bleeding from access site no hematoma. Advised patient follow-up with primary care provider as well cardiology and nephrology. Patient verbalizes understanding he was given prescription for Ranexa currently he is hemodynamically stable and ready for discharge. - Time Spent with Patient Total time spent providing and/or coordinating discharge services: - Discharge Medications Prescriptions: New Rosuvastatin [Crestor] 20 mg PO HS tablet Isosorbide MONOnitrate (24 HR) [Imdur] 90 mg PO DAILY tab.er.24h Ranolazine [Ranexa] 500 mg PO BID #60 tab.er.12h Lisinopril [Zestril] 40 mg PO DAILY tablet hydrALAZINE [HydrALAZINE] 10 mg IVP Q6HR PRN vial PRN Reason: Hypertension Continued Clopidogrel [Plavix] 75 mg PO DAILY Nitroglycerin 0.4 mg SL Q5MIN PRN PRN Reason: Chest Pain metOLazone [Zaroxolyn] 2.5 mg PO 3XW Carvedilol 12.5 mg PO HS amLODIPine [Norvasc] 5 mg PO HS Aspirin [Adult Aspirin Regimen] 81 mg PO HS Ferrous Sulfate [Iron] 325 mg PO QAM Glimepiride [Amaryl] 4 mg PO QAM Insulin Degludec [Tresiba Flextouch U-200] 38 unit SQ HS Linagliptin [Tradjenta] 5 mg PO HS Potassium Chloride [K-Tab ER] 20 meq PO HS Bumetanide [Bumex] 1 mg PO BID Bumetanide [Bumex] 1 mg PO QPM PRN PRN Reason: Edema No Action Gabapentin [Neurontin] 300 mg PO HS Lisinopril [Zestril] 40 mg PO QAM Home Medications: Clopidogrel [Plavix] 75 mg PO DAILY 04/11/17 [History] Nitroglycerin 0.4 mg SL Q5MIN PRN 04/13/17 [Rx] metOLazone [Zaroxolyn] 2.5 mg PO 3XW 11/19/17 [History] Carvedilol 12.5 mg PO HS 03/24/18 [History] Aspirin [Adult Aspirin Regimen] 81 mg PO HS 03/17/19 [History] Bumetanide [Bumex] 1 mg PO BID 03/17/19 [History] Bumetanide [Bumex] 1 mg PO QPM PRN 03/17/19 [History] Ferrous Sulfate [Iron] 325 mg PO QAM 03/17/19 [History] Gabapentin [Neurontin] 300 mg PO HS 03/17/19 [History] Glimepiride [Amaryl] 4 mg PO QAM 03/17/19 [History] Insulin Degludec [Tresiba Flextouch U-200] 38 unit SQ HS 03/17/19 [History] Linagliptin [Tradjenta] 5 mg PO HS 03/17/19 [History] Lisinopril [Zestril] 40 mg PO QAM 03/17/19 [History] Potassium Chloride [K-Tab ER] 20 meq PO HS 03/17/19 [History] amLODIPine [Norvasc] 5 mg PO HS 03/17/19 [History] Isosorbide MONOnitrate (24 HR) [Imdur] 90 mg PO DAILY tab.er.24h 03/20/19 [Rx] Lisinopril [Zestril] 40 mg PO DAILY tablet 03/20/19 [Rx] Ranolazine [Ranexa] 500 mg PO BID #60 tab.er.12h 03/20/19 [Rx] Rosuvastatin [Crestor] 20 mg PO HS tablet 03/20/19 [Rx] hydrALAZINE [HydrALAZINE] 10 mg IVP Q6HR PRN vial 03/20/19 [Rx] Allergies/Adverse Reactions: Allergy/AdvReac Type Severity Reaction Status Date / Time duloxetine [From Cymbalta] AdvReac Vomiting Verified 03/17/19 22:08 Date of admission: 03/17/19 00:03 Primary care physician: Cj Oswald MD Consults: 03/17/19 08:38 Consult to Cardiology [CONS] Routine Comment: Consulting Provider: Cardiology [facility] Reason for Consult: CP Call Completed: Yes 03/18/19 09:50 Consult to Nephrology [CONS] Routine Consulting Provider: [facility]/[facility]/ELISSA Reason for Consult: BRIDGET/CKD needs cath Time Notified: 09:51 Call Completed: Yes Discharging clinician: Marifer Hammond Anticipated date of discharge: 03/20/19 - Constitutional Vitals: Temp Pulse Resp BP Pulse Ox 98.9 F 75 19 128/67 95 03/20/19 10:40 03/20/19 10:40 03/20/19 10:40 03/20/19 10:40 03/20/19 10:40 Exam: Skin: Free of rash and discoloration. Eyes: Sclera is white. There is no discharge from eyes. ENMT: Oral/pharyngeal mucosa is normal in appearance. There is no discharge from nose or ears. Respiratory: Normal breath sounds with no crackles and wheezes bilaterally. CV: Heart is regular with no gallop or murmur. GI: Abdomen is flat and soft with no palpable mass or visceromegaly. : There is no tenderness in patient's flanks bilaterally. Neuro exam: He has good strength in upper and lower extremities. He has normal eye movements. Psychiatric: He has normal affect. His thought process is appropriate to the situation. - Patient Status Disposition: Home, Self-Care Condition: Fair Functional capacity at discharge: independent ambulation Overall status at discharge: patient is back to baseline - Discharge Instructions Instructions: Chest Pain (DC), Acute Kidney Injury (DC) Follow Up With: Cj Oswald MD [Primary Care Provider] - 03/24/19 1:00 pm ( ) - Diet and Activity Activity: increase activity as tolerated Diet: advance to your usual diet
== END 2019-03-20 15:11 | disposition home or self-care (01) ==
LOC: EMEROOARM 21:36 → 3BNU 21:36
PROVIDERS: ADMIT Family Medicine; ATTEND Family Medicine

== ENCOUNTER 2019-07-03 08:20 | Observation (INO) ==
[2019-07-03] MEDS: 0.9 % Sodium Chloride 1,000 ML IVC SCH ×2 (09:19→20:11)
[2019-07-03] MEDS ORDERED: *HR* Heparin 10,000 UNIT/10 ML VIAL ONE (09:33)
[2019-07-03] MEDS ORDERED: Nitroglycerin 1,000 MCG/10 ML VIAL IV ONE (09:33)
[2019-07-03] MEDS ORDERED: 0.9 % Sodium Chloride 1,000 ML ONE (09:33)
[2019-07-03] MEDS ORDERED: ISOVUE-370 200 ML INFUS..BTL ONE (09:33)
[2019-07-03] MEDS ORDERED: Heparin 1,000 UNITS/500 mL 500 ML ONE (09:33)
[2019-07-03] MEDS ORDERED: *HR* Midazolam HCl 2 MG/2 ML VIAL ONE (09:56)
[2019-07-03] MEDS ORDERED: *HR* FentaNYL (PF) 100 MCG/2 ML VIAL ONE (09:56)
[2019-07-03] MEDS ORDERED: Tirofiban 12.5 MG/250ML 12.5 MG/250 ML BAG ONE (10:30)
[2019-07-03] MEDS: Tirofiban 12.5 MG/250ML 12.5 MG/250 ML BAG IVC SCH ×2 (10:33→19:18)
[2019-07-03] MEDS ORDERED: D5% in Water 250 ML ONE (10:50)
[2019-07-03] MEDS ORDERED: *HR* Ticagrelor 90 MG TABLET ONE (11:10)
[2019-07-03] MEDS: *HR* Ticagrelor 90 MG TABLET PO SCH (20:11)
[2019-07-03] MEDS: cloNIDine HCl 0.1 MG TABLET PO SCH (21:31)
[2019-07-03] MEDS ORDERED: *HR* Dextrose 50 % in Water (Syg) 50 ML SYRINGE IVP PRN (21:48)
[2019-07-03] MEDS ORDERED: D5% in Water 1,000 ML IVC PRN (21:48)
[2019-07-03] MEDS ORDERED: Dextrose Gel 15 GM/37.5 ML TUBE PO PRN ×2 (21:48)
[2019-07-03] MEDS: Insulin LISPRO 300 UNITS/3 ML VIAL SQ SCH (22:19)
[2019-07-04 02:33] LABS: Hematocrit 31.2 % (37.5-50.1); Hemoglobin 11.2 g/dL (12.9-16.9)
[2019-07-04 02:53] LABS: Calcium 8.1 mg/dL (8.6-10.3); Potassium 2.9 mEq/L (3.5-5.1)
[2019-07-04] MEDS: Insulin LISPRO 300 UNITS/3 ML VIAL SQ SCH ×5 (08:31→22:12)
[2019-07-04] MEDS: *HR* Ticagrelor 90 MG TABLET PO SCH ×2 (08:42→22:06)
[2019-07-04] MEDS: cloNIDine HCl 0.1 MG TABLET PO SCH ×2 (08:42→22:06)
[2019-07-04] MEDS: Aspirin 81 MG TAB.CHEW PO SCH (08:42)
[2019-07-04] MEDS ORDERED: Nitroglycerin 0.4 MG TAB.SUBL SL PRN (11:15)
[2019-07-04] MEDS ORDERED: Perflutren Lipid Microsphere 1.3 ML in 0.9 % Sodium Chloride 8.7 ML IVP ONE (11:30)
[2019-07-04] MEDS: 0.9 % Sodium Chloride 1,000 ML IVC SCH (17:31)
[2019-07-04] MEDS ORDERED: Adenosine 90 MG/30 ML MLS IV ONE (19:54)
[2019-07-04] MEDS ORDERED: Insulin DETEMIR 100 UNIT/ML X5UNITS SQ SCH (21:00)
[2019-07-04] MEDS: amLODIPine 5 MG TABLET PO SCH (22:06)
[2019-07-05] MEDS: 0.9 % Sodium Chloride 1,000 ML IVC SCH ×2 (05:40→17:31)
[2019-07-05] MEDS: Cholecalciferol (D-3) 1,000 UNIT (25MCG) TABLET PO SCH (08:00)
[2019-07-05] MEDS: amLODIPine 5 MG TABLET PO SCH ×2 (08:01→23:07)
[2019-07-05] MEDS: cloNIDine HCl 0.1 MG TABLET PO SCH ×2 (08:01→23:07)
[2019-07-05] MEDS: Aspirin 81 MG TAB.CHEW PO SCH (08:01)
[2019-07-05] MEDS: Cyanocobalamin (B-12) 1,000 MCG TABLET PO SCH (08:01)
[2019-07-05] MEDS: *HR* Ticagrelor 90 MG TABLET PO SCH ×2 (08:01→23:07)
[2019-07-05] MEDS: (Ubidecarenone [Co Q-10] 100 MG) PO SCH (08:02)
[2019-07-05] MEDS: Insulin LISPRO 300 UNITS/3 ML VIAL SQ SCH ×7 (08:04→23:08)
[2019-07-05 08:18] LABS: Calcium 8.1 mg/dL (8.6-10.3); Potassium 3.6 mEq/L (3.5-5.1)
[2019-07-05] MEDS: Isosorbide MONOnitrate (24 HR) 60 MG TAB.ER.24H PO SCH (15:24)
[2019-07-05 16:38] LABS: Uric Acid 11.6 mg/dL (2.3-7.6)
[2019-07-05 22:24] LABS: Bilirubin,Urine Negative (Negative); Blood,Urine Negative (Negative); Clarity,Urine Clear (Clear); Color,Urine Yellow (Yellow); Glucose,Urine (UA) 250 mg/dL (Normal); Ketones,Urine Negative (Negative); Leukocyte Esterase,Urine Negative (Negative); Nitrite,Urine Negative (Negative); Protein,Urine >=1000 mg/dL (Neg-Trace); Urobilinogen,Urine Normal (Normal)
[2019-07-05 22:26] LABS: Bacteria,Urine None Seen per hpf (None-Few); Squamous Epithelial Cell,Urine Many per lpf (None-Few); WBC,Urine 0-3 per hpf (0-3)
[2019-07-05 22:34] LABS: Hyaline Casts,Urine Few per lpf (None-Few)
[2019-07-05 22:53] LABS: Creatinine,Urine 129 mg/dL; Microalbumin,Urine > 1350 mg/L; Sodium, Urine 25.8 mEq/L
[2019-07-05] MEDS: Insulin DETEMIR 100 UNIT/ML X5UNITS SQ SCH (23:08)
[2019-07-06 07:21] LABS: Calcium 7.8 mg/dL (8.6-10.3); Potassium 3.8 mEq/L (3.5-5.1)
[2019-07-06] MEDS: Cyanocobalamin (B-12) 1,000 MCG TABLET PO SCH (09:23)
[2019-07-06] MEDS: amLODIPine 5 MG TABLET PO SCH ×2 (09:23→21:20)
[2019-07-06] MEDS: Cholecalciferol (D-3) 1,000 UNIT (25MCG) TABLET PO SCH (09:23)
[2019-07-06] MEDS: cloNIDine HCl 0.1 MG TABLET PO SCH ×2 (09:23→21:20)
[2019-07-06] MEDS: Aspirin 81 MG TAB.CHEW PO SCH (09:23)
[2019-07-06] MEDS: Isosorbide MONOnitrate (24 HR) 60 MG TAB.ER.24H PO SCH (09:23)
[2019-07-06] MEDS: *HR* Ticagrelor 90 MG TABLET PO SCH ×2 (09:24→21:21)
[2019-07-06] MEDS: Insulin LISPRO 300 UNITS/3 ML VIAL SQ SCH ×7 (09:24→21:21)
[2019-07-06] MEDS: Insulin DETEMIR 100 UNIT/ML X5UNITS SQ SCH ×2 (09:24→21:21)
[2019-07-06] MEDS: 0.9 % Sodium Chloride 1,000 ML IVC SCH (09:29)
[2019-07-06] MEDS: (Ubidecarenone [Co Q-10] 100 MG) PO SCH (09:36)
[2019-07-07] MEDS: 0.9 % Sodium Chloride 1,000 ML IVC SCH (03:47)
[2019-07-07 04:39] LABS: Basophils % 0.5 %; Eosinophils # 0.2 K/mcL (0.0-0.6); Eosinophils % 2.1 %; Hematocrit 29.9 % (37.5-50.1); Hemoglobin 10.4 g/dL (12.9-16.9); Immature Granulocytes % 0.3 % (0-4); Lymphocytes # 1.3 K/mcL (0.6-4.6); Lymphocytes % 14.8 %; Mean Corpuscular HGB Conc 34.8 g/dL (31.6-35.5); Mean Corpuscular Hemoglobin 29.1 pg (28.0-33.3); Mean Corpuscular Volume 83.5 fL (83.0-100.0); Mean Platelet Volume 10.2 fL (9.4-12.4); Monocytes # 0.7 K/mcL (0.0-1.3); Monocytes % 8.1 %; Neutrophils # 6.5 K/mcL (1.6-8.9); Platelet Count 249 K/mcL (140-400); Red Blood Count 3.58 M/mcL (4.19-5.50); Red Cell Distribution Width 13.3 % (11.5-14.5); Segmented Neutrophils % 74.2 %; White Blood Count 8.7 K/mcL (4.3-11.1)
[2019-07-07 05:00] LABS: Calcium 8.2 mg/dL (8.6-10.3); Potassium 3.8 mEq/L (3.5-5.1)
[2019-07-07] MEDS: cloNIDine HCl 0.1 MG TABLET PO SCH (08:29)
[2019-07-07] MEDS: Cholecalciferol (D-3) 1,000 UNIT (25MCG) TABLET PO SCH (08:29)
[2019-07-07] MEDS: Aspirin 81 MG TAB.CHEW PO SCH (08:29)
[2019-07-07] MEDS: amLODIPine 5 MG TABLET PO SCH (08:29)
[2019-07-07] MEDS: Cyanocobalamin (B-12) 1,000 MCG TABLET PO SCH (08:29)
[2019-07-07] MEDS: *HR* Ticagrelor 90 MG TABLET PO SCH (08:29)
[2019-07-07] MEDS: Isosorbide MONOnitrate (24 HR) 60 MG TAB.ER.24H PO SCH (08:29)
[2019-07-07] MEDS: Insulin DETEMIR 100 UNIT/ML X5UNITS SQ SCH (08:30)
[2019-07-07] MEDS: Insulin LISPRO 300 UNITS/3 ML VIAL SQ SCH ×4 (08:30→11:52)
[2019-07-07 11:11] VITALS: BP 162/103
[2019-07-07] MEDS ORDERED: FLU Vac QV 19-20 (6Month+)/PF 0.5 ML SYRINGE IM ONE (14:49)
[2019-07-07] MEDS ORDERED: Isosorbide MONOnitrate (24 HR) 30 MG TAB.ER.24H PO SCH (21:00)
== END 2019-07-07 15:47 | disposition home or self-care (01) ==
LOC: 2ANU 08:20 → INVDIALAB 08:20 → 2ANU 11:42
PROVIDERS: ADMIT Internal Medicine Cardiovascular Disease; ATTEND Internal Medicine Cardiovascular Disease

== ENCOUNTER 2019-10-19 23:11 | Observation (INO) ==
[2019-10-19] MEDS ORDERED: 0.9 % Sodium Chloride 250 ML IVC ONE (23:27)
[2019-10-19] MEDS ORDERED: Aspirin 325 MG TABLET PO ONE (23:30)
[2019-10-20 00:12] LABS: INR 1.1; Prothrombin Time 12.7 Seconds (9.4-12.1)
[2019-10-20 00:15] LABS: Activated Partial Thrombo Time 32.5 Seconds (26.0-36.0)
[2019-10-20 00:17] LABS: Bilirubin,Urine Negative (Negative); Blood,Urine Negative (Negative); Clarity,Urine Clear (Clear); Color,Urine Yellow (Yellow); Glucose,Urine (UA) 500 mg/dL (Normal); Ketones,Urine Negative (Negative); Leukocyte Esterase,Urine Negative (Negative); Nitrite,Urine Negative (Negative); PH,Urine 6.5 pH Units (5.0-8.0); Protein,Urine >=1000 mg/dL (Neg-Trace); Specific Gravity,Urine 1.024 (1.010-1.025); Urobilinogen,Urine Normal (Normal)
[2019-10-20 00:18] LABS: Bacteria,Urine None Seen per hpf (None-Few); Hyaline Casts,Urine Few per lpf (None-Few); Squamous Epithelial Cell,Urine Many per lpf (None-Few)
[2019-10-20 00:18] LABS: Alanine Aminotransferase 7 Units/L (7-52); Albumin 2.5 g/dL (3.5-5.7); Albumin/Globulin Ratio 0.8 (1.1-2.2); Alkaline Phosphatase 79 Units/L (34-104); Aspartate Amino Transferase 7 Units/L (13-39); BUN/Creatinine Ratio 10 (6-26); Basophils # 0.1 K/mcL (0.0-0.2); Basophils % 0.4 %; Bilirubin,Total 0.6 mg/dL (0.3-1.0); Blood Urea Nitrogen 25 mg/dL (8-23); Calcium 8.1 mg/dL (8.6-10.3); Carbon Dioxide 23 mEq/L (23-29); Chloride 105 mEq/L (98-107); Eosinophils # 0.1 K/mcL (0.0-0.6); Eosinophils % 0.4 %; Globulin 3.1 g/dL (2.4-3.5); Glucose 182 mg/dL (70-105); Hematocrit 36.2 % (37.5-50.1); Hemoglobin 11.9 g/dL (12.9-16.9); Immature Granulocytes % 0.5 % (0-4); Lymphocytes # 1.3 K/mcL (0.6-4.6); Lymphocytes % 9.1 %; Mean Corpuscular HGB Conc 32.9 g/dL (31.6-35.5); Mean Corpuscular Hemoglobin 27.9 pg (28.0-33.3); Mean Corpuscular Volume 84.8 fL (83.0-100.0); Mean Platelet Volume 10.5 fL (9.4-12.4); Monocytes # 1.2 K/mcL (0.0-1.3); Monocytes % 8.4 %; Neutrophils # 11.4 K/mcL (1.6-8.9); Osmolality,Calculated 287 (280-300); Platelet Count 411 K/mcL (140-400); Red Blood Count 4.27 M/mcL (4.19-5.50); Red Cell Distribution Width 13.8 % (11.5-14.5); Segmented Neutrophils % 81.2 %; Sodium 134 mEq/L (136-145); Total Protein 5.6 g/dL (6.4-8.9); Troponin I < 0.03 ng/mL (< 0.04); White Blood Count 14.1 K/mcL (4.3-11.1); eGFR For African Americans 32 (> 60); eGFR For Non-African Americans 26 (> 60)
[2019-10-20] MEDS ORDERED: Naloxone 0.4 MG/ML INJ IVP PRN (02:30)
[2019-10-20] MEDS ORDERED: *HR* Dextrose 50 % in Water (Syg) 50 ML SYRINGE IVP PRN (02:34)
[2019-10-20] MEDS ORDERED: Dextrose Gel 15 GM/37.5 ML TUBE PO PRN ×2 (02:34)
[2019-10-20] MEDS ORDERED: D5% in Water 1,000 ML IVC PRN (02:34)
[2019-10-20 04:11] LABS: Basophils # 0.1 K/mcL (0.0-0.2); Basophils % 0.4 %; Eosinophils % 0.2 %; Hematocrit 32.3 % (37.5-50.1); Immature Granulocytes % 0.5 % (0-4); Lymphocytes # 1.6 K/mcL (0.6-4.6); Lymphocytes % 12.6 %; Mean Corpuscular HGB Conc 34.1 g/dL (31.6-35.5); Mean Corpuscular Hemoglobin 27.9 pg (28.0-33.3); Mean Platelet Volume 10.2 fL (9.4-12.4); Monocytes # 1.1 K/mcL (0.0-1.3); Monocytes % 8.6 %; Neutrophils # 9.8 K/mcL (1.6-8.9); Platelet Count 365 K/mcL (140-400); Red Blood Count 3.94 M/mcL (4.19-5.50); Red Cell Distribution Width 13.6 % (11.5-14.5); Segmented Neutrophils % 77.7 %; White Blood Count 12.6 K/mcL (4.3-11.1)
[2019-10-20 04:31] LABS: Calcium 7.8 mg/dL (8.6-10.3); Potassium 4.2 mEq/L (3.5-5.1)
[2019-10-20 06:38] LABS: Estimated Average Glucose 189 mg/dl
[2019-10-20] MEDS: cloNIDine HCl 0.1 MG TABLET PO SCH ×2 (07:50→20:21)
[2019-10-20] MEDS: Isosorbide MONOnitrate (24 HR) 60 MG TAB.ER.24H PO SCH (07:51)
[2019-10-20] MEDS: Cyanocobalamin (B-12) 1,000 MCG TABLET PO SCH (07:51)
[2019-10-20] MEDS: Aspirin Enteric Coated 81 MG Tablet PO SCH (07:51)
[2019-10-20] MEDS: carvediloL 25 MG TABLET PO SCH ×2 (07:51→16:33)
[2019-10-20] MEDS: Insulin LISPRO 300 UNITS/3 ML VIAL SQ SCH ×6 (07:52→16:34)
[2019-10-20] MEDS ORDERED: UBIDECARENONE 100 MG PO SCH (09:00)
[2019-10-20] MEDS ORDERED: Bumetanide 1 MG TABLET PO SCH (09:00)
[2019-10-20] MEDS ORDERED: Cholecalciferol (D-3) 1,000 UNIT (25MCG) TABLET PO SCH (09:00)
[2019-10-20] MEDS ORDERED: Ergocalciferol (VIT D2) 50,000 UNIT (1.25MG) CAP PO SCH (14:00)
[2019-10-20] MEDS: Bumetanide 1 MG TABLET PO SCH (16:33)
[2019-10-20] MEDS: *HR* Heparin 5,000 UNIT/ML VIAL SQ SCH (17:32)
[2019-10-20] MEDS: Insulin DETEMIR 100 UNIT/ML X5UNITS SQ SCH (20:21)
[2019-10-20] MEDS ORDERED: Insulin DETEMIR 100 UNIT/ML X5UNITS SQ SCH (21:00)
[2019-10-20] MEDS ORDERED: Aluminum Hydroxide 15 ML UDC PO ONE ×2 (21:06→23:00)
[2019-10-20] MEDS ORDERED: Famotidine 20 MG TABLET PO ONE (23:45)
[2019-10-21] MEDS ORDERED: Famotidine 20 MG TABLET PO ONE (00:15)
[2019-10-21 01:26] LABS: Potassium 3.8 mEq/L (3.5-5.1)
[2019-10-21 01:35] LABS: Basophils # 0.1 K/mcL (0.0-0.2); Basophils % 0.5 %; Eosinophils # 0.1 K/mcL (0.0-0.6); Eosinophils % 0.7 %; Hemoglobin 10.9 g/dL (12.9-16.9); Immature Granulocytes % 0.4 % (0-4); Lymphocytes # 1.3 K/mcL (0.6-4.6); Lymphocytes % 12.3 %; Mean Corpuscular Hemoglobin 27.5 pg (28.0-33.3); Mean Corpuscular Volume 83.3 fL (83.0-100.0); Mean Platelet Volume 10.2 fL (9.4-12.4); Monocytes # 0.9 K/mcL (0.0-1.3); Monocytes % 8.3 %; Neutrophils # 8.1 K/mcL (1.6-8.9); Platelet Count 355 K/mcL (140-400); Red Blood Count 3.96 M/mcL (4.19-5.50); Red Cell Distribution Width 13.7 % (11.5-14.5); Segmented Neutrophils % 77.8 %; White Blood Count 10.5 K/mcL (4.3-11.1)
[2019-10-21] MEDS: *HR* Heparin 5,000 UNIT/ML VIAL SQ SCH ×2 (05:36→17:37)
[2019-10-21] MEDS: Insulin LISPRO 300 UNITS/3 ML VIAL SQ SCH ×6 (08:19→17:36)
[2019-10-21] MEDS: carvediloL 25 MG TABLET PO SCH ×2 (08:23→17:36)
[2019-10-21] MEDS: Bumetanide 1 MG TABLET PO SCH ×2 (08:23→17:36)
[2019-10-21] MEDS: Cyanocobalamin (B-12) 1,000 MCG TABLET PO SCH (08:23)
[2019-10-21] MEDS: cloNIDine HCl 0.1 MG TABLET PO SCH ×2 (08:23→20:30)
[2019-10-21] MEDS: Isosorbide MONOnitrate (24 HR) 60 MG TAB.ER.24H PO SCH (08:23)
[2019-10-21] MEDS: Aspirin Enteric Coated 81 MG Tablet PO SCH (08:24)
[2019-10-21 19:00] LABS: Protein/Creatinine Ratio,Urine 11.68 mg/mg (0.00-0.20)
[2019-10-21] MEDS ORDERED: *HR* Promethazine 25 MG/ML VIAL IV ONE (20:54)
[2019-10-21] MEDS: Insulin DETEMIR 100 UNIT/ML X5UNITS SQ SCH (22:08)
[2019-10-22 06:10] LABS: Basophils % 0.4 %; Eosinophils # 0.1 K/mcL (0.0-0.6); Eosinophils % 0.5 %; Hematocrit 32.8 % (37.5-50.1); Hemoglobin 10.8 g/dL (12.9-16.9); Immature Granulocytes % 0.3 % (0-4); Lymphocytes # 1.3 K/mcL (0.6-4.6); Lymphocytes % 12.9 %; Mean Corpuscular HGB Conc 32.9 g/dL (31.6-35.5); Mean Corpuscular Hemoglobin 27.6 pg (28.0-33.3); Mean Corpuscular Volume 83.9 fL (83.0-100.0); Mean Platelet Volume 10.5 fL (9.4-12.4); Monocytes # 0.9 K/mcL (0.0-1.3); Monocytes % 9.3 %; Neutrophils # 7.6 K/mcL (1.6-8.9); Platelet Count 320 K/mcL (140-400); Red Blood Count 3.91 M/mcL (4.19-5.50); Red Cell Distribution Width 13.5 % (11.5-14.5); Segmented Neutrophils % 76.6 %
[2019-10-22 06:28] LABS: Calcium 8.1 mg/dL (8.6-10.3); Potassium 4.2 mEq/L (3.5-5.1)
[2019-10-22] MEDS: *HR* Heparin 5,000 UNIT/ML VIAL SQ SCH (06:32)
[2019-10-22 06:51] LABS: Folate 6.7 ng/mL (3.0-16.0)
[2019-10-22] MEDS: cloNIDine HCl 0.1 MG TABLET PO SCH (07:56)
[2019-10-22] MEDS: Cyanocobalamin (B-12) 1,000 MCG TABLET PO SCH (07:56)
[2019-10-22] MEDS: Aspirin Enteric Coated 81 MG Tablet PO SCH (07:57)
[2019-10-22] MEDS: Bumetanide 1 MG TABLET PO SCH (07:57)
[2019-10-22] MEDS: Isosorbide MONOnitrate (24 HR) 60 MG TAB.ER.24H PO SCH (07:57)
[2019-10-22] MEDS: carvediloL 25 MG TABLET PO SCH (07:57)
[2019-10-22] MEDS: Insulin LISPRO 300 UNITS/3 ML VIAL SQ SCH ×3 (08:02→11:28)
[2019-10-22] MEDS ORDERED: Insulin LISPRO 300 UNITS/3 ML VIAL SQ SCH (08:04)
[2019-10-22] MEDS ORDERED: Acetaminophen 325 MG TABLET PO PRN (08:05)
[2019-10-22] MEDS ORDERED: CloNIDine Patch 0.1 MG PATCH (WEEKLY) TD SCH (08:30)
[2019-10-22] MEDS ORDERED: Valsartan 80 MG TABLET PO SCH (09:00)
[2019-10-22 11:17] LABS: Thyroid Stimulating Hormone 3.319 mcIU/mL (0.340-5.600)
[2019-10-22 12:41] VITALS: BP 145/88
[2019-10-22] MEDS ORDERED: cloNIDine HCl 0.1 MG TABLET PO SCH (21:00)
[2019-10-23] MEDS ORDERED: cloNIDine HCl 0.1 MG TABLET PO SCH (09:00)
[2019-10-24] MEDS ORDERED: cloNIDine HCl 0.1 MG TABLET PO SCH (09:00)
[2019-10-24 11:16] LABS: Metanephrine, Plasma <0.10 nmol/L (0.00-0.49)
== END 2019-10-22 15:26 | disposition home health service (06) ==
LOC: CDU 23:11 → EMEROOARM 23:11 → SUATTDRO 10-20 01:47 → CDU 10-20 02:07 → 2ANU 10-20 18:29
PROVIDERS: ADMIT Student in an Organized Health Care Education/Training Program; ATTEND Internal Medicine

== ENCOUNTER 2020-04-03 15:48 | Inpatient (IN) ==
[2020-04-03] MEDS ORDERED: 0.9 % Sodium Chloride 250 ML IVC ONE (16:24)
[2020-04-03] MEDS ORDERED: Ondansetron 4 MG/2 ML VIAL IVP ONE (16:24)
[2020-04-03] MEDS ORDERED: Pantoprazole 80 MG in 0.9 % Sodium Chloride 50 ML IVPB ONE (16:35)
[2020-04-03 16:52] LABS: Basophils % 0.3 %; Eosinophils # 0.1 K/mcL (0.0-0.6); Eosinophils % 0.4 %; Hematocrit 24.5 % (37.5-50.1); Hemoglobin 8.2 g/dL (12.9-16.9); Immature Granulocytes % 0.7 % (0-4); Lymphocytes # 2.6 K/mcL (0.6-4.6); Lymphocytes % 21.3 %; Mean Corpuscular HGB Conc 33.5 g/dL (31.6-35.5); Mean Corpuscular Hemoglobin 30.5 pg (28.0-33.3); Mean Corpuscular Volume 91.1 fL (83.0-100.0); Mean Platelet Volume 10.2 fL (9.4-12.4); Monocytes % 8.2 %; Neutrophils # 8.3 K/mcL (1.6-8.9); Platelet Count 373 K/mcL (140-400); Red Blood Count 2.69 M/mcL (4.19-5.50); Red Cell Distribution Width 13.5 % (11.5-14.5); Segmented Neutrophils % 69.1 %
[2020-04-03 17:04] LABS: Activated Partial Thrombo Time 26.4 Seconds (26.0-36.0)
[2020-04-03 17:05] LABS: Prothrombin Time 11.3 Seconds (9.4-12.1)
[2020-04-03 17:12] LABS: Albumin 3.6 g/dL (3.5-5.7); Albumin/Globulin Ratio 1.5 (1.1-2.2); Bilirubin,Total 0.4 mg/dL (0.3-1.0); Calcium 8.6 mg/dL (8.6-10.3); Globulin 2.4 g/dL (2.4-3.5); Potassium 4.4 mEq/L (3.5-5.1)
[2020-04-03] MEDS ORDERED: Naloxone 0.4 MG/ML INJ IVP PRN (17:32)
[2020-04-03] MEDS ORDERED: D5% in Water 1,000 ML IVC PRN (17:38)
[2020-04-03] MEDS ORDERED: Dextrose Gel 15 GM/37.5 ML TUBE PO PRN ×2 (17:38)
[2020-04-03] MEDS ORDERED: *HR* Dextrose 50 % in Water (Vial) 50 ML VIAL IVP PRN (17:38)
[2020-04-03] MEDS ORDERED: 0.9 % Sodium Chloride 1,000 ML IVC SCH (17:45)
[2020-04-03 18:22] LABS: Estimated Average Glucose 217 mg/dl
[2020-04-03] MEDS ORDERED: 0.9 % Sodium Chloride 250 ML ONE (20:43)
[2020-04-03] MEDS: Insulin DETEMIR 100 UNIT/ML X5UNITS SQ SCH (20:45)
[2020-04-03] MEDS: Insulin LISPRO 300 UNITS/3 ML VIAL SQ SCH (20:45)
[2020-04-03] MEDS: carvediloL 6.25 MG TABLET PO SCH (21:12)
[2020-04-04] MEDS: Pantoprazole 40 MG VIAL IVP SCH ×3 (00:03→17:28)
[2020-04-04] MEDS: Insulin LISPRO 300 UNITS/3 ML VIAL SQ SCH ×4 (00:16→17:27)
[2020-04-04 01:07] LABS: Basophils # 0.1 K/mcL (0.0-0.2); Basophils % 0.8 %; Eosinophils # 0.1 K/mcL (0.0-0.6); Hematocrit 22.8 % (37.5-50.1); Hemoglobin 7.8 g/dL (12.9-16.9); Immature Granulocytes % 0.6 % (0-4); Lymphocytes # 2.9 K/mcL (0.6-4.6); Lymphocytes % 28.3 %; Mean Corpuscular HGB Conc 34.2 g/dL (31.6-35.5); Mean Corpuscular Hemoglobin 31.6 pg (28.0-33.3); Mean Corpuscular Volume 92.3 fL (83.0-100.0); Monocytes # 0.9 K/mcL (0.0-1.3); Monocytes % 8.3 %; Neutrophils # 6.3 K/mcL (1.6-8.9); Platelet Count 292 K/mcL (140-400); Red Blood Count 2.47 M/mcL (4.19-5.50); Red Cell Distribution Width 13.6 % (11.5-14.5); White Blood Count 10.4 K/mcL (4.3-11.1)
[2020-04-04 01:15] LABS: Calcium 8.2 mg/dL (8.6-10.3); Magnesium 3.1 mg/dL (1.6-2.6); Phosphorous 3.6 mg/dL (2.7-4.5); Potassium 3.8 mEq/L (3.5-5.1)
[2020-04-04] MEDS: tiZANidine 4 MG TABLET PO ONE ×2 (01:51→21:32)
[2020-04-04] MEDS: Ondansetron 4 MG/2 ML VIAL IVP PRN (01:58)
[2020-04-04] MEDS: Artificial Tears SOLN 15 ML BOTTLE BOTH EYES SCH ×4 (05:36→17:36)
[2020-04-04] MEDS: carvediloL 6.25 MG TABLET PO SCH ×2 (09:30→17:28)
[2020-04-04 11:02] LABS: Hepatitis B Surface Antibody < 3.10 mIU/mL
[2020-04-04 11:12] LABS: Hepatitis B Surface Antigen Nonreactive (Nonreactive)
[2020-04-04 12:24] LABS: Folate 12.9 ng/mL (3.0-16.0)
[2020-04-04 12:25] LABS: Vitamin B12 665 pg/mL (250-1100)
[2020-04-04] MEDS ORDERED: Lidocaine -MPF 2% 2 ML VIAL ONE (12:32)
[2020-04-04] MEDS ORDERED: *HR* Propofol 200 MG/20 ML VIAL IVP ONE (12:32)
[2020-04-04 15:06] LABS: Hematocrit 22.9 % (37.5-50.1); Hemoglobin 7.7 g/dL (12.9-16.9)
[2020-04-04] MEDS ORDERED: 0.9 % Sodium Chloride 250 ML ONE (18:32)
[2020-04-04] MEDS ORDERED: tiZANidine 4 MG TABLET PO ONE (21:17)
[2020-04-04] MEDS: Insulin DETEMIR 100 UNIT/ML X5UNITS SQ SCH (22:18)
[2020-04-05 00:49] LABS: Basophils % 0.4 %; Eosinophils # 0.1 K/mcL (0.0-0.6); Eosinophils % 0.8 %; Hematocrit 23.4 % (37.5-50.1); Hemoglobin 8.1 g/dL (12.9-16.9); Immature Granulocytes % 0.6 % (0-4); Lymphocytes # 1.2 K/mcL (0.6-4.6); Lymphocytes % 15.5 %; Mean Corpuscular HGB Conc 34.6 g/dL (31.6-35.5); Mean Corpuscular Volume 89.7 fL (83.0-100.0); Mean Platelet Volume 9.8 fL (9.4-12.4); Monocytes # 0.4 K/mcL (0.0-1.3); Monocytes % 5.5 %; Neutrophils # 6.1 K/mcL (1.6-8.9); Platelet Count 281 K/mcL (140-400); Red Blood Count 2.61 M/mcL (4.19-5.50); Red Cell Distribution Width 14.3 % (11.5-14.5); Segmented Neutrophils % 77.2 %; White Blood Count 7.9 K/mcL (4.3-11.1)
[2020-04-05 01:11] LABS: Calcium 8.2 mg/dL (8.6-10.3); Magnesium 3.1 mg/dL (1.6-2.6); Potassium 4.5 mEq/L (3.5-5.1)
[2020-04-05] MEDS: Insulin LISPRO 300 UNITS/3 ML VIAL SQ SCH ×5 (04:57→21:02)
[2020-04-05] MEDS: Artificial Tears SOLN 15 ML BOTTLE BOTH EYES SCH ×5 (04:57→21:04)
[2020-04-05] MEDS: Pantoprazole 40 MG VIAL IVP SCH ×2 (06:31→17:17)
[2020-04-05] MEDS ORDERED: *HR* Heparin 10,000 UNIT/10 ML VIAL IV PRN (07:18)
[2020-04-05] MEDS ORDERED: 0.9 % Sodium Chloride 250 ML IVC PRN (07:18)
[2020-04-05] MEDS ORDERED: 0.9 % Sodium Chloride 1,000 ML PRIME SCH (07:30)
[2020-04-05] MEDS: carvediloL 6.25 MG TABLET PO SCH ×2 (10:16→17:18)
[2020-04-05] MEDS ORDERED: Ondansetron ODT 4 MG TAB.RAPDIS PO PRN (10:18)
[2020-04-05] MEDS ORDERED: Lidocaine -MPF 2% 2 ML VIAL ONE (10:21)
[2020-04-05] MEDS: Calcium Acetate 667 MG CAPSULE PO SCH ×2 (12:53→17:18)
[2020-04-05] MEDS: Ondansetron 4 MG/2 ML VIAL IVP PRN ×2 (13:12→21:11)
[2020-04-05] MEDS ORDERED: *HR* Heparin 10,000 UNIT/10 ML VIAL ONE (14:40)
[2020-04-05] MEDS: Sucralfate 1 GM TABLET PO SCH ×2 (17:18→21:01)
[2020-04-05] MEDS ORDERED: NON-FORMULARY MEDICATION 1 EACH EACH (Ezetimibe [Zetia] 10 MG) PO SCH (21:00)
[2020-04-05] MEDS: Insulin DETEMIR 100 UNIT/ML X5UNITS SQ SCH (21:01)
[2020-04-06] MEDS: Pantoprazole 40 MG VIAL IVP SCH (05:07)
[2020-04-06] MEDS: Sucralfate 1 GM TABLET PO SCH ×4 (06:18→21:16)
[2020-04-06 06:30] LABS: Basophils % 0.4 %; Eosinophils % 0.7 %; Hematocrit 25.4 % (37.5-50.1); Hemoglobin 8.7 g/dL (12.9-16.9); Immature Granulocytes % 0.5 % (0-4); Lymphocytes # 1.5 K/mcL (0.6-4.6); Lymphocytes % 25.7 %; Mean Corpuscular HGB Conc 34.3 g/dL (31.6-35.5); Mean Corpuscular Hemoglobin 30.1 pg (28.0-33.3); Mean Corpuscular Volume 87.9 fL (83.0-100.0); Mean Platelet Volume 9.8 fL (9.4-12.4); Monocytes # 0.6 K/mcL (0.0-1.3); Monocytes % 10.5 %; Neutrophils # 3.5 K/mcL (1.6-8.9); Platelet Count 230 K/mcL (140-400); Red Blood Count 2.89 M/mcL (4.19-5.50); Red Cell Distribution Width 15.4 % (11.5-14.5); Segmented Neutrophils % 62.2 %; White Blood Count 5.7 K/mcL (4.3-11.1)
[2020-04-06 06:57] LABS: Calcium 8.7 mg/dL (8.6-10.3); Magnesium 2.5 mg/dL (1.6-2.6); Phosphorous 3.8 mg/dL (2.7-4.5)
[2020-04-06] MEDS: Spironolactone 25 MG TABLET PO SCH (07:12)
[2020-04-06] MEDS: Cyanocobalamin (B-12) 1,000 MCG TABLET PO SCH (07:12)
[2020-04-06] MEDS: Isosorbide MONOnitrate (24 HR) 30 MG TAB.ER.24H PO SCH (07:12)
[2020-04-06] MEDS: cloNIDine HCL 0.1 MG TABLET PO SCH (07:12)
[2020-04-06] MEDS: allopurinoL 100 MG TABLET PO SCH (07:12)
[2020-04-06] MEDS: Calcium Acetate 667 MG CAPSULE PO SCH ×3 (07:13→16:44)
[2020-04-06] MEDS: Insulin LISPRO 300 UNITS/3 ML VIAL SQ SCH ×4 (07:13→21:17)
[2020-04-06] MEDS: carvediloL 6.25 MG TABLET PO SCH ×2 (07:13→16:45)
[2020-04-06] MEDS: Artificial Tears SOLN 15 ML BOTTLE BOTH EYES SCH ×4 (07:14→21:17)
[2020-04-06] MEDS: Ondansetron 4 MG/2 ML VIAL IVP PRN (07:14)
[2020-04-06] MEDS ORDERED: 0.9 % Sodium Chloride 250 ML IVC PRN (08:22)
[2020-04-06] MEDS ORDERED: *HR* Heparin 10,000 UNIT/10 ML VIAL IV PRN (08:22)
[2020-04-06] MEDS: Insulin DETEMIR 100 UNIT/ML X5UNITS SQ SCH (21:18)
[2020-04-07] MEDS: Sucralfate 1 GM TABLET PO SCH ×2 (04:04→09:40)
[2020-04-07 06:36] LABS: Basophils % 0.5 %; Eosinophils # 0.1 K/mcL (0.0-0.6); Hematocrit 25.3 % (37.5-50.1); Hemoglobin 8.6 g/dL (12.9-16.9); Immature Granulocytes % 0.3 % (0-4); Lymphocytes # 1.6 K/mcL (0.6-4.6); Lymphocytes % 26.2 %; Mean Corpuscular Hemoglobin 30.4 pg (28.0-33.3); Mean Corpuscular Volume 89.4 fL (83.0-100.0); Monocytes # 0.6 K/mcL (0.0-1.3); Monocytes % 9.7 %; Neutrophils # 3.8 K/mcL (1.6-8.9); Platelet Count 217 K/mcL (140-400); Red Blood Count 2.83 M/mcL (4.19-5.50); Segmented Neutrophils % 62.3 %; White Blood Count 6.1 K/mcL (4.3-11.1)
[2020-04-07 06:55] LABS: Calcium 8.5 mg/dL (8.6-10.3); Magnesium 2.3 mg/dL (1.6-2.6); Phosphorous 3.2 mg/dL (2.7-4.5); Potassium 4.1 mEq/L (3.5-5.1)
[2020-04-07] MEDS: carvediloL 6.25 MG TABLET PO SCH ×2 (09:39→16:38)
[2020-04-07] MEDS: allopurinoL 100 MG TABLET PO SCH (09:40)
[2020-04-07] MEDS: Spironolactone 25 MG TABLET PO SCH (09:40)
[2020-04-07] MEDS: Calcium Acetate 667 MG CAPSULE PO SCH ×3 (09:40→16:38)
[2020-04-07] MEDS: Insulin LISPRO 300 UNITS/3 ML VIAL SQ SCH ×3 (09:40→16:38)
[2020-04-07] MEDS: cloNIDine HCL 0.1 MG TABLET PO SCH (09:40)
[2020-04-07] MEDS: Isosorbide MONOnitrate (24 HR) 30 MG TAB.ER.24H PO SCH (09:41)
[2020-04-07] MEDS: Cyanocobalamin (B-12) 1,000 MCG TABLET PO SCH (09:41)
[2020-04-07] MEDS: Artificial Tears SOLN 15 ML BOTTLE BOTH EYES SCH ×4 (09:41→21:51)
[2020-04-07] MEDS ORDERED: Lidocaine -MPF 2% 2 ML VIAL ONE (13:48)
[2020-04-07] MEDS ORDERED: Pantoprazole 40 MG VIAL IVP STA (14:10)
[2020-04-07] MEDS ORDERED: EPINEPHrine 1 MG/ML VIAL IM STA (14:12)
[2020-04-07] MEDS ORDERED: *HR* Metoprolol 5 MG/5 ML VIAL IVP ONE ×2 (14:22→14:27)
[2020-04-07] MEDS ORDERED: Pantoprazole 80 MG in 0.9 % Sodium Chloride 50 ML IVPB ONE (14:24)
[2020-04-07] MEDS ORDERED: EPINEPHrine 1 MG/ML VIAL ONE (14:33)
[2020-04-07] MEDS: Ondansetron 4 MG/2 ML VIAL IVP PRN (14:47)
[2020-04-07] MEDS: Pantoprazole 40 MG in 0.9 % Sodium Chloride Mini Bag 100 ML IVC SCH ×2 (14:50→20:51)
[2020-04-07] MEDS ORDERED: *HR* Promethazine 25 MG/ML VIAL IVP PRN (16:16)
[2020-04-07] MEDS: Insulin DETEMIR 100 UNIT/ML X5UNITS SQ SCH (20:52)
[2020-04-08] MEDS: Insulin LISPRO 300 UNITS/3 ML VIAL SQ SCH ×4 (00:38→18:41)
[2020-04-08] MEDS: Pantoprazole 40 MG in 0.9 % Sodium Chloride Mini Bag 100 ML IVC SCH ×4 (01:28→18:41)
[2020-04-08 07:31] LABS: Basophils % 0.4 %; Eosinophils # 0.1 K/mcL (0.0-0.6); Hematocrit 26.3 % (37.5-50.1); Hemoglobin 8.7 g/dL (12.9-16.9); Immature Granulocytes % 0.3 % (0-4); Lymphocytes # 1.6 K/mcL (0.6-4.6); Lymphocytes % 22.6 %; Mean Corpuscular HGB Conc 33.1 g/dL (31.6-35.5); Mean Corpuscular Hemoglobin 29.5 pg (28.0-33.3); Mean Corpuscular Volume 89.2 fL (83.0-100.0); Monocytes # 0.6 K/mcL (0.0-1.3); Monocytes % 8.8 %; Neutrophils # 4.7 K/mcL (1.6-8.9); Platelet Count 236 K/mcL (140-400); Red Blood Count 2.95 M/mcL (4.19-5.50); Red Cell Distribution Width 14.7 % (11.5-14.5); Segmented Neutrophils % 66.9 %; White Blood Count 7.1 K/mcL (4.3-11.1)
[2020-04-08 07:39] LABS: Calcium 8.8 mg/dL (8.6-10.3); Magnesium 2.2 mg/dL (1.6-2.6); Phosphorous 3.4 mg/dL (2.7-4.5)
[2020-04-08] MEDS ORDERED: 0.9 % Sodium Chloride 250 ML IVC PRN (07:47)
[2020-04-08] MEDS ORDERED: *HR* Heparin 10,000 UNIT/10 ML VIAL IV PRN (07:47)
[2020-04-08] MEDS: allopurinoL 100 MG TABLET PO SCH (09:45)
[2020-04-08] MEDS: Spironolactone 25 MG TABLET PO SCH (09:45)
[2020-04-08] MEDS: Calcium Acetate 667 MG CAPSULE PO SCH ×3 (09:45→18:41)
[2020-04-08] MEDS: Cyanocobalamin (B-12) 1,000 MCG TABLET PO SCH (09:45)
[2020-04-08] MEDS: Isosorbide MONOnitrate (24 HR) 30 MG TAB.ER.24H PO SCH (09:45)
[2020-04-08] MEDS: cloNIDine HCL 0.1 MG TABLET PO SCH (09:45)
[2020-04-08] MEDS: carvediloL 6.25 MG TABLET PO SCH ×2 (09:46→18:41)
[2020-04-08] MEDS: Artificial Tears SOLN 15 ML BOTTLE BOTH EYES SCH ×3 (09:49→18:41)
[2020-04-08 17:12] VITALS: BP 150/88
== END 2020-04-08 19:10 | disposition home health service (06) | DRG 377 ==
LOC: EMEROOARM 15:48 → 3ANU 15:48 → SUATTDRO 04-05 14:47
PROVIDERS: ADMIT Internal Medicine; ATTEND Internal Medicine